=== PATIENT | male | born 1945 | race Caucasian/White ===

== ENCOUNTER 2020-05-24 10:48 | Emergency (ER) | payer MEDICARE ==
[2020-05-24] MEDS ORDERED: SODIUM CHLORIDE 0.9% 500 ML 500 ML IV ONE (11:11)
[2020-05-24] MEDS ORDERED: SODIUM CHLORIDE 0.9% 1,000 ML IV SCH (11:15)
[2020-05-24 11:25] VITALS: RESP 18; TEMP 100.2
[2020-05-24] MEDS ORDERED: ACETAMINOPHEN TAB 325 MG TAB PO STA (11:41)
[2020-05-24 12:12] LABS: Basophils # (A) 0.1 k/uL (0-0.2); Basophils % (A) 0 %; Eosinophils # (A) 0.1 k/uL (0-0.7); Eosinophils % (A) 1 %; HCT 38.1 % (39.0-53.0); HGB 13.1 gm/dL (13.0-17.5); Lymphocytes # (A) 0.7 k/uL (1.0-4.8); Lymphocytes % (A) 5 %; MCH 31.6 pg (25.0-35.0); MCHC 34.4 g/dL (31.0-37.0); MCV 91.6 fL (80.0-100.0); Mean Platelet Volume 8.3; Monocytes # (A) 0.4 k/uL (0-1.0); Monocytes % (A) 3 %; Neutrophils # (A) 11.8 k/uL (1.3-7.7); Neutrophils % (A) 90 %; Platelet Count 219 k/uL (150-450); RBC 4.16 m/uL (4.30-5.90)
[2020-05-24 12:27] LABS: Albumin 4.1 g/dL (3.5-5.0); Calcium 9.4 mg/dL (8.4-10.2); Potassium 5.1 mmol/L (3.5-5.1); Total Bilirubin 0.5 mg/dL (0.2-1.3); Total Protein 6.5 g/dL (6.3-8.2)
[2020-05-24 12:36] LABS: Amorphous Sediment,Urine Rare /hpf; Appearance,Urine Cloudy (Clear); Bacteria,Urine Rare /hpf; Bilirubin,Urine Negative (Negative); Blood,Urine Large (Negative); Color,Urine Yellow; Glucose,Urine (UA) Negative (Negative); Ketones,Urine Negative (Negative); Leukocyte Esterase,Urine Negative (Negative); Mucus,Urine Rare /hpf; Nitrite,Urine Negative (Negative); Protein,Urine Trace (Negative); RBC,Urine >182 /hpf (0-5); Specific Gravity,Urine 1.016 (1.001-1.035); Squamous Epithelial Cell,Urine <1 /hpf (0-4); Urobilinogen,Urine <2.0 mg/dL (<2.0); WBC,Urine 2 /hpf (0-5)
--- NOTE | 2020-05-24 13:21 | ED ---
Abdominal Pain HPI - General Source: patient Mode of arrival: EMS Limitations: physical limitation <Adeline Aguilar - Last Filed: 05/24/20 14:17> <Ethan Fishman - Last Filed: 05/24/20 16:17> - General Chief Complaint: Abdominal Pain Stated Complaint: Abd Pain Time Seen by Provider: 05/24/20 10:59 - History of Present Illness Initial Comments: 74yo male presents today for chief complaint of unable to have bowel movement. She states she has not had a bowel movement since . He states that he has pain in his rectum at time. pt states he also has pain midline in the abdomen and cramping throughout the lower abdomen. pt denies known fevers. denies vomiting, nausea, upper abdominal pain, chest pain or dyspnea. patient denies cough or URI symptoms. pt denies additional complaints. remaining ROS (-)> (Adeline Aguilar) - Related Data Home Medications Medication Instructions Recorded Confirmed Darifenacin Hydrobromide 15 mg PO DAILY 05/24/20 05/24/20 [Darifenacin ER] INSULIN ASPART (NovoLOG) [NovoLOG 5 unit SQ AC-TID 05/24/20 05/24/20 (formulary)] Insulin Detemir [Levemir Flextouch] 30 units SQ DAILY 05/24/20 05/24/20 Insulin Detemir [Levemir Flextouch] 45 units SQ HS 05/24/20 05/24/20 Quinapril HCl [Accupril] 20 mg PO DAILY 05/24/20 05/24/20 Repaglinide [Prandin] 2 mg PO TID 05/24/20 05/24/20 Silodosin [Rapaflo] 8 mg PO DAILY 05/24/20 05/24/20 Simvastatin [Zocor] 20 mg PO HS 05/24/20 05/24/20 glipiZIDE [Glucotrol] 10 mg PO AC-BID 05/24/20 05/24/20 metFORMIN HCL 1,000 mg PO BID 05/24/20 05/24/20 Previous Rx's Medication Instructions Recorded Sulfamethox-Tmp 800-160Mg [Bactrim 1 each PO Q12HR #20 tab 05/24/20 DS 800-160 mg] Allergies Allergy/AdvReac Type Severity Reaction Status Date / Time Penicillins Allergy Swelling Verified 05/24/20 11:50 ciprofloxacin [From Cipro] AdvReac Vomiting Verified 05/24/20 11:50 Review of Systems ROS Other: All systems not noted in ROS Statement are negative. <Adeline Aguilar - Last Filed: 05/24/20 14:17> ROS Other: All systems not noted in ROS Statement are negative. <Ethan Fishman - Last Filed: 05/24/20 16:17> ROS Statement: Those systems with pertinent positive or pertinent negative responses have been documented in the HPI. Past Medical History Additional Past Medical History / Comment(s): pt refusing to answer questions History of Any Multi-Drug Resistant Organisms: None Reported Past Surgical History: Hernia Repair Past Psychological History: No Psychological Hx Reported Smoking Status: Never smoker Past Alcohol Use History: None Reported Past Drug Use History: None Reported <Adeline Aguilar - Last Filed: 05/24/20 14:17> General Exam Limitations: physical limitation <Adeline Aguilar - Last Filed: 05/24/20 14:17> - General Exam Comments Initial Comments: General: The patient is awake and alert, in no distress Eye: +3 mm pupils are equal, round and reactive to light, extra-ocular movements are intact. No nystagmus. There is normal conjunctiva bilaterally. No signs of icterus. Ears, nose, mouth and throat: There are moist mucous membranes and no oral lesions. Neck: The neck is supple, there is no tenderness or JVD. Cardiovascular: There is a regular rate and rhythm. No murmur, rub or gallop is appreciated. Respiratory: Lungs are clear to auscultation, respirations are non-labored, breath sounds are equal. No wheezes, stridor, rales, or rhonchi. Gastrointestinal: Soft, non-distended, superior bladder margin tenderness, lower diffuse abdominal tenderness, abdomen without masses or organomegaly noted. There is no rebound or guarding present. : There is at distal tip of finger length a hard ball--no blood. attempted to remove a mild amount within finger length. Musculoskeletal: Normal ROM, no tenderness. Strength 5/5. Sensation intact. Radial pulses equal bilaterally 2+. Neurological: A&O x 3. CN II-XII intact, There are no obvious motor or sensory deficits. Coordination appears grossly intact. Speech is normal. Skin: Skin is warm and dry and no rashes or lesions are noted. Psychiatric: Cooperative, appropriate mood & affect, normal judgment. (Adeline Aguilar) Course Vital Signs 05/24/20 05/24/20 11:16 14:02 Temperature 100.2 F H Pulse Rate 90 96 Respiratory 18 18 Rate Blood Pressure 133/67 139/65 O2 Sat by Pulse 95 96 Oximetry Medical Decision Making - Lab Data Result diagrams: 05/24/20 11:50 05/24/20 11:50 <Adeline Aguilar - Last Filed: 05/24/20 14:17> - Lab Data Result diagrams: 05/24/20 11:50 05/24/20 11:50 - Radiology Data Radiology results: report reviewed (Computed tomography scan shows large stool impaction. Hsieh catheter.), image reviewed (Chest x-ray shows no acute process) <Ethan Fishman - Last Filed: 05/24/20 16:17> - Medical Decision Making Mild leukocytosis. UA RBC. Pt was retaining urine with overflow incontience, 800cc on catheterization after attempted void. pt CT rectal impaction, attempted disimpaction. CXR (-). Covid (-). Pt enema ordered. signed patient out to Kimmy Fishman pending final disposition and enema completion/patient re-evaluation. (Adeline Aguilar) Patient reevaluated twice by myself, Dr. Fishman. Patient is symptom-free at this time and comfortable with discharge home. Case was earlier discussed with Dr. Culver who is also comfortable with discharge and will follow up with patient. He did recommend providing patient IV fluids and antibiotics for possible urinary tract infection. (Ethan Fishman) - Lab Data Lab Results 05/24/20 05/24/20 05/24/20 Range/Units 11:50 11:50 11:50 WBC 13.0 H (3.8-10.6) k/uL RBC 4.16 L (4.30-5.90) m/uL Hgb 13.1 (13.0-17.5) gm/dL Hct 38.1 L (39.0-53.0) % MCV 91.6 (80.0-100.0) fL MCH 31.6 (25.0-35.0) pg MCHC 34.4 (31.0-37.0) g/dL RDW 13.0 (11.5-15.5) % Plt Count 219 (150-450) k/uL MPV 8.3 Neutrophils % 90 % Lymphocytes % 5 % Monocytes % 3 % Eosinophils % 1 % Basophils % 0 % Neutrophils # 11.8 H (1.3-7.7) k/uL Lymphocytes # 0.7 L (1.0-4.8) k/uL Monocytes # 0.4 (0-1.0) k/uL Eosinophils # 0.1 (0-0.7) k/uL Basophils # 0.1 (0-0.2) k/uL Sodium 134 L (137-145) mmol/L Potassium 5.1 (3.5-5.1) mmol/L Chloride 102 (98-107) mmol/L Carbon Dioxide 21 L (22-30) mmol/L Anion Gap 11 mmol/L BUN 63 H (9-20) mg/dL Creatinine 1.24 (0.66-1.25) mg/dL Est GFR (CKD-EPI)AfAm 65 (>60 ml/min/1.73 sqM) Est GFR (CKD-EPI)NonAf 57 (>60 ml/min/1.73 sqM) Glucose 209 H (74-99) mg/dL Plasma Lactic Acid Isak (0.7-2.0) mmol/L Calcium 9.4 (8.4-10.2) mg/dL Total Bilirubin 0.5 (0.2-1.3) mg/dL AST 20 (17-59) U/L ALT 17 (4-49) U/L Alkaline Phosphatase 74 (38-126) U/L Total Protein 6.5 (6.3-8.2) g/dL Albumin 4.1 (3.5-5.0) g/dL Amylase 51 (30-110) U/L Lipase 42 (23-300) U/L Urine Color Yellow Urine Appearance Cloudy (Clear) Urine pH 5.0 (5.0-8.0) Ur Specific [place] 1.016 (1.001-1.035) Urine Protein Trace H (Negative) Urine Glucose (UA) Negative (Negative) Urine Ketones Negative (Negative) Urine Blood Large H (Negative) Urine Nitrite Negative (Negative) Urine Bilirubin Negative (Negative) Urine Urobilinogen <2.0 (<2.0) mg/dL Ur Leukocyte Esterase Negative (Negative) Urine RBC >182 H (0-5) /hpf Urine WBC 2 (0-5) /hpf Ur Squamous Epith Cells <1 (0-4) /hpf Amorphous Sediment Rare H (None) /hpf Urine Bacteria Rare H (None) /hpf Urine Mucus Rare H (None) /hpf Coronavirus (PCR) (Not Detectd) 05/24/20 05/24/20 Range/Units 11:50 11:50 WBC (3.8-10.6) k/uL RBC (4.30-5.90) m/uL Hgb (13.0-17.5) gm/dL Hct (39.0-53.0) % MCV (80.0-100.0) fL MCH (25.0-35.0) pg MCHC (31.0-37.0) g/dL RDW (11.5-15.5) % Plt Count (150-450) k/uL MPV Neutrophils % % Lymphocytes % % Monocytes % % Eosinophils % % Basophils % % Neutrophils # (1.3-7.7) k/uL Lymphocytes # (1.0-4.8) k/uL Monocytes # (0-1.0) k/uL Eosinophils # (0-0.7) k/uL Basophils # (0-0.2) k/uL Sodium (137-145) mmol/L Potassium (3.5-5.1) mmol/L Chloride (98-107) mmol/L Carbon Dioxide (22-30) mmol/L Anion Gap mmol/L BUN (9-20) mg/dL Creatinine (0.66-1.25) mg/dL Est GFR (CKD-EPI)AfAm (>60 ml/min/1.73 sqM) Est GFR (CKD-EPI)NonAf (>60 ml/min/1.73 sqM) Glucose (74-99) mg/dL Plasma Lactic Acid Isak 1.6 (0.7-2.0) mmol/L Calcium (8.4-10.2) mg/dL Total Bilirubin (0.2-1.3) mg/dL AST (17-59) U/L ALT (4-49) U/L Alkaline Phosphatase (38-126) U/L Total Protein (6.3-8.2) g/dL Albumin (3.5-5.0) g/dL Amylase (30-110) U/L Lipase (23-300) U/L Urine Color Urine Appearance (Clear) Urine pH (5.0-8.0) Ur Specific [place] (1.001-1.035) Urine Protein (Negative) Urine Glucose (UA) (Negative) Urine Ketones (Negative) Urine Blood (Negative) Urine Nitrite (Negative) Urine Bilirubin (Negative) Urine Urobilinogen (<2.0) mg/dL Ur Leukocyte Esterase (Negative) Urine RBC (0-5) /hpf Urine WBC (0-5) /hpf Ur Squamous Epith Cells (0-4) /hpf Amorphous Sediment (None) /hpf Urine Bacteria (None) /hpf Urine Mucus (None) /hpf Coronavirus (PCR) Not Detected (Not Detectd) Disposition <Adeline Aguilar - Last Filed: 05/24/20 14:17> Is patient prescribed a controlled substance at d/c from ED?: No Time of Disposition: 16:15 <Ethan Fishman - Last Filed: 05/24/20 16:17> Clinical Impression: Urinary retention, Dehydration, Constipation Disposition: HOME SELF-CARE Condition: Stable Instructions (If sedation given, give patient instructions): Constipation (ED), High Fiber Diet (ED), Urinary Retention in Men (ED) Additional Instructions: Please do follow-up with your primary care physician in the next couple of days for recheck. You will need repeat blood work done. Have primary care physician review urine culture results. You may also need to see urology, number provided. Please discuss this with Dr. Culver. Antibiotic prescription has been sent to your pharmacy. Prescriptions: Sulfamethox-Tmp 800-160Mg [Bactrim DS 800-160 mg] 1 each PO Q12HR #20 tab Referrals: dE Culver MD [Primary Care Provider] - 1-2 days Farzad Lambert MD [STAFF PHYSICIAN] - 1-2 days
--- NOTE | 2020-05-24 13:42 | XR ---
EXAMINATION TYPE: XR chest 2V DATE OF EXAM: 05/24/2020 COMPARISON: NONE HISTORY: Fever and pain. TECHNIQUE: Frontal and lateral views of the chest are obtained. FINDINGS: There is no focal air space opacity, pleural effusion, or pneumothorax seen. The cardiac silhouette size is within normal limits. The osseous structures are intact. IMPRESSION: No acute cardiopulmonary process.
--- NOTE | 2020-05-24 14:01 | CT ---
EXAMINATION TYPE: CT abdomen pelvis w con DATE OF EXAM: 05/24/2020 COMPARISON: NONE HISTORY: 74-year-old male left lower quadrant abdominal pain, suspected diverticulitis. TECHNIQUE: Contiguous axial scanning of the abdomen and pelvis following administration of 80 ml Isov ue 300 IV contrast. Delayed images through the kidneys and coronal/sagittal reconstructions performe d. CT DLP: 2013.1 mGycm Automated exposure control for dose reduction was used. FINDINGS: Heart normal size without pericardial effusion. Linear atelectasis in the lower lungs without pleural effusion. Slight asymmetric elevation right hemidiaphragm. Liver enlarged at 21.6 cm. No focal lesion seen. Portal venous system is patent. No biliary ductal di latation. Gallbladder, adrenal glands, left kidney, spleen, and pancreas show no gross abnormal mobility. There is a 1.3 cm and 3 mm calcification within the right kidney with mild hydronephrosis. No dilated small bowel, free fluid, or free air. No mesenteric or retroperitoneal lymphadenopathy. M ild to moderate atherosclerotic calcifications infrarenal abdominal aorta. The cecum is high riding. There is moderate scattered stool. Redundant sigmoid colon. Solid stool imp acted within the rectum distending up to 7.8 cm wide. No surrounding inflammation. Bladder is collapsed but with mild wall thickening and some mild surrounding fat stranding. A Vasquez c atheter is in place. Approximately 4 bladder calculi are present in carotid along with the Vasquez ball oon. The calculi range in size from 6 mm up to 1.9 cm. Patulous left inguinal canal. Prostate gland measures 4.7 cm wide. No abnormal fluid collection in the pelvis or pelvic lymphadenop athy. Bones: AC degenerative change left hip with superior joint subluxation secondary to the bony remodeli ng. Mild degenerative change right hip. Right L5 hemisacralization. Dextro convex curvature of the jud mbar spine. Moderate degenerative disc disease L1-L3 levels. Hypertrophic facet arthropathy especiall y towards the right in the lower lumbar spine. Reticulations and soft tissue thickening within the subcutaneous adipose of the anterior midabdomen c ould reflect subcutaneous injections. IMPRESSION: 1. SOLID STOOL IMPACTED IN THE RECTUM DISTENDING IT UP TO 7.8 CM WIDE. CORRELATE FOR FECAL IMPACTION. 2. VASQUEZ CATHETER IN PLACE. THE BLADDER IS COLLAPSED AND SHOWS SOME WALL THICKENING WITH MILD FAT STR ANDING. CORRELATE TO EXCLUDE CYSTITIS. 3. APPROXIMATELY 4 BLADDER CALCULI RANGING IN SIZE FROM 6 MM UP TO 1.9 CM. 4. RIGHT-SIDED NEPHROLITHIASIS MEASURING UP TO 1.3 CM WITH MILD HYDRONEPHROSIS. NO OBSTRUCTING URETER AL CALCULUS IS SEEN. WITH THE BLADDER COLLAPSED, ONE OF THE BLADDER CALCULI MAY BE PRESSING AGAINST T HE URETERAL ORIFICE. 5. NO SPECIFIC FINDINGS OF ACUTE DIVERTICULITIS. 6. END-STAGE LEFT HIP OA WITH BONY REMODELING AND SUPERIOR JOINT SUBLUXATION.
[2020-05-24 17:19] VITALS: BP 142/70; PULSE 90
== END 2020-05-24 18:26 | disposition home or self-care (01) ==
LOC: EC 10:48
DX: K59.00 Constipation, unspecified (principal); E86.0 Dehydration; R33.9 Retention of urine, unspecified; Z20.828 Contact with and (suspected) exposure to other viral communicable diseases; Z88.0 Allergy status to penicillin; Z88.1 Allergy status to other antibiotic agents; D72.829 Elevated white blood cell count, unspecified
CPT/HCPCS: 36415; 80053; 82150; 83605; 83690; 85025; 81001; 87086; 87635; 71046; 74177; 99285; 96360; 96361 ×5; Q9967

== ENCOUNTER 2020-05-27 12:06 | Emergency (ER) | payer MEDICARE ==
[2020-05-27] MEDS ORDERED: LIDOCAINE URO-JET JELLY 2% 5 ML KIT URETHRAL ONE (12:23)
--- NOTE | 2020-05-27 12:36 | ED ---
Male Urogenital HPI - General Chief complaint: Urogenital Stated complaint: Trouble Urination Time Seen by Provider: 05/27/20 12:18 Source: patient, RN notes reviewed Mode of arrival: ambulatory Limitations: no limitations - History of Present Illness Initial comments: 74-year-old male presents emergency Department chief complaint urinary retention. Patient was seen here a few days ago for similar complaints. They thought was related to constipation but states he still having trouble going. Patient called his urologist recommended to go back in for a catheter and follow-up on Sunday. Patient has no other complaints no fevers or chills no abdominal pain - Related Data Home Medications Medication Instructions Recorded Confirmed Darifenacin Hydrobromide 15 mg PO DAILY 05/24/20 05/24/20 [Darifenacin ER] INSULIN ASPART (NovoLOG) [NovoLOG 5 unit SQ AC-TID 05/24/20 05/24/20 (formulary)] Insulin Detemir [Levemir Flextouch] 30 units SQ DAILY 05/24/20 05/24/20 Insulin Detemir [Levemir Flextouch] 45 units SQ HS 05/24/20 05/24/20 Quinapril HCl [Accupril] 20 mg PO DAILY 05/24/20 05/24/20 Repaglinide [Prandin] 2 mg PO TID 05/24/20 05/24/20 Silodosin [Rapaflo] 8 mg PO DAILY 05/24/20 05/24/20 Simvastatin [Zocor] 20 mg PO HS 05/24/20 05/24/20 glipiZIDE [Glucotrol] 10 mg PO AC-BID 05/24/20 05/24/20 metFORMIN HCL 1,000 mg PO BID 05/24/20 05/24/20 Previous Rx's Medication Instructions Recorded Sulfamethox-Tmp 800-160Mg [Bactrim 1 each PO Q12HR #20 tab 05/24/20 DS 800-160 mg] Sulfamethox-Tmp 800-160Mg [Bactrim 1 each PO Q12HR #20 tab 05/24/20 DS 800-160 mg] Allergies Allergy/AdvReac Type Severity Reaction Status Date / Time Penicillins Allergy Swelling Verified 05/27/20 12:16 ciprofloxacin [From Cipro] AdvReac Vomiting Verified 05/27/20 12:16 Review of Systems ROS Statement: Those systems with pertinent positive or pertinent negative responses have been documented in the HPI. ROS Other: All systems not noted in ROS Statement are negative. Past Medical History Past Medical History: Diabetes Mellitus, Hypertension, Prostate Disorder Additional Past Medical History / Comment(s): prostate issues History of Any Multi-Drug Resistant Organisms: None Reported Past Surgical History: Hernia Repair Past Psychological History: No Psychological Hx Reported Smoking Status: Never smoker Past Alcohol Use History: None Reported Past Drug Use History: None Reported General Exam Limitations: no limitations General appearance: alert, in no apparent distress Head exam: Present: atraumatic, normocephalic, normal inspection Respiratory exam: Present: normal lung sounds bilaterally. Absent: respiratory distress, wheezes, rales, rhonchi, stridor Cardiovascular Exam: Present: regular rate, normal rhythm, normal heart sounds. Absent: systolic murmur, diastolic murmur, rubs, gallop, clicks GI/Abdominal exam: Present: soft, normal bowel sounds. Absent: distended, tenderness, guarding, rebound, rigid Course Vital Signs 05/27/20 12:12 Temperature 98.9 F Pulse Rate 98 Respiratory 20 Rate Blood Pressure 153/63 O2 Sat by Pulse 97 Oximetry Medical Decision Making - Medical Decision Making Catheter is placed with no complications. Vitals reviewed unremarkable. Patient did have large amount of urine output. The catheter was left in place and follow-up on Sunday with his urologist Dr. Carson Disposition Clinical Impression: Urinary retention Disposition: HOME SELF-CARE Condition: Stable Instructions (If sedation given, give patient instructions): Urinary Retention in Men (ED) Additional Instructions: Please return to the Emergency Department if symptoms worsen or any other concerns. Is patient prescribed a controlled substance at d/c from ED?: No Referrals: Ed Culver MD [Primary Care Provider] - 1-2 days Griffin Carson MD [STAFF PHYSICIAN] - 1-2 days Time of Disposition: 12:35
[2020-05-27 12:47] VITALS: BP 153/63; PULSE 98; RESP 20; TEMP 98.9
== END 2020-05-27 12:50 | disposition home or self-care (01) ==
LOC: EC 12:06
DX: R33.9 Retention of urine, unspecified (principal); E11.9 Type 2 diabetes mellitus without complications; I10 Essential (primary) hypertension; Z79.4 Long term (current) use of insulin; Z79.899 Other long term (current) drug therapy; Z88.0 Allergy status to penicillin; Z88.1 Allergy status to other antibiotic agents
CPT/HCPCS: 51702; 99283

== ENCOUNTER 2020-06-16 08:38 | Day surgery (SDC) | payer MEDICARE ==
[2020-06-11 16:13] VITALS: BMI 32.8
--- NOTE | 2020-06-15 19:30 | P.GSHP ---
History of Present Illness H&P Date: 06/15/20 74 yo male with urine retention and multiple bladder stones He comes for cystolithotripsy to see if it will liberate him of his urine retention The risks complications and alternatives have been discussed - Constitutional Constitutional: Denies chills, Denies fever - EENT Eyes: denies blurred vision, denies pain Ears, nose, mouth and throat: Denies headache, Denies sore throat - Cardiovascular Cardiovascular: Denies chest pain, Denies shortness of breath - Respiratory Respiratory: Denies cough, Denies 7 - Gastrointestinal Gastrointestinal: Denies abdominal pain, Denies diarrhea, Denies nausea, Denies vomiting - Genitourinary (Female) Genitourinary: Denies dysuria, Denies hematuria - Genitourinary (Male) Genitourinary: Denies dysuria, Denies hematuria - Musculoskeletal Musculoskeletal: Denies myalgias - Integumentary Integumentary: Denies pruritus, Denies rash - Neurological Neurological: Denies numbness, Denies weakness - Psychiatric Psychiatric: Denies anxiety, Denies depression - Endocrine Endocrine: Denies fatigue, Denies weight change Past Medical History Past Medical History: Diabetes Mellitus, Hypertension, Prostate Disorder Additional Past Medical History / Comment(s): BPH, PSORIASIS, BACK , HIP & KNEE PAIN- USES CANE AND WALKER, HX OF EXPOSURE AND TX FOR TB (1968), [facility] SURGERY CHILD- LEFT LEG IS SHORTER, IS SMALLER IN DIAMETER AND HAS LIMITED ROM. , STATES LEFT HIP "NON-EXISTENT"., BLADDER STONES. History of Any Multi-Drug Resistant Organisms: None Reported Past Surgical History: Hernia Repair Additional Past Surgical History / Comment(s): MUSCLES IN LEGS LENGTHENED AT 3 AND 10 YEARS OLD, Past Anesthesia/Blood Transfusion Reactions: No Reported Reaction Past Psychological History: No Psychological Hx Reported Smoking Status: Former smoker Past Alcohol Use History: None Reported Additional Past Alcohol Use History / Comment(s): QUIT SMOKING IN THE , STARTED TEENAGER, SMOKED CIGARETTES AND PIPE. Past Drug Use History: None Reported - Past Family History Mother Family Medical History: No Reported History Medications and Allergies Home Medications Medication Instructions Recorded Confirmed Type Darifenacin Hydrobromide 15 mg PO DAILY 05/24/20 06/11/20 History [Darifenacin ER] INSULIN ASPART (NovoLOG) [NovoLOG 5 unit SQ AC-TID PRN 05/24/20 06/11/20 History (formulary)] Insulin Detemir [Levemir Flextouch] 30 units SQ DAILY 05/24/20 06/11/20 History Insulin Detemir [Levemir Flextouch] 40 units SQ HS 05/24/20 06/11/20 History Quinapril HCl [Accupril] 20 mg PO DAILY 05/24/20 06/11/20 History Repaglinide [Prandin] 2 mg PO TID 05/24/20 06/11/20 History Silodosin [Rapaflo] 8 mg PO DAILY 05/24/20 06/11/20 History Simvastatin [Zocor] 20 mg PO HS 05/24/20 06/11/20 History glipiZIDE [Glucotrol] 10 mg PO AC-BID 05/24/20 06/11/20 History metFORMIN HCL 1,000 mg PO BID 05/24/20 06/11/20 History Allergies Allergy/AdvReac Type Severity Reaction Status Date / Time Penicillins Allergy Swelling Verified 06/11/20 15:30 ciprofloxacin [From Cipro] AdvReac Vomiting Verified 06/11/20 15:30 Surgical - Exam - General well developed, well nourished, no distress - Eyes PERRL - ENT no hearing loss - Neck no masses, trachea midline - Respiratory normal expansion, normal respiratory effort - Cardiovascular Rhythm: regular - Abdomen Abdomen: soft, non tender - Genitourinary indwelling catheter. normal penis with no external lesions, testicles present - Neurologic normal sensation - Psychiatric oriented to time, oriented to person, oriented to place, speech is normal, memory intact Assessment and Plan Assessment: Impression: Urine retention, bladder stones, bphj Plan: Cystolithotripsy[large]
[~2020-06-16 08:38] MED LIST: CLINDAMYCIN 900 MG in DEXTROSE 5% IN WATER 50 ML IVPB PRN; DEXAMETHASONE SOD PHOSPHATE 4 MG/ML 1 ML VIAL IV ONE; GENTAMICIN 130 MG in SODIUM CHLORIDE 0.9% 100 ML IVPB PRN; LACTATED RINGERS 1,000 ML IV SCH; LIDOCAINE 1% (10MG/ML) FOR IV START INTRADERMA PRN; ONDANSETRON 4 MG/2 ML VIAL IVP ONE; Pre Op ABX Message 1 EACH MISC MISCELLANE ONE
[2020-06-16 09:42] LABS: Glucose,Whole Blood 104 mg/dL (75-99)
[2020-06-16] MEDS ORDERED: MIDAZOLAM 2 MG/2 ML VIAL ONE (09:53)
[2020-06-16] MEDS ORDERED: LIDOCAINE 1% INJ 10MG/ML (20 ML MDV) ONE (09:53)
[2020-06-16] MEDS ORDERED: PROPOFOL 10 MG/ML 20 ML VIAL IV ONE (09:53)
[2020-06-16] MEDS ORDERED: fentaNYL (PF) 50 MCG/ML 2 ML AMP ONE (09:53)
[2020-06-16] MEDS ORDERED: PHENYLEPHRINE 10 MG/ML VIAL ONE (09:53)
[2020-06-16] MEDS ORDERED: LACTATED RINGERS 1,000 ML IV ONE (10:56)
--- NOTE | 2020-06-16 11:35 | P.OP ---
Date of Procedure: 06/16/20 Preoperative Diagnosis: Bladder calculi, large Postoperative Diagnosis: Same Procedure(s) Performed: Cystoscopy with cystolithotripsy ( large) Anesthesia: DAVIDA Surgeon: Griffin Carson Estimated Blood Loss (ml): 10 Pathology: other (stone) Condition: stable Disposition: PACU Indications for Procedure: The patient is 74. He is in urine retention. He was found to have bladder stones, large greater than 2.5 cm. He comes for cystoscopy lithotripsy Description of Procedure: The patient is brought to the operating suite. Given a general anesthesia. He's placed lithotomy position with care to his extremities. He is prepped and draped sterilely. A 17-Urdu sheath and Foroblique lenses introduced in urethra. There is marked lateral lobe obstruction with a small intravesical middle lobe. There is a Large 3 cm stone and then 3 other smaller stones. With 1000 laser probe and 50 W of energy the stones are broken into tiny pieces and eventually flushed out of the bladder with the Ellik evacuator. I then reinspected the bladder and there are no remaining stones. I removed the cystoscope and passed an 18-Urdu coud-tip catheter 5 mL balloon into the bladder with clear urine return. It irrigate freely. The patient's awake and returned recovery room good condition. HE tolerated the procedure well be discharged home upon recovery. Blood loss is minimal
[2020-06-16] MEDS ORDERED: HYDROmorphone 1 MG/ML 1 ML SYRINGE IVP ONE ×2 (11:45→11:58)
[2020-06-16 11:49] VITALS: TEMP 97
[2020-06-16] MEDS: fentaNYL (PF) 50 MCG/ML 2 ML AMP IVP ONE ×2 (12:10→12:25)
[2020-06-16 12:57] LABS: Glucose,Whole Blood 120 mg/dL (75-99)
[2020-06-16 13:39] VITALS: RESP 18
[2020-06-16 14:24] VITALS: BP 149/64; PULSE 88
== END 2020-06-16 14:48 | disposition home or self-care (01) ==
LOC: OR 08:38
PROVIDERS: ATTEND Urology
DX: N21.0 Calculus in bladder (principal); N40.1 Benign prostatic hyperplasia with lower urinary tract symptoms; R33.8 Other retention of urine; E11.9 Type 2 diabetes mellitus without complications; I10 Essential (primary) hypertension; L40.9 Psoriasis, unspecified; M21.70 Unequal limb length (acquired), unspecified site; E78.5 Hyperlipidemia, unspecified; Z88.0 Allergy status to penicillin; Z88.1 Allergy status to other antibiotic agents; Z86.11 Personal history of tuberculosis; Z98.890 Other specified postprocedural states; Z87.442 Personal history of urinary calculi; Z87.891 Personal history of nicotine dependence; Z79.899 Other long term (current) drug therapy; Z79.4 Long term (current) use of insulin
CPT/HCPCS: 82365; 52318; J2250; J1100; J2370; J2405; J2001; J3010; J1580; J1170; J2704

== ENCOUNTER 2020-06-21 19:56 | Emergency (ER) | payer MEDICARE ==
[2020-06-21 20:12] VITALS: BP 118/62; PULSE 72; RESP 20; TEMP 98.5
[2020-06-21] MEDS ORDERED: LIDOCAINE URO-JET JELLY 2% 5 ML KIT URETHRAL ONE (20:25)
--- NOTE | 2020-06-21 21:09 | ED ---
General Adult HPI - General Chief complaint: Urogenital Stated complaint: Trouble urinating Time Seen by Provider: 06/21/20 20:16 Source: patient Mode of arrival: wheelchair Limitations: no limitations - History of Present Illness Initial comments: 74-year-old male with a past medical history of bladder stones, prostate disorder presents to the emergency room for inability to urinate. Patient reports he had surgery a week and a half ago for kidney stones through his urethra He states that he had his Hsieh catheter removed today. He has been unable to urinate since this morning. He was told by urology that if he cannot urinate come back to the emergency room. Patient has no other complaints at this time including shortness of breath, chest pain, abdominal pain, nausea or vomiting, headache, or visual changes. - Related Data Home Medications Medication Instructions Recorded Confirmed Darifenacin Hydrobromide 15 mg PO DAILY 05/24/20 06/11/20 [Darifenacin ER] INSULIN ASPART (NovoLOG) [NovoLOG 5 unit SQ AC-TID PRN 05/24/20 06/11/20 (formulary)] Insulin Detemir [Levemir Flextouch] 30 units SQ DAILY 05/24/20 06/11/20 Insulin Detemir [Levemir Flextouch] 40 units SQ HS 05/24/20 06/11/20 Quinapril HCl [Accupril] 20 mg PO DAILY 05/24/20 06/11/20 Repaglinide [Prandin] 2 mg PO TID 05/24/20 06/11/20 Silodosin [Rapaflo] 8 mg PO DAILY 05/24/20 06/11/20 Simvastatin [Zocor] 20 mg PO HS 05/24/20 06/11/20 glipiZIDE [Glucotrol] 10 mg PO AC-BID 05/24/20 06/11/20 metFORMIN HCL 1,000 mg PO BID 05/24/20 06/11/20 Allergies Allergy/AdvReac Type Severity Reaction Status Date / Time Penicillins Allergy Swelling Verified 06/21/20 20:12 ciprofloxacin [From Cipro] AdvReac Vomiting Verified 06/21/20 20:12 Review of Systems ROS Statement: Those systems with pertinent positive or pertinent negative responses have been documented in the HPI. ROS Other: All systems not noted in ROS Statement are negative. Past Medical History Past Medical History: Prostate Disorder Additional Past Medical History / Comment(s): left hip and leg chronic pain, arthritis. History of Any Multi-Drug Resistant Organisms: None Reported Past Surgical History: Hernia Repair Additional Past Surgical History / Comment(s): bladder stones. Past Psychological History: No Psychological Hx Reported Smoking Status: Never smoker Past Alcohol Use History: None Reported Past Drug Use History: None Reported General Exam Limitations: no limitations General appearance: alert Head exam: Present: atraumatic, normal inspection Eye exam: Present: normal appearance, PERRL, EOMI. Absent: scleral icterus ENT exam: Present: normal exam, mucous membranes moist Neck exam: Present: normal inspection, full ROM. Absent: tenderness Respiratory exam: Present: normal lung sounds bilaterally. Absent: respiratory distress, wheezes Cardiovascular Exam: Present: regular rate, normal rhythm, normal heart sounds GI/Abdominal exam: Present: soft, normal bowel sounds. Absent: distended, tenderness Neurological exam: Present: alert Course Vital Signs 06/21/20 20:08 Temperature 98.5 F Pulse Rate 72 Respiratory 20 Rate Blood Pressure 118/62 O2 Sat by Pulse 99 Oximetry Medical Decision Making - Medical Decision Making Patient had cystoscopy lithotripsy performed 06/16/2020 due to bladder stones by Dr. Traore. Patient had his indwelling Hsieh catheter removed today. He was unable to urinate throughout the day and then presented to the emergency room. Nursing staff was able to replace his catheter. He will follow up with urology. He will return for any worsening symptoms Disposition Clinical Impression: Urinary retention Disposition: HOME SELF-CARE Condition: Good Instructions (If sedation given, give patient instructions): Urinary Retention in Men (ED) Additional Instructions: Please follow-up with urology by calling her office tomorrow to tell them you had to have a new catheter put in. Return to the emergency room for any worsening symptoms. Is patient prescribed a controlled substance at d/c from ED?: No Referrals: Ed Culver MD [Primary Care Provider] - 1-2 days Griffin Carson MD [STAFF PHYSICIAN] - 1-2 days Time of Disposition: 21:17
== END 2020-06-21 21:28 | disposition home or self-care (01) ==
LOC: EC 19:56
DX: R33.9 Retention of urine, unspecified (principal); Z79.4 Long term (current) use of insulin; Z79.899 Other long term (current) drug therapy; Z88.0 Allergy status to penicillin; Z88.1 Allergy status to other antibiotic agents
CPT/HCPCS: 51702; 99283

== ENCOUNTER 2020-07-09 21:40 | Observation (INO) | payer MEDICARE ==
[2020-07-09] MEDS ORDERED: ACETAMINOPHEN TAB 325 MG TAB PO STA (21:51)
[2020-07-09] MEDS ORDERED: SODIUM CHLORIDE 0.9% 1,000 ML IV ONE ×2 (21:53→23:14)
--- NOTE | 2020-07-09 21:53 | ED ---
Recheck HPI - General Chief Complaint: Recheck/Abnormal Lab/Rx Stated Complaint: Urogential Time Seen by Provider: 07/09/20 21:46 Source: patient, EMS Mode of arrival: EMS Limitations: no limitations - History of Present Illness Initial Comments: 74-year-old male presenting for chief complaint of possibly clogged Hsieh catheter. Patient states he has an enlarged prostate and has had chronic Hsieh catheters on and off secondary to retention. Patient states he does not like using his large bag and simply uses his leg bag all the time. Patient states that he noticed it was not draining for the past 8 hours was concerned is blocked and does present to the ER he denies known fevers chills generalized. Patient denies any chest pain shortness of breath cough congestion dysuria urgency frequency diarrhea rashes or additional complaints. upon arrival there is obvious thick chunks in the leg catheter bag. - Related Data Home Medications Medication Instructions Recorded Confirmed Darifenacin Hydrobromide 15 mg PO DAILY 05/24/20 07/09/20 [Darifenacin ER] INSULIN ASPART (NovoLOG) [NovoLOG 5 unit SQ AC-TID PRN 05/24/20 07/09/20 (formulary)] Insulin Detemir [Levemir Flextouch] 30 units SQ DAILY 05/24/20 07/09/20 Insulin Detemir [Levemir Flextouch] 40 units SQ HS 05/24/20 07/09/20 Quinapril HCl [Accupril] 20 mg PO DAILY 05/24/20 07/09/20 Repaglinide [Prandin] 2 mg PO TID 05/24/20 07/09/20 Simvastatin [Zocor] 20 mg PO HS 05/24/20 07/09/20 glipiZIDE [Glucotrol] 10 mg PO AC-BID 05/24/20 07/09/20 metFORMIN HCL 1,000 mg PO BID 05/24/20 07/09/20 Acetaminophen Tab [Tylenol] 500 mg PO ONCE PRN 07/09/20 07/09/20 Previous Rx's Medication Instructions Recorded Cephalexin [Keflex] 500 mg PO Q6HR 10 Days #40 cap 07/09/20 Allergies Allergy/AdvReac Type Severity Reaction Status Date / Time Penicillins Allergy Swelling Verified 07/09/20 23:43 ciprofloxacin [From Cipro] AdvReac Vomiting Verified 07/09/20 23:43 Review of Systems ROS Statement: Those systems with pertinent positive or pertinent negative responses have been documented in the HPI. ROS Other: All systems not noted in ROS Statement are negative. Past Medical History Past Medical History: Prostate Disorder Additional Past Medical History / Comment(s): left hip and leg chronic pain, arthritis. History of Any Multi-Drug Resistant Organisms: None Reported Past Surgical History: Hernia Repair Additional Past Surgical History / Comment(s): bladder stones. Past Psychological History: No Psychological Hx Reported Smoking Status: Never smoker Past Alcohol Use History: None Reported Past Drug Use History: None Reported General Exam - General Exam Comments Initial Comments: General: The patient is awake and alert, in no distress Eye: +3 mm pupils are equal, round and reactive to light, extra-ocular movements are intact. No nystagmus. There is normal conjunctiva bilaterally. No signs of icterus. Ears, nose, mouth and throat: There are moist mucous membranes and no oral lesions. Neck: The neck is supple, there is no tenderness or JVD. Cardiovascular: There is a regular rate and rhythm. No murmur, rub or gallop is appreciated. Respiratory: Lungs are clear to auscultation, respirations are non-labored, breath sounds are equal. No wheezes, stridor, rales, or rhonchi. Gastrointestinal: Soft, non-distended, non-tender abdomen without masses or organomegaly noted. There is no rebound or guarding present. Musculoskeletal: Normal ROM, no tenderness. Strength 5/5. Sensation intact. Radial pulses equal bilaterally 2+. Neurological: A&O x 3. CN II-XII intact grossly, There are no obvious motor or sensory deficits. Coordination appears grossly intact. Speech is normal. Skin: Skin is warm and dry and no rashes. On buttock there is areas of excoriation, area of drainage. Psychiatric: Cooperative, appropriate mood & affect, normal judgment. Limitations: no limitations Course Vital Signs 07/09/20 07/10/20 21:41 00:14 Temperature 100.7 F H 97.2 F L Pulse Rate 103 H 84 Respiratory 16 18 Rate Blood Pressure 162/74 112/81 O2 Sat by Pulse 95 97 Oximetry Medical Decision Making - Medical Decision Making febrile 74-year-old male presenting for possible clogged Hsieh. Patient does not use his Hsieh catheter as instructed he simply uses his leg bag all the time which is not allow proper drainage. Patient has signs of infection on urinalysis as well as thick white chunks noted in the urine itself. Patient has leukocytosis lactic acidosis. Heart rate remains at 2 9800 at this point we will initiate patient on broad-spectrum antibiotics hydrated patient obtain blood cultures which are pending, and repeat lactic acid. Patient also mentio hossein his buttock was painful and a wound was noted. patient will be admitted for further monitoring/iv abx. patient agreeable to admission as is attending Dr. Lyn - Lab Data Result diagrams: 07/09/20 22:35 07/09/20 22:35 Lab Results 07/09/20 07/09/20 07/09/20 Range/Units 21:52 22:35 22:35 WBC 12.4 H (3.8-10.6) k/uL RBC 4.24 L (4.30-5.90) m/uL Hgb 13.0 (13.0-17.5) gm/dL Hct 39.4 (39.0-53.0) % MCV 92.8 (80.0-100.0) fL MCH 30.7 (25.0-35.0) pg MCHC 33.0 (31.0-37.0) g/dL RDW 12.8 (11.5-15.5) % Plt Count 277 (150-450) k/uL MPV 8.4 Neutrophils % 88 % Lymphocytes % 7 % Monocytes % 3 % Eosinophils % 1 % Basophils % 0 % Neutrophils # 10.9 H (1.3-7.7) k/uL Lymphocytes # 0.8 L (1.0-4.8) k/uL Monocytes # 0.4 (0-1.0) k/uL Eosinophils # 0.2 (0-0.7) k/uL Basophils # 0.1 (0-0.2) k/uL Sodium (137-145) mmol/L Potassium (3.5-5.1) mmol/L Chloride (98-107) mmol/L Carbon Dioxide (22-30) mmol/L Anion Gap mmol/L BUN (9-20) mg/dL Creatinine (0.66-1.25) mg/dL Est GFR (CKD-EPI)AfAm (>60 ml/min/1.73 sqM) Est GFR (CKD-EPI)NonAf (>60 ml/min/1.73 sqM) Glucose (74-99) mg/dL Lactic Ac Sepsis Rflx Plasma Lactic Acid Isak 2.5 H* (0.7-2.0) mmol/L Calcium (8.4-10.2) mg/dL Total Bilirubin (0.2-1.3) mg/dL AST (17-59) U/L ALT (4-49) U/L Alkaline Phosphatase (38-126) U/L Total Protein (6.3-8.2) g/dL Albumin (3.5-5.0) g/dL Urine Color Yellow Urine Appearance Cloudy (Clear) Urine pH 7.0 (5.0-8.0) Ur Specific [place] 1.018 (1.001-1.035) Urine Protein 1+ H (Negative) Urine Glucose (UA) 3+ H (Negative) Urine Ketones Negative (Negative) Urine Blood Moderate H (Negative) Urine Nitrite Positive (Negative) Urine Bilirubin Negative (Negative) Urine Urobilinogen <2.0 (<2.0) mg/dL Ur Leukocyte Esterase Large H (Negative) Urine RBC >182 H (0-5) /hpf Urine WBC >182 H (0-5) /hpf Urine WBC Clumps Many H (None) /hpf Ur Squamous Epith Cells <1 (0-4) /hpf Urine Bacteria Few H (None) /hpf Coronavirus (PCR) (Not Detectd) 07/09/20 07/09/20 07/10/20 Range/Units 22:35 22:55 00:26 WBC (3.8-10.6) k/uL RBC (4.30-5.90) m/uL Hgb (13.0-17.5) gm/dL Hct (39.0-53.0) % MCV (80.0-100.0) fL MCH (25.0-35.0) pg MCHC (31.0-37.0) g/dL RDW (11.5-15.5) % Plt Count (150-450) k/uL MPV Neutrophils % % Lymphocytes % % Monocytes % % Eosinophils % % Basophils % % Neutrophils # (1.3-7.7) k/uL Lymphocytes # (1.0-4.8) k/uL Monocytes # (0-1.0) k/uL Eosinophils # (0-0.7) k/uL Basophils # (0-0.2) k/uL Sodium 135 L (137-145) mmol/L Potassium 5.4 H (3.5-5.1) mmol/L Chloride 104 (98-107) mmol/L Carbon Dioxide 20 L (22-30) mmol/L Anion Gap 11 mmol/L BUN 51 H (9-20) mg/dL Creatinine 1.15 (0.66-1.25) mg/dL Est GFR (CKD-EPI)AfAm 72 (>60 ml/min/1.73 sqM) Est GFR (CKD-EPI)NonAf 62 (>60 ml/min/1.73 sqM) Glucose 301 H (74-99) mg/dL Lactic Ac Sepsis Rflx Y Plasma Lactic Acid Isak (0.7-2.0) mmol/L Calcium 9.1 (8.4-10.2) mg/dL Total Bilirubin 0.3 (0.2-1.3) mg/dL AST 18 (17-59) U/L ALT 14 (4-49) U/L Alkaline Phosphatase 82 (38-126) U/L Total Protein 6.2 L (6.3-8.2) g/dL Albumin 3.7 (3.5-5.0) g/dL Urine Color Urine Appearance (Clear) Urine pH (5.0-8.0) Ur Specific [place] (1.001-1.035) Urine Protein (Negative) Urine Glucose (UA) (Negative) Urine Ketones (Negative) Urine Blood (Negative) Urine Nitrite (Negative) Urine Bilirubin (Negative) Urine Urobilinogen (<2.0) mg/dL Ur Leukocyte Esterase (Negative) Urine RBC (0-5) /hpf Urine WBC (0-5) /hpf Urine WBC Clumps (None) /hpf Ur Squamous Epith Cells (0-4) /hpf Urine Bacteria (None) /hpf Coronavirus (PCR) Not Detected (Not Detectd) Disposition Clinical Impression: UTI (urinary tract infection), Fever, Lactic acidosis, Bed sore on buttock Disposition: ADMITTED IP TO THIS HOSP Condition: Stable Is patient prescribed a controlled substance at d/c from ED?: No Time of Disposition: 23:16 Decision to Admit Reason: Admit from EC Decision Date: 07/10/20 Decision Time: 00:22
[2020-07-09 22:30] LABS: Basophils # (A) 0.1 k/uL (0-0.2); Basophils % (A) 0 %; Eosinophils # (A) 0.2 k/uL (0-0.7); Eosinophils % (A) 1 %; HCT 39.4 % (39.0-53.0); Lymphocytes # (A) 0.8 k/uL (1.0-4.8); Lymphocytes % (A) 7 %; MCH 30.7 pg (25.0-35.0); MCV 92.8 fL (80.0-100.0); Mean Platelet Volume 8.4; Monocytes # (A) 0.4 k/uL (0-1.0); Monocytes % (A) 3 %; Neutrophils # (A) 10.9 k/uL (1.3-7.7); Neutrophils % (A) 88 %; Platelet Count 277 k/uL (150-450); RBC 4.24 m/uL (4.30-5.90); RDW 12.8 % (11.5-15.5); WBC 12.4 k/uL (3.8-10.6)
[2020-07-09 22:41] LABS: Albumin 3.7 g/dL (3.5-5.0); Calcium 9.1 mg/dL (8.4-10.2); Potassium 5.4 mmol/L (3.5-5.1); Total Bilirubin 0.3 mg/dL (0.2-1.3); Total Protein 6.2 g/dL (6.3-8.2)
[2020-07-09 22:52] LABS: Appearance,Urine Cloudy (Clear); Bacteria,Urine Few /hpf; Bilirubin,Urine Negative (Negative); Blood,Urine Moderate (Negative); Color,Urine Yellow; Glucose,Urine (UA) 3+ (Negative); Ketones,Urine Negative (Negative); Leukocyte Esterase,Urine Large (Negative); Nitrite,Urine Positive (Negative); Protein,Urine 1+ (Negative); RBC,Urine >182 /hpf (0-5); Specific Gravity,Urine 1.018 (1.001-1.035); Squamous Epithelial Cell,Urine <1 /hpf (0-4); Urobilinogen,Urine <2.0 mg/dL (<2.0); WBC,Urine >182 /hpf (0-5)
[2020-07-09] MEDS: SODIUM CHLORIDE 0.9% 1,000 ML IV SCH (23:04)
[2020-07-09] MEDS ORDERED: cefTRIAXone IN SWFI 1,000 MG/10 ML SYRINGE IVP STA (23:51)
[2020-07-09] MEDS ORDERED: CEPHALEXIN 500MG STARTER PACK 4 CAP BTL PO STA (23:58)
[2020-07-10] MEDS ORDERED: NALOXONE 0.4 MG/ML 1 ML VIAL IV PRN (00:29)
[2020-07-10] MEDS ORDERED: ACETAMINOPHEN TAB 325 MG TAB PO PRN (01:10)
[2020-07-10 07:09] LABS: Glucose,Whole Blood 133 mg/dL (75-99)
[2020-07-10] MEDS: INSULIN ASPART (NovoLOG) 100 UNIT/ML VIAL SQ SCH ×4 (08:32→20:47)
[2020-07-10] MEDS ORDERED: ACETAMINOPHEN TAB 500 MG TAB PO PRN (10:24)
[2020-07-10 12:00] VITALS: BMI 49.1
[2020-07-10 12:01] LABS: Glucose,Whole Blood 336 mg/dL (75-99)
[2020-07-10] MEDS: TROSPIUM CHLORIDE 20 MG TABLET PO SCH ×2 (12:13→20:49)
[2020-07-10] MEDS: lisinopriL 20 MG TAB PO SCH (12:13)
[2020-07-10] MEDS: LEVOFLOXACIN 500MG-D5W PMX 500 MG in DEXTROSE/WATER 1 100ML.BAG IVPB SCH (16:46)
[2020-07-10 16:49] LABS: Glucose,Whole Blood 149 mg/dL (75-99)
[2020-07-10] MEDS: glipiZIDE 10 MG TAB PO SCH (16:50)
[2020-07-10] MEDS: metFORMIN 500 MG TAB PO SCH (16:50)
[2020-07-10] MEDS: SODIUM CHLORIDE 0.9% 1,000 ML IV SCH (17:00)
--- NOTE | 2020-07-10 17:23 | P.HPIM ---
History of Present Illness H&P Date: 07/10/20 Chief Complaint: Malfunctioning Hsieh catheter abdominal pain and lower 74 show pleasant, patient of Dr. Phipps and Dr. Carson. He has underlying history off BPH, kidney stones, diabetes mellitus type 2, hyperlipidemia, admitted to the emergency room secondary to malfunctioning of the Hsieh catheter. Apparently patient was diagnosed to have a urinary tract infection, and an obstructive urinary stone, for which Dr. Carson performed on June 17, stone removal, right sided hydronephrosis. On , patient required a Hsieh catheter, as the patient has difficulty in voiding. He is scheduled to have prostate surgery on July 28 2020, till then, patient's required to carry this Hsieh catheter. Patient has noticeable decreased output, from the Hsieh catheter, and increasing abdominal pain with abdominal distention, lower despite admission. He normally carries a leg bag, for which he drains usefully every 4- 8 hours, patient denies any hematuria, no flank pain. He has chills, no fever. He was noted to have fever in the emergency room, Emergency room, patient was febrile, urinalysis shows pyuria, and microscopic hematuria, patient was started on IV antibiotics with pancultures, Hsieh catheter was replaced in the emergency room. He has leukocytosis of 12.4, with neutrophilia, creatinine of 1.15, sodium 131, potassium 3.4, lactic acid is elevated,] covid test is negative Review of Systems Constitutional: Reports as per HPI, Reports chills, Denies anorexia, Denies chronic headaches, Denies chronic pain, Denies daytime sleepiness, Denies fatigue, Denies fever, Denies lethargy, Denies malaise, Denies night sweats, D enies poor appetite, Denies sweats, Denies weakness, Denies weight gain, Denies weight loss Ears, nose, mouth and throat: Reports as per HPI, Denies ant. neck pain, Denies bleeding gums, Denies dental pain, Denies dysphagia, Denies epistaxis, Denies headache, Denies hoarseness, Denies mouth pain, Denies nasal congestion, Denies nasal discharge, Denies neck fullness/pressure, Denies neck lump, Denies nose pain, Denies odynophagia, Denies post-nasal drip, Denies sinus pain, Denies sinus pressure, Denies swelling in mouth, Denies swelling in throat, Denies sore throat, Denies vertigo, Denies voice changes Cardiovascular: Reports as per HPI, Denies chest pain, Denies claudication, Denies decreased exercise tolerance, Denies dyspnea on exertion, Denies edema, Denies high blood pressure, Denies irregular heart beat, Denies leg edema, Denies lightheadedness, Denies orthopnea, Denies palpitations, Denies paroxysmal nocturnal dyspnea, Denies phlebitis, Denies rapid heart beat, Denies shortness of breath, Denies syncope Respiratory: Reports as per HPI, Denies congestion, Denies cough, Denies cough with sputum, Denies dyspnea, Denies excessive sputum, Denies hemoptysis, Denies home oxygen, Denies pain, Denies pain on inspiration, Denies pleurisy, Denies respiratory infections, Denies sleep apnea, Denies snoring, Denies wheezing Gastrointestinal: Reports bloating Genitourinary: Reports as per HPI, Reports kidney stones, Reports urinary retention Musculoskeletal: Reports as per HPI, Denies arm numbness/tingling, Denies atrophy, Denies fractures, Denies frequent falls, Denies gait dysfunction, Denies hot joints, Denies leg numbness/tingling, Denies limitation of motion, Denies loss of height, Denies low back pain, Denies morning stiffness, Denies muscle cramps, Denies muscle weakness, Denies myalgias, Denies neck pain, Denies neck stiffness, Denies prior amputations, Denies redness of joints, Denies shooting arm pain, Denies shooting leg pain Integumentary: Reports as per HPI, Denies brittle nails, Denies change in hair/nails, Denies color changes, Denies darkening of skin, Denies depigmentation, Denies dryness, Denies foot/leg ulcers, Denies growths, Denies hirsutism, Denies lesions, Denies pruritus, Denies rash, Denies sores, Denies striae, Denies unusual bruising, Denies wounds Neurological: Reports as per HPI, Denies aphasia, Denies ataxia, Denies balance difficulties, Denies burning pain, Denies change in mentation, Denies change in smell/taste, Denies change in speech, Denies confusion, Denies convulsions, Denies gait dysfunction, Denies headaches, Denies hearing difficulties, Denies lack of coordination, Denies loss of vision, Denies memory loss, Denies migra gideon, Denies motor disturbance, Denies numbness, Denies paralysis, Denies paresthesias, Denies seizures, Denies sensory deficit, Denies spasticity, Denies syncope, Denies tic, Denies tingling, Denies tremors, Denies vertigo, Denies weakness, Denies visual changes Psychiatric: Reports as per HPI Endocrine: Reports as per HPI Hematologic/Lymphatic: Reports as per HPI Allergic/Immunologic: Reports as per HPI Past Medical History Past Medical History: Prostate Disorder Additional Past Medical History / Comment(s): left hip and leg chronic pain, arthritis. History of Any Multi-Drug Resistant Organisms: None Reported Past Surgical History: Hernia Repair Additional Past Surgical History / Comment(s): bladder stones. Past Psychological History: No Psychological Hx Reported Smoking Status: Never smoker Past Alcohol Use History: None Reported Past Drug Use History: None Reported Medications and Allergies Home Medications Medication Instructions Recorded Confirmed Type Darifenacin Hydrobromide 15 mg PO DAILY 05/24/20 07/09/20 History [Darifenacin ER] INSULIN ASPART (NovoLOG) [NovoLOG 5 unit SQ AC-TID PRN 05/24/20 07/09/20 History (formulary)] Insulin Detemir [Levemir Flextouch] 30 units SQ DAILY 05/24/20 07/09/20 History Insulin Detemir [Levemir Flextouch] 40 units SQ HS 05/24/20 07/09/20 History Quinapril HCl [Accupril] 20 mg PO DAILY 05/24/20 07/09/20 History Repaglinide [Prandin] 2 mg PO TID 05/24/20 07/09/20 History Simvastatin [Zocor] 20 mg PO HS 05/24/20 07/09/20 History glipiZIDE [Glucotrol] 10 mg PO AC-BID 05/24/20 07/09/20 History metFORMIN HCL 1,000 mg PO BID 05/24/20 07/09/20 History Acetaminophen Tab [Tylenol] 500 mg PO ONCE PRN 07/09/20 07/09/20 History Cephalexin [Keflex] 500 mg PO Q6HR 10 Days #40 cap 07/09/20 Rx Allergies Allergy/AdvReac Type Severity Reaction Status Date / Time Penicillins Allergy Swelling Verified 07/09/20 23:43 ciprofloxacin [From Cipro] AdvReac Vomiting Verified 07/09/20 23:43 Physical Exam Vitals: Vital Signs Temp Pulse Pulse Resp BP BP Pulse Ox 07/10/20 08:00 97.9 F 72 18 126/66 98 07/10/20 02:00 97.9 F 77 18 139/69 99 07/10/20 00:14 97.2 F L 84 18 112/81 97 07/09/20 21:41 100.7 F H 103 H 16 162/74 95 Intake and Output 07/09/20 07/10/20 07/10/20 22:59 06:59 14:59 Intake Total 540 Output Total 300 600 Balance -300 -60 Intake: Oral 540 Output: Urine 300 600 Other: Voiding Method Indwelling Catheter Weight 117.934 kg 117.934 kg 117.934 kg - Constitutional General appearance: cooperative, no acute distress - EENT Eyes: EOMI, PERRLA, photophobia, normal appearance ENT: NA/AT, normal oropharynx - Neck Neck: normal ROM - Respiratory Respiratory: bilateral: CTA, negative: diminished, dullness, rales - Cardiovascular Rhythm: regular Heart sounds: normal: S1, S2 Abnormal Heart Sounds: no systolic murmur, no diastolic murmur, no rub, no S3 Gallop, no S4 Gallop, no click, no other - Gastrointestinal General gastrointestinal: normal bowel sounds, soft - Integumentary Integumentary: decreased turgor, normal - Neurologic Neurologic: CNII-XII intact - Musculoskeletal Musculoskeletal: gait normal, strength equal bilaterally - Psychiatric Psychiatric: A&O x's 3, appropriate affect, intact judgment & insight Results CBC & Chem 7: 07/09/20 22:35 07/09/20 22:35 Labs: Abnormal Lab Results - Last 24 Hours (Table) 07/09/20 07/09/20 07/09/20 Range/Units 21:52 22:35 22:35 WBC 12.4 H (3.8-10.6) k/uL RBC 4.24 L (4.30-5.90) m/uL Neutrophils # 10.9 H (1.3-7.7) k/uL Lymphocytes # 0.8 L (1.0-4.8) k/uL Sodium (137-145) mmol/L Potassium (3.5-5.1) mmol/L Carbon Dioxide (22-30) mmol/L BUN (9-20) mg/dL Glucose (74-99) mg/dL POC Glucose (mg/dL) (75-99) mg/dL Plasma Lactic Acid Isak 2.5 H* (0.7-2.0) mmol/L Total Protein (6.3-8.2) g/dL Urine Protein 1+ H (Negative) Urine Glucose (UA) 3+ H (Negative) Urine Blood Moderate H (Negative) Ur Leukocyte Esterase Large H (Negative) Urine RBC >182 H (0-5) /hpf Urine WBC >182 H (0-5) /hpf Urine WBC Clumps Many H (None) /hpf Urine Bacteria Few H (None) /hpf 07/09/20 07/10/20 07/10/20 Range/Units 22:35 07:08 12:00 WBC (3.8-10.6) k/uL RBC (4.30-5.90) m/uL Neutrophils # (1.3-7.7) k/uL Lymphocytes # (1.0-4.8) k/uL Sodium 135 L (137-145) mmol/L Potassium 5.4 H (3.5-5.1) mmol/L Carbon Dioxide 20 L (22-30) mmol/L BUN 51 H (9-20) mg/dL Glucose 301 H (74-99) mg/dL POC Glucose (mg/dL) 133 H 336 H (75-99) mg/dL Plasma Lactic Acid Isak (0.7-2.0) mmol/L Total Protein 6.2 L (6.3-8.2) g/dL Urine Protein (Negative) Urine Glucose (UA) (Negative) Urine Blood (Negative) Ur Leukocyte Esterase (Negative) Urine RBC (0-5) /hpf Urine WBC (0-5) /hpf Urine WBC Clumps (None) /hpf Urine Bacteria (None) /hpf Microbiology - Last 24 Hours (Table) 07/09/20 22:35 Urine Culture - Preliminary Urine,Voided Laboratory Results WBC 12.4 k/uL (3.8-10.6) H 07/09/20 22:35 RBC 4.24 m/uL (4.30-5.90) L 07/09/20 22:35 Hgb 13.0 gm/dL (13.0-17.5) 07/09/20 22:35 Hct 39.4 % (39.0-53.0) 07/09/20 22:35 MCV 92.8 fL (80.0-100.0) 07/09/20 22:35 MCH 30.7 pg (25.0-35.0) 07/09/20 22:35 MCHC 33.0 g/dL (31.0-37.0) 07/09/20 22:35 RDW 12.8 % (11.5-15.5) 07/09/20:35 Plt Count 277 k/uL (150-450) 07/09/20 22:35 MPV 8.4 07/09/20 22:35 Neutrophils % 88 % 07/09/20 22:35 Lymphocytes % 7 % 07/09/20 22:35 Monocytes % 3 % 07/09/20 22:35 Eosinophils % 1 % 07/09/20 22:35 Basophils % 0 % 07/09/20 22:35 Neutrophils # 10.9 k/uL (1.3-7.7) H 07/09/20 22:35 Lymphocytes # 0.8 k/uL (1.0-4.8) L 07/09/20 22:35 Monocytes # 0.4 k/uL (0-1.0) 07/09/20 22:35 Eosinophils # 0.2 k/uL (0-0.7) 07/09/20 22:35 Basophils # 0.1 k/uL (0-0.2) 07/09/20 22:35 Sodium 135 mmol/L (137-145) L 07/09/20 22:35 Potassium 5.4 mmol/L (3.5-5.1) H 07/09/20 22:35 Chloride 104 mmol/L (98-107) 07/09/20 22:35 Carbon Dioxide 20 mmol/L (22-30) L 07/09/20:35 Anion Gap 11 mmol/L 07/09/20 22:35 BUN 51 mg/dL (9-20) H 07/09/20 22:35 Creatinine 1.15 mg/dL (0.66-1.25) 07/09/20 22:35 Est GFR (CKD-EPI)AfAm 72 (>60 ml/min/1.73 sqM) 07/09/20 22:35 Est GFR (CKD-EPI)NonAf 62 (>60 ml/min/1.73 sqM) 07/09/20 22:35 Glucose 301 mg/dL (74-99) H 07/09/20 22:35 POC Glucose (mg/dL) 149 mg/dL (75-99) H 07/10/20 16:48 POC Glu [employer] Litzy Wick 07/10/20 16:48 Lactic Ac Sepsis Rflx Y 07/09/20 22:55 Plasma Lactic Acid Isak 1.7 mmol/L (0.7-2.0) 07/10/20 01:49 Calcium 9.1 mg/dL (8.4-10.2) 07/09/20 22:35 Total Bilirubin 0.3 mg/dL (0.2-1.3) 07/09/20 22:35 AST 18 U/L (17-59) 07/09/20 22:35 ALT 14 U/L (4-49) 07/09/20 22:35 Alkaline Phosphatase 82 U/L (38-126) 07/09/20 22:35 Total Protein 6.2 g/dL (6.3-8.2) L 07/09/20 22:35 Albumin 3.7 g/dL (3.5-5.0) 07/09/20 22:35 Urine Color Yellow 07/09/20 22:35 Urine Appearance Cloudy (Clear) 07/09/20 22:35 Urine pH 7.0 (5.0-8.0) 07/09/20 22:35 Ur Specific [place] 1.018 (1.001-1.035) 07/09/20 22:35 Urine Protein 1+ (Negative) H 07/09/20 22:35 Urine Glucose (UA) 3+ (Negative) H 07/09/20 22:35 Urine Ketones Negative (Negative) 07/09/20 22:35 Urine Blood Moderate (Negative) H 07/09/20 22:35 Urine Nitrite Positive (Negative) 07/09/20 22:35 Urine Bilirubin Negative (Negative) 07/09/20 22:35 Urine Urobilinogen <2.0 mg/dL (<2.0) 07/09/20 22:35 Ur Leukocyte Esterase Large (Negative) H 07/09/20 22:35 Urine RBC >182 /hpf (0-5) H 07/09/20 22:35 Urine WBC >182 /hpf (0-5) H 07/09/20 22:35 Urine WBC Clumps Many /hpf (None) H 07/09/20 22:35 Ur Squamous Epith Cells <1 /hpf (0-4) 07/09/20 22:35 Urine Bacteria Few /hpf (None) H 07/09/20 22:35 Coronavirus (PCR) Not Detected (Not Detectd) 07/10/20 00:26 Thrombosis Risk Factor Assmnt - Choose All That Apply Other Risk Factors: No Other congenital or acquired thrombophilia - If yes, enter type in comment: No Assessment and Plan Plan: 1. Acute obstructive uropathy, secondary to BPH with L UTS, urinary retention. Patient's Hsieh catheter has been replaced emergency room secondary to malfunctioning Hsieh catheter was placed on 06/21/2020 by urology. Incidentally patient also has significant pyuria, IV antibiotics started for suspected urinary tract infection. 2. Acute urinary tract infection with CAUTI, indwelling Hsieh catheter was replaced on 07/17/2020, IV Levaquin, patient cannot tolerate ciprofloxacin only because of GI intolerances. Patient has shortness of breath with penicillin- type antibiotics. Discontinue darifenacin 3. History of kidney stone status post stone removal 06/17/2020 4. BPH with L UTS, scheduled for prostate surgery July 28 Dr. Carson 5. Indwelling Hsieh catheter, for which this would be kept on discharge, ur ology to remove it on the day of surgery July 28 6. Diabetes mellitus, on glipizide 10 mg twice a day, metformin 1000 mg twice a day, Levemir 40 units at bedtime, Levemir 30 units a.m., pre-meal 5 mg before meals 3 times a day when necessary Hypertension, on Accupril 20 mg daily 7. AK I, secondary to ATN, and postobstructive uropathy, dehydration, has hyperkalemia, IV for hydration, 8. CK D stage II GFR currently at 62 Ruled out covid GI prophylaxis and DVT prophylaxis
[2020-07-10] MEDS: REPAGLINIDE 1 MG TAB PO SCH ×2 (17:44→20:49)
[2020-07-10 20:09] LABS: Glucose,Whole Blood 168 mg/dL (75-99)
[2020-07-10] MEDS: FAMOTIDINE 20 MG TAB PO SCH (20:48)
[2020-07-10] MEDS: ENOXAPARIN 40 MG/0.4 ML SYRINGE SQ SCH (20:49)
[2020-07-10] MEDS: ATORVASTATIN 10 MG TAB PO SCH (20:49)
[2020-07-10] MEDS ORDERED: INSULIN DETEMIR (LEVEMIR) 100 UNIT/ML SYR SQ SCH (21:00)
[2020-07-10 23:54] LABS: Glucose,Whole Blood 110 mg/dL (75-99)
[2020-07-11] MEDS: SODIUM CHLORIDE 0.9% 1,000 ML IV SCH ×2 (06:57→14:18)
[2020-07-11] MEDS ORDERED: INSULIN DETEMIR (LEVEMIR) 100 UNIT/ML SYR SQ SCH ×2 (07:00→21:00)
[2020-07-11 07:29] LABS: Glucose,Whole Blood 114 mg/dL (75-99)
[2020-07-11] MEDS: INSULIN ASPART (NovoLOG) 100 UNIT/ML VIAL SQ SCH ×4 (07:34→20:48)
[2020-07-11] MEDS: lisinopriL 20 MG TAB PO SCH (07:46)
[2020-07-11] MEDS: glipiZIDE 10 MG TAB PO SCH (07:46)
[2020-07-11] MEDS: metFORMIN 500 MG TAB PO SCH ×2 (07:46→17:24)
[2020-07-11] MEDS: FAMOTIDINE 20 MG TAB PO SCH ×2 (07:46→20:56)
[2020-07-11] MEDS: TROSPIUM CHLORIDE 20 MG TABLET PO SCH ×2 (07:47→21:05)
[2020-07-11] MEDS: REPAGLINIDE 1 MG TAB PO SCH ×3 (07:47→20:57)
[2020-07-11] MEDS: ENOXAPARIN 40 MG/0.4 ML SYRINGE SQ SCH (07:47)
[2020-07-11 10:01] LABS: Basophils # (A) 0.04 X 10*3/uL (0.00-0.10); Basophils % (A) 0.4 %; Eosinophils # (A) 0.05 X 10*3/uL (0.04-0.35); Eosinophils % (A) 0.5 %; HCT 34.8 % (39.6-50.0); Lymphocytes # (A) 1.02 X 10*3/uL (0.90-5.00); Lymphocytes % (A) 11.1 %; MCH 30.1 pg (27.0-32.0); MCHC 31.6 g/dL (32.0-37.0); MCV 95.1 fL (80.0-97.0); Mean Platelet Volume 11.3 fL (9.5-12.2); Monocytes # (A) 0.47 X 10*3/uL (0.20-1.00); Monocytes % (A) 5.1 %; Neutrophils # (A) 7.59 X 10*3/uL (1.80-7.70); Neutrophils % (A) 82.7 %; Platelet Count 252 X 10*3/uL (140-440); RBC 3.66 X 10*6/uL (4.40-5.60); RDW 12.6 % (11.5-14.5); WBC 9.19 X 10*3/uL (4.50-10.00)
[2020-07-11 10:11] LABS: African American GFR (CKD) 75.2 (60.0-200.0); Albumin 3.6 g/dL (3.80-4.90); Albumin/Globulin Ratio 2.77 (1.60-3.17); BUN/Creat Ratio 26.36 Ratio (12.00-20.00); Calcium 8.3 mg/dL (8.7-10.3); Globulin 1.3 g/dL (1.6-3.3); Non-African American GFR(CKD) 64.9 (60.0-200.0); Potassium 4.3 mmol/L (3.5-5.5); Total Bilirubin 0.2 mg/dL (0.2-1.2); Total Protein 4.9 g/dL (6.2-8.2)
[2020-07-11 11:40] LABS: Glucose,Whole Blood 50 mg/dL (75-99)
[2020-07-11 11:58] LABS: Glucose,Whole Blood 47 mg/dL (75-99)
[2020-07-11 12:21] LABS: Glucose,Whole Blood 53 mg/dL (75-99)
[2020-07-11 14:45] LABS: Glucose,Whole Blood 99 mg/dL (75-99)
--- NOTE | 2020-07-11 14:57 | P.PN ---
Subjective Progress Note Date: 07/11/20 74 show pleasant, patient of Dr. Phipps and Dr. Carson. He has underlying history off BPH, kidney stones, diabetes mellitus type 2, hyperlipidemia, admitted to the emergency room secondary to malfunctioning of the Hsieh catheter. Apparently patient was diagnosed to have a urinary tract infection, and an obstructive urinary stone, for which Dr. Carson performed on June 17, stone removal, right sided hydronephrosis. On , patient required a Hsieh catheter, as the patient has difficulty in voiding. He is scheduled to have prostate surgery on July 28 2020, till then, patient's required to carry this Hsieh catheter. Patient has noticeable decreased output, from the Hsieh catheter, and increasing abdominal pain with abdominal distention, lower despite admission. He normally carries a leg bag, for which he drains usefully every 4- 8 hours, patient denies any hematuria, no flank pain. He has chills, no fever. He was noted to have fever in the emergency room, Emergency room, patient was febrile, urinalysis shows pyuria, and microscopic hematuria, patient was started on IV antibiotics with pancultures, Hsieh catheter was replaced in the emergency room. He has leukocytosis of 12.4, with neutrophilia, creatinine of 1.15, sodium 131, potassium 3.4, lactic acid is elevated,] covid test is negative 07/11, cultures are growing gram-negative bacilli, in the urine. Patient has improvement of urinary urgency, and bladder spasms, she still has a temperature today, no chills, no nausea no vomiting, no hematuria. Hsieh catheter is draining clear urine with some mucus in it, and is flowing freely. Blood sugars are in the 40s, his A1c was 6.1, we have decreased the glipizide to 7.5 mg twice a day from a 10 mg twice a day dose, decrease Levemir from 30 in the morning to 24, decrease Levemir from 40, in the evening to 30 units. Patient was kept on Prandin, creatinine today is 1.1, no diarrhea no chest pain, coronavirus test is negative Review of Systems Constitutional: Reports as per HPI, Reports chills, Denies anorexia, Denies chronic headaches, Denies chronic pain, Denies daytime sleepiness, Denies fatigue, Denies fever, Denies lethargy, Denies malaise, Denies night sweats, Denies poor appetite, Denies sweats, Denies weakness, Denies weight gain, Denies weight loss Ears, nose, mouth and throat: Reports as per HPI, Denies ant. neck pain, Denies bleeding gums, Denies dental pain, Denies dysphagia, Denies epistaxis, Denies headache, Denies hoarseness, Denies mouth pain, Denies nasal congestion, Denies nasal discharge, Denies neck fullness/pressure, Denies neck lump, Denies nose pain, Denies odynophagia, Denies post-nasal drip, Denies sinus pain, Denies sinus pressure, Denies swelling in mouth, Denies swelling in throat, Denies sore throat, Denies vertigo, Denies voice changes Cardiovascular: Reports as per HPI, Denies chest pain, Denies claudication, Denies decreased exercise tolerance, Denies dyspnea on exertion, Denies edema, Denies high blood pressure, Denies irregular heart beat, Denies leg edema, Denies lightheadedness, Denies orthopnea, Denies palpitations, Denies paroxysmal nocturnal dyspnea, Denies phlebitis, Denies rapid heart beat, Denies shortness of breath, Denies syncope Respiratory: Reports as per HPI, Denies congestion, Denies cough, Denies cough with sputum, Denies dyspnea, Denies excessive sputum, Denies hemoptysis, Denies home oxygen, Denies pain, Denies pain on inspiration, Denies pleurisy, Denies respiratory infections, Denies sleep apnea, Denies snoring, Denies wheezing Gastrointestinal: Reports bloating Genitourinary: Reports as per HPI, Reports kidney stones, Reports urinary retention Musculoskeletal: Reports as per HPI, Denies arm numbness/tingling, Denies atrophy, Denies fractures, Denies frequent falls, Denies gait dysfunction, Denies hot joints, Denies leg numbness/tingling, Denies limitation of motion, Denies loss of height, Denies low back pain, Denies morning stiffness, Denies muscle cramps, Denies muscle weakness, Denies myalgias, Denies neck pain, Denies neck stiffness, Denies prior amputations, Denies redness of joints, Denies shooting arm pain, Denies shooting leg pain Integumentary: Reports as per HPI, Denies brittle nails, Denies change in hair/nails, Denies color changes, Denies darkening of skin, Denies depigmentation, Denies dryness, Denies foot/leg ulcers, Denies growths, Denies hirsutism, Denies lesions, Denies pruritus, Denies rash, Denies sores, Denies striae, Denies unusual bruising, Denies wounds Neurological: Reports as per HPI, Denies aphasia, Denies ataxia, Denies balance difficulties, Denies burning pain, Denies change in mentation, Denies change in smell/taste, Denies change in speech, Denies confusion, Denies convulsions, Denies gait dysfunction, Denies headaches, Denies hearing difficulties, Denies lack of coordination, Denies loss of vision, Denies memory loss, Denies migraines, Denies motor disturbance, Denies numbness, Denies paralysis, Denies paresthesias, Denies seizures, Denies sensory deficit, Denies spasticity, Denies syncope, Denies tic, Denies tingling, Denies tremors, Denies vertigo, Denies weakness, Denies visual changes Psychiatric: Reports as per HPI Endocrine: Reports as per HPI Hematologic/Lymphatic: Reports as per HPI Allergic/Immunologic: Reports as per HPI Objective - Vital Signs Vital signs: Vital Signs Temp 97.9 F 07/11/20 08:00 Pulse 77 07/11/20 08:00 Resp 16 07/11/20 08:00 BP 133/62 07/11/20 08:00 Pulse Ox 95 07/11/20 08:00 Intake & Output 07/10/20 07/11/20 07/11/20 18:59 06:59 18:59 Intake Total 1080 Output Total 2100 1150 Balance -1020 -1150 Weight 117.934 kg Intake: Oral 1080 Output: Urine 2100 1150 Other: Voiding Method Indwelling Catheter Indwelling Catheter # Bowel Movements 0 # Emeses 1 - Constitutional General appearance: Present: cooperative, no acute distress - EENT Eyes: Present: EOMI, PERRLA, dentition normal ENT: Present: NA/AT, normal oropharynx - Neck Neck: Present: normal ROM - Respiratory Respiratory: bilateral: CTA, negative: diminished, dullness, rales - Cardiovascular Rhythm: regular Heart sounds: normal: S1, S2 Abnormal Heart Sounds: Absent: systolic murmur, diastolic murmur, rub, S3 Gallop, S4 Gallop, click, other - Gastrointestinal General gastrointestinal: Present: normal bowel sounds, soft - Labs CBC & Chem 7: 07/11/20 06:12 07/11/20 06:12 Labs: Abnormal Lab Results - Last 24 Hours (Table) 07/10/20 07/10/20 07/10/20 Range/Units 16:48 20:07 23:53 RBC (4.40-5.60) X 10*6/uL Hgb (13.0-17.0) g/dL Hct (39.6-50.0) % MCHC (32.0-37.0) g/dL Chloride (96-109) mmol/L BUN (9.0-27.0) mg/dL BUN/Creatinine Ratio (12.00-20.00) Ratio Glucose (70-110) mg/dL POC Glucose (mg/dL) 149 H 168 H 110 H (75-99) mg/dL Calcium (8.7-10.3) mg/dL AST (14-35) U/L Total Protein (6.2-8.2) g/dL Albumin (3.80-4.90) g/dL Globulin (1.6-3.3) g/dL 07/11/20 07/11/20 07/11/20 Range/Units 06:12 06:12 07:27 RBC 3.66 L (4.40-5.60) X 10*6/uL Hgb 11.0 L (13.0-17.0) g/dL Hct 34.8 L (39.6-50.0) % MCHC 31.6 L (32.0-37.0) g/dL Chloride 110 H (96-109) mmol/L BUN 29.0 H (9.0-27.0) mg/dL BUN/Creatinine Ratio 26.36 H (12.00-20.00) Ratio Glucose 125 H (70-110) mg/dL POC Glucose (mg/dL) 114 H (75-99) mg/dL Calcium 8.3 L (8.7-10.3) mg/dL AST 13 L (14-35) U/L Total Protein 4.9 L (6.2-8.2) g/dL Albumin 3.60 L (3.80-4.90) g/dL Globulin 1.3 L (1.6-3.3) g/dL 07/11/20 07/11/20 07/11/20 Range/Units 11:38 11:56 12:19 RBC (4.40-5.60) X 10*6/uL Hgb (13.0-17.0) g/dL Hct (39.6-50.0) % MCHC (32.0-37.0) g/dL Chloride (96-109) mmol/L BUN (9.0-27.0) mg/dL BUN/Creatinine Ratio (12.00-20.00) Ratio Glucose (70-110) mg/dL POC Glucose (mg/dL) 50 L 47 L 53 L (75-99) mg/dL Calcium (8.7-10.3) mg/dL AST (14-35) U/L Total Protein (6.2-8.2) g/dL Albumin (3.80-4.90) g/dL Globulin (1.6-3.3) g/dL Microbiology - Last 24 Hours (Table) 07/09/20 22:35 Urine Culture - Preliminary Urine,Voided Gram Neg Bacilli 07/09/20 21:52 Blood Culture - Preliminary Blood No Growth after 24 hours Assessment and Plan Plan: 1. Acute obstructive uropathy, secondary to BPH with L UTS, urinary retention. Patient's Hsieh catheter has been replaced emergency room secondary to mal functioning Hsieh catheter was placed on 06/21/2020 by urology. Incidentally patient also has significant pyuria, IV antibiotics started for suspected urinary tract infection. 2. Acute urinary tract infection with CAUTI, indwelling Hsieh catheter was replaced on 07/17/2020, IV Levaquin, patient cannot tolerate ciprofloxacin only because of GI intolerances. Patient has shortness of breath with penicillin- type antibiotics. Discontinue darifenacin for bladder spasms,/ overactive bladder, was tolerating IV Levaquin without any reaction. Await cultures 3. History of kidney stone status post stone removal 06/17/2020 4. BPH with L UTS, scheduled for prostate surgery July 28 Dr. Carson 5. Indwelling Hsieh catheter, for which this would be kept on discharge, urology to remove it on the day of surgery July 28 6. Diabetes mellitus, on glipizide 10 mg twice a day, metformin 1000 mg twice a day, Levemir 40 units at bedtime, Levemir 30 units a.m., pre-meal 5 mg before meals 3 times a day when necessary Hypertension, on Accupril 20 mg daily 7. AK I, secondary to ATN, and postobstructive uropathy, dehydration, has hyperkalemia, IV for hydration, 8. CK D stage II GFR currently at 62 Ruled out covid GI prophylaxis and DVT prophylaxis Discharge to home in the next 24-48 hrs. pending urine culture, Hsieh catheter would be kept on discharge
[2020-07-11] MEDS: LEVOFLOXACIN 500MG-D5W PMX 500 MG in DEXTROSE/WATER 1 100ML.BAG IVPB SCH (16:28)
[2020-07-11 16:50] LABS: Glucose,Whole Blood 90 mg/dL (75-99)
[2020-07-11] MEDS: glipiZIDE 5 MG TAB PO SCH (17:24)
[2020-07-11 20:40] LABS: Glucose,Whole Blood 143 mg/dL (75-99)
[2020-07-11] MEDS: ATORVASTATIN 10 MG TAB PO SCH (21:05)
[2020-07-12] MEDS: SODIUM CHLORIDE 0.9% 1,000 ML IV SCH (05:48)
[2020-07-12 06:59] LABS: Glucose,Whole Blood 63 mg/dL (75-99)
[2020-07-12] MEDS ORDERED: INSULIN DETEMIR (LEVEMIR) 100 UNIT/ML SYR SQ SCH ×2 (07:00→21:00)
[2020-07-12 07:23] LABS: Glucose,Whole Blood 77 mg/dL (75-99)
[2020-07-12] MEDS: metFORMIN 500 MG TAB PO SCH ×2 (09:06→17:38)
[2020-07-12] MEDS: FAMOTIDINE 20 MG TAB PO SCH (09:06)
[2020-07-12] MEDS: TROSPIUM CHLORIDE 20 MG TABLET PO SCH ×2 (09:07→20:30)
[2020-07-12] MEDS: INSULIN ASPART (NovoLOG) 100 UNIT/ML VIAL SQ SCH ×4 (09:07→20:31)
[2020-07-12] MEDS: ENOXAPARIN 40 MG/0.4 ML SYRINGE SQ SCH (09:07)
[2020-07-12] MEDS: lisinopriL 20 MG TAB PO SCH (09:07)
[2020-07-12 09:24] LABS: Glucose,Whole Blood 130 mg/dL (75-99)
[2020-07-12] MEDS: glipiZIDE 5 MG TAB PO SCH (10:22)
[2020-07-12] MEDS: REPAGLINIDE 1 MG TAB PO SCH (10:22)
[2020-07-12 11:12] LABS: Basophils # (A) 0.07 X 10*3/uL (0.00-0.10); Eosinophils # (A) 0.34 X 10*3/uL (0.04-0.35); Eosinophils % (A) 4.8 %; HCT 36.6 % (39.6-50.0); HGB 11.3 g/dL (13.0-17.0); Lymphocytes # (A) 1.16 X 10*3/uL (0.90-5.00); Lymphocytes % (A) 16.3 %; MCHC 30.9 g/dL (32.0-37.0); MCV 97.1 fL (80.0-97.0); Mean Platelet Volume 11.3 fL (9.5-12.2); Monocytes % (A) 5.6 %; Neutrophils # (A) 5.12 X 10*3/uL (1.80-7.70); Neutrophils % (A) 71.9 %; Platelet Count 227 X 10*3/uL (140-440); RBC 3.77 X 10*6/uL (4.40-5.60); RDW 12.9 % (11.5-14.5); WBC 7.12 X 10*3/uL (4.50-10.00)
[2020-07-12 11:26] LABS: African American GFR (CKD) 75.2 (60.0-200.0); Albumin 3.7 g/dL (3.80-4.90); Albumin/Globulin Ratio 2.31 (1.60-3.17); BUN/Creat Ratio 25.45 Ratio (12.00-20.00); Globulin 1.6 g/dL (1.6-3.3); Non-African American GFR(CKD) 64.9 (60.0-200.0); Potassium 4.5 mmol/L (3.5-5.5); Total Bilirubin 0.2 mg/dL (0.3-1.2); Total Protein 5.3 g/dL (6.2-8.2)
[2020-07-12 11:28] LABS: Glucose,Whole Blood 133 mg/dL (75-99)
[2020-07-12] MEDS: LEVOFLOXACIN 250 MG TAB PO SCH (15:33)
[2020-07-12 16:33] LABS: Glucose,Whole Blood 85 mg/dL (75-99)
[2020-07-12 20:18] LABS: Glucose,Whole Blood 75 mg/dL (75-99)
[2020-07-12] MEDS: ATORVASTATIN 10 MG TAB PO SCH (20:30)
[2020-07-12 20:42] VITALS: RESP 20
[2020-07-12 20:55] LABS: Glucose,Whole Blood 120 mg/dL (75-99)
[2020-07-13] MEDS ORDERED: INSULIN DETEMIR (LEVEMIR) 100 UNIT/ML SYR SQ SCH (07:00)
[2020-07-13 07:39] LABS: Glucose,Whole Blood 139 mg/dL (75-99)
[2020-07-13] MEDS: INSULIN ASPART (NovoLOG) 100 UNIT/ML VIAL SQ SCH ×2 (07:57→12:17)
[2020-07-13] MEDS: TROSPIUM CHLORIDE 20 MG TABLET PO SCH (08:02)
[2020-07-13] MEDS: lisinopriL 20 MG TAB PO SCH (08:03)
[2020-07-13] MEDS: ENOXAPARIN 40 MG/0.4 ML SYRINGE SQ SCH (08:03)
--- NOTE | 2020-07-13 08:11 | P.PN ---
Subjective Progress Note Date: 07/12/20 HISTORY OF PRESENT ILLNESS This is a 74-year-old male patient of Dr. Culver and Dr. Carson. He has underlying history off BPH, kidney stones, diabetes mellitus type 2, hyperlipidemia, admitted to the emergency room secondary to malfunctioning of the Hsieh catheter. Apparently patient was diagnosed to have a urinary tract infection, and an obstructive urinary stone, for which Dr. Carson performed on June 17, stone removal, right sided hydronephrosis. On , patient required a Hsieh catheter, as the patient has difficulty in voiding. He is scheduled to have prostate surgery on July 28 2020, till then, patient's required to carry this Hsieh catheter. Patient has noticeable decreased output, from the Hsieh catheter, and increasing abdominal pain with abdominal distention, lower despite admission. He normally carries a leg bag, for which he drains usefully every 4- 8 hours, patient denies any hematuria, no flank pain. He has chills, no fever. He was noted to have fever in the emergency room, Emergency room, patient was febrile, urinalysis shows pyuria, and microscopic hematuria, patient was started on IV antibiotics with pancultures, Hsieh catheter was replaced in the emergency room. He has leukocytosis of 12.4, with neutrophilia, creatinine of 1.15, sodium 131, potassium 3.4, lactic acid is elevated,] covid test is negative 07/11, cultures are growing gram-negative bacilli, in the urine. Patient has improvement of urinary urgency, and bladder spasms, she still has a temperature today, no chills, no nausea no vomiting, no hematuria. Hsieh catheter is draining clear urine with some mucus in it, and is flowing freely. Blood sugars are in the 40s, his A1c was 6.1, we have decreased the glipizide to 7.5 mg twice a day from a 10 mg twice a day dose, decrease Levemir from 30 in the morning to 24, decrease Levemir from 40, in the evening to 30 units. Patient was kept on Prandin, creatinine today is 1.1, no diarrhea no chest pain, coronavirus test is negative 07/12: Urine culture is positive for gram-negative bacilli. He has been afebrile, heart rate 77, blood pressure 146/56. Pulse ox 98% on room air. Blood sugar this morning was 63 with repeated 77. Yesterday blood sugars were low at lunchtime. Glipizide and Prandin discontinued. Lantus decreased to 20 units bid. Anticipate discharge home tomorrow. REVIEW OF SYSTEMS Constitutional: No fever, no chills, no night sweats. No weight change. No weakness, fatigue or lethargy. No daytime sleepiness. EENT: No headache. No blurred vision or double vision, no loss of vision. No loss of Hearing, no ringing in the ears, no dizziness. No nasal drainage or c ongestion. No epistaxis. No sore throat. Lungs: No shortness of breath, cough, no sputum production. No wheezing. Cardiovascular: No chest pain, no lower extremity edema. No palpitations. No paroxysmal nocturnal dyspnea. No orthopnea. No lightheadedness or dizziness. No syncopal episodes. Abdominal: No abdominal pain. No nausea, vomiting. No diarrhea. No constipation. No bloody or tarry stools.. No loss of appetite. Genitourinary: No dysuria, increased frequency, urgency. No urinary retention. Musculoskeletal: No myalgias. No muscle weakness, no gait dysfunction, no frequent falls. No back pain. No neck pain. Integumentary: No wounds, no lesions. No rash or pruritus. No unusual bruising. No change in hair or nails. Neurologic: No aphasia. No facial droop. No change in mentation. No head injury. No headache. No paralysis. No paresthesia. Psychiatric: No depression. No anxiety. Endocrine: Reports abnormal blood sugars. PHYSICAL EXAMINATION Gen: This is a 74-year-old male patient. He is resting bed and appears to be comfortable. HEENT: Head is atraumatic, normocephalic. Pupils equal, round. Sclerae is anicteric. NECK: Supple. No JVD. No lymphadenopathy. No thyromegaly. LUNGS: Clear to auscultation. No wheezes or rhonchi. No intercostal retractions. HEART: Regular rate and rhythm. No murmur. ABDOMEN: Soft. Bowel sounds are present. No masses. No tenderness. EXTREMITIES: No pedal edema. No calf tenderness. NEUROLOGICAL: Patient is awake, alert and oriented x3. Cranial nerves 2 through 12 are grossly intact. ASSESSMENT AND PLAN 1. Acute obstructive uropathy, secondary to BPH with LUTS, urinary retention. Patient's Hsieh catheter has been replaced emergency room secondary to malfunctioning Hsieh catheter was placed on 06/21/2020 by urology. Incidentally patient also has significant pyuria, IV antibiotics started for suspected urinary tract infection. 2. Acute catheter associated urinary tract infection, indwelling Hsieh catheter was replaced. Continue IV Levaquin, patient cannot tolerate ciprofloxacin only because of GI intolerances. Patient has shortness of breath with penicillin- type antibiotics. Discontinue darifenacin for bladder spasms,/ overactive bladder. Await cultures 3. History of kidney stone status post stone removal 06/17/2020 4. BPH with L UTS, scheduled for prostate surgery July 28 Dr. Carson 5. Indwelling Hsieh catheter, for which this would be kept on discharge, urology to remove it on the day of surgery July 28 6. Diabetes mellitus type 2, on glipizide 7.5 mg twice a day, metformin 1000 mg twice a day, Levemir increased to 30 units at bedtime, Levemir decreased to 24 units a.m., pre-meal 5 mg before meals discontinued. 7. Hypertension, on Accupril 20 mg daily 8. Chronic kidney disease stage II, patient is at baseline BUN and creatinine. GI prophylaxis and DVT prophylaxis DISCHARGE PLAN Home on Sunday. Impression and plan of care have been directed as dictated by the signing physician. Abbi Forrest nurse practitioner acting as scribe for signing physician. Objective - Vital Signs Vital signs: Vital Signs Temp 98.3 F 07/12/20 08:00 Pulse 77 07/12/20 08:00 Resp 19 07/12/20 08:00 BP 146/56 07/12/20 08:00 Pulse Ox 98 07/12/20 08:00 Intake & Output 07/11/20 07/12/20 07/12/20 18:59 06:59 18:59 Output Total 475 550 Balance -475 -550 Output: Urine 475 550 Other: Voiding Method Indwelling Catheter Indwelling Catheter Indwelling Catheter - Labs CBC & Chem 7: 07/12/20 07:17 07/12/20 07:17 Labs: Abnormal Lab Results - Last 24 Hours (Table) 07/11/20 07/11/20 07/11/20 Range/Units 06:12 06:12 11:38 RBC 3.66 L (4.40-5.60) X 10*6/uL Hgb 11.0 L (13.0-17.0) g/dL Hct 34.8 L (39.6-50.0) % MCHC 31.6 L (32.0-37.0) g/dL Chloride 110 H (96-109) mmol/L BUN 29.0 H (9.0-27.0) mg/dL BUN/Creatinine Ratio 26.36 H (12.00-20.00) Ratio Glucose 125 H (70-110) mg/dL POC Glucose (mg/dL) 50 L (75-99) mg/dL Calcium 8.3 L (8.7-10.3) mg/dL AST 13 L (14-35) U/L Total Protein 4.9 L (6.2-8.2) g/dL Albumin 3.60 L (3.80-4.90) g/dL Globulin 1.3 L (1.6-3.3) g/dL 07/11/20 07/11/20 07/11/20 Range/Units 11:56 12:19 20:38 RBC (4.40-5.60) X 10*6/uL Hgb (13.0-17.0) g/dL Hct (39.6-50.0) % MCHC (32.0-37.0) g/dL Chloride (96-109) mmol/L BUN (9.0-27.0) mg/dL BUN/Creatinine Ratio (12.00-20.00) Ratio Glucose (70-110) mg/dL POC Glucose (mg/dL) 47 L 53 L 143 H (75-99) mg/dL Calcium (8.7-10.3) mg/dL AST (14-35) U/L Total Protein (6.2-8.2) g/dL Albumin (3.80-4.90) g/dL Globulin (1.6-3.3) g/dL 07/12/20 Range/Units 06:58 RBC (4.40-5.60) X 10*6/uL Hgb (13.0-17.0) g/dL Hct (39.6-50.0) % MCHC (32.0-37.0) g/dL Chloride (96-109) mmol/L BUN (9.0-27.0) mg/dL BUN/Creatinine Ratio (12.00-20.00) Ratio Glucose (70-110) mg/dL POC Glucose (mg/dL) 63 L (75-99) mg/dL Calcium (8.7-10.3) mg/dL AST (14-35) U/L Total Protein (6.2-8.2) g/dL Albumin (3.80-4.90) g/dL Globulin (1.6-3.3) g/dL Microbiology - Last 24 Hours (Table) 07/09/20 21:52 Blood Culture - Preliminary Blood No Growth after 48 hours 07/09/20 22:35 Urine Culture - Preliminary Urine,Voided Gram Neg Bacilli
[2020-07-13] MEDS: metFORMIN 500 MG TAB PO SCH (08:49)
[2020-07-13] MEDS ORDERED: FAMOTIDINE 20 MG TAB PO SCH (09:00)
[2020-07-13 11:36] LABS: Glucose,Whole Blood 157 mg/dL (75-99)
[2020-07-13 11:57] LABS: Basophils # (A) 0.06 X 10*3/uL (0.00-0.10); Basophils % (A) 0.9 %; Eosinophils # (A) 0.42 X 10*3/uL (0.04-0.35); Eosinophils % (A) 6.1 %; HCT 34.5 % (39.6-50.0); HGB 10.8 g/dL (13.0-17.0); Lymphocytes # (A) 0.99 X 10*3/uL (0.90-5.00); Lymphocytes % (A) 14.5 %; MCH 30.2 pg (27.0-32.0); MCHC 31.3 g/dL (32.0-37.0); MCV 96.4 fL (80.0-97.0); Mean Platelet Volume 11.3 fL (9.5-12.2); Monocytes # (A) 0.41 X 10*3/uL (0.20-1.00); Neutrophils # (A) 4.94 X 10*3/uL (1.80-7.70); Neutrophils % (A) 72.2 %; Platelet Count 235 X 10*3/uL (140-440); RBC 3.58 X 10*6/uL (4.40-5.60); RDW 12.8 % (11.5-14.5); WBC 6.84 X 10*3/uL (4.50-10.00)
[2020-07-13 14:05] VITALS: BP 151/75; PULSE 95; TEMP 98.3
[2020-07-13] MEDS: LEVOFLOXACIN 250 MG TAB PO SCH (15:09)
--- NOTE | 2020-07-13 15:17 | P.DS ---
Providers Date of admission: 07/12/20 09:50 Attending physician: Ed Culver Primary care physician: [facility] Course: This is a 74-year-old male patient of Dr. Culver and Dr. Carson. He has underlying history off BPH, kidney stones, diabetes mellitus type 2, hyperlipidemia, admitted to the emergency room secondary to malfunctioning of the Hsieh catheter. Apparently patient was diagnosed to have a urinary tract infection, and an obstructive urinary stone, for which Dr. Carson performed on June 17, stone removal, right sided hydronephrosis. On , patient required a Hsieh catheter, as the patient has difficulty in voiding. He is scheduled to have prostate surgery on July 28 2020, till then, patient's required to carry this Hsieh catheter. Patient has noticeable decreased output, from the Hsieh catheter, and increasing abdominal pain with abdominal distention, lower despite admission. He normally carries a leg bag, for which he drains usefully every 4- 8 hours, patient denies any hematuria, no flank pain. He has chills, no fever. He was noted to have fever in the emergency room, Emergency room, patient was febrile, urinalysis shows pyuria, and microscopic hematuria, patient was started on IV antibiotics with pancultures, Hsieh c atheter was replaced in the emergency room. He has leukocytosis of 12.4, with neutrophilia, creatinine of 1.15, sodium 131, potassium 3.4, lactic acid is elevated,] covid test is negative 07/11, cultures are growing gram-negative bacilli, in the urine. Patient has improvement of urinary urgency, and bladder spasms, she still has a temperature today, no chills, no nausea no vomiting, no hematuria. Hsieh catheter is draining clear urine with some mucus in it, and is flowing freely. Blood sugars are in the 40s, his A1c was 6.1, we have decreased the glipizide to 7.5 mg twice a day from a 10 mg twice a day dose, decrease Levemir from 30 in the morning to 24, decrease Levemir from 40, in the evening to 30 units. Patient was kept on Prandin, creatinine today is 1.1, no diarrhea no chest pain, coronavirus test is negative 07/12: Urine culture is positive for gram-negative bacilli. He has been afebrile, heart rate 77, blood pressure 146/56. Pulse ox 98% on room air. Blood sugar this morning was 63 with repeated 77. Yesterday blood sugars were low at lunchtime. Glipizide and Prandin discontinued. Lantus decreased to 20 units bid. Anticipate discharge home tomorrow. 07/13 patient examined today denies any concerns for shortness of breath chest pain or breathing difficulty. No episodes of fever or chills overnight. Urine culture process positive for providentia susceptible to levofloxacin. to follow-up with Dr. Traore for Hsieh catheter. PHYSICAL EXAMINATION Gen: This is a 74-year-old male patient. He is resting bed and appears to be comfortable. HEENT: Head is atraumatic, normocephalic. Pupils equal, round. Sclerae is anicteric. NECK: Supple. No JVD. No lymphadenopathy. No thyromegaly. LUNGS: Clear to auscultation. No wheezes or rhonchi. No intercostal retractions. HEART: Regular rate and rhythm. No murmur. ABDOMEN: Soft. Bowel sounds are present. No masses. No tenderness. EXTREMITIES: No pedal edema. No calf tenderness. NEUROLOGICAL: Patient is awake, alert and oriented x3. Cranial nerves 2 through 12 are grossly intact. Discharge diagnosis 1. Acute obstructive uropathy, secondary to BPH with LUTS, urinary retention. 2. Acute catheter associated urinary tract infection, indwelling Hsieh catheter was replaced. 3. History of kidney stone status post stone removal 06/17/2020 4. BPH with L UTS, scheduled for prostate surgery July 28 Dr. Carson 5. Indwelling Hsieh catheter, urology to remove it on the day of surgery July 28 6. Diabetes mellitus type 2, 7. Hypertension 8. Chronic kidney disease stage II, Disposition home with self-care Patient Condition at Discharge: Stable Plan - Discharge Summary Discharge Rx Participant: Yes New Discharge Prescriptions: New Levofloxacin [Levaquin] 250 mg PO DAILY@1600 #7 tab Continue Simvastatin [Zocor] 20 mg PO HS Quinapril HCl [Accupril] 20 mg PO DAILY Darifenacin Hydrobromide [Darifenacin ER] 15 mg PO DAILY Insulin Detemir [Levemir Flextouch] 40 units SQ HS Insulin Detemir [Levemir Flextouch] 30 units SQ DAILY INSULIN ASPART (NovoLOG) [NovoLOG (formulary)] 5 unit SQ AC-TID PRN PRN Reason: cbg above 120 metFORMIN HCL 1,000 mg PO BID Repaglinide [Prandin] 2 mg PO TID Acetaminophen Tab [Tylenol] 500 mg PO ONCE PRN PRN Reason: Fever And/ Or Pain Discontinued glipiZIDE [Glucotrol] 10 mg PO AC-BID Discharge Medication List Darifenacin Hydrobromide [Darifenacin ER] 15 mg PO DAILY 05/24/20 [History] INSULIN ASPART (NovoLOG) [NovoLOG (formulary)] 5 unit SQ AC-TID PRN 05/24/20 [History] Insulin Detemir [Levemir Flextouch] 30 units SQ DAILY 05/24/20 [History] Insulin Detemir [Levemir Flextouch] 40 units SQ HS 05/24/20 [History] Quinapril HCl [Accupril] 20 mg PO DAILY 05/24/20 [History] Repaglinide [Prandin] 2 mg PO TID 05/24/20 [History] Simvastatin [Zocor] 20 mg PO HS 05/24/20 [History] metFORMIN HCL 1,000 mg PO BID 05/24/20 [History] Acetaminophen Tab [Tylenol] 500 mg PO ONCE PRN 07/09/20 [History] Levofloxacin [Levaquin] 250 mg PO DAILY@1600 #7 tab 07/13/20 [Rx] Follow up Appointment(s)/Referral(s): Ed Culver MD [Primary Care Provider] - 07/15/20 1:45 pm [facility], [NON-STAFF] - As Needed Griffin Carson MD [STAFF PHYSICIAN] - 07/20/20 10:00 am Patient Instructions/Handouts: Urinary Tract Infection in Men (DC), Catheter- associated Urinary Tract Infection (DC)
--- NOTE | 2020-07-13 16:57 | CDI ---
Documentation Clarification Form Date: 07/13/2020 04:37:51 PM From: Shawanda Cartwright RN, CCDS Phone: Admit Date: 07/12/2020 09:50:00 AM Patient Name: John Bland Visit Number: [id number] Discharge Date: 07/13/2020 04:14:00 PM ATTENTION: The Clinical Documentation Specialists (CDI) and [facility] Coding Staff appreciate your assistance in clarifying documentation. Please respond to the clarification below the line at the bottom and electronically sign. The CDI & [facility] Coding staff will review the response and follow-up if needed. Please note: Queries are made part of the Legal Health Record. If you have any questions, please contact the author of this message via ITS. Dr. Bailee Spears A pressure ulcer was documented in the ED assessment on 07/09 as bed sore on buttock. 07/12 nursing wound assessment has a documented coccyx pressure injury stage II. Please render your opinion on these findings and POA indicators. History/Risk Factors: BPH, Chronic Hsieh catheter Clinical Indicators: 74-year-old male present to ED on 07/09 as an observation with ED assessment of UTI, fever, bedsore. 07/12 Patient was change to INPT, urine culture positive for providencia rettgeri. 07/12 nursing wound assessment: coccyx pressure injury stage II. Bilateral buttock warm skin color: Erythema Location: Coccyx, and bilateral buttock Wound description: coccyx stage II, bilateral buttock warm erythema Treatment: Coccyx Dressing changed daily Monitor skin integrity per protocol Elements for accurate and compliant documentation of an ulcer: *The location/laterality of the ulcer *Etiology (decubitus/pressure, diabetic, PVD) *Stage I-IV, Unstageable, Suspected Deep Tissue Injury (To the deepest stage) *If the ulcer was present at admission (POA) or occurred after admission In your professional opinion, can you please clarify the diagnosis, location, laterality and whether present on admission (POA): Stage 1 Pressure/Decubitus Ulcer (intact skin, non-blanching redness of local area) Stage 2 Pressure/Decubitus Ulcer (Partial thickness, loss of dermis, pink wound bed) Stage 3 Pressure/Decubitus Ulcer (Full thickness tissue loss) Unstageable Other condition, please specify Unable to determine Please indicate etiology of pressure ulcer (if known). (Last Revision: February 2017) stage 2 pressure ulcer POA on bilateral buttock _and coccyx MTDD
== END 2020-07-13 16:14 | disposition home or self-care (01) ==
LOC: EC 21:40 → 4SSUR 07-10 00:30 → OBSVTOIN 07-12 09:50 → INTOOBSV 07-12 09:50 → UNDODISIN 07-13 16:14
PROVIDERS: ADMIT Internal Medicine Geriatric Medicine; ATTEND Internal Medicine Geriatric Medicine
DX: T83.091A Other mechanical complication of indwelling urethral catheter, initial encounter (principal); T83.518A Infection and inflammatory reaction due to other urinary catheter, initial encounter; N40.1 Benign prostatic hyperplasia with lower urinary tract symptoms; E78.5 Hyperlipidemia, unspecified; E11.22 Type 2 diabetes mellitus with diabetic chronic kidney disease; Z20.822 Contact with and (suspected) exposure to COVID-19; I12.9 Hypertensive chronic kidney disease with stage 1 through stage 4 chronic kidney disease, or unspecified chronic kidney disease; N18.2 Chronic kidney disease, stage 2 (mild); N39.0 Urinary tract infection, site not specified; E86.0 Dehydration; E87.5 Hyperkalemia; N17.0 Acute kidney failure with tubular necrosis; G89.29 Other chronic pain; M25.552 Pain in left hip; M79.605 Pain in left leg; M19.90 Unspecified osteoarthritis, unspecified site; L89.322 Pressure ulcer of left buttock, stage 2; L89.312 Pressure ulcer of right buttock, stage 2; L89.152 Pressure ulcer of sacral region, stage 2; Y84.6 Urinary catheterization as the cause of abnormal reaction of the patient, or of later complication, without mention of misadventure at the time of the procedure; R33.8 Other retention of urine; E87.2 Acidosis; Z87.442 Personal history of urinary calculi; Z79.899 Other long term (current) drug therapy; Z79.4 Long term (current) use of insulin; Z88.0 Allergy status to penicillin; Z88.1 Allergy status to other antibiotic agents
CPT/HCPCS: 96361 ×5; 96365; 96366; 96372 ×4; 96375; 99285; 51702; 36415; 97162; 97166; 80053 ×3; 83605 ×2; 85025 ×4; 81001; 87040; 87086; 87077; 87186; 87635; G0378 ×4; J1956 ×2; J1650 ×4; J0696; 96374

== ENCOUNTER → 2020-07-22 | Outpatient (CLI) | payer MEDICARE ==
[2020-07-22 15:07] LABS: Basophils % (A) 1 %; Eosinophils # (A) 0.2 k/uL (0-0.7); Eosinophils % (A) 4 %; HCT 34.8 % (39.0-53.0); HGB 11.5 gm/dL (13.0-17.5); Lymphocytes # (A) 0.5 k/uL (1.0-4.8); Lymphocytes % (A) 7 %; MCHC 33.1 g/dL (31.0-37.0); MCV 93.8 fL (80.0-100.0); Mean Platelet Volume 8.1; Monocytes # (A) 0.3 k/uL (0-1.0); Monocytes % (A) 4 %; Neutrophils # (A) 5.5 k/uL (1.3-7.7); Neutrophils % (A) 84 %; Platelet Count 222 k/uL (150-450); RBC 3.72 m/uL (4.30-5.90); RDW 12.9 % (11.5-15.5); WBC 6.5 k/uL (3.8-10.6)
[2020-07-22 15:09] LABS: Appearance,Urine Turbid (Clear); Bacteria,Urine Rare /hpf; Bilirubin,Urine Negative (Negative); Blood,Urine Small (Negative); Budding Yeast,Urine Occasional /hpf; Calcium Oxalate Crystals,Urine Moderate /hpf; Color,Urine Yellow; Glucose,Urine (UA) Trace (Negative); Ketones,Urine Negative (Negative); Leukocyte Esterase,Urine Moderate (Negative); Mucus,Urine Rare /hpf; Nitrite,Urine Negative (Negative); Protein,Urine 1+ (Negative); RBC,Urine 29 /hpf (0-5); Specific Gravity,Urine 1.021 (1.001-1.035); Squamous Epithelial Cell,Urine <1 /hpf (0-4); Urobilinogen,Urine <2.0 mg/dL (<2.0); WBC,Urine 29 /hpf (0-5)
[2020-07-22 15:14] LABS: Albumin 3.6 g/dL (3.5-5.0); Calcium 9.2 mg/dL (8.4-10.2); Potassium 5.1 mmol/L (3.5-5.1); Total Bilirubin 0.3 mg/dL (0.2-1.3); Total Protein 5.9 g/dL (6.3-8.2)
== END | disposition home or self-care (01) ==
LOC: LABPAT 14:30
PROVIDERS: ATTEND Urology
DX: Z01.818 Encounter for other preprocedural examination (principal); E11.9 Type 2 diabetes mellitus without complications; R33.9 Retention of urine, unspecified; N40.1 Benign prostatic hyperplasia with lower urinary tract symptoms; N13.8 Other obstructive and reflux uropathy; I10 Essential (primary) hypertension
CPT/HCPCS: 36415; 80053; 81001; 85025; 86850; 86900; 86901; 87086; 93005

== ENCOUNTER 2020-07-28 09:53 | Day surgery (SDC) | payer MEDICARE ==
[2020-07-21 13:52] VITALS: BMI 32.8
--- NOTE | 2020-07-26 20:02 | P.GSHP ---
History of Present Illness H&P Date: 07/26/20 74 yo male with a known large prostate and a history of bladder stones. He went into urine retention this winter He was found to have a large stone.. Cystolithotripsy didnt relieve him of his urine retention He chronically has been on rapaflo and finasteride. is prostate is visually obstructing He comes for a bipolar turp. The risks and complications including persistent urine retention have been explained understood and accepted - Genitourinary (Male) Genitourinary: Reports as per HPI - Musculoskeletal Musculoskeletal: Reports gait dysfunction, Reports limitation of motion, Reports muscle weakness Past Medical History Past Medical History: Diabetes Mellitus, Hypertension, Osteoarthritis (OA), Prostate Disorder Additional Past Medical History / Comment(s): BPH, PSORIASIS, BACK HIP & KNEE PAIN-USES WHEELCHAIR AND WALKER., HX OF EXPOSURE & TX FOR TB (1968), RICHARD LEG SURGERY CHILD-LEFT LEG SHORTER & IS SMALLER IN DIAMETER WITH LIMITED ROM. , BLADDER STONES., PT HAS INDWELLING URINARY CATHETER., STATES SORE ON HIS BOTTOM-MARIELLE VISITING NURSE TO FOLLOW UP. History of Any Multi-Drug Resistant Organisms: None Reported Past Surgical History: Hernia Repair Additional Past Surgical History / Comment(s): CYSTOSCOPY WITH CYSTOLITHOTRIPSY FOR BLADDER STONE (06/16/20),. MUSCLES IN LEGS LENTHENED AT 3 & 10 YEARS OLD. Past Anesthesia/Blood Transfusion Reactions: No Reported Reaction Past Psychological History: No Psychological Hx Reported Smoking Status: Former smoker Past Alcohol Use History: None Reported Additional Past Alcohol Use History / Comment(s): QUIT SMOKING IN THE . Past Drug Use History: None Reported - Past Family History Mother Family Medical History: No Reported History Medications and Allergies Home Medications Medication Instructions Recorded Confirmed Type Darifenacin Hydrobromide 15 mg PO DAILY 05/24/20 07/21/20 History [Darifenacin ER] Insulin Detemir [Levemir Flextouch] 30 units SQ DAILY 05/24/20 07/21/20 History Insulin Detemir [Levemir Flextouch] 40 units SQ HS 05/24/20 07/21/20 History Quinapril HCl [Accupril] 20 mg PO DAILY 05/24/20 07/21/20 History Repaglinide [Prandin] 2 mg PO TID 05/24/20 07/21/20 History Simvastatin [Zocor] 20 mg PO HS 05/24/20 07/21/20 History metFORMIN HCL 1,000 mg PO BID 05/24/20 07/21/20 History Acetaminophen Tab [Tylenol] 500 mg PO DIRECTED PRN 07/09/20 07/21/20 History Insulin Aspart [NovoLOG Flexpen] 2 units SQ DIRECTED PRN 07/21/20 07/21/20 History Allergies Allergy/AdvReac Type Severity Reaction Status Date / Time Penicillins Allergy Swelling Verified 07/21/20 13:10 levofloxacin AdvReac Severe Diarrhea Verified 07/21/20 13:34 ciprofloxacin [From Cipro] AdvReac Vomiting Verified 07/21/20 13:10 Surgical - Exam - General well developed, well nourished, no distress - Eyes PERRL - ENT no hearing loss - Neck trachea midline - Respiratory normal expansion, normal respiratory effort - Cardiovascular Rhythm: regular - Abdomen Abdomen: soft, non tender - Genitourinary indwelling catheter - Integumentary no rash, no growths - Neurologic normal sensation - Musculoskeletal severe difficulty with walking due to severe osteoarthritis - Psychiatric oriented to time, oriented to person, oriented to place, speech is normal, memory intact Assessment and Plan Assessment: Impression: Urine retention secondary to bph. DM, htn Plan: Bipolar turp
[~2020-07-28 09:53] MED LIST changes: -CLINDAMYCIN 900 MG in DEXTROSE 5% IN WATER 50 ML IVPB PRN; +HYDROmorphone 0.5 MG/0.5 ML SYRINGE IVP PRN; -Pre Op ABX Message 1 EACH MISC MISCELLANE ONE
[2020-07-28 10:45] LABS: Glucose,Whole Blood 147 mg/dL (75-99)
[2020-07-28] MEDS ORDERED: MIDAZOLAM 2 MG/2 ML VIAL ONE (11:35)
[2020-07-28] MEDS ORDERED: fentaNYL (PF) 50 MCG/ML 2 ML AMP ONE (11:35)
[2020-07-28] MEDS ORDERED: PROPOFOL 10 MG/ML 20 ML VIAL IV ONE (11:35)
[2020-07-28] MEDS ORDERED: SUCCINYLCHOLINE CHLORIDE 100 MG/5 ML SYR IV ONE (11:35)
[2020-07-28] MEDS ORDERED: LIDOCAINE 1% INJ 10MG/ML (20 ML MDV) ONE (11:35)
--- NOTE | 2020-07-28 12:47 | P.OP ---
Date of Procedure: 07/28/20 Preoperative Diagnosis: Urine retention Postoperative Diagnosis: Same Procedure(s) Performed: Bipolar TURP Anesthesia: DIAMOND Surgeon: Griffin Carson Estimated Blood Loss (ml): 50 Pathology: other (Prostate) Condition: stable Disposition: PACU Indications for Procedure: Ration is 74. He is in urine retention. Cystolithotripsy failed to relieve him of the urine retention. He has an obstructing prostate. He has severe osteoarthritis and is immobilized from this. He comes for a bipolar TURP Description of Procedure: Patient is brought to the operating suite. He is given a successful general endotracheal anesthesia. He's placed lithotomy position with sterile prep and drape. I'm very careful with positioning due to severe arthritis and contractures a. After the prep and drape introduced a 25-Macedonian sheath and direct vision obturator into the urethra is normal prostate shows lateral lobe obstruction with a small middle lobe. The bladder shows stony debris and heavy trabeculation. I Irrigate the bladder thoroughly. I then resect the middle lobe. I then moved to 12:00 and resect the left lateral lobe from 12:00 to 6:00 from bladder neck to verumontanum. Do the same on the right side. I then resect the redundant floor tissue. Bleeding is controlled electrocautery. I remove the prosthetic chips with the [employer] evacuator. I reinspected the bladder there is no active bleeding noted there remaining prostatic chips. I removed the cystoscope and introduce an 18-Macedonian coud-tip catheter in the bladder with clear urine return. The patient awake and returned recovery in good condition. We discharged home upon recovery. We'll make arrangements for follow-up postoperatively. Blood loss was about 50 mL
[2020-07-28 12:54] VITALS: RESP 18; TEMP 97.2
[2020-07-28] MEDS ORDERED: HYDROcodone/APAP 5-325MG 1 EACH TAB ONE (14:34)
[2020-07-28] MEDS ORDERED: HYDROcodone/APAP 5-325MG 1 EACH TAB PO ONE (14:35)
[2020-07-28 14:59] LABS: Glucose,Whole Blood 161 mg/dL (75-99)
[2020-07-28 15:00] VITALS: BP 133/70; PULSE 116
== END 2020-07-28 15:40 | disposition home or self-care (01) ==
LOC: OR 09:53
PROVIDERS: ATTEND Urology
DX: C61 Malignant neoplasm of prostate (principal); N40.1 Benign prostatic hyperplasia with lower urinary tract symptoms; Z87.442 Personal history of urinary calculi; R26.89 Other abnormalities of gait and mobility; E11.9 Type 2 diabetes mellitus without complications; I10 Essential (primary) hypertension; E78.5 Hyperlipidemia, unspecified; M19.90 Unspecified osteoarthritis, unspecified site; L40.9 Psoriasis, unspecified; M54.9 Dorsalgia, unspecified; M25.559 Pain in unspecified hip; M25.569 Pain in unspecified knee; Z96.0 Presence of urogenital implants; Z87.891 Personal history of nicotine dependence; Z98.890 Other specified postprocedural states; Z79.4 Long term (current) use of insulin; Z79.899 Other long term (current) drug therapy; Z88.1 Allergy status to other antibiotic agents; Z88.0 Allergy status to penicillin
CPT/HCPCS: 88344; 88305; 84132; 52601; J2250; J1100; J2405; J2001; J3010; J1580; J0330; J2704; J1170; 86850; 86900; 86901

== ENCOUNTER 2020-07-28 23:37 | Observation (INO) | payer MEDICARE ==
[2020-07-29] MEDS ORDERED: ACETAMINOPHEN TAB 325 MG TAB PO PRN (00:14)
[2020-07-29] MEDS ORDERED: NALOXONE 0.4 MG/ML 1 ML VIAL IV PRN (00:14)
[2020-07-29] MEDS ORDERED: ONDANSETRON 4 MG/2 ML VIAL IVP PRN (00:14)
[2020-07-29] MEDS ORDERED: SODIUM CHLORIDE 0.9% 1,000 ML IV SCH (00:15)
--- NOTE | 2020-07-29 00:27 | ED ---
General Adult HPI - General Chief complaint: Recheck/Abnormal Lab/Rx Stated complaint: post op issue Time Seen by Provider: 07/28/20 23:42 Source: EMS Mode of arrival: EMS Limitations: no limitations - History of Present Illness Initial comments: This patient is a 74-year-old man presenting with complaint of low abdominal pain and urinary retention. The patient had TURP performed earlier in the day by Dr. Carson, had gone home and then had noted that urine stopped flowing through the catheter and he was developing abdominal pain and urge to urinate. When the pain became intense, patient called EMS and was transported here. Patient denies other complaints. -: hour(s) Location: abdomen Quality: aching, constant Consistency: constant Improves with: none Worsens with: none Associated Symptoms: denies other symptoms Treatments Prior to Arrival: none - Related Data Home Medications Medication Instructions Recorded Confirmed Darifenacin Hydrobromide 15 mg PO DAILY 05/24/20 07/21/20 [Darifenacin ER] Insulin Detemir [Levemir Flextouch] 30 units SQ DAILY 05/24/20 07/21/20 Insulin Detemir [Levemir Flextouch] 40 units SQ HS 05/24/20 07/21/20 Quinapril HCl [Accupril] 20 mg PO DAILY 05/24/20 07/21/20 Repaglinide [Prandin] 2 mg PO TID 05/24/20 07/21/20 Simvastatin [Zocor] 20 mg PO HS 05/24/20 07/21/20 metFORMIN HCL 1,000 mg PO BID 05/24/20 07/21/20 Acetaminophen Tab [Tylenol] 500 mg PO DIRECTED PRN 07/09/20 07/21/20 Insulin Aspart [NovoLOG Flexpen] 2 units SQ DIRECTED PRN 07/21/20 07/21/20 Previous Rx's Medication Instructions Recorded Sulfamethox-Tmp 800-160Mg [Bactrim 1 tab PO Q12HR #20 tab 07/28/20 DS 800-160 mg] Allergies Allergy/AdvReac Type Severity Reaction Status Date / Time Penicillins Allergy Swelling Verified 07/21/20 13:10 levofloxacin AdvReac Severe Diarrhea Verified 07/21/20 13:34 ciprofloxacin [From Cipro] AdvReac Vomiting Verified 07/21/20 13:10 Review of Systems ROS Statement: Those systems with pertinent positive or pertinent negative responses have been documented in the HPI. ROS Other: All systems not noted in ROS Statement are negative. Constitutional: Denies: fever, chills Respiratory: Denies: cough, dyspnea Cardiovascular: Denies: chest pain, palpitations, syncope Gastrointestinal: Reports: as per HPI, abdominal pain. Denies: vomiting, diarrhea, constipation Genitourinary: Reports: as per HPI, other (Urinary retention). Denies: testicular pain, testicular mass Musculoskeletal: Denies: back pain Skin: Denies: rash Neurological: Denies: headache Hematological/Lymphatic: Denies: easy bleeding Past Medical History Past Medical History: Prostate Disorder Additional Past Medical History / Comment(s): left hip and leg chronic pain, arthritis. History of Any Multi-Drug Resistant Organisms: None Reported Past Surgical History: Hernia Repair Additional Past Surgical History / Comment(s): bladder stones. Past Psychological History: No Psychological Hx Reported Smoking Status: Never smoker General Exam Limitations: no limitations General appearance: alert, in no apparent distress Head exam: Present: atraumatic, normocephalic Eye exam: Present: normal appearance. Absent: scleral icterus, conjunctival injection Respiratory exam: Present: normal lung sounds bilaterally. Absent: respiratory distress, wheezes, rales, rhonchi, stridor Cardiovascular Exam: Present: regular rate, normal rhythm, normal heart sounds. Absent: systolic murmur, diastolic murmur, rubs, gallop GI/Abdominal exam: Present: soft, guarding. Absent: distended, tenderness, rebound, rigid, mass exam: Present: other (Indwelling Hsieh catheter) Extremities exam: Present: normal inspection Back exam: Present: normal inspection Neurological exam: Present: alert Skin exam: Present: warm, dry, intact, normal color. Absent: rash Course Vital Signs 07/28/20 23:45 Temperature 97.6 F Pulse Rate 86 Respiratory 18 Rate Blood Pressure 129/63 O2 Sat by Pulse 96 Oximetry Medical Decision Making - Medical Decision Making The patient's catheter is flushed by nursing staff and then did begin draining. Few clots were also obtained. Patient had phoned the carton making machinist and had been told come in and told that he would be admitted overnight should the problem recur. I discussed with Dr. Lambert who is on-call and requests patient placed in observation. Disposition Clinical Impression: Obstruction of Hsieh catheter Disposition: ADMITTED IP TO THIS HOSP Condition: Good Is patient prescribed a controlled substance at d/c from ED?: No Referrals: Ed Culver MD [Primary Care Provider] - 1-2 days
[2020-07-29 02:37] LABS: Glucose,Whole Blood 247 mg/dL (75-99)
[2020-07-29 07:44] LABS: Glucose,Whole Blood 138 mg/dL (75-99)
[2020-07-29 08:08] VITALS: BP 153/75; PULSE 74; RESP 18; TEMP 98.4
[2020-07-29] MEDS: INSULIN ASPART (NovoLOG) 100 UNIT/ML VIAL SQ SCH ×2 (08:40→12:02)
[2020-07-29] MEDS ORDERED: FAMOTIDINE 20 MG TAB PO SCH (09:00)
[2020-07-29] MEDS ORDERED: metFORMIN 500 MG TAB PO SCH (09:00)
[2020-07-29] MEDS ORDERED: SULFAMETHOX-TMP 800-160MG 1 EACH TAB PO SCH (09:00)
[2020-07-29] MEDS ORDERED: lisinopriL 20 MG TAB PO SCH (09:00)
[2020-07-29] MEDS ORDERED: REPAGLINIDE 1 MG TAB PO SCH (09:00)
[2020-07-29] MEDS ORDERED: DARIFENACIN HYDROBROMIDE 15 MG PO SCH (09:00)
[2020-07-29] MEDS ORDERED: INSULIN DETEMIR (LEVEMIR) 100 UNIT/ML SYR SQ SCH ×2 (09:00→21:00)
--- NOTE | 2020-07-29 11:30 | P.GSHP ---
History of Present Illness H&P Date: 07/29/20 Chief Complaint: Urinary retention 74 yo male with a known large prostate and a history of bladder stones. He went into urine retention this winter. He was found to have a large bladder calculus. He underwent cystolithotripsy, but the urinary retention persisted. He has taken Rapaflo and finasteride for years. His prostate is visually obstructed, and he underwent a bipolar TURP yesterday. Last night, the catheter became plugged and he presented to the emergency room. His catheter was irrigated, removing several clots, and the catheter is now draining clear yellow urine. - Constitutional Constitutional: Denies chills, Denies fever - Gastrointestinal Gastrointestinal: Denies nausea - Genitourinary (Male) Genitourinary: Reports as per HPI Past Medical History Past Medical History: Prostate Disorder Additional Past Medical History / Comment(s): left hip and leg chronic pain, ar thritis. History of Any Multi-Drug Resistant Organisms: None Reported Past Surgical History: Hernia Repair Additional Past Surgical History / Comment(s): bladder stones. Past Anesthesia/Blood Transfusion Reactions: No Reported Reaction Past Psychological History: No Psychological Hx Reported Smoking Status: Never smoker Past Alcohol Use History: None Reported Past Drug Use History: None Reported Medications and Allergies Home Medications Medication Instructions Recorded Confirmed Type Darifenacin Hydrobromide 15 mg PO DAILY 05/24/20 07/29/20 History [Darifenacin ER] Insulin Detemir [Levemir Flextouch] 30 units SQ DAILY 05/24/20 07/29/20 History Insulin Detemir [Levemir Flextouch] 40 units SQ HS 05/24/20 07/29/20 History Quinapril HCl [Accupril] 20 mg PO DAILY 05/24/20 07/29/20 History Repaglinide [Prandin] 2 mg PO TID 05/24/20 07/29/20 History Simvastatin [Zocor] 20 mg PO HS 05/24/20 07/29/20 History metFORMIN HCL 1,000 mg PO BID 05/24/20 07/29/20 History Acetaminophen Tab [Tylenol] 500 mg PO Q6H PRN 07/09/20 07/29/20 History Insulin Aspart [NovoLOG Flexpen] 2 units SQ AC-TID PRN 07/21/20 07/29/20 History Sulfamethox-Tmp 800-160Mg [Bactrim 1 tab PO Q12HR #20 tab 07/28/20 07/29/20 Rx DS 800-160 mg] Allergies Allergy/AdvReac Type Severity Reaction Status Date / Time Penicillins Allergy Swelling Verified 07/21/20 13:10 levofloxacin AdvReac Severe Diarrhea Verified 07/21/20 13:34 ciprofloxacin [From Cipro] AdvReac Vomiting Verified 07/21/20 13:10 Surgical - Exam Vital Signs Temp Pulse Resp BP Pulse Ox 97.6 F 86 18 129/63 96 07/28/20 23:45 07/28/20 23:45 07/28/20 23:45 07/28/20 23:45 07/28/20 23:45 - General well developed, well nourished, no distress - Respiratory normal respiratory effort - Abdomen Abdomen: soft, non tender, no guarding, no rigid, no rebound - Psychiatric oriented to time, oriented to person, oriented to place, speech is normal, memory intact Results - Labs Abnormal Lab Results - Last 24 Hours (Table) 07/29/20 07/29/20 Range/Units 02:35 07:43 POC Glucose (mg/dL) 247 H 138 H (75-99) mg/dL Assessment and Plan (1) Urinary retention Current Visit: Yes Status: Acute Code(s): R33.9 - RETENTION OF URINE, UNSPECIFIED SNOMED Code(s): 281115014 Plan: The patient will be discharged home with his Hsieh catheter. His visiting nurse will remove the catheter on 08/02/2020 and he will subsequently follow up with Dr. Carson. In the meantime, he has been advised to avoid straining and drink plenty of fluids.
[2020-07-29 11:40] LABS: Glucose,Whole Blood 139 mg/dL (75-99)
[2020-07-29] MEDS ORDERED: ATORVASTATIN 10 MG TAB PO SCH (21:00)
[2020-07-30] MEDS ORDERED: FAMOTIDINE 20 MG TAB PO SCH (09:00)
== END 2020-07-29 15:48 | disposition home or self-care (01) ==
LOC: EC 23:37 → 6NMEDSUR 07-29 00:16
PROVIDERS: ADMIT Urology; ATTEND Urology
DX: T83.091A Other mechanical complication of indwelling urethral catheter, initial encounter (principal); R33.9 Retention of urine, unspecified; Y73.8 Miscellaneous gastroenterology and urology devices associated with adverse incidents, not elsewhere classified; N42.9 Disorder of prostate, unspecified; N21.0 Calculus in bladder; Z79.4 Long term (current) use of insulin; Z87.442 Personal history of urinary calculi; Z20.822 Contact with and (suspected) exposure to COVID-19
CPT/HCPCS: 99285; 97162; 97530; 97166; 87635; G0378

== ENCOUNTER 2020-10-20 15:53 | Inpatient (IN) | payer MEDICARE ==
[2020-10-20 16:39] LABS: Basophils % (A) 0 %; Eosinophils # (A) 0.1 k/uL (0-0.7); Eosinophils % (A) 1 %; HCT 37.3 % (39.0-53.0); HGB 12.7 gm/dL (13.0-17.5); Lymphocytes # (A) 0.7 k/uL (1.0-4.8); Lymphocytes % (A) 6 %; MCH 30.1 pg (25.0-35.0); MCV 88.7 fL (80.0-100.0); Monocytes # (A) 0.5 k/uL (0-1.0); Monocytes % (A) 5 %; Neutrophils % (A) 86 %; Platelet Count 206 k/uL (150-450); RBC 4.21 m/uL (4.30-5.90); RDW 13.4 % (11.5-15.5); WBC 10.5 k/uL (3.8-10.6)
[2020-10-20 16:48] LABS: Albumin 3.8 g/dL (3.5-5.0); Magnesium 2.3 mg/dL (1.6-2.3); Potassium 4.7 mmol/L (3.5-5.1); Total Bilirubin 0.4 mg/dL (0.2-1.3); Total Protein 6.1 g/dL (6.3-8.2)
--- NOTE | 2020-10-20 16:49 | XR ---
EXAMINATION TYPE: XR chest 1V portable DATE OF EXAM: 10/20/2020 COMPARISON: 03/24/2020 HISTORY: Fever Heart and mediastinum are normal. Lungs are clear. Diaphragm is normal. Bony thorax is intact. Pulmo nary vascularity is normal. IMPRESSION: No cardiopulmonary disease. No change.
--- NOTE | 2020-10-20 16:51 | XR ---
EXAMINATION TYPE: XR knee complete bilateral DATE OF EXAM: 10/20/2020 COMPARISON: NONE HISTORY: Pain. Fall. TECHNIQUE: 3 views each knee FINDINGS: I see no fracture nor dislocation. Joint spaces are fairly normal. There are no erosions. T here is no evidence of joint effusion. There is mild bilateral spurring on the patella. There is vasc ular calcification. IMPRESSION: No acute abnormality of the knees. Mild spur formation. No fracture.
--- NOTE | 2020-10-20 16:53 | ED ---
General Adult HPI - General Chief complaint: Fall Stated complaint: Fall Time Seen by Provider: 10/20/20 16:15 Source: patient, EMS, RN notes reviewed, old records reviewed Mode of arrival: EMS Limitations: no limitations - History of Present Illness Initial comments: 74-year-old male with fall which occurred at approximately midnight. Patient was transported by EMS at approximately 3 PM. He had fallen at home and was unable to get up. He states he normally walks with a walker. He does have some baseline gait instability. He has a chronic deformity of the left hip with left leg shortening. He states this is been present all of his life. He did report some knee pain and left elbow pain after the fall. No head or neck trauma. No chest pain. He states he was face down on the carpet and was unable to get up. - Related Data Home Medications Medication Instructions Recorded Confirmed Darifenacin Hydrobromide 15 mg PO DAILY 05/24/20 07/29/20 [Darifenacin ER] Insulin Detemir [Levemir Flextouch] 30 units SQ DAILY 05/24/20 07/29/20 Insulin Detemir [Levemir Flextouch] 40 units SQ HS 05/24/20 07/29/20 Quinapril HCl [Accupril] 20 mg PO DAILY 05/24/20 07/29/20 Repaglinide [Prandin] 2 mg PO TID 05/24/20 07/29/20 Simvastatin [Zocor] 20 mg PO HS 05/24/20 07/29/20 metFORMIN HCL 1,000 mg PO BID 05/24/20 07/29/20 Acetaminophen Tab [Tylenol] 500 mg PO Q6H PRN 07/09/20 07/29/20 Insulin Aspart [NovoLOG Flexpen] 2 units SQ AC-TID PRN 07/21/20 07/29/20 Previous Rx's Medication Instructions Recorded Sulfamethox-Tmp 800-160Mg [Bactrim 1 tab PO Q12HR #20 tab 07/28/20 DS 800-160 mg] Allergies Allergy/AdvReac Type Severity Reaction Status Date / Time Penicillins Allergy Swelling Verified 10/20/20 16:13 levofloxacin AdvReac Severe Diarrhea Verified 10/20/20 16:13 ciprofloxacin [From Cipro] AdvReac Vomiting Verified 10/20/20 16:13 Review of Systems ROS Statement: Those systems with pertinent positive or pertinent negative responses have been documented in the HPI. ROS Other: All systems not noted in ROS Statement are negative. Past Medical History Past Medical History: Prostate Disorder Additional Past Medical History / Comment(s): left hip and leg chronic pain, arthritis. History of Any Multi-Drug Resistant Organisms: None Reported Past Surgical History: Hernia Repair, Prostate Surgery Additional Past Surgical History / Comment(s): bladder stones. Past Anesthesia/Blood Transfusion Reactions: No Reported Reaction Past Psychological History: No Psychological Hx Reported Smoking Status: Never smoker Past Alcohol Use History: None Reported Past Drug Use History: None Reported General Exam Limitations: no limitations General appearance: alert, in no apparent distress Head exam: Present: other (left Periorbital edema and soft tissue swelling.) Eye exam: Present: PERRL Neck exam: Present: normal inspection. Absent: tenderness, meningismus Respiratory exam: Present: normal lung sounds bilaterally. Absent: respiratory distress, wheezes Cardiovascular Exam: Present: regular rate, normal rhythm GI/Abdominal exam: Present: soft. Absent: distended, tenderness Extremities exam: Present: other (Left elbow: Pain with range of motion, ecchymosis, no significant effusion. Bilateral knees are erythematous with superficial abrasion. The left leg is shortened approximately 4 inches compared to the right.) Neurological exam: Present: alert, oriented X3, CN II-XII intact. Absent: motor sensory deficit Psychiatric exam: Present: normal affect, normal mood Skin exam: Present: warm Course Vital Signs 10/20/20 16:10 Temperature 98.1 F Pulse Rate 87 Respiratory 18 Rate Blood Pressure 144/66 O2 Sat by Pulse 97 Oximetry EKG Findings - EKG Comments: EKG Findings:: EKG: Normal sinus rhythm, rate of 74, IA interval 168, QRS duration 92, QTC 441, no ST segment elevation. Medical Decision Making - Medical Decision Making 74-year-old male status post fall with prolonged downtime. Patient has some ecchymosis and abrasion, he does have a shortening of his left leg which is chronic according to the patient. X-rays and CT is performed, no traumatic injury, x-rays of elbow, bilateral knees, chest and pelvis with no acute abnormality, CT negative for intracranial hemorrhage or mass effect. Patient has a mild anemia otherwise normal CBC. He has acute kidney injury, rhabdomyolysis with elevated CK at 7900. His troponin is elevated 0.19. This level will be trended. He has no active chest pain. I did discuss case with Dr. Culver who will admit. IV fluids have been initiated. Urinalysis and coronavirus test are pending. - Lab Data Result diagrams: 10/20/20 16:24 10/20/20 16:24 Lab Results 10/20/20 10/20/20 10/20/20 Range/Units 16:24 16:24 16:24 WBC 10.5 (3.8-10.6) k/uL RBC 4.21 L (4.30-5.90) m/uL Hgb 12.7 L (13.0-17.5) gm/dL Hct 37.3 L (39.0-53.0) % MCV 88.7 (80.0-100.0) fL MCH 30.1 (25.0-35.0) pg MCHC 34.0 (31.0-37.0) g/dL RDW 13.4 (11.5-15.5) % Plt Count 206 (150-450) k/uL MPV 8.0 Neutrophils % 86 % Lymphocytes % 6 % Monocytes % 5 % Eosinophils % 1 % Basophils % 0 % Neutrophils # 9.0 H (1.3-7.7) k/uL Lymphocytes # 0.7 L (1.0-4.8) k/uL Monocytes # 0.5 (0-1.0) k/uL Eosinophils # 0.1 (0-0.7) k/uL Basophils # 0.0 (0-0.2) k/uL PT 10.7 (9.0-12.0) sec INR 1.0 (<1.2) APTT 19.6 L (22.0-30.0) sec Sodium 137 (137-145) mmol/L Potassium 4.7 (3.5-5.1) mmol/L Chloride 102 (98-107) mmol/L Carbon Dioxide 24 (22-30) mmol/L Anion Gap 11 mmol/L BUN 56 H (9-20) mg/dL Creatinine 1.83 H (0.66-1.25) mg/dL Est GFR (CKD-EPI)AfAm 41 (>60 ml/min/1.73 sqM) Est GFR (CKD-EPI)NonAf 35 (>60 ml/min/1.73 sqM) Glucose 203 H (74-99) mg/dL Plasma Lactic Acid Isak (0.7-2.0) mmol/L Calcium 9.0 (8.4-10.2) mg/dL Magnesium 2.3 (1.6-2.3) mg/dL Total Bilirubin 0.4 (0.2-1.3) mg/dL AST 179 H (17-59) U/L ALT 47 (4-49) U/L Alkaline Phosphatase 72 (38-126) U/L Creatine Kinase 7978 H* (55-170) U/L Troponin I (0.000-0.034) ng/mL Total Protein 6.1 L (6.3-8.2) g/dL Albumin 3.8 (3.5-5.0) g/dL 10/20/20 10/20/20 Range/Units 16:24 16:24 WBC (3.8-10.6) k/uL RBC (4.30-5.90) m/uL Hgb (13.0-17.5) gm/dL Hct (39.0-53.0) % MCV (80.0-100.0) fL MCH (25.0-35.0) pg MCHC (31.0-37.0) g/dL RDW (11.5-15.5) % Plt Count (150-450) k/uL MPV Neutrophils % % Lymphocytes % % Monocytes % % Eosinophils % % Basophils % % Neutrophils # (1.3-7.7) k/uL Lymphocytes # (1.0-4.8) k/uL Monocytes # (0-1.0) k/uL Eosinophils # (0-0.7) k/uL Basophils # (0-0.2) k/uL PT (9.0-12.0) sec INR (<1.2) APTT (22.0-30.0) sec Sodium (137-145) mmol/L Potassium (3.5-5.1) mmol/L Chloride (98-107) mmol/L Carbon Dioxide (22-30) mmol/L Anion Gap mmol/L BUN (9-20) mg/dL Creatinine (0.66-1.25) mg/dL Est GFR (CKD-EPI)AfAm (>60 ml/min/1.73 sqM) Est GFR (CKD-EPI)NonAf (>60 ml/min/1.73 sqM) Glucose (74-99) mg/dL Plasma Lactic Acid Isak 1.5 (0.7-2.0) mmol/L Calcium (8.4-10.2) mg/dL Magnesium (1.6-2.3) mg/dL Total Bilirubin (0.2-1.3) mg/dL AST (17-59) U/L ALT (4-49) U/L Alkaline Phosphatase (38-126) U/L Creatine Kinase (55-170) U/L Troponin I 0.191 H* (0.000-0.034) ng/mL Total Protein (6.3-8.2) g/dL Albumin (3.5-5.0) g/dL Disposition Clinical Impression: Fall, Rhabdomyolysis, Acute kidney injury, Elevated troponin Disposition: ADMITTED IP TO THIS [facility] Condition: Stable Is patient prescribed a controlled substance at d/c from ED?: No Referrals: Ed Culver MD [Primary Care Provider] - 1-2 days Decision to Admit Reason: Admit from EC Decision Date: 10/20/20 Decision Time: 17:39
[2020-10-20 16:56] LABS: Prothrombin Time 10.7 sec (9.0-12.0)
--- NOTE | 2020-10-20 16:59 | XR ---
EXAMINATION TYPE: XR elbow complete LT DATE OF EXAM: 10/20/2020 COMPARISON: NONE HISTORY: Pain TECHNIQUE: 3 views FINDINGS: I see no fracture nor dislocation. Joint spaces are normal. There is no sign of elbow joint effusion. IMPRESSION: Negative left elbow exam.
[2020-10-20 17:07] LABS: Partial Thromboplastin Time 19.6 sec (22.0-30.0)
--- NOTE | 2020-10-20 17:12 | XR ---
EXAMINATION TYPE: XR pelvis AP view DATE OF EXAM: 10/20/2020 COMPARISON: NONE HISTORY: None TECHNIQUE: Single view FINDINGS: Pelvic ring is intact. There is deformity of the left hip with shallow acetabulum and super ior migration of the femoral head. There is femoral head deformity. 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 No acute fracture seen.
--- NOTE | 2020-10-20 17:25 | CT ---
EXAMINATION TYPE: CT brain richard moore con DATE OF EXAM: 10/20/2020 COMPARISON: None HISTORY: Fall with head injury. CT DLP: 1645.2 mGycm Automated exposure control for dose reduction was used. Images obtained of the brain and cervical spine without contrast. There is mild cerebral atrophy. There is no mass effect nor midline shift. There is no sign of intrac ranial hemorrhage. There is left temporal parietal scalp soft tissue swelling. There is no evidence o f skull fracture. Skull base is intact. There is normal aeration of the mastoid sinuses. The cervical vertebra have normal alignment. There is degenerative disc space narrowing from C3 to C7 with spurring of the endplates. There is multilevel mild hypertrophic facet arthropathy. There is no compression fracture. IMPRESSION: Multilevel cervical spondylotic changes. No fracture. Cerebral atrophy. No acute intracranial abnormality.
[2020-10-20] MEDS ORDERED: NALOXONE 0.4 MG/ML 1 ML VIAL IV PRN (17:39)
[2020-10-20] MEDS: ACETAMINOPHEN TAB 325 MG TAB PO PRN (18:23)
[2020-10-20 18:42] LABS: Appearance,Urine Cloudy (Clear); Bilirubin,Urine Negative (Negative); Blood,Urine Large (Negative); Budding Yeast,Urine Occasional /hpf; Color,Urine Yellow; Glucose,Urine (UA) Negative (Negative); Hyaline Casts,Urine 24 /lpf (0-2); Ketones,Urine 1+ (Negative); Leukocyte Esterase,Urine Large (Negative); Mucus,Urine Occasional /hpf; Nitrite,Urine Negative (Negative); PH, Urine 5.5 (5.0-8.0); Protein,Urine 1+ (Negative); RBC,Urine 157 /hpf (0-5); Specific Gravity,Urine 1.022 (1.001-1.035); Squamous Epithelial Cell,Urine 2 /hpf (0-4); Urobilinogen,Urine <2.0 mg/dL (<2.0); WBC,Urine 96 /hpf (0-5)
[2020-10-20] MEDS: SODIUM CHLORIDE 0.9% 1,000 ML IV SCH (21:54)
[2020-10-20 22:20] LABS: Glucose,Whole Blood 312 mg/dL (75-99)
[2020-10-20] MEDS: INSULIN ASPART (NovoLOG) 100 UNIT/ML VIAL SQ SCH (23:28)
[2020-10-21 02:05] LABS: Glucose,Whole Blood 215 mg/dL (75-99)
[2020-10-21] MEDS: ACETAMINOPHEN TAB 325 MG TAB PO PRN (03:13)
[2020-10-21] MEDS: SODIUM CHLORIDE 0.9% 1,000 ML IV SCH ×4 (03:15→09:45)
[2020-10-21 06:03] LABS: Glucose,Whole Blood 175 mg/dL (75-99)
[2020-10-21] MEDS: INSULIN ASPART (NovoLOG) 100 UNIT/ML VIAL SQ SCH ×4 (06:22→20:48)
[2020-10-21 07:50] LABS: Basophils % (A) 1 %; Eosinophils # (A) 0.5 k/uL (0-0.7); Eosinophils % (A) 6 %; HCT 34.4 % (39.0-53.0); HGB 11.7 gm/dL (13.0-17.5); Lymphocytes # (A) 0.9 k/uL (1.0-4.8); Lymphocytes % (A) 11 %; MCH 30.6 pg (25.0-35.0); MCV 89.9 fL (80.0-100.0); Monocytes # (A) 0.4 k/uL (0-1.0); Monocytes % (A) 5 %; Neutrophils # (A) 5.8 k/uL (1.3-7.7); Neutrophils % (A) 76 %; Platelet Count 183 k/uL (150-450); RBC 3.83 m/uL (4.30-5.90); RDW 13.5 % (11.5-15.5); WBC 7.7 k/uL (3.8-10.6)
[2020-10-21 08:10] LABS: Calcium 7.9 mg/dL (8.4-10.2); Potassium 4.3 mmol/L (3.5-5.1)
[2020-10-21] MEDS ORDERED: INSULIN ASPART (NovoLOG) 100 UNIT/ML VIAL SQ PRN (09:44)
--- NOTE | 2020-10-21 11:10 | P.CONS ---
History of Present Illness - Reason for Consult Consult date: 10/21/20 wound care - History of Present Illness This is a 74-year-old patient being seen on for nonhealing ulcerations to the coccyx. Patient states that the ulceration has been there for approximately 1 year. The and initial ulceration started out as a blister from scratching. The second ulceration origin is unknown. Patient has been having treatment with home care in the form of collagen. Patient states that he has seen some improvement due to the collagen. He was also recommended to get a Roho cushion however he has not received it yet. Patient has an ulceration to the right buttocks measuring approximately 0.5 x 3 x 0.3 cm with minimal granulation Slough throughout the wound bed and undermining noted from 9:00 to 3:00. The second ulceration is to the left buttocks measuring approximately 0.5 x 0.5 x 0.2 cm with granulation throughout the wound beds Slough noted. The periWound shows excoriation and maceration. Patient has medical history significant for diabetes mellitus, hyperlipidemia, hypertension, he is a former smoker. Review Of Systems: Constitutional: No fever, no chills, no night sweats. No weight change. No weakness, fatigue or lethargy. No daytime sleepiness. Integumentary:reports wounds, no lesions. No rash or pruritus. No unusual bruising. No change in hair or nails. Physical exam: General Appearance: Alert, cooperative, no distress, appears stated age. Skin: See HPI all other Skin color, texture, tugor normal, no rashes or lesions. Neurologic: Alert oriented x3 Assessment: 1. Pressure ulcer stage II left buttocks with fat layer exposure 2. Pressure ulcer stage II right buttocks with fat layer exposure 3. Diabetes with skin ulceration Plan: 1. Apply collagen, saline moistened gauze, dry gauze, sacrum border foam to the site. Change Sunday. Patient to continue with advanced wound care upon discharge. Turn patient every 2 hours. He utilizes a waffle cushion for sitting. Thank you for the consultation any questions please contact the wound care center DNP note has been reviewed and discussed with Dr. Lopez and the impression and plan of care has been directed as dictated. Past Medical History Past Medical History: Diabetes Mellitus, Hyperlipidemia, Hypertension, Osteoarthritis (OA), Prostate Disorder Additional Past Medical History / Comment(s): left hip and leg chronic pain, arthritis. History of Any Multi-Drug Resistant Organisms: None Reported Past Surgical History: Hernia Repair, Prostate Surgery Additional Past Surgical History / Comment(s): bladder stones. Past Anesthesia/Blood Transfusion Reactions: No Reported Reaction Past Psychological History: No Psychological Hx Reported Smoking Status: Former smoker Past Alcohol Use History: None Reported Past Drug Use History: None Reported - Past Family History Father Family Medical History: Cancer, Prostate Disorder Additional Family Medical History / Comment(s): Past away from prostate cancer Mother Family Medical History: Cancer Additional Family Medical History / Comment(s): Brain CA Medications and Allergies Home Medications Medication Instructions Recorded Confirmed Type Darifenacin Hydrobromide 15 mg PO DAILY 05/24/20 10/20/20 History [Darifenacin ER] Insulin Detemir [Levemir Flextouch] 30 units SQ DAILY 05/24/20 10/20/20 History Insulin Detemir [Levemir Flextouch] 40 units SQ HS 05/24/20 10/20/20 History Quinapril HCl [Accupril] 20 mg PO DAILY 05/24/20 10/20/20 History Repaglinide [Prandin] 2 mg PO TID 05/24/20 10/20/20 History Simvastatin [Zocor] 20 mg PO HS 05/24/20 10/20/20 History metFORMIN HCL 1,000 mg PO BID 05/24/20 10/20/20 History Acetaminophen Tab [Tylenol] 500 mg PO Q6H PRN 07/09/20 10/20/20 History Insulin Aspart [NovoLOG Flexpen] 2 units SQ AC-TID PRN 07/21/20 10/20/20 History Nitrofurantoin Monohyd/M-Cryst 100 mg PO Q12HR 10/20/20 10/20/20 History [Macrobid] Silodosin [Rapaflo] 8 mg PO DAILY 10/20/20 10/20/20 History Allergies Allergy/AdvReac Type Severity Reaction Status Date / Time Penicillins Allergy Swelling Verified 10/20/20 18:03 levofloxacin AdvReac Severe Diarrhea Verified 10/20/20 18:03 ciprofloxacin [From Cipro] AdvReac Vomiting Verified 10/20/20 18:03 Physical Exam Vitals: Vital Signs Temp Pulse Pulse Resp BP BP BP 10/21/20 04:00 98.5 F 73 17 126/60 10/21/20 01:55 80 17 10/21/20 00:00 98.8 F 80 17 149/61 10/20/20 21:13 98.7 F 77 18 137/78 10/20/20 18:06 98.8 F 80 17 149/61 10/20/20 16:10 98.1 F 87 18 144/66 Pulse Ox 10/21/20 04:00 96 10/21/20 01:55 10/21/20 00:00 98 10/20/20 21:13 97 10/20/20 18:06 98 10/20/20 16:10 97 Intake and Output 10/20/20 10/21/20 10/21/20 22:59 06:59 14:59 Intake Total 1150 195 Output Total 475 50 Balance 675 145 Intake: Intake, IV Titration 1000 75 Amount Sodium Chloride 0.9% 1, 1000 75 000 ml @ 200 mls/hr IV . Q5H [facility] Rx#:[id number] Oral 150 120 Output: Urine 475 50 Other: Voiding Method Urinal Diaper # Voids 1 Weight 106.594 kg 112.945 kg Results CBC & Chem 7: 10/21/20 07:36 10/21/20 07:36 Labs: Abnormal Lab Results - Last 24 Hours (Table) 10/20/20 10/20/20 10/20/20 Range/Units 16:24 16:24 16:24 RBC 4.21 L (4.30-5.90) m/uL Hgb 12.7 L (13.0-17.5) gm/dL Hct 37.3 L (39.0-53.0) % Neutrophils # 9.0 H (1.3-7.7) k/uL Lymphocytes # 0.7 L (1.0-4.8) k/uL APTT 19.6 L (22.0-30.0) sec BUN (9-20) mg/dL Creatinine (0.66-1.25) mg/dL Glucose (74-99) mg/dL POC Glucose (mg/dL) (75-99) mg/dL Calcium (8.4-10.2) mg/dL AST (17-59) U/L Creatine Kinase (55-170) U/L Troponin I (0.000-0.034) ng/mL Total Protein (6.3-8.2) g/dL Urine Protein 1+ H (Negative) Urine Ketones 1+ H (Negative) Urine Blood Large H (Negative) Ur Leukocyte Esterase Large H (Negative) Urine RBC 157 H (0-5) /hpf Urine WBC 96 H (0-5) /hpf Hyaline Casts 24 H (0-2) /lpf Urine Mucus Occasional H (None) /hpf Urine Yeast (Budding) Occasional H (None) /hpf 10/20/20 10/20/20 10/20/20 Range/Units 16:24 16:24 19:39 RBC (4.30-5.90) m/uL Hgb (13.0-17.5) gm/dL Hct (39.0-53.0) % Neutrophils # (1.3-7.7) k/uL Lymphocytes # (1.0-4.8) k/uL APTT (22.0-30.0) sec BUN 56 H (9-20) mg/dL Creatinine 1.83 H (0.66-1.25) mg/dL Glucose 203 H (74-99) mg/dL POC Glucose (mg/dL) (75-99) mg/dL Calcium (8.4-10.2) mg/dL AST 179 H (17-59) U/L Creatine Kinase 7978 H* (55-170) U/L Troponin I 0.191 H* 0.148 H* (0.000-0.034) ng/mL Total Protein 6.1 L (6.3-8.2) g/dL Urine Protein (Negative) Urine Ketones (Negative) Urine Blood (Negative) Ur Leukocyte Esterase (Negative) Urine RBC (0-5) /hpf Urine WBC (0-5) /hpf Hyaline Casts (0-2) /lpf Urine Mucus (None) /hpf Urine Yeast (Budding) (None) /hpf 10/20/20 10/20/20 10/21/20 Range/Units 22:18 22:49 02:02 RBC (4.30-5.90) m/uL Hgb (13.0-17.5) gm/dL Hct (39.0-53.0) % Neutrophils # (1.3-7.7) k/uL Lymphocytes # (1.0-4.8) k/uL APTT (22.0-30.0) sec BUN (9-20) mg/dL Creatinine (0.66-1.25) mg/dL Glucose (74-99) mg/dL POC Glucose (mg/dL) 312 H 215 H (75-99) mg/dL Calcium (8.4-10.2) mg/dL AST (17-59) U/L Creatine Kinase (55-170) U/L Troponin I 0.117 H* (0.000-0.034) ng/mL Total Protein (6.3-8.2) g/dL Urine Protein (Negative) Urine Ketones (Negative) Urine Blood (Negative) Ur Leukocyte Esterase (Negative) Urine RBC (0-5) /hpf Urine WBC (0-5) /hpf Hyaline Casts (0-2) /lpf Urine Mucus (None) /hpf Urine Yeast (Budding) (None) /hpf 10/21/20 10/21/20 10/21/20 Range/Units 06:00 07:36 07:36 RBC 3.83 L (4.30-5.90) m/uL Hgb 11.7 L (13.0-17.5) gm/dL Hct 34.4 L (39.0-53.0) % Neutrophils # (1.3-7.7) k/uL Lymphocytes # 0.9 L (1.0-4.8) k/uL APTT (22.0-30.0) sec BUN 50 H (9-20) mg/dL Creatinine 1.34 H (0.66-1.25) mg/dL Glucose 179 H (74-99) mg/dL POC Glucose (mg/dL) 175 H (75-99) mg/dL Calcium 7.9 L (8.4-10.2) mg/dL AST (17-59) U/L Creatine Kinase (55-170) U/L Troponin I (0.000-0.034) ng/mL Total Protein (6.3-8.2) g/dL Urine Protein (Negative) Urine Ketones (Negative) Urine Blood (Negative) Ur Leukocyte Esterase (Negative) Urine RBC (0-5) /hpf Urine WBC (0-5) /hpf Hyaline Casts (0-2) /lpf Urine Mucus (None) /hpf Urine Yeast (Budding) (None) /hpf Microbiology - Last 24 Hours (Table) 10/20/20 16:24 Urine Culture - Preliminary Urine,Clean Catch Assessment and Plan (1) Pressure ulcer of right buttock, stage 2 Current Visit: Yes Status: Acute Code(s): L89.312 - PRESSURE ULCER OF RIGHT BUTTOCK, STAGE 2 SNOMED Code(s): 30902378726936205 (2) Pressure ulcer of left buttock, stage 2 Current Visit: Yes Status: Acute Code(s): L89.322 - PRESSURE ULCER OF LEFT BUTTOCK, STAGE 2 SNOMED Code(s): 22995617830009357 (3) Diabetes mellitus with skin ulcer Current Visit: Yes Status: Acute Code(s): E11.622 - TYPE 2 DIABETES MELLITUS WITH OTHER SKIN ULCER; L98.499 - NON-PRESSURE CHRONIC ULCER OF SKIN OF SITES W UNSP SEVERITY SNOMED Code(s): 70171061
[2020-10-21] MEDS: REPAGLINIDE 1 MG TAB PO SCH ×2 (12:04→17:22)
[2020-10-21 12:06] LABS: Glucose,Whole Blood 253 mg/dL (75-99)
--- NOTE | 2020-10-21 13:23 | P.HPIM ---
History of Present Illness H&P Date: 10/21/20 Chief Complaint: Weakness, fall HISTORY OF PRESENT ILLNESS This is a 74-year-old male patient of Dr. Culver and Dr. Carson with past medical history of benign prostatic hypertrophy, kidney stones, diabetes mellitus type 2, hyperlipidemia, chronic hip pain and generalized osteoarthritis, chronically shortened left leg, remote history of tobacco use. Patient states that he was walking with his walker to the kitchen and he turned, his legs gave out on him ended up falling to the floor and hitting the left side of his face. He states he was awake the whole time and did not lose consciousness. He states he was yelling the entire time and now has a hoarse voice. He was on the floor for about 14 hours until the home care nurse came and found him. Patient presents with multiple abrasions to extremities and bruising, stage II pressure ulcer to the bilateral buttocks. June 16, patient underwent cystoscopy and cystolithotripsy with Dr. Carson. Patient was subsequently seen in the emergency center due to urinary retention and Hsieh catheter was placed. He has subsequently underwent a bipolar TURP on July 28. Patient is no longer requir ing Hsieh catheter but states he does have difficulty voiding. He has been treated for recent urinary tract infections and urine culture from October 05 is enterococcus faecalis. Patient came into [facility] emergency center for evaluation and found to be firm brown, heart rate 87, blood pressure 144/66, pulse ox 97% on room air. EKG normal sinus rhythm with no acute ST changes at 74 bpm. WBC 10.5, hemoglobin 12.7, platelet count 206. Electrolytes were normal. BUN 56 and creatinine 1.83. Blood sugar 203. INR 1.9. AST 179 otherwise liver function tests were normal. CK 7978. Total protein 6.1 and albumin 3.8. Lactic acid 1.5. Troponin 0.191. Left elbow x-ray negative for fracture, dislocation, joint effusion. 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 No acute fracture seen. CAT scan of the brain and cervical spine revealed cerebral atrophy. No acute intracranial abnormality. Multilevel cervical spondylitic changes. No fracture. Patient admitted to the cardiac stepdown unit and consult in place with Wound Center regarding multiple wounds and pressure ulcers on the buttocks, infectious disease regarding recurrent chronic urinary tract infections, Dr. Carson regarding hematuria and UTI. REVIEW OF SYSTEMS Constitutional: No fever, no chills, no night sweats. No weight change. Reports weakness, Reports fatigue no lethargy. No daytime sleepiness. EENT: No headache. No blurred vision or double vision, no loss of vision. Reports chronic loss of Hearing. No nasal drainage or congestion. No epistaxis. Reports sore throat. Lungs: No shortness of breath, cough, no sputum production. No wheezing. Cardiovascular: No chest pain, no lower extremity edema. No palpitations. No paroxysmal nocturnal dyspnea. No orthopnea. No lightheadedness or dizziness. No syncopal episodes. Abdominal: No abdominal pain. No nausea, vomiting. No diarrhea. No constipation. No bloody or tarry stools. No loss of appetite. Genitourinary: No dysuria, increased frequency, urgency. No urinary retention. Musculoskeletal: No myalgias. No muscle weakness, no gait dysfunction, no frequent falls. No back pain. No neck pain. Integumentary: Multiple abrasions to bilateral upper and lower extremities and decubitus ulcers to the buttocks. No rash or pruritus. Significant bruising to extremities and face. Neurologic: No aphasia. No facial droop. No change in mentation. No head injury. No headache. No paralysis. No paresthesia. Psychiatric: No depression. No anxiety. No mood swings. Endocrine: No abnormal blood sugars. SOCIAL HISTORY Patient was a smoker of cigarettes or pipe tobacco smoke for 30+ years and quit in the . He denies any alcohol use, marijuana use or illicit drug use. 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 He has been since 1980. Patient currently lives at home alone and has home care in place. FAMILY HISTORY Father in his 70s from prostate cancer with metastatic disease. Mother in her 50s from malignant brain tumor. Patient does not have any sisters. Patient has one brother and he is living with no major medical problems. Patient has 2 children with no major medical problems. PHYSICAL EXAMINATION Gen: This is a 74-year-old male patient. He is resting in bed and appears to be comfortable and in no acute distress. HEENT: Head has significant ecchymosis to the left side of the face, normocep halic. Pupils equal, round. Sclerae is anicteric. NECK: Supple. No JVD. No lymphadenopathy. No thyromegaly. LUNGS: Clear to auscultation. No wheezes or rhonchi. No intercostal retractions. HEART: Regular rate and rhythm. No murmur. ABDOMEN: Soft. Bowel sounds are present. No masses. No tenderness. SKIN: EXTREMITIES: No pedal edema. No calf tenderness. Chronic shortening of the left leg. NEUROLOGICAL: Patient is awake, alert and oriented x3. Cranial nerves 2 through 12 are grossly intact. ASSESSMENT AND PLAN 1. Acute kidney injury. Continue IV fluids decreased to 75 mL per hour, avoid nephrotoxic agents, hypotension, repeat chemistries in the morning. 2. Acute rhabdomyolysis. Continue IV fluids, recheck CK in the morning. 3. Acute urinary tract infection. Consult placed with Dr. Schmidt. Repeat urine culture in process. 4. Hematuria with history of kidney stone, benign prostatic hypertrophy and frequent urinary tract infections, follows with Dr. Carson. Consult with urology. Continue Flomax 0.4 mg daily. 5. Lower extremity weakness. X-ray of the lumbar spine. 6. Diabetes mellitus type 2. Continue Levemir 30 units daily, 40 units at bedtime and insulin scale, Prandin 2 mg 3 times daily. 7. Hyperlipidemia. Continue Lipitor 10 mg at bedtime. 8. Generalized debility and weakness secondary to acute kidney injury and rhabdomyolysis along with shortened left leg causing ambulatory difficulties. Consult with PT and OT. 9. Stage II decubitus ulcer bilateral buttocks, POA. Consult with Wound Center appreciated. Local wound care with Carty, saline moistened gauze, dry gauze, sacrum foam dressing. Change Sunday. 10. Osteoarthritis left hip with concern for avascular necrosis. 11. GI prophylaxis. Protonix 40 mg oral daily. 12. DVT prophylaxis. Avoid heparin due to hematuria. SCDs and ELAINE hose. 13. COVID-19 testing negative. Patient has been hospitalized during a pandemic. Patient will be admitted to the hospital for a minimum of 2 night stay. DISCHARGE PLAN To be determined. PT and OT consults and social work consult. Impression and plan of care have been directed as dictated by the signing physician. Abbi Forrest nurse practitioner acting as scribe for signing physician. Past Medical History Past Medical History: Diabetes Mellitus, Hyperlipidemia, Hypertension, Osteoarthritis (OA), Prostate Disorder Additional Past Medical History / Comment(s): left hip and leg chronic pain, arthritis. History of Any Multi-Drug Resistant Organisms: None Reported Past Surgical History: Hernia Repair, Prostate Surgery Additional Past Surgical History / Comment(s): bladder stones. Past Anesthesia/Blood Transfusion Reactions: No Reported Reaction Past Psychological History: No Psychological Hx Reported Smoking Status: Former smoker Past Alcohol Use History: None Reported Past Drug Use History: None Reported - Past Family History Father Family Medical History: Cancer, Prostate Disorder Additional Family Medical History / Comment(s): Past away from prostate cancer Mother Family Medical History: Cancer Additional Family Medical History / Comment(s): Brain CA Medications and Allergies Home Medications Medication Instructions Recorded Confirmed Type Darifenacin Hydrobromide 15 mg PO DAILY 05/24/20 10/20/20 History [Darifenacin ER] Insulin Detemir [Levemir Flextouch] 30 units SQ DAILY 05/24/20 10/20/20 History Insulin Detemir [Levemir Flextouch] 40 units SQ HS 05/24/20 10/20/20 History Quinapril HCl [Accupril] 20 mg PO DAILY 05/24/20 10/20/20 History Repaglinide [Prandin] 2 mg PO TID 05/24/20 10/20/20 History Simvastatin [Zocor] 20 mg PO HS 05/24/20 10/20/20 History metFORMIN HCL 1,000 mg PO BID 05/24/20 10/20/20 History Acetaminophen Tab [Tylenol] 500 mg PO Q6H PRN 07/09/20 10/20/20 History Insulin Aspart [NovoLOG Flexpen] 2 units SQ AC-TID PRN 07/21/20 10/20/20 History Nitrofurantoin Monohyd/M-Cryst 100 mg PO Q12HR 10/20/20 10/20/20 History [Macrobid] Silodosin [Rapaflo] 8 mg PO DAILY 10/20/20 10/20/20 History Allergies Allergy/AdvReac Type Severity Reaction Status Date / Time Penicillins Allergy Swelling Verified 10/20/20 18:03 levofloxacin AdvReac Severe Diarrhea Verified 10/20/20 18:03 ciprofloxacin [From Cipro] AdvReac Vomiting Verified 10/20/20 18:03 Physical Exam Vitals: Vital Signs Temp Pulse Pulse Resp BP BP BP 10/21/20 04:00 98.5 F 73 17 126/60 10/21/20 01:55 80 17 10/21/20 00:00 98.8 F 80 17 149/61 10/20/20 21:13 98.7 F 77 18 137/78 10/20/20 18:06 98.8 F 80 17 149/61 10/20/20 16:10 98.1 F 87 18 144/66 Pulse Ox 10/21/20 04:00 96 10/21/20 01:55 10/21/20 00:00 98 10/20/20 21:13 97 10/20/20 18:06 98 10/20/20 16:10 97 Intake and Output 10/20/20 10/21/20 10/21/20 22:59 06:59 14:59 Intake Total 1150 195 Output Total 475 50 Balance 675 145 Intake: Intake, IV Titration 1000 75 Amount Sodium Chloride 0.9% 1, 1000 75 000 ml @ 200 mls/hr IV . Q5H [facility] Rx#:[id number] Oral 150 120 Output: Urine 475 50 Other: Voiding Method Urinal Diaper # Voids 1 Weight 106.594 kg 112.945 kg Results CBC & Chem 7: 10/21/20 07:36 10/21/20 07:36 Labs: Abnormal Lab Results - Last 24 Hours (Table) 10/20/20 10/20/20 10/20/20 Range/Units 16:24 16:24 16:24 RBC 4.21 L (4.30-5.90) m/uL Hgb 12.7 L (13.0-17.5) gm/dL Hct 37.3 L (39.0-53.0) % Neutrophils # 9.0 H (1.3-7.7) k/uL Lymphocytes # 0.7 L (1.0-4.8) k/uL APTT 19.6 L (22.0-30.0) sec BUN (9-20) mg/dL Creatinine (0.66-1.25) mg/dL Glucose (74-99) mg/dL POC Glucose (mg/dL) (75-99) mg/dL Calcium (8.4-10.2) mg/dL AST (17-59) U/L Creatine Kinase (55-170) U/L Troponin I (0.000-0.034) ng/mL Total Protein (6.3-8.2) g/dL Urine Protein 1+ H (Negative) Urine Ketones 1+ H (Negative) Urine Blood Large H (Negative) Ur Leukocyte Esterase Large H (Negative) Urine RBC 157 H (0-5) /hpf Urine WBC 96 H (0-5) /hpf Hyaline Casts 24 H (0-2) /lpf Urine Mucus Occasional H (None) /hpf Urine Yeast (Budding) Occasional H (None) /hpf 10/20/20 10/20/20 10/20/20 Range/Units 16:24 16:24 19:39 RBC (4.30-5.90) m/uL Hgb (13.0-17.5) gm/dL Hct (39.0-53.0) % Neutrophils # (1.3-7.7) k/uL Lymphocytes # (1.0-4.8) k/uL APTT (22.0-30.0) sec BUN 56 H (9-20) mg/dL Creatinine 1.83 H (0.66-1.25) mg/dL Glucose 203 H (74-99) mg/dL POC Glucose (mg/dL) (75-99) mg/dL Calcium (8.4-10.2) mg/dL AST 179 H (17-59) U/L Creatine Kinase 7978 H* (55-170) U/L Troponin I 0.191 H* 0.148 H* (0.000-0.034) ng/mL Total Protein 6.1 L (6.3-8.2) g/dL Urine Protein (Negative) Urine Ketones (Negative) Urine Blood (Negative) Ur Leukocyte Esterase (Negative) Urine RBC (0-5) /hpf Urine WBC (0-5) /hpf Hyaline Casts (0-2) /lpf Urine Mucus (None) /hpf Urine Yeast (Budding) (None) /hpf 10/20/20 10/20/20 10/21/20 Range/Units 22:18 22:49 02:02 RBC (4.30-5.90) m/uL Hgb (13.0-17.5) gm/dL Hct (39.0-53.0) % Neutrophils # (1.3-7.7) k/uL Lymphocytes # (1.0-4.8) k/uL APTT (22.0-30.0) sec BUN (9-20) mg/dL Creatinine (0.66-1.25) mg/dL Glucose (74-99) mg/dL POC Glucose (mg/dL) 312 H 215 H (75-99) mg/dL Calcium (8.4-10.2) mg/dL AST (17-59) U/L Creatine Kinase (55-170) U/L Troponin I 0.117 H* (0.000-0.034) ng/mL Total Protein (6.3-8.2) g/dL Urine Protein (Negative) Urine Ketones (Negative) Urine Blood (Negative) Ur Leukocyte Esterase (Negative) Urine RBC (0-5) /hpf Urine WBC (0-5) /hpf Hyaline Casts (0-2) /lpf Urine Mucus (None) /hpf Urine Yeast (Budding) (None) /hpf 10/21/20 10/21/20 10/21/20 Range/Units 06:00 07:36 07:36 RBC 3.83 L (4.30-5.90) m/uL Hgb 11.7 L (13.0-17.5) gm/dL Hct 34.4 L (39.0-53.0) % Neutrophils # (1.3-7.7) k/uL Lymphocytes # 0.9 L (1.0-4.8) k/uL APTT (22.0-30.0) sec BUN 50 H (9-20) mg/dL Creatinine 1.34 H (0.66-1.25) mg/dL Glucose 179 H (74-99) mg/dL POC Glucose (mg/dL) 175 H (75-99) mg/dL Calcium 7.9 L (8.4-10.2) mg/dL AST (17-59) U/L Creatine Kinase (55-170) U/L Troponin I (0.000-0.034) ng/mL Total Protein (6.3-8.2) g/dL Urine Protein (Negative) Urine Ketones (Negative) Urine Blood (Negative) Ur Leukocyte Esterase (Negative) Urine RBC (0-5) /hpf Urine WBC (0-5) /hpf Hyaline Casts (0-2) /lpf Urine Mucus (None) /hpf Urine Yeast (Budding) (None) /hpf Microbiology - Last 24 Hours (Table) 10/20/20 16:24 Urine Culture - Preliminary Urine,Clean Catch Thrombosis Risk Factor Assmnt - Choose All That Apply Any of the Below Risk Factors Present?: Yes Each Factor Represents 1 point: Obesity (BMI >25), Swollen legs (current) Other Risk Factors: Yes Each Risk Factor Represents 3 Points: Age 75 years or older Thrombosis Risk Factor Assessment Total Risk Factor Score: 5 Thrombosis Risk Factor Assessment Level: High Risk
[2020-10-21 15:05] VITALS: BMI 34.7
--- NOTE | 2020-10-21 17:05 | XR ---
PROCEDURE: XR lumbar spine - 3V DATE AND TIME: 10/21/2020 4:56 PM CLINICAL INDICATION: PHH; pain after fall TECHNIQUE: Coned AP and two coned crosstable lateral views COMPARISON: None FINDINGS: SKELETAL STRUCTURES: There is no fracture or malalignment. The vertebral segments morphology is maint ained. Dextrocurvature is noted. Multilevel degenerative facet and disc changes are noted. SOFT TISSUES: There is gaseous distention of several bowel loops, more so than seen yesterday, a nons pecific pattern which can be followed clinically. IMPRESSION: Negative for fracture or malalignment.
[2020-10-21 17:12] LABS: Glucose,Whole Blood 187 mg/dL (75-99)
[2020-10-21 19:47] LABS: Glucose,Whole Blood 223 mg/dL (75-99)
[2020-10-21] MEDS: INSULIN DETEMIR (LEVEMIR) 100 UNIT/ML SYR SQ SCH (20:48)
[2020-10-21] MEDS: ATORVASTATIN 10 MG TAB PO SCH (20:48)
[2020-10-21] MEDS: ACETAMINOPHEN TAB 500 MG TAB PO PRN (20:48)
[2020-10-21] MEDS ORDERED: VANCOMYCIN IV PER PHARMACY 1 EACH MISC MISCELLANE PRN (23:51)
[2020-10-22] MEDS ORDERED: VANCOMYCIN 1,750 MG in SODIUM CHLORIDE 0.9% 500 ML 500 ML IVPB SCH ×2 (01:00→18:00)
[2020-10-22 06:11] LABS: Glucose,Whole Blood 114 mg/dL (75-99)
[2020-10-22] MEDS: PANTOPRAZOLE 40 MG TABLET PO SCH (06:42)
[2020-10-22] MEDS: REPAGLINIDE 1 MG TAB PO SCH ×3 (06:42→17:27)
[2020-10-22] MEDS: ACETAMINOPHEN TAB 500 MG TAB PO PRN (06:48)
[2020-10-22] MEDS: INSULIN ASPART (NovoLOG) 100 UNIT/ML VIAL SQ SCH ×4 (06:51→21:00)
[2020-10-22] MEDS: INSULIN DETEMIR (LEVEMIR) 100 UNIT/ML SYR SQ SCH ×2 (06:51→20:58)
[2020-10-22] MEDS: SODIUM CHLORIDE 0.9% 1,000 ML IV SCH ×2 (06:51→08:02)
--- NOTE | 2020-10-22 07:19 | CONS ---
CONSULTATION DATE OF SERVICE: 10/21/2020 REASON FOR CONSULTATION: Urinary tract infection. HISTORY OF PRESENT ILLNESS: The patient is a 74-year-old male brought into the ER yesterday afternoon after apparently the patient did have a fall that happened around midnight. The patient mentioned he was on the floor for almost 14+ hours, as he was not able to get up and get some help. The patient was found and EMS was called and the patient was brought into the ER. The patient was complaining of pain to the left knee and to the elbow area. No history of any loss of consciousness or any head trauma. The patient did not have any fever on presentation to the hospital and did have a normal white count. The patient did have a positive UA with large leukocyte esterase and 96 WBC. The patient did have a history of recurrent UTIs. Did have urinary outflow obstruction. Last urine culture obtained has been on 10/05/2020, which grew enterococcus faecalis. It is not clear which antibiotic the patient has received. The patient has been complaining of some difficulty in urination but no suprapubic or flank pain. Some nausea but no vomiting. No chest pain, shortness of breath or cough. REVIEW OF SYSTEMS: Positive points have been mentioned in HPI. Rest of the systems are negative. PAST MEDICAL HISTORY: Prostate disorder, osteoarthritis. PAST SURGICAL HISTORY: Hernia repair and prostate surgery. SOCIAL HISTORY: Denies smoking, drinking or drug use. FAMILY HISTORY: No pertinent findings noticed. ALLERGIES: PENICILLIN AND QUINOLONES. MEDICATIONS: The patient is currently on Tylenol, Lipitor, NovoLog, Levemir, Narcan, Protonix, Prandin, Flomax and Ensure. PHYSICAL EXAMINATION: VITAL SIGNS: Blood pressure is 140/79, pulse of 96, temperature 98.1, he is 97% on room air. GENERAL DESCRIPTION: Patient is an elderly male lying in bed in no distress. No tachypnea or accessory muscles of respiration use. HEENT: Examination shows slight pallor, no scleral icterus. Oral mucous membrane is dry. NECK: Trachea central, no thyromegaly. LUNGS: Unlabored breathing, clear to auscultation anteriorly. No wheeze or crackle. HEART: S1-S2, regular rate and rhythm. ABDOMEN: Soft, no tenderness. No guarding or rigidity. EXTREMITIES: No edema of the feet. SKIN: Examination did show multiple bruises. NEUROLOGICAL: Patient is awake, alert, oriented times three. Mood and affect normal. LABS: Hemoglobin is 11.7, white count 7.7, BUN of 15, creatinine 1.04. Electrolytes have been normal. Troponins are elevated. DIAGNOSTIC IMPRESSION: 1. Patient admitted to the hospital. The patient did have a fell in this patient who does have a history of urinary outflow obstruction with a history of prostate disorder, history of recurrent UTI with the last urine culture done in the outpatient setting positive for Enterococcus faecalis. 2. Patient who does have a PENICILLIN AND LEVAQUIN/CIPRO allergy that will limit the number of antibiotics safe to use. PLAN: 1. Vancomycin, Pharmacy to dose target of 15 while watching for urine culture to finalize. 2. Gentle IV fluid. 3. We will follow on his clinical condition and further adjust medication if needed. Thank you for this consultation. Will follow this patient along with you. HAVEN / ANAN: [id number] /
[2020-10-22 07:31] LABS: Albumin 3.2 g/dL (3.5-5.0); Calcium 7.9 mg/dL (8.4-10.2); HGB 11.2 gm/dL (13.0-17.5); MCH 29.2 pg (25.0-35.0); MCHC 31.9 g/dL (31.0-37.0); MCV 91.7 fL (80.0-100.0); Platelet Count 212 k/uL (150-450); Potassium 4.1 mmol/L (3.5-5.1); RBC 3.82 m/uL (4.30-5.90); RDW 13.8 % (11.5-15.5); Total Bilirubin 0.2 mg/dL (0.2-1.3); Total Protein 5.5 g/dL (6.3-8.2); WBC 7.2 k/uL (3.8-10.6)
[2020-10-22] MEDS ORDERED: HYDROmorphone 0.5 MG/0.5 ML SYRINGE IVP STA (07:50)
[2020-10-22] MEDS: TAMSULOSIN 0.4 MG CAP.ER.24H PO SCH (08:01)
--- NOTE | 2020-10-22 08:35 | P.GSCN ---
History of Present Illness Consult date: 10/21/20 History of present illness: Patient is 75. He is known to me for bladder stone and urine retention. He had a cystolithotripsy in may 2020 and a turp 07/2020 for persistent urine retention The path identified a very small amount of ca prostate. The patient due tohis immobility has not done a fu visit in the office post turp. The patient fell and is admitted for that. His urine is inflammed and I am asked to see the patient.The patient is voiding. Review of Systems All systems: negative - Constitutional Denies fever, Denies weight loss - EENT Eyes: denies blurred vision Ears, nose, mouth and throat: Denies dysphagia - Cardiovascular Denies chest pain, Denies shortness of breath - Respiratory Denies cough, Denies 7 - Gastrointestinal Reports as per HPI - Genitourinary Denies dysuria, Denies hematuria - Integumentary Denies rash, Denies unusual bruising - Neurological Denies headaches, Denies syncope - Hematologic/Lymphatic Denies easy bleeding, Denies easy bruising Past Medical History Past Medical History: Diabetes Mellitus, Hyperlipidemia, Hypertension, Osteoarthritis (OA), Prostate Disorder Additional Past Medical History / Comment(s): left hip and leg chronic pain, arthritis. History of Any Multi-Drug Resistant Organisms: None Reported Past Surgical History: Hernia Repair, Prostate Surgery Additional Past Surgical History / Comment(s): bladder stones. Past Anesthesia/Blood Transfusion Reactions: No Reported Reaction Past Psychological History: No Psychological Hx Reported Smoking Status: Former smoker Past Alcohol Use History: None Reported Past Drug Use History: None Reported - Past Family History Father Family Medical History: Cancer, Prostate Disorder Additional Family Medical History / Comment(s): Past away from prostate cancer Mother Family Medical History: Cancer Additional Family Medical History / Comment(s): Brain CA Medications and Allergies Home Medications Medication Instructions Recorded Confirmed Type Darifenacin Hydrobromide 15 mg PO DAILY 05/24/20 10/20/20 History [Darifenacin ER] Insulin Detemir [Levemir Flextouch] 30 units SQ DAILY 05/24/20 10/20/20 History Insulin Detemir [Levemir Flextouch] 40 units SQ HS 05/24/20 10/20/20 History Quinapril HCl [Accupril] 20 mg PO DAILY 05/24/20 10/20/20 History Repaglinide [Prandin] 2 mg PO TID 05/24/20 10/20/20 History Simvastatin [Zocor] 20 mg PO HS 05/24/20 10/20/20 History metFORMIN HCL 1,000 mg PO BID 05/24/20 10/20/20 History Acetaminophen Tab [Tylenol] 500 mg PO Q6H PRN 07/09/20 10/20/20 History Insulin Aspart [NovoLOG Flexpen] 2 units SQ AC-TID PRN 07/21/20 10/20/20 History Nitrofurantoin Monohyd/M-Cryst 100 mg PO Q12HR 10/20/20 10/20/20 History [Macrobid] Silodosin [Rapaflo] 8 mg PO DAILY 10/20/20 10/20/20 History Allergies Allergy/AdvReac Type Severity Reaction Status Date / Time Penicillins Allergy Swelling Verified 10/20/20 18:03 levofloxacin AdvReac Severe Diarrhea Verified 10/20/20 18:03 ciprofloxacin [From Cipro] AdvReac Vomiting Verified 10/20/20 18:03 Surgical - Exam Vital Signs Temp Pulse Resp BP Pulse Ox 98.1 F 87 18 144/66 97 10/20/20 16:10 10/20/20 16:10 10/20/20 16:10 10/20/20 16:10 10/20/20 16:10 - General well developed, well nourished, no distress - Eyes PERRL - ENT no hearing loss - Neck trachea midline - Respiratory normal expansion, normal respiratory effort - Cardiovascular Rhythm: regular - Abdomen Abdomen: soft, non tender - Neurologic the patient has gait problems due to polio - Psychiatric oriented to time, oriented to person, oriented to place, speech is normal, memory intact Results - Labs 10/21/20 07:36 10/21/20 07:36 Abnormal Lab Results - Last 24 Hours (Table) 10/20/20 10/20/20 10/20/20 Range/Units 16:24 16:24 16:24 RBC 4.21 L (4.30-5.90) m/uL Hgb 12.7 L (13.0-17.5) gm/dL Hct 37.3 L (39.0-53.0) % Neutrophils # 9.0 H (1.3-7.7) k/uL Lymphocytes # 0.7 L (1.0-4.8) k/uL APTT 19.6 L (22.0-30.0) sec BUN (9-20) mg/dL Creatinine (0.66-1.25) mg/dL Glucose (74-99) mg/dL POC Glucose (mg/dL) (75-99) mg/dL Calcium (8.4-10.2) mg/dL AST (17-59) U/L Creatine Kinase (55-170) U/L Troponin I (0.000-0.034) ng/mL Total Protein (6.3-8.2) g/dL Urine Protein 1+ H (Negative) Urine Ketones 1+ H (Negative) Urine Blood Large H (Negative) Ur Leukocyte Esterase Large H (Negative) Urine RBC 157 H (0-5) /hpf Urine WBC 96 H (0-5) /hpf Hyaline Casts 24 H (0-2) /lpf Urine Mucus Occasional H (None) /hpf Urine Yeast (Budding) Occasional H (None) /hpf 10/20/20 10/20/20 10/20/20 Range/Units 16:24 16:24 19:39 RBC (4.30-5.90) m/uL Hgb (13.0-17.5) gm/dL Hct (39.0-53.0) % Neutrophils # (1.3-7.7) k/uL Lymphocytes # (1.0-4.8) k/uL APTT (22.0-30.0) sec BUN 56 H (9-20) mg/dL Creatinine 1.83 H (0.66-1.25) mg/dL Glucose 203 H (74-99) mg/dL POC Glucose (mg/dL) (75-99) mg/dL Calcium (8.4-10.2) mg/dL AST 179 H (17-59) U/L Creatine Kinase 7978 H* (55-170) U/L Troponin I 0.191 H* 0.148 H* (0.000-0.034) ng/mL Total Protein 6.1 L (6.3-8.2) g/dL Urine Protein (Negative) Urine Ketones (Negative) Urine Blood (Negative) Ur Leukocyte Esterase (Negative) Urine RBC (0-5) /hpf Urine WBC (0-5) /hpf Hyaline Casts (0-2) /lpf Urine Mucus (None) /hpf Urine Yeast (Budding) (None) /hpf 10/20/20 10/20/20 10/21/20 Range/Units 22:18 22:49 02:02 RBC (4.30-5.90) m/uL Hgb (13.0-17.5) gm/dL Hct (39.0-53.0) % Neutrophils # (1.3-7.7) k/uL Lymphocytes # (1.0-4.8) k/uL APTT (22.0-30.0) sec BUN (9-20) mg/dL Creatinine (0.66-1.25) mg/dL Glucose (74-99) mg/dL POC Glucose (mg/dL) 312 H 215 H (75-99) mg/dL Calcium (8.4-10.2) mg/dL AST (17-59) U/L Creatine Kinase (55-170) U/L Troponin I 0.117 H* (0.000-0.034) ng/mL Total Protein (6.3-8.2) g/dL Urine Protein (Negative) Urine Ketones (Negative) Urine Blood (Negative) Ur Leukocyte Esterase (Negative) Urine RBC (0-5) /hpf Urine WBC (0-5) /hpf Hyaline Casts (0-2) /lpf Urine Mucus (None) /hpf Urine Yeast (Budding) (None) /hpf 10/21/20 10/21/20 10/21/20 Range/Units 06:00 07:36 07:36 RBC 3.83 L (4.30-5.90) m/uL Hgb 11.7 L (13.0-17.5) gm/dL Hct 34.4 L (39.0-53.0) % Neutrophils # (1.3-7.7) k/uL Lymphocytes # 0.9 L (1.0-4.8) k/uL APTT (22.0-30.0) sec BUN 50 H (9-20) mg/dL Creatinine 1.34 H (0.66-1.25) mg/dL Glucose 179 H (74-99) mg/dL POC Glucose (mg/dL) 175 H (75-99) mg/dL Calcium 7.9 L (8.4-10.2) mg/dL AST (17-59) U/L Creatine Kinase (55-170) U/L Troponin I (0.000-0.034) ng/mL Total Protein (6.3-8.2) g/dL Urine Protein (Negative) Urine Ketones (Negative) Urine Blood (Negative) Ur Leukocyte Esterase (Negative) Urine RBC (0-5) /hpf Urine WBC (0-5) /hpf Hyaline Casts (0-2) /lpf Urine Mucus (None) /hpf Urine Yeast (Budding) (None) /hpf Microbiology - Last 24 Hours (Table) 10/20/20 16:24 Urine Culture - Preliminary Urine,Clean Catch Diabetes panel 10/20/20 10/21/20 Range/Units 16:24 07:36 Sodium 137 139 (137-145) mmol/L Potassium 4.7 4.3 (3.5-5.1) mmol/L Chloride 102 106 (98-107) mmol/L Carbon Dioxide 24 26 (22-30) mmol/L BUN 56 H 50 H (9-20) mg/dL Creatinine 1.83 H 1.34 H (0.66-1.25) mg/dL Glucose 203 H 179 H (74-99) mg/dL Calcium 9.0 7.9 L (8.4-10.2) mg/dL AST 179 H (17-59) U/L ALT 47 (4-49) U/L Alkaline Phosphatase 72 (38-126) U/L Total Protein 6.1 L (6.3-8.2) g/dL Albumin 3.8 (3.5-5.0) g/dL Calcium panel 10/20/20 10/21/20 Range/Units 16:24 07:36 Calcium 9.0 7.9 L (8.4-10.2) mg/dL Albumin 3.8 (3.5-5.0) g/dL Pituitary panel 10/20/20 10/21/20 Range/Units 16:24 07:36 Sodium 137 139 (137-145) mmol/L Potassium 4.7 4.3 (3.5-5.1) mmol/L Chloride 102 106 (98-107) mmol/L Carbon Dioxide 24 26 (22-30) mmol/L BUN 56 H 50 H (9-20) mg/dL Creatinine 1.83 H 1.34 H (0.66-1.25) mg/dL Glucose 203 H 179 H (74-99) mg/dL Calcium 9.0 7.9 L (8.4-10.2) mg/dL Adrenal panel 10/20/20 10/21/20 Range/Units 16:24 07:36 Sodium 137 139 (137-145) mmol/L Potassium 4.7 4.3 (3.5-5.1) mmol/L Chloride 102 106 (98-107) mmol/L Carbon Dioxide 24 26 (22-30) mmol/L BUN 56 H 50 H (9-20) mg/dL Creatinine 1.83 H 1.34 H (0.66-1.25) mg/dL Glucose 203 H 179 H (74-99) mg/dL Calcium 9.0 7.9 L (8.4-10.2) mg/dL Total Bilirubin 0.4 (0.2-1.3) mg/dL AST 179 H (17-59) U/L ALT 47 (4-49) U/L Alkaline Phosphatase 72 (38-126) U/L Total Protein 6.1 L (6.3-8.2) g/dL Albumin 3.8 (3.5-5.0) g/dL Assessment and Plan Assessment: Impression. Sp turp for urine retention. Possible uti versus post operative inflammation. T1a prostate cancer that will be managed by surveillance due to age and health Rec ua, c&s, pvr
[2020-10-22] MEDS: TROSPIUM CHLORIDE 20 MG TABLET PO SCH ×2 (08:37→20:58)
[2020-10-22] MEDS ORDERED: HYDROmorphone 0.5 MG/0.5 ML SYRINGE IVP PRN (11:40)
[2020-10-22 11:58] LABS: Glucose,Whole Blood 140 mg/dL (75-99)
[2020-10-22] MEDS: HYDROcodone/APAP 5-325MG 1 EACH TAB PO PRN ×2 (12:04→17:32)
[2020-10-22 17:18] LABS: Glucose,Whole Blood 131 mg/dL (75-99)
--- NOTE | 2020-10-22 18:48 | PN ---
PROGRESS NOTE DATE OF SERVICE: 10/22/2020 REASON FOR FOLLOWUP: Recurrent urinary tract infection. INTERVAL HISTORY: The patient is currently afebrile. The patient is breathing comfortably. The patient denies having any chest pain or shortness of breath or cough. No abdominal pain or diarrhea. PHYSICAL EXAMINATION: Blood pressure is 149/69, pulse of 88, temperature 97.8. She is 96% on room air. General description is an elderly male lying in bed in no distress. RESPIRATORY SYSTEM: Unlabored breathing. Clear to auscultation anteriorly. HEART: S1, S2. Regular rate and rhythm. ABDOMEN: Soft. No tenderness. LABS: Hemoglobin is 11.2, white count 7.2, BUN of 42, creatinine 1.07. Urine came back negative. DIAGNOSTIC IMPRESSION AND PLAN: Patient admitted to hospital with a fall in this patient with a positive UA and concern for UTI. The patient's last urine cultures were positive for Enterococcus faecalis in this patient with a PENICILLIN ALLERGY. He has been treated with vancomycin; however, with the culture negative we will go ahead and discontinue vancomycin and monitor the patient closely off antibiotic therapy. Continue with supportive care. MMODL / IJN: [id number] /
[2020-10-22 20:44] LABS: Glucose,Whole Blood 232 mg/dL (75-99)
[2020-10-22] MEDS: ATORVASTATIN 10 MG TAB PO SCH (20:58)
--- NOTE | 2020-10-22 21:19 | P.PN ---
Subjective Progress Note Date: 10/22/20 HISTORY OF PRESENT ILLNESS This is a 74-year-old male patient of Dr. Culver and Dr. Carson with past medical history of benign prostatic hypertrophy, kidney stones, diabetes mellitus type 2, hyperlipidemia, chronic hip pain and generalized osteoarthritis, chronically shortened left leg, remote history of tobacco use. Patient states that he was walking with his walker to the kitchen and he turned, his legs gave out on him ended up falling to the floor and hitting the left side of his face. He states he was awake the whole time and did not lose consciousness. He states he was yelling the entire time and now has a hoarse voice. He was on the floor for about 14 hours until the home care nurse came and found him. Patient presents with multiple abrasions to extremities and bruising, stage II pressure ulcer to the bilateral buttocks. June 16, patient underwent cystoscopy and cystolithotripsy with Dr. Carson. Patient was subsequently seen in the emergency center due to urinary retention and Hsieh catheter was placed. He has subsequently underwent a bipolar TURP on July 28. Patient is no longer requiring Hsieh catheter but states he does have difficulty voiding. He has been treated for recent urinary tract infections and urine culture from October 05 is enterococcus faecalis. Patient came into [facility] emergency center for evaluation and found to be firm brown, heart rate 87, blood pressure 144/66, pulse ox 97% on room air. EKG normal sinus rhythm with no acute ST changes at 74 bpm. WBC 10.5, hemoglobin 12.7, platelet count 206. Electrolytes were normal. BUN 56 and creatinine 1.83. Blood sugar 203. INR 1.9. AST 179 otherwise liver function tests were normal. CK 7978. Total protein 6.1 and albumin 3.8. Lactic acid 1.5. Troponin 0.191. Left elbow x-ray negative for fracture, dislocation, joint effusion. 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 No acute fracture seen. CAT scan of the brain and cervical spine revealed cerebral atrophy. No acute intracranial abnormality. Multilevel cervical spondylitic changes. No fracture. Patient admitted to the cardiac stepdown unit and consult in place with [facility] regarding multiple wounds and pressure ulcers on the buttocks, infectious disease regarding recurrent chronic urinary tract infections, Dr. Carson regarding hematuria and UTI. 10/22: He is doing much better today is sitting up in the chair still having significant pain and discomfort in the right and left hip area he did limited physical therapy, kidney function slightly but better today and CK is down. Patient been evaluated to go to [facility] he is not ready at this point still been treated aggressively for urinary tract infection seen urology also seen nephrology. Had mildly elevated troponin with no sign of acute coronary syndrome or injury. REVIEW OF SYSTEMS Constitutional: No fever, no chills, no night sweats. No weight change. Reports weakness, Reports fatigue no lethargy. No daytime sleepiness. EENT: No headache. No blurred vision or double vision, no loss of vision. Reports chronic loss of Hearing. No nasal drainage or congestion. No epistaxis. Reports sore throat. Lungs: No shortness of breath, cough, no sputum production. No wheezing. Cardiovascular: No chest pain, no lower extremity edema. No palpitations. No paroxysmal nocturnal dyspnea. No orthopnea. No lightheadedness or dizziness. No syncopal episodes. Abdominal: No abdominal pain. No nausea, vomiting. No diarrhea. No constipation. No bloody or tarry stools. No loss of appetite. Genitourinary: No dysuria, increased frequency, urgency. No urinary retention. Musculoskeletal: No myalgias. No muscle weakness, no gait dysfunction, no frequent falls. No back pain. No neck pain. Integumentary: Multiple abrasions to bilateral upper and lower extremities and decubitus ulcers to the buttocks. No rash or pruritus. Significant bruising to extremities and face. Neurologic: No aphasia. No facial droop. No change in mentation. No head injury. No headache. No paralysis. No paresthesia. Psychiatric: No depression. No anxiety. No mood swings. Endocrine: No abnormal blood sugars. PHYSICAL EXAMINATION Gen: This is a 74-year-old male patient. He is resting in bed and appears to be comfortable and in no acute distress. HEENT: Head has significant ecchymosis to the left side of the face, normocephalic. Pupils equal, round. Sclerae is anicteric. NECK: Supple. No JVD. No lymphadenopathy. No thyromegaly. LUNGS: Clear to auscultation. No wheezes or rhonchi. No intercostal retractions. HEART: Regular rate and rhythm. No murmur. ABDOMEN: Soft. Bowel sounds are present. No masses. No tenderness. SKIN: EXTREMITIES: No pedal edema. No calf tenderness. Chronic shortening of the left leg. NEUROLOGICAL: Patient is awake, alert and oriented x3. Cranial nerves 2 through 12 are grossly intact. ASSESSMENT AND PLAN 1. Acute kidney injury. Continue IV fluids decreased to 75 mL per hour, avoid nephrotoxic agents, hypotension, repeat chemistries in the morning.patient does not need any dialysis in kidney function is much better so far. 2. Acute rhabdomyolysis. Continue IV fluids, recheck CK in the morning.CK is down in the 6000. 3. Acute urinary tract infection. Consult placed with Dr. Schmidt. Repeat urine culture in process. first one from 526 came back negative patient has been off antibiotics. 4. Hematuria with history of kidney stone, benign prostatic hypertrophy and frequent urinary tract infections, follows with Dr. Carson. Consult with urology. Continue Flomax 0.4 mg daily. 5. Lower extremity weakness. X-ray of the lumbar spine. 6. Diabetes mellitus type 2. Continue Levemir 30 units daily, 40 units at bed time and insulin scale, Prandin 2 mg 3 times daily. 7. Hyperlipidemia. Continue Lipitor 10 mg at bedtime. 8. Generalized debility and weakness secondary to acute kidney injury and rhabdomyolysis along with shortened left leg causing ambulatory difficulties. Consult with PT and OT. 9. Stage II decubitus ulcer bilateral buttocks, POA. Consult with [facility] appreciated. Local wound care with Carty, saline moistened gauze, dry gauze, sacrum foam dressing. Change Sunday. 10. Osteoarthritis left hip with concern for avascular necrosis. 11. GI prophylaxis. Protonix 40 mg oral daily. 12. DVT prophylaxis. Avoid heparin due to hematuria. SCDs and ELAINE hose. 13. COVID-19 testing negative. Patient has been hospitalized during a pandemic. Patient will be admitted to the hospital for a minimum of 2 night stay. Objective - Vital Signs Vital signs: Vital Signs Temp 97.2 F L 10/22/20 07:57 Pulse 71 10/22/20 07:57 Resp 18 10/22/20 08:02 BP 135/63 10/22/20 07:57 Pulse Ox 97 10/22/20 07:57 Intake & Output 10/21/20 10/22/20 10/22/20 18:59 06:59 18:59 Intake Total 733 720 Output Total 300 450 Balance 433 -450 720 Weight 112.945 kg 111.8 kg Intake: Intake, IV Titration 75 Amount Sodium Chloride 0.9% 1, 75 000 ml @ 200 mls/hr IV . [facility] Rx#:[id number] Oral 658 720 Output: Urine 300 450 Other: Voiding Method Urinal Urinal Urinal Diaper Diaper Diaper # Voids 2 - Labs CBC & Chem 7: 10/22/20 06:55 10/22/20 06:55 Labs: Abnormal Lab Results - Last 24 Hours (Table) 10/21/20 10/21/20 10/21/20 Range/Units 11:55 17:06 19:46 RBC (4.30-5.90) m/uL Hgb (13.0-17.5) gm/dL Hct (39.0-53.0) % Chloride (98-107) mmol/L BUN (9-20) mg/dL Glucose (74-99) mg/dL POC Glucose (mg/dL) 253 H 187 H 223 H (75-99) mg/dL Calcium (8.4-10.2) mg/dL AST (17-59) U/L ALT (4-49) U/L Creatine Kinase (55-170) U/L Total Protein (6.3-8.2) g/dL Albumin (3.5-5.0) g/dL 10/22/20 10/22/20 10/22/20 Range/Units 06:08 06:55 06:55 RBC 3.82 L (4.30-5.90) m/uL Hgb 11.2 L (13.0-17.5) gm/dL Hct 35.0 L (39.0-53.0) % Chloride 110 H (98-107) mmol/L BUN 42 H (9-20) mg/dL Glucose 120 H (74-99) mg/dL POC Glucose (mg/dL) 114 H (75-99) mg/dL Calcium 7.9 L (8.4-10.2) mg/dL AST 195 H (17-59) U/L ALT 72 H (4-49) U/L Creatine Kinase 6976 H* (55-170) U/L Total Protein 5.5 L (6.3-8.2) g/dL Albumin 3.2 L (3.5-5.0) g/dL Microbiology - Last 24 Hours (Table) 10/20/20 16:24 Urine Culture - Final Urine,Clean Catch
[2020-10-23] MEDS: SODIUM CHLORIDE 0.9% 1,000 ML IV SCH ×2 (04:17→08:39)
[2020-10-23] MEDS: INSULIN DETEMIR (LEVEMIR) 100 UNIT/ML SYR SQ SCH ×2 (06:16→20:26)
[2020-10-23] MEDS: INSULIN ASPART (NovoLOG) 100 UNIT/ML VIAL SQ SCH ×4 (06:16→20:27)
[2020-10-23] MEDS: REPAGLINIDE 1 MG TAB PO SCH ×3 (06:16→16:34)
[2020-10-23 06:17] LABS: Glucose,Whole Blood 54 mg/dL (75-99)
[2020-10-23] MEDS: PANTOPRAZOLE 40 MG TABLET PO SCH (06:17)
[2020-10-23 06:36] LABS: Glucose,Whole Blood 174 mg/dL (75-99)
[2020-10-23 08:19] LABS: Calcium 7.8 mg/dL (8.4-10.2); Potassium 4.3 mmol/L (3.5-5.1); Total Bilirubin 0.2 mg/dL (0.2-1.3); Total Protein 5.2 g/dL (6.3-8.2)
[2020-10-23 08:28] LABS: HCT 33.9 % (39.0-53.0); HGB 10.9 gm/dL (13.0-17.5); MCH 29.1 pg (25.0-35.0); MCHC 32.2 g/dL (31.0-37.0); MCV 90.4 fL (80.0-100.0); Platelet Count 217 k/uL (150-450); RBC 3.75 m/uL (4.30-5.90); RDW 14.1 % (11.5-15.5); WBC 6.5 k/uL (3.8-10.6)
[2020-10-23] MEDS: HYDROcodone/APAP 5-325MG 1 EACH TAB PO PRN ×2 (08:38→20:27)
[2020-10-23] MEDS: TAMSULOSIN 0.4 MG CAP.ER.24H PO SCH (08:38)
[2020-10-23] MEDS: TROSPIUM CHLORIDE 20 MG TABLET PO SCH ×2 (09:06→20:27)
[2020-10-23 12:02] LABS: Glucose,Whole Blood 241 mg/dL (75-99)
--- NOTE | 2020-10-23 14:42 | P.PN ---
Subjective Progress Note Date: 10/23/20 This is a 74-year-old male patient of Dr. Culver and Dr. Carson with past medical history of benign prostatic hypertrophy, kidney stones, diabetes mellitus type 2, hyperlipidemia, chronic hip pain and generalized osteoarthritis, chronically shortened left leg, remote history of tobacco use. Patient states that he was walking with his walker to the kitchen and he turned, his legs gave out on him ended up falling to the floor and hitting the left side of his face. He states he was awake the whole time and did not lose consciousness. He states he was yelling the entire time and now has a hoarse voice. He was on the floor for about 14 hours until the home care nurse came and found him. Patient presents with multiple abrasions to extremities and bruising, stage II pressure ulcer to the bilateral buttocks. June 16, patient underwent cystoscopy and cystolithotripsy with Dr. Carson. Patient was subsequently seen in the emergency center due to urinary retention and Hsieh catheter was placed. He has subsequently underwent a bipolar TURP on July 28. Patient is no longer requiring Hsieh catheter but states he does have difficulty voiding. He has been treated for recent urinary tract infections and urine culture from October 05 is enterococcus faecalis. Patient came into [facility] emergency center for evaluation and found to be firm brown, heart rate 87, blood pressure 144/66, pulse ox 97% on room air. EKG normal sinus rhythm with no acute ST changes at 74 bpm. WBC 10.5, hemoglobin 12.7, platelet count 206. Electrolytes were normal. BUN 56 and creatinine 1.83. Blood sugar 203. INR 1.9. AST 179 otherwise liver function tests were normal. CK 7978. Total protein 6.1 and albumin 3.8. Lactic acid 1.5. Troponin 0.191. Left elbow x-ray negative for fracture, dislocation, joint effusion. 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 No acute fracture seen. CAT scan of the brain and cervical spine revealed cerebral atrophy. No acute intracranial abnormality. Multilevel cervical spondylitic changes. No fracture. Patient admitted to the cardiac stepdown unit and consult in place with [facility] regarding multiple wounds and pressure ulcers on the buttocks, infectious disease regarding recurrent chronic urinary tract infections, Dr. Carson regarding hematuria and UTI. 10/22: He is doing much better today is sitting up in the chair still having significant pain and discomfort in the right and left hip area he did limited physical therapy, kidney function slightly but better today and CK is down. Patient been evaluated to go to [facility] he is not ready at this point still been treated aggressively for urinary tract infection seen urology also seen nephrology. Had mildly elevated troponin with no sign of acute coronary syndrome or injury. 10/23 patient examined bedside. Appears to be weak but denies any shortness of breath or chest pain. Temp is 97.8 pulse 81 respiratory rate 18 blood pressure 152/63 oxygen saturation 98% on room air. Labs reviewed patient is a WBC of 6.5 hemoglobin 10.9 platelet 7 sodium 141 potassium 4.3 chloride 112 BUN 33 creatinine 0.97 with AST of 148 ALT 70 repeat labs for Tomorrow. Continue IV Fluids at 75 ML Per Hour Patient Is a Possible Discharge to Subacute Rehab on Sunday REVIEW OF SYSTEMS Constitutional: No fever, no chills, no night sweats. No weight change. Reports weakness, Reports fatigue no lethargy. No daytime sleepiness. EENT: No headache. No blurred vision or double vision, no loss of vision. Reports chronic loss of Hearing. No nasal drainage or congestion. No epistaxis. Reports sore throat. Lungs: No shortness of breath, cough, no sputum production. No wheezing. Cardiovascular: No chest pain, no lower extremity edema. No palpitations. No paroxysmal nocturnal dyspnea. No orthopnea. No lightheadedness or dizziness. No syncopal episodes. Abdominal: No abdominal pain. No nausea, vomiting. No diarrhea. No constipation. No bloody or tarry stools. No loss of appetite. Genitourinary: No dysuria, increased frequency, urgency. No urinary retention. Musculoskeletal: No myalgias. No muscle weakness, no gait dysfunction, no frequent falls. No back pain. No neck pain. Integumentary: Multiple abrasions to bilateral upper and lower extremities and decubitus ulcers to the buttocks. No rash or pruritus. Significant bruising to extremities and face. Neurologic: No aphasia. No facial droop. No change in mentation. No head injury. No headache. No paralysis. No paresthesia. Psychiatric: No depression. No anxiety. No mood swings. Endocrine: No abnormal blood sugars. Objective - Vital Signs Vital signs: Vital Signs Temp 98.3 F 10/23/20 12:00 Pulse 87 10/23/20 12:00 Resp 18 10/23/20 13:39 BP 153/67 10/23/20 12:00 Pulse Ox 97 10/23/20 12:00 Intake & Output 10/22/20 10/23/20 10/23/20 18:59 06:59 18:59 Intake Total 1200 540 740 Output Total 100 800 250 Balance 1100 -260 490 Weight 109 kg Intake: Oral 1200 540 740 Output: Urine 100 800 250 Other: Voiding Method Urinal Urinal Urinal Diaper Diaper Diaper - Exam PHYSICAL EXAMINATION Gen: This is a 74-year-old male patient. He is resting in bed and appears to be comfortable and in no acute distress. HEENT: Head has significant ecchymosis to the left side of the face covered with gauze , normocephalic. Pupils equal, round. Sclerae is anicteric. NECK: Supple. No JVD. No lymphadenopathy. No thyromegaly. LUNGS: Clear to auscultation. No wheezes or rhonchi. No intercostal retractions. HEART: Regular rate and rhythm. No murmur. ABDOMEN: Soft. Bowel sounds are present. No masses. No tenderness. SKIN: EXTREMITIES: No pedal edema. No calf tenderness. Chronic shortening of the left leg. NEUROLOGICAL: Patient is awake, alert and oriented x3. Cranial nerves 2 through 12 are grossly intact. - Labs CBC & Chem 7: 10/23/20 07:37 10/23/20 07:37 Labs: Abnormal Lab Results - Last 24 Hours (Table) 10/22/20 10/22/20 10/23/20 Range/Units 17:16 20:23 06:10 RBC (4.30-5.90) m/uL Hgb (13.0-17.5) gm/dL Hct (39.0-53.0) % Chloride (98-107) mmol/L BUN (9-20) mg/dL Glucose (74-99) mg/dL POC Glucose (mg/dL) 131 H 232 H 54 L (75-99) mg/dL Calcium (8.4-10.2) mg/dL AST (17-59) U/L ALT (4-49) U/L CK-MB (CK-2) (0.0-2.4) ng/mL Total Protein (6.3-8.2) g/dL Albumin (3.5-5.0) g/dL 10/23/20 10/23/20 10/23/20 Range/Units 06:32 07:37 07:37 RBC 3.75 L (4.30-5.90) m/uL Hgb 10.9 L (13.0-17.5) gm/dL Hct 33.9 L (39.0-53.0) % Chloride 112 H (98-107) mmol/L BUN 33 H (9-20) mg/dL Glucose 119 H (74-99) mg/dL POC Glucose (mg/dL) 174 H (75-99) mg/dL Calcium 7.8 L (8.4-10.2) mg/dL AST 148 H (17-59) U/L ALT 71 H (4-49) U/L CK-MB (CK-2) (0.0-2.4) ng/mL Total Protein 5.2 L (6.3-8.2) g/dL Albumin 3.0 L (3.5-5.0) g/dL 10/23/20 10/23/20 Range/Units 07:37 11:54 RBC (4.30-5.90) m/uL Hgb (13.0-17.5) gm/dL Hct (39.0-53.0) % Chloride (98-107) mmol/L BUN (9-20) mg/dL Glucose (74-99) mg/dL POC Glucose (mg/dL) 241 H (75-99) mg/dL Calcium (8.4-10.2) mg/dL AST (17-59) U/L ALT (4-49) U/L CK-MB (CK-2) 9.4 H (0.0-2.4) ng/mL Total Protein (6.3-8.2) g/dL Albumin (3.5-5.0) g/dL Assessment and Plan Plan: 1. Acute kidney injury. Continue IV fluids decreased to 75 mL per hour, avoid nephrotoxic agents, hypotension, repeat chemistries in the morning.patient does not need any dialysis in kidney function is much better so far. 2. Acute rhabdomyolysis. Continue IV fluids, recheck CK in the morning.CK is down in the 6000. Repeat labs ordered 3. Acute urinary tract infection. Outpatient urine culture positive for Enterococcus faecalis since cultures is negative for any bacteria will discontinue vancomycin and monitor patient with supportive care recommendation appreciated with Dr. Schmidt. Repeat urine culture negative. 4. Hematuria with history of kidney stone, benign prostatic hypertrophy status post TURP in July 2020 and frequent urinary tract infections, recommendation appreciated Dr. Carson. Presentation could be secondary to post inflammation from TURP. Consult with urology. Continue Flomax 0.4 mg daily. 5. Lower extremity weakness. X-ray of the lumbar spine. 6. Diabetes mellitus type 2. Continue Levemir 30 units daily, 40 units at bedtime and insulin scale, Prandin 2 mg 3 times daily. 7. Hyperlipidemia. Continue Lipitor 10 mg at bedtime. 8. Generalized debility and weakness secondary to acute kidney injury and rhabdomyolysis along with shortened left leg causing ambulatory difficulties. Consult with PT and OT. 9. Stage II decubitus ulcer bilateral buttocks, POA. Consult with [facility]ound [facility] appreciated. Local wound care with Carty, saline moistened gauze, dry gauze, sacrum foam dressing. Change Sunday. 10. Osteoarthritis left hip with concern for avascular necrosis. 11. GI prophylaxis. Protonix 40 mg oral daily. 12. DVT prophylaxis. Avoid heparin due to hematuria. SCDs and ELAINE hinojosa. 13. COVID-19 testing negative. Patient has been hospitalized during a pandemic. 14. T1a prostate cancer to be managed with observation 15 disposition likely discharge on Sunday since patient is getting discharged to subacute rehab
[2020-10-23 16:32] LABS: Glucose,Whole Blood 105 mg/dL (75-99)
--- NOTE | 2020-10-23 18:03 | PN ---
PROGRESS NOTE DATE OF SERVICE: 10/23/2020 REASON FOR FOLLOWUP: Urinary tract infection. INTERVAL HISTORY: The patient is currently afebrile. The patient is breathing comfortably on room air. The patient denies having any chest pain or shortness of breath or cough. No nausea, vomiting, abdominal pain or diarrhea. PHYSICAL EXAMINATION: Blood pressure 146/67, pulse of 83, temperature 98.4. He is 99% on room air. General description is an elderly male lying in in no distress. Respiratory system: Unlabored breathing, clear to auscultation anteriorly. Heart S1, S2. Regular rate and rhythm. Abdomen soft, no tenderness. LABS: Hemoglobin 7.1, white count 6.5, BUN of 30, creatinine 0.97. Urine culture negative. IMPRESSION/PLAN: History of recurrent urinary tract infection. Did have positive UA with concern for UTI. The patient treated with vancomycin, however, cultures came back negative. He is currently being monitored closely off antibiotic therapy. Continue supportive care. MMODL / IJN: [id number] /
[2020-10-23 20:25] LABS: Glucose,Whole Blood 226 mg/dL (75-99)
[2020-10-23] MEDS: ATORVASTATIN 10 MG TAB PO SCH (20:27)
[2020-10-24 02:09] LABS: Glucose,Whole Blood 112 mg/dL (75-99)
[2020-10-24 06:19] LABS: Glucose,Whole Blood 126 mg/dL (75-99)
[2020-10-24] MEDS: INSULIN ASPART (NovoLOG) 100 UNIT/ML VIAL SQ SCH ×4 (06:28→20:02)
[2020-10-24] MEDS: REPAGLINIDE 1 MG TAB PO SCH ×3 (06:29→17:42)
[2020-10-24] MEDS: INSULIN DETEMIR (LEVEMIR) 100 UNIT/ML SYR SQ SCH ×2 (06:29→20:33)
[2020-10-24] MEDS: SODIUM CHLORIDE 0.9% 1,000 ML IV SCH (06:40)
[2020-10-24] MEDS: PANTOPRAZOLE 40 MG TABLET PO SCH (06:40)
[2020-10-24 08:11] LABS: Basophils % (A) 1 %; Eosinophils # (A) 0.5 k/uL (0-0.7); Eosinophils % (A) 9 %; HCT 31.5 % (39.0-53.0); Lymphocytes # (A) 0.9 k/uL (1.0-4.8); Lymphocytes % (A) 16 %; MCH 28.5 pg (25.0-35.0); MCHC 31.6 g/dL (31.0-37.0); MCV 90.2 fL (80.0-100.0); Mean Platelet Volume 8.2; Monocytes # (A) 0.3 k/uL (0-1.0); Monocytes % (A) 6 %; Neutrophils # (A) 3.6 k/uL (1.3-7.7); Neutrophils % (A) 67 %; Platelet Count 223 k/uL (150-450); RBC 3.49 m/uL (4.30-5.90); RDW 13.8 % (11.5-15.5); WBC 5.4 k/uL (3.8-10.6)
[2020-10-24 08:23] LABS: Albumin 2.7 g/dL (3.5-5.0); Calcium 8.2 mg/dL (8.4-10.2); Total Bilirubin 0.1 mg/dL (0.2-1.3); Total Protein 4.8 g/dL (6.3-8.2)
[2020-10-24 08:24] LABS: Potassium 4.8 mmol/L (3.5-5.1)
[2020-10-24] MEDS: TROSPIUM CHLORIDE 20 MG TABLET PO SCH ×2 (09:06→20:02)
[2020-10-24] MEDS: HYDROcodone/APAP 5-325MG 1 EACH TAB PO PRN ×3 (09:06→23:06)
[2020-10-24] MEDS: TAMSULOSIN 0.4 MG CAP.ER.24H PO SCH (09:07)
--- NOTE | 2020-10-24 11:41 | P.PN ---
Subjective Progress Note Date: 10/24/20 This is a 74-year-old male patient of Dr. Culver and Dr. Carson with past medical history of benign prostatic hypertrophy, kidney stones, diabetes mellitus type 2, hyperlipidemia, chronic hip pain and generalized osteoarthritis, chronically shortened left leg, remote history of tobacco use. Patient states that he was walking with his walker to the kitchen and he turned, his legs gave out on him ended up falling to the floor and hitting the left side of his face. He states he was awake the whole time and did not lose consciousness. He states he was yelling the entire time and now has a hoarse voice. He was on the floor for about 14 hours until the home care nurse came and found him. Patient presents with multiple abrasions to extremities and bruising, stage II pressure ulcer to the bilateral buttocks. June 16, patient underwent cystoscopy and cystolithotripsy with Dr. Carson. Patient was subsequently seen in the emergency center due to urinary retention and Hsieh catheter was placed. He has subsequently underwent a bipolar TURP on July 28. Patient is no longer requiring Hsieh catheter but states he does have difficulty voiding. He has been treated for recent urinary tract infections and urine culture from October 05 is enterococcus faecalis. Patient came into [facility] emergency center for evaluation and found to be firm brown, heart rate 87, blood pressure 144/66, pulse ox 97% on room air. EKG normal sinus rhythm with no acute ST changes at 74 bpm. WBC 10.5, hemoglobin 12.7, platelet count 206. Electrolytes were normal. BUN 56 and creatinine 1.83. Blood sugar 203. INR 1.9. AST 179 otherwise liver function tests were normal. CK 7978. Total protein 6.1 and albumin 3.8. Lactic acid 1.5. Troponin 0.191. Left elbow x-ray negative for fracture, dislocation, joint effusion. 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 No acute fracture seen. CAT scan of the brain and cervical spine revealed cerebral atrophy. No acute intracranial abnormality. Multilevel cervical spondylitic changes. No fracture. Patient admitted to the cardiac stepdown unit and consult in place with [facility] regarding multiple wounds and pressure ulcers on the buttocks, infectious disease regarding recurrent chronic urinary tract infections, Dr. Carson regarding hematuria and UTI. 10/22: He is doing much better today is sitting up in the chair still having significant pain and discomfort in the right and left hip area he did limited physical therapy, kidney function slightly but better today and CK is down. Patient been evaluated to go to [facility] he is not ready at this point still been treated aggressively for urinary tract infection seen urology also seen nephrology. Had mildly elevated troponin with no sign of acute coronary syndrome or injury. 10/23 patient examined bedside. Appears to be weak but denies any shortness of breath or chest pain. Temp is 97.8 pulse 81 respiratory rate 18 blood pressure 152/63 oxygen saturation 98% on room air. Labs reviewed patient is a WBC of 6.5 hemoglobin 10.9 platelet 7 sodium 141 potassium 4.3 chloride 112 BUN 33 creatinine 0.97 with AST of 148 ALT 70 repeat labs for Tomorrow. Continue IV Fluids at 75 ML Per Hour Patient Is a Possible Discharge to Subacute Rehab on Sunday Patient evaluated bedside. He is doing well denies any chest pain or breathing difficulty. His left upper extremity is swollen and patient is able to move his extremity better than admission. Patient stated he was not able to lift his arm off the bed on admission but is currently able to do so. He also complains of on and off dizziness when he moves his head [id number] in the back. He denies any vision change or palpitations or chest pain. Vitals are stable. Temp is 97.2 pulse 76 respiratory rate 16 blood pressure 161/98 oxygen saturation 96% on room air. Hemoglobin 10 WBC 5.4 kidney functions are stable with creatinine of 1.1 BUN 33. Liver enzymes are improving AST 93 ALT 17 alkaline phosphatase of 47. In IV fluids at 75 mL per hour. Telemetry discontinuing today. Patient nurse updated on the swelling in the left arm and would prefer IV line switch to the other arm.. REVIEW OF SYSTEMS Constitutional: No fever, no chills, no night sweats. No weight change. Reports weakness, Reports fatigue no lethargy. No daytime sleepiness. EENT: No headache. No blurred vision or double vision, no loss of vision. Reports chronic loss of Hearing. No nasal drainage or congestion. No epistaxis. Reports sore throat. Lungs: No shortness of breath, cough, no sputum production. No wheezing. Cardiovascular: No chest pain, no lower extremity edema. No palpitations. No paroxysmal nocturnal dyspnea. No orthopnea. No lightheadedness or dizziness. No syncopal episodes. Abdominal: No abdominal pain. No nausea, vomiting. No diarrhea. No constipation. No bloody or tarry stools. No loss of appetite. Genitourinary: No dysuria, increased frequency, urgency. No urinary retention. Musculoskeletal: No myalgias. No muscle weakness, no gait dysfunction, no frequent falls. No back pain. No neck pain. Integumentary: Multiple abrasions to bilateral upper and lower extremities and decubitus ulcers to the buttocks. No rash or pruritus. Significant bruising to extremities and face. Neurologic: No aphasia. No facial droop. No change in mentation. No head injury. No headache. No paralysis. No paresthesia. Psychiatric: No depression. No anxiety. No mood swings. Endocrine: No abnormal blood sugars. Objective - Vital Signs Vital signs: Vital Signs Temp 97.2 F L 10/24/20 07:47 Pulse 76 10/24/20 07:47 Resp 16 10/24/20 07:50 BP 161/98 10/24/20 07:47 Pulse Ox 96 10/24/20 07:47 Intake & Output 10/23/20 10/24/20 10/24/20 18:59 06:59 18:59 Intake Total 1160 540 Output Total 775 400 675 Balance 385 -400 -135 Weight 116.3 kg Intake: Oral 1160 540 Output: Urine 775 400 675 Other: Voiding Method Urinal Urinal Urinal Diaper Diaper Diaper - Exam PHYSICAL EXAMINATION Gen: This is a 74-year-old male patient. He is resting in bed and appears to be comfortable and in no acute distress. HEENT: Head has significant ecchymosis to the left side of the face covered with gauze , normocephalic. Pupils equal, round. Sclerae is anicteric. NECK: Supple. No JVD. No lymphadenopathy. No thyromegaly. LUNGS: Clear to auscultation. No wheezes or rhonchi. No intercostal retractions. HEART: Regular rate and rhythm. No murmur. ABDOMEN: Soft. Bowel sounds are present. No masses. No tenderness. SKIN: Left upper arm swelling involving the elbow warm to touch. Multiple bruises involving bilateral lower extremity in the face. EXTREMITIES: No pedal edema. No calf tenderness. Chronic shortening of the left leg. NEUROLOGICAL: Patient is awake, alert and oriented x3. Cranial nerves 2 through 12 are grossly intact. - Labs CBC & Chem 7: 10/24/20 06:40 10/24/20 06:40 Labs: Abnormal Lab Results - Last 24 Hours (Table) 10/23/20 10/23/20 10/23/20 Range/Units 11:54 16:30 20:20 RBC (4.30-5.90) m/uL Hgb (13.0-17.5) gm/dL Hct (39.0-53.0) % Lymphocytes # (1.0-4.8) k/uL Chloride (98-107) mmol/L BUN (9-20) mg/dL Glucose (74-99) mg/dL POC Glucose (mg/dL) 241 H 105 H 226 H (75-99) mg/dL Calcium (8.4-10.2) mg/dL Total Bilirubin (0.2-1.3) mg/dL AST (17-59) U/L ALT (4-49) U/L Total Protein (6.3-8.2) g/dL Albumin (3.5-5.0) g/dL 10/24/20 10/24/20 10/24/20 Range/Units 02:08 06:08 06:40 RBC 3.49 L (4.30-5.90) m/uL Hgb 10.0 L (13.0-17.5) gm/dL Hct 31.5 L (39.0-53.0) % Lymphocytes # 0.9 L (1.0-4.8) k/uL Chloride (98-107) mmol/L BUN (9-20) mg/dL Glucose (74-99) mg/dL POC Glucose (mg/dL) 112 H 126 H (75-99) mg/dL Calcium (8.4-10.2) mg/dL Total Bilirubin (0.2-1.3) mg/dL AST (17-59) U/L ALT (4-49) U/L Total Protein (6.3-8.2) g/dL Albumin (3.5-5.0) g/dL 10/24/20 Range/Units 06:40 RBC (4.30-5.90) m/uL Hgb (13.0-17.5) gm/dL Hct (39.0-53.0) % Lymphocytes # (1.0-4.8) k/uL Chloride 111 H (98-107) mmol/L BUN 39 H (9-20) mg/dL Glucose 111 H (74-99) mg/dL POC Glucose (mg/dL) (75-99) mg/dL Calcium 8.2 L (8.4-10.2) mg/dL Total Bilirubin 0.1 L (0.2-1.3) mg/dL AST 93 H (17-59) U/L ALT 60 H (4-49) U/L Total Protein 4.8 L (6.3-8.2) g/dL Albumin 2.7 L (3.5-5.0) g/dL Assessment and Plan Plan: 1. Acute kidney injury secondary to rhabdomyolysis. Continue IV fluids decreased to 75 mL per hour, avoid nephrotoxic agents, hypotension, repeat chemistries in the morning.patient does not need any dialysis in kidney function is much better so far. 2. Acute rhabdomyolysis. Continue IV fluids, recheck CK in the morning.CK is down in the 6000. Repeat labs ordered. Continue IV fluids at 75 mL per hour for another 24 hours. 3. Acute urinary tract infection. Outpatient urine culture positive for Entero coccus faecalis since cultures is negative for any bacteria will discontinue vancomycin and monitor patient with supportive care recommendation appreciated with Dr. Schmidt. Repeat urine culture negative. 4. Hematuria with history of kidney stone, benign prostatic hypertrophy status post TURP in July 2020 and frequent urinary tract infections, recommendation appreciated Dr. Carson. Presentation could be secondary to post inflammation from TURP. Consult with urology. Continue Flomax 0.4 mg daily. 5. Lower extremity weakness. X-ray of the lumbar spine negative for fracture or. 6. Diabetes mellitus type 2. Continue Levemir 30 units daily, 40 units at bedtime and insulin scale, Prandin 2 mg 3 times daily. 7. Hyperlipidemia. Continue Lipitor 10 mg at bedtime. 8. Generalized debility and weakness secondary to acute kidney injury and rhabdomyolysis along with shortened left leg causing ambulatory difficulties. Consult with PT and OT. 9. Stage II decubitus ulcer bilateral buttocks, POA. Consult with Wound Center appreciated. Local wound care with Carty, saline moistened gauze, dry gauze, sacrum foam dressing. Change Sunday. 10. Osteoarthritis left hip with concern for avascular necrosis. 11. GI prophylaxis. Protonix 40 mg oral daily. 12. DVT prophylaxis. Avoid heparin due to hematuria. SCDs and ELAINE hinojosa. 13. COVID-19 testing negative. Patient has been hospitalized during a pandemic. 14. T1a prostate cancer to be managed with observation 15 disposition likely discharge on Sunday since patient is getting discharged to subacute rehab
[2020-10-24 11:46] LABS: Glucose,Whole Blood 147 mg/dL (75-99)
[2020-10-24] MEDS: amLODIPine 5 MG TAB PO SCH (13:12)
[2020-10-24 17:14] LABS: Glucose,Whole Blood 205 mg/dL (75-99)
[2020-10-24 19:39] LABS: Glucose,Whole Blood 152 mg/dL (75-99)
[2020-10-24] MEDS: ATORVASTATIN 10 MG TAB PO SCH (20:02)
[2020-10-25 01:50] LABS: Glucose,Whole Blood 151 mg/dL (75-99)
[2020-10-25 05:48] LABS: Glucose,Whole Blood 125 mg/dL (75-99)
[2020-10-25] MEDS: INSULIN ASPART (NovoLOG) 100 UNIT/ML VIAL SQ SCH ×4 (06:04→21:19)
[2020-10-25] MEDS: INSULIN DETEMIR (LEVEMIR) 100 UNIT/ML SYR SQ SCH ×2 (06:17→21:19)
[2020-10-25] MEDS: PANTOPRAZOLE 40 MG TABLET PO SCH (06:18)
[2020-10-25] MEDS: REPAGLINIDE 1 MG TAB PO SCH ×3 (06:18→18:30)
[2020-10-25] MEDS: HYDROcodone/APAP 5-325MG 1 EACH TAB PO PRN (06:22)
[2020-10-25] MEDS: amLODIPine 5 MG TAB PO SCH (08:30)
[2020-10-25] MEDS: TAMSULOSIN 0.4 MG CAP.ER.24H PO SCH (08:30)
[2020-10-25] MEDS: TROSPIUM CHLORIDE 20 MG TABLET PO SCH ×2 (08:30→22:44)
[2020-10-25 11:27] LABS: Glucose,Whole Blood 150 mg/dL (75-99)
[2020-10-25] MEDS ORDERED: amLODIPine 5 MG TAB PO STA (12:13)
--- NOTE | 2020-10-25 14:18 | P.PN ---
Subjective Progress Note Date: 10/25/20 This is a 74-year-old male patient of Dr. Culver and Dr. Carson with past medical history of benign prostatic hypertrophy, kidney stones, diabetes mellitus type 2, hyperlipidemia, chronic hip pain and generalized osteoarthritis, chronically shortened left leg, remote history of tobacco use. Patient states that he was walking with his walker to the kitchen and he turned, his legs gave out on him ended up falling to the floor and hitting the left side of his face. He states he was awake the whole time and did not lose consciousness. He states he was yelling the entire time and now has a hoarse voice. He was on the floor for about 14 hours until the home care nurse came and found him. Patient presents with multiple abrasions to extremities and bruising, stage II pressure ulcer to the bilateral buttocks. June 16, patient underwent cystoscopy and cystolithotripsy with Dr. Carson. Patient was subsequently seen in the emergency center due to urinary retention and Hsieh catheter was placed. He has subsequently underwent a bipolar TURP on July 28. Patient is no longer requiring Hsieh catheter but states he does have difficulty voiding. He has been treated for recent urinary tract infections and urine culture from October 05 is enterococcus faecalis. Patient came into [facility] emergency center for evaluation and found to be firm brown, heart rate 87, blood pressure 144/66, pulse ox 97% on room air. EKG normal sinus rhythm with no acute ST changes at 74 bpm. WBC 10.5, hemoglobin 12.7, platelet count 206. Electrolytes were normal. BUN 56 and creatinine 1.83. Blood sugar 203. INR 1.9. AST 179 otherwise liver function tests were normal. CK 7978. Total protein 6.1 and albumin 3.8. Lactic acid 1.5. Troponin 0.191. Left elbow x-ray negative for fracture, dislocation, joint effusion. 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 No acute fracture seen. CAT scan of the brain and cervical spine revealed cerebral atrophy. No acute intracranial abnormality. Multilevel cervical spondylitic changes. No fracture. Patient admitted to the cardiac stepdown unit and consult in place with [facility] regarding multiple wounds and pressure ulcers on the buttocks, infectious disease regarding recurrent chronic urinary tract infections, Dr. Carson regarding hematuria and UTI. 10/22: He is doing much better today is sitting up in the chair still having significant pain and discomfort in the right and left hip area he did limited physical therapy, kidney function slightly but better today and CK is down. Patient been evaluated to go to [facility] he is not ready at this point still been treated aggressively for urinary tract infection seen urology also seen nephrology. Had mildly elevated troponin with no sign of acute coronary syndrome or injury. 10/23 patient examined bedside. Appears to be weak but denies any shortness of breath or chest pain. Temp is 97.8 pulse 81 respiratory rate 18 blood pressure 152/63 oxygen saturation 98% on room air. Labs reviewed patient is a WBC of 6.5 hemoglobin 10.9 platelet 7 sodium 141 potassium 4.3 chloride 112 BUN 33 creatinine 0.97 with AST of 148 ALT 70 repeat labs for Tomorrow. Continue IV Fluids at 75 ML Per Hour Patient Is a Possible Discharge to Subacute Rehab on Sunday Patient evaluated bedside. He is doing well denies any chest pain or breathing difficulty. His left upper extremity is swollen and patient is able to move his extremity better than admission. Patient stated he was not able to lift his arm off the bed on admission but is currently able to do so. He also complains of on and off dizziness when he moves his head [id number] in the back. He denies any vision change or palpitations or chest pain. Vitals are stable. Temp is 97.2 pulse 76 respiratory rate 16 blood pressure 161/98 oxygen saturation 96% on room air. Hemoglobin 10 WBC 5.4 kidney functions are stable with creatinine of 1.1 BUN 33. Liver enzymes are improving AST 93 ALT 17 alkaline phosphatase of 47. In IV fluids at 75 mL per hour. Telemetry discontinuing today. Patient nurse updated on the swelling in the left arm and would prefer IV line switch to the other arm.. 10/25 patient evaluated bedside. He is doing well denies any shortness of breath or chest pain. His moving his extremities well as compared to yesterday vitals are stable afebrile temp of 97.7 pulse 87 respiratory rate 18 blood pressure 168/72 oxygen saturation 95% on room air admission consist of thousand 375. Sodium is 140 chloride 111 BUN 39 creatinine 1.17 will start patient on IV fluids at 75 mL over per since the creatinine is increasing. Patient encouraged to drink plenty of fluids. Norvasc increased to 10 mg with additional dose of 5 mg daily. . REVIEW OF SYSTEMS Constitutional: No fever, no chills, no night sweats. No weight change. Reports weakness, Reports fatigue no lethargy. No daytime sleepiness. EENT: No headache. No blurred vision or double vision, no loss of vision. Reports chronic loss of Hearing. No nasal drainage or congestion. No epistaxis. Reports sore throat. Lungs: No shortness of breath, cough, no sputum production. No wheezing. Cardiovascular: No chest pain, no lower extremity edema. No palpitations. No paroxysmal nocturnal dyspnea. No orthopnea. No lightheadedness or dizziness. No syncopal episodes. Abdominal: No abdominal pain. No nausea, vomiting. No diarrhea. No constipation. No bloody or tarry stools. No loss of appetite. Genitourinary: No dysuria, increased frequency, urgency. No urinary retention. Musculoskeletal: No myalgias. No muscle weakness, no gait dysfunction, no frequent falls. No back pain. No neck pain. Integumentary: Multiple abrasions to bilateral upper and lower extremities and decubitus ulcers to the buttocks. No rash or pruritus. Significant bruising to extremities and face. Neurologic: No aphasia. No facial droop. No change in mentation. No head injury. No headache. No paralysis. No paresthesia. Psychiatric: No depression. No anxiety. No mood swings. Endocrine: No abnormal blood sugars. Objective - Vital Signs Vital signs: Vital Signs Temp 97.7 F 10/25/20 12:38 Pulse 87 10/25/20 12:38 Resp 18 10/25/20 12:38 BP 168/72 10/25/20 12:38 Pulse Ox 95 10/25/20 12:38 Intake & Output 10/24/20 10/25/20 10/25/20 18:59 06:59 18:59 Intake Total 1220 240 240 Output Total 1525 1100 Balance -305 -860 240 Intake: Oral 1220 240 240 Output: Urine 1525 1100 Other: Voiding Method Urinal Urinal Urinal Diaper Diaper # Voids 1 - Exam PHYSICAL EXAMINATION Gen: This is a 74-year-old male patient. He is resting in bed and appears to be comfortable and in no acute distress. HEENT: Head has significant ecchymosis to the left side of the face covered with gauze , normocephalic. Pupils equal, round. Sclerae is anicteric. NECK: Supple. No JVD. No lymphadenopathy. No thyromegaly. LUNGS: Clear to auscultation. No wheezes or rhonchi. No intercostal retractions. HEART: Regular rate and rhythm. No murmur. ABDOMEN: Soft. Bowel sounds are present. No masses. No tenderness. SKIN: Left upper arm swelling involving the elbow warm to touch. Multiple bruises involving bilateral lower extremity in the face. EXTREMITIES: No pedal edema. No calf tenderness. Chronic shortening of the left leg. NEUROLOGICAL: Patient is awake, alert and oriented x3. Cranial nerves 2 through 12 are grossly intact. - Labs CBC & Chem 7: 10/24/20 06:40 10/24/20 06:40 Labs: Abnormal Lab Results - Last 24 Hours (Table) 10/24/20 10/24/20 10/25/20 Range/Units 17:11 19:38 01:48 POC Glucose (mg/dL) 205 H 152 H 151 H (75-99) mg/dL 10/25/20 10/25/20 Range/Units 05:45 11:14 POC Glucose (mg/dL) 125 H 150 H (75-99) mg/dL Assessment and Plan Plan: 1. Acute kidney injury secondary to rhabdomyolysis. Continue IV fluids decreased to 75 mL per hour, avoid nephrotoxic agents, hypotension, repeat chemistries in the morning.patient does not need any dialysis in kidney function is much better so far. 2. Acute rhabdomyolysis. Continue IV fluids, recheck CK in the morning.CK is down in the 1999. Repeat labs ordered. Continue IV fluids at 75 mL per hour for another 24 hours. 3. Acute urinary tract infection. Outpatient urine culture positive for Enterococcus faecalis since cultures is negative for any bacteria will discontinue vancomycin and monitor patient with supportive care recommendation appreciated with Dr. Schmidt. Repeat urine culture negative. 4. Hematuria with history of kidney stone, benign prostatic hypertrophy status post TURP in July 2020 and frequent urinary tract infections, recommendation appreciated Dr. Carson. Presentation could be secondary to post inflammation f rom TURP. Consult with urology. Continue Flomax 0.4 mg daily. 5. Lower extremity weakness. X-ray of the lumbar spine negative for fracture or. 6. Diabetes mellitus type 2. Continue Levemir 30 units daily, 40 units at bedtime and insulin scale, Prandin 2 mg 3 times daily. 7. Hyperlipidemia. Continue Lipitor 10 mg at bedtime. 8. Generalized debility and weakness secondary to acute kidney injury and rhabdomyolysis along with shortened left leg causing ambulatory difficulties. Consult with PT and OT. 9. Stage II decubitus ulcer bilateral buttocks, POA. Consult with [facility]ound Center appreciated. Local wound care with Carty, saline moistened gauze, dry gauze, sacrum foam dressing. Change Sunday. 10. Osteoarthritis left hip with concern for avascular necrosis. 11. GI prophylaxis. Protonix 40 mg oral daily. 12. DVT prophylaxis. Avoid heparin due to hematuria. SCDs and ELAINE hinojosa. 13. COVID-19 testing negative. Patient has been hospitalized during a pandemic. 14. T1a prostate cancer to be managed with observation 15 disposition likely discharge on Sunday since patient is getting discharged to subacute rehab
[2020-10-25 17:40] LABS: Glucose,Whole Blood 141 mg/dL (75-99)
[2020-10-25] MEDS: SODIUM CHLORIDE 0.9% 1,000 ML IV SCH (18:29)
[2020-10-25 20:54] LABS: Glucose,Whole Blood 220 mg/dL (75-99)
[2020-10-25] MEDS: ATORVASTATIN 10 MG TAB PO SCH (21:19)
[2020-10-26 05:35] VITALS: BP 166/77; PULSE 82; RESP 18; TEMP 97.5
[2020-10-26] MEDS: SODIUM CHLORIDE 0.9% 1,000 ML IV SCH (06:17)
[2020-10-26 07:31] LABS: Glucose,Whole Blood 100 mg/dL (75-99)
[2020-10-26] MEDS: INSULIN ASPART (NovoLOG) 100 UNIT/ML VIAL SQ SCH ×2 (07:38→12:20)
[2020-10-26 07:56] LABS: Basophils # (A) 0.1 k/uL (0-0.2); Basophils % (A) 1 %; Eosinophils # (A) 0.5 k/uL (0-0.7); Eosinophils % (A) 8 %; HCT 33.7 % (39.0-53.0); HGB 11.4 gm/dL (13.0-17.5); Lymphocytes # (A) 0.8 k/uL (1.0-4.8); Lymphocytes % (A) 12 %; MCHC 33.7 g/dL (31.0-37.0); Mean Platelet Volume 7.8; Monocytes # (A) 0.4 k/uL (0-1.0); Monocytes % (A) 5 %; Neutrophils # (A) 4.8 k/uL (1.3-7.7); Neutrophils % (A) 72 %; Platelet Count 273 k/uL (150-450); RBC 3.79 m/uL (4.30-5.90); RDW 13.4 % (11.5-15.5); WBC 6.6 k/uL (3.8-10.6)
[2020-10-26] MEDS: REPAGLINIDE 1 MG TAB PO SCH ×2 (08:32→12:23)
[2020-10-26] MEDS: TAMSULOSIN 0.4 MG CAP.ER.24H PO SCH (08:32)
[2020-10-26] MEDS: PANTOPRAZOLE 40 MG TABLET PO SCH (08:32)
[2020-10-26] MEDS: TROSPIUM CHLORIDE 20 MG TABLET PO SCH (08:33)
[2020-10-26] MEDS: INSULIN DETEMIR (LEVEMIR) 100 UNIT/ML SYR SQ SCH (08:33)
[2020-10-26] MEDS ORDERED: amLODIPine 10 MG TAB PO SCH (09:00)
--- NOTE | 2020-10-26 10:46 | P.DS ---
Providers Date of admission: 10/20/20 17:40 Expected date of discharge: 10/26/20 Attending physician: Ed Culver Consults: 10/21/20 09:43 Consult Physician Routine Consulting Provider: Griffin Carson Consult Reason/Comments: Hematuria and UTI Do you want consulting provider notified?: Yes 10/21/20 12:44 Consult Physician Routine Consulting Provider: Gerardo Schmidt Consult Reason/Comments: recurrent/chronic UTIs Do you want consulting provider notified?: Yes [facility] Course: This is a 74-year-old male patient of Dr. Culver and Dr. Carson with past medical history of benign prostatic hypertrophy, kidney stones, diabetes mellitus type 2, hyperlipidemia, chronic hip pain and generalized osteoarthritis, chronically shortened left leg, remote history of tobacco use. Patient states that he was walking with his walker to the kitchen and he turned, his legs gave out on him ended up falling to the floor and hitting the left side of his face. He states he was awake the whole time and did not lose consciousness. He states he was yelling the entire time and now has a hoarse voice. He was on the floor for about 14 hours until the home care nurse came and found him. Patient presents with multiple abrasions to extremities and bruising, stage II pressure ulcer to the bilateral buttocks. June 16, patient underwent cystoscopy and c ystolithotripsy with Dr. Carson. Patient was subsequently seen in the emergency center due to urinary retention and Hsieh catheter was placed. He has subsequently underwent a bipolar TURP on July 28. Patient is no longer requiring Hsieh catheter but states he does have difficulty voiding. He has been treated for recent urinary tract infections and urine culture from October 05 is enterococcus faecalis. Patient came into [facility] emergency center for evaluation and found to be firm brown, heart rate 87, blood pressure 144/66, pulse ox 97% on room air. EKG normal sinus rhythm with no acute ST changes at 74 bpm. WBC 10.5, hemoglobin 12.7, platelet count 206. Electrolytes were normal. BUN 56 and creatinine 1.83. Blood sugar 203. INR 1.9. AST 179 otherwise liver functi on tests were normal. CK 7978. Total protein 6.1 and albumin 3.8. Lactic acid 1.5. Troponin 0.191. Left elbow x-ray negative for fracture, dislocation, joint effusion. 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 No acute fracture seen. CAT scan of the brain and cervical spine revealed cerebral atrophy. No acute intracranial abnormality. Multilevel cervical spondylitic changes. No fracture. Patient admitted to the cardiac stepdown unit and consult in place with [facility] regarding multiple wounds and pressure ulcers on the buttocks, infectious disease regarding recurrent chronic urinary tract infections, Dr. Carson regarding hematuria and UTI. 10/22: He is doing much better today is sitting up in the chair still having significant pain and discomfort in the right and left hip area he did limited physical therapy, kidney function slightly but better today and CK is down. Patient been evaluated to go to [facility] he is not ready at this point still been treated aggressively for urinary tract infection seen urology also seen nephrology. Had mildly elevated troponin with no sign of acute coronary syndrome or injury. 10/23 patient examined bedside. Appears to be weak but denies any shortness of breath or chest pain. Temp is 97.8 pulse 81 respiratory rate 18 blood pressure 152/63 oxygen saturation 98% on room air. Labs reviewed patient is a WBC of 6.5 hemoglobin 10.9 platelet 7 sodium 141 potassium 4.3 chloride 112 BUN 33 creatinine 0.97 with AST of 148 ALT 70 repeat labs for Tomorrow. Continue IV Fluids at 75 ML Per Hour Patient Is a Possible Discharge to Subacute Rehab on Sunday Patient evaluated bedside. He is doing well denies any chest pain or breathing difficulty. His left upper extremity is swollen and patient is able to move his extremity better than admission. Patient stated he was not able to lift his arm off the bed on admission but is currently able to do so. He also complains of on and off dizziness when he moves his head [id number] in the back. He denies any vision change or palpitations or chest pain. Vitals are stable. Temp is 97.2 pulse 76 respiratory rate 16 blood pressure 161/98 oxygen saturation 96% on room air. Hemoglobin 10 WBC 5.4 kidney functions are stable with creatinine of 1.1 BUN 33. Liver enzymes are improving AST 93 ALT 17 alkaline phosphatase of 47. In IV fluids at 75 mL per hour. Telemetry discontinuing today. Patient nurse updated on the swelling in the left arm and would prefer IV line switch to the other arm.. 10/25 patient evaluated bedside. He is doing well denies any shortness of breath or chest pain. His moving his extremities well as compared to yesterday vitals are stable afebrile temp of 97.7 pulse 87 respiratory rate 18 blood pressure 168/72 oxygen saturation 95% on room air admission consist of thousand 375. Sodium is 140 chloride 111 BUN 39 creatinine 1.17 will start patient on IV fluids at 75 mL over per since the creatinine is increasing. Patient encouraged to drink plenty of fluids. Norvasc increased to 10 mg with additional dose of 5 mg daily. 10/26: Patient is found sitting up in recliner with his legs elevated. He denies having any chest pain. He was started on IV fluids at 75 mL per hour yesterday. Repeat blood work reveals hemoglobin 11.4 otherwise CBC is unremarkable. BUN is 45 and creatinine 1.1. Blood sugars are running between 102 110. AST 36, ALT 52. Repeat coronavirus not detected. A shunt has been accepted at [facility] for subacute rehab and insurance authorization has been obtained. Patient will be discharged today in stable condition. DISCHARGE DIAGNOSES 1. Acute kidney injury secondary to rhabdomyolysis. 2. Acute rhabdomyolysis. 3. Acute urinary tract infection. 4. Hematuria with history of kidney stone, benign prostatic hypertrophy status post TURP in July 2020 and frequent urinary tract infections. 5. Lower extremity weakness. 6. Diabetes mellitus type 2. 7. Hyperlipidemia. 8. Generalized debility and weakness secondary to acute kidney injury and rhabdomyolysis along with shortened left leg causing ambulatory difficulties. 9. Stage II decubitus ulcer bilateral buttocks, POA. 10. Osteoarthritis left hip with concern for avascular necrosis. 11. T1a prostate cancer to be managed with observation DISCHARGE PLAN [facility] for subacute rehab under the care of Dr. Culver Impression and plan of care have been directed as dictated by the signing physician. Abbi Forrest nurse practitioner acting as scribe for signing physician. Patient Condition at Discharge: Good Plan - Discharge Summary Discharge Rx Participant: Yes New Discharge Prescriptions: New INSULIN ASPART (NovoLOG) [NovoLOG (formulary)] 0 unit SQ ACHS vial HYDROcodone/APAP 5-325MG [Liberty 5-325] 1 each PO Q4HR PRN #18 tab PRN Reason: Pain amLODIPine [Norvasc] 10 mg PO DAILY tab Continue Simvastatin [Zocor] 20 mg PO HS Insulin Detemir [Levemir Flextouch] 40 units SQ HS Insulin Detemir [Levemir Flextouch] 30 units SQ DAILY Repaglinide [Prandin] 2 mg PO TID Acetaminophen Tab [Tylenol] 500 mg PO Q6H PRN PRN Reason: Fever And/ Or Pain Silodosin [Rapaflo] 8 mg PO DAILY Discontinued Quinapril HCl [Accupril] 20 mg PO DAILY Darifenacin Hydrobromide [Darifenacin ER] 15 mg PO DAILY metFORMIN HCL 1,000 mg PO BID Insulin Aspart [NovoLOG Flexpen] 2 units SQ AC-TID PRN PRN Reason: CBG ABOVE 120 Nitrofurantoin Monohyd/M-Cryst [Macrobid] 100 mg PO Q12HR Discharge Medication List Insulin Detemir [Levemir Flextouch] 30 units SQ DAILY 05/24/20 [History] Insulin Detemir [Levemir Flextouch] 40 units SQ HS 05/24/20 [History] Repaglinide [Prandin] 2 mg PO TID 05/24/20 [History] Simvastatin [Zocor] 20 mg PO HS 05/24/20 [History] Acetaminophen Tab [Tylenol] 500 mg PO Q6H PRN 07/09/20 [History] Silodosin [Rapaflo] 8 mg PO DAILY 10/20/20 [History] HYDROcodone/APAP 5-325MG [Liberty 5-325] 1 each PO Q4HR PRN #18 tab 10/26/20 [Rx] INSULIN ASPART (NovoLOG) [NovoLOG (formulary)] 0 unit SQ ACHS vial 10/26/20 [Rx] amLODIPine [Norvasc] 10 mg PO DAILY tab 10/26/20 [Rx] Follow up Appointment(s)/Referral(s): Ed Culver MD [Primary Care Provider] - 1 Week (at [facility]) Discharge Disposition: TRANSFER TO SNF/ECF
[2020-10-26 11:38] LABS: African American GFR (CKD) 75.2 (60.0-200.0); Albumin 3.5 g/dL (3.80-4.90); Albumin/Globulin Ratio 2.19 (1.60-3.17); Anion Gap 6.9 mmol/L (4.00-12.00); BUN/Creat Ratio 40.91 Ratio (12.00-20.00); Calcium 9.5 mg/dL (8.7-10.3); Carbon Dioxide 27.1 mmol/L (21.6-31.8); Globulin 1.6 g/dL (1.6-3.3); Non-African American GFR(CKD) 64.9 (60.0-200.0); Potassium 4.6 mmol/L (3.5-5.5); Total Bilirubin 0.2 mg/dL (0.2-1.2); Total Protein 5.1 g/dL (6.2-8.2)
[2020-10-26 12:20] LABS: Glucose,Whole Blood 120 mg/dL (75-99)
== END 2020-10-26 13:30 | DRG 558 ==
LOC: EC 15:53 → 3SCARD 17:40 → 5NMEDONC 10-25 09:51
PROVIDERS: ADMIT Internal Medicine Geriatric Medicine; ATTEND Internal Medicine Geriatric Medicine
DX: M62.82 Rhabdomyolysis (principal); M87.9 Osteonecrosis, unspecified; N17.9 Acute kidney failure, unspecified; N39.0 Urinary tract infection, site not specified; M21.70 Unequal limb length (acquired), unspecified site; C61 Malignant neoplasm of prostate; D64.9 Anemia, unspecified; E11.622 Type 2 diabetes mellitus with other skin ulcer; E78.5 Hyperlipidemia, unspecified; I10 Essential (primary) hypertension; L89.312 Pressure ulcer of right buttock, stage 2; L89.322 Pressure ulcer of left buttock, stage 2; M16.12 Unilateral primary osteoarthritis, left hip; L98.499 Non-pressure chronic ulcer of skin of other sites with unspecified severity; M21.952 Unspecified acquired deformity of left thigh; M47.812 Spondylosis without myelopathy or radiculopathy, cervical region; N13.9 Obstructive and reflux uropathy, unspecified; Z88.1 Allergy status to other antibiotic agents; Z88.0 Allergy status to penicillin; Z87.442 Personal history of urinary calculi; N40.0 Benign prostatic hyperplasia without lower urinary tract symptoms; W18.30XA Fall on same level, unspecified, initial encounter; Y92.009 Unspecified place in unspecified non-institutional (private) residence as the place of occurrence of the external cause; Z20.822 Contact with and (suspected) exposure to COVID-19; Z79.4 Long term (current) use of insulin; Z79.899 Other long term (current) drug therapy; Z80.42 Family history of malignant neoplasm of prostate; Z87.440 Personal history of urinary (tract) infections; Z87.891 Personal history of nicotine dependence; M25.562 Pain in left knee; M25.522 Pain in left elbow
CPT/HCPCS: 36415; 70450; 71045; 72100; 72125; 72170; 80048; 80053; 81001; 82550; 82553; 83605; 83735; 83880; 84484; 85025; 85027; 85610; 85730; 87086; 87635; 93005; 99285

== ENCOUNTER 2020-12-11 13:50 | Inpatient (IN) | payer MEDICARE ==
[2020-12-11 14:27] LABS: Basophils # (A) 0.1 k/uL (0-0.2); Basophils % (A) 1 %; Eosinophils # (A) 0.1 k/uL (0-0.7); Eosinophils % (A) 1 %; HCT 33.4 % (39.0-53.0); HGB 11.1 gm/dL (13.0-17.5); Lymphocytes # (A) 0.5 k/uL (1.0-4.8); Lymphocytes % (A) 6 %; MCH 29.5 pg (25.0-35.0); MCHC 33.3 g/dL (31.0-37.0); MCV 88.4 fL (80.0-100.0); Mean Platelet Volume 8.6; Monocytes # (A) 0.5 k/uL (0-1.0); Monocytes % (A) 6 %; Neutrophils # (A) 6.9 k/uL (1.3-7.7); Neutrophils % (A) 85 %; Platelet Count 198 k/uL (150-450); RBC 3.78 m/uL (4.30-5.90); WBC 8.1 k/uL (3.8-10.6)
[2020-12-11 14:35] LABS: Albumin 3.3 g/dL (3.5-5.0); Calcium 9.3 mg/dL (8.4-10.2); Potassium 4.2 mmol/L (3.5-5.1); Total Bilirubin 0.3 mg/dL (0.2-1.3); Total Protein 5.6 g/dL (6.3-8.2)
[2020-12-11] MEDS ORDERED: ACETAMINOPHEN TAB 500 MG TAB PO STA (15:49)
[2020-12-11] MEDS ORDERED: NALOXONE 0.4 MG/ML 1 ML VIAL IV PRN (17:31)
--- NOTE | 2020-12-11 17:31 | ED ---
Nausea/Vomiting/Diarrhea HPI - General Chief complaint: Nausea/Vomiting/Diarrhea Stated complaint: diarrhea Time Seen by Provider: 12/11/20 13:50 Source: patient, EMS Mode of arrival: EMS Limitations: no limitations - History of Present Illness Initial comments: Patient is a 74-year-old male with past medical history of diabetes, hypertension who presents to the emergency department with reported diarrhea. Patient states that he started having diarrhea at home around 5 PM. He has had several episodes of incontinence. He was treated for C. diff at [facility] and finished treatment on the . He was discharged home from their facility on that day. He has not taken any antibiotics since. He denies any abdominal pain. No reported fevers at home. Denies any nausea or vomiting. The patient did not take anything for his diarrhea. Admits to some bleeding from his bottom where he has bedsores. No other alleviating, precipitating or modifying factors - Related Data Home Medications Medication Instructions Recorded Confirmed Insulin Detemir [Levemir Flextouch] 30 units SQ BID 05/24/20 12/11/20 Repaglinide [Prandin] 2 mg PO AC-TID 05/24/20 12/11/20 Simvastatin [Zocor] 20 mg PO HS 05/24/20 12/11/20 Silodosin [Rapaflo] 8 mg PO DAILY 10/20/20 12/11/20 Darifenacin Hydrobromide [Enablex] 15 mg PO DAILY 12/11/20 12/11/20 INSULIN ASPART (NovoLOG) [NovoLOG See Protocol SQ ACHS 12/11/20 12/11/20 (formulary)] Quinapril HCl [Accupril] 20 mg PO DAILY 12/11/20 12/11/20 Triamcinolone 0.5% Cream [Kenalog 1 applic TOPICAL BID 12/11/20 12/11/20 0.5% Cream] glipiZIDE [Glucotrol] 10 mg PO AC-BID 12/11/20 12/11/20 Allergies Allergy/AdvReac Type Severity Reaction Status Date / Time Penicillins Allergy Swelling Verified 12/11/20 17:22 levofloxacin AdvReac Severe Diarrhea Verified 12/11/20 17:22 ciprofloxacin [From Cipro] AdvReac Vomiting Verified 12/11/20 17:22 Review of Systems ROS Statement: Those systems with pertinent positive or pertinent negative responses have been documented in the HPI. ROS Other: All systems not noted in ROS Statement are negative. Past Medical History Past Medical History: Diabetes Mellitus, Hyperlipidemia, Hypertension, Osteoarthritis (OA), Prostate Disorder Additional Past Medical History / Comment(s): left hip and leg chronic pain, arthritis. History of Any Multi-Drug Resistant Organisms: None Reported Past Surgical History: Hernia Repair, Prostate Surgery Additional Past Surgical History / Comment(s): bladder stones. Past Anesthesia/Blood Transfusion Reactions: No Reported Reaction Past Psychological History: No Psychological Hx Reported Smoking Status: Former smoker Past Alcohol Use History: None Reported Past Drug Use History: None Reported - Past Family History Father Family Medical History: Cancer, Prostate Disorder Additional Family Medical History / Comment(s): Past away from prostate cancer Mother Family Medical History: Cancer Additional Family Medical History / Comment(s): Brain CA General Exam Limitations: no limitations General appearance: alert, in no apparent distress Head exam: Present: atraumatic, normocephalic, normal inspection Eye exam: Present: normal appearance, PERRL, EOMI. Absent: scleral icterus, conjunctival injection, periorbital swelling ENT exam: Present: normal exam, mucous membranes moist Neck exam: Present: normal inspection. Absent: tenderness, meningismus, lymphadenopathy Respiratory exam: Present: normal lung sounds bilaterally. Absent: respiratory distress, wheezes, rales, rhonchi, stridor Cardiovascular Exam: Present: regular rate, normal rhythm, normal heart sounds. Absent: systolic murmur, diastolic murmur, rubs, gallop, clicks GI/Abdominal exam: Present: soft, normal bowel sounds. Absent: distended, tenderness, guarding, rebound, rigid Rectal exam: Present: other (sacral wound) Extremities exam: Present: normal inspection, full ROM, normal capillary refill. Absent: tenderness, pedal edema, joint swelling, calf tenderness Back exam: Present: normal inspection Neurological exam: Present: alert, oriented X3, CN II-XII intact Psychiatric exam: Present: normal affect, normal mood Skin exam: Present: warm, dry, intact, normal color. Absent: rash Course Vital Signs 12/11/20 12/11/20 12/11/20 13:51 14:30 16:09 Temperature 100.0 F H 100.6 F H 100.6 F H Pulse Rate 60 87 88 Respiratory 18 18 18 Rate Blood Pressure 131/64 143/56 133/56 O2 Sat by Pulse 96 96 93 L Oximetry 12/11/20 18:09 Temperature 98.8 F Pulse Rate 89 Respiratory 18 Rate Blood Pressure 128/54 O2 Sat by Pulse 99 Oximetry Medical Decision Making - Medical Decision Making Upon arrival patient is placed into room 21. Thorough history and physical exam was performed. Patient does have a fever. He is given Tylenol. Laboratory studies are conducted. A stool sample is obtained which is positive for C. diff. It is also positive for occult blood however the patient's bedsore is actively bleeding into the sample. The patient is started on Vanco. He does required 2 person lift assist. Patient is not capable going home today to take care of himself. I did recommend hospital admission because of this safety. Patient agreed to this. Spoke with Dr. Spears who agreed to admit the patient. Pain medications ordered as well as dressings for his sacral wound. Patient transferred to the floor in stable condition - Lab Data Result diagrams: 12/12/20 18:03 12/12/20 07:39 Lab Results 12/11/20 12/11/20 12/11/20 Range/Units 14:10 14:10 14:10 WBC 8.1 (3.8-10.6) k/uL RBC 3.78 L (4.30-5.90) m/uL Hgb 11.1 L (13.0-17.5) gm/dL Hct 33.4 L (39.0-53.0) % MCV 88.4 (80.0-100.0) fL MCH 29.5 (25.0-35.0) pg MCHC 33.3 (31.0-37.0) g/dL RDW 14.0 (11.5-15.5) % Plt Count 198 (150-450) k/uL MPV 8.6 Neutrophils % 85 % Lymphocytes % 6 % Monocytes % 6 % Eosinophils % 1 % Basophils % 1 % Neutrophils # 6.9 (1.3-7.7) k/uL Lymphocytes # 0.5 L (1.0-4.8) k/uL Monocytes # 0.5 (0-1.0) k/uL Eosinophils # 0.1 (0-0.7) k/uL Basophils # 0.1 (0-0.2) k/uL Sodium 134 L (137-145) mmol/L Potassium 4.2 (3.5-5.1) mmol/L Chloride 103 (98-107) mmol/L Carbon Dioxide 23 (22-30) mmol/L Anion Gap 8 mmol/L BUN 34 H (9-20) mg/dL Creatinine 0.99 (0.66-1.25) mg/dL Est GFR (CKD-EPI)AfAm 85 (>60 ml/min/1.73 sqM) Est GFR (CKD-EPI)NonAf 74 (>60 ml/min/1.73 sqM) Glucose 220 H (74-99) mg/dL Plasma Lactic Acid Isak 1.6 (0.7-2.0) mmol/L Calcium 9.3 (8.4-10.2) mg/dL Total Bilirubin 0.3 (0.2-1.3) mg/dL AST 16 L (17-59) U/L ALT 13 (4-49) U/L Alkaline Phosphatase 57 (38-126) U/L Total Protein 5.6 L (6.3-8.2) g/dL Albumin 3.3 L (3.5-5.0) g/dL Lipase 19 L (23-300) U/L Stool Occult Blood (Negative) C. difficile (EIA) Intrp (Negative) 12/11/20 12/11/20 Range/Units 14:10 15:50 WBC (3.8-10.6) k/uL RBC (4.30-5.90) m/uL Hgb (13.0-17.5) gm/dL Hct (39.0-53.0) % MCV (80.0-100.0) fL MCH (25.0-35.0) pg MCHC (31.0-37.0) g/dL RDW (11.5-15.5) % Plt Count (150-450) k/uL MPV Neutrophils % % Lymphocytes % % Monocytes % % Eosinophils % % Basophils % % Neutrophils # (1.3-7.7) k/uL Lymphocytes # (1.0-4.8) k/uL Monocytes # (0-1.0) k/uL Eosinophils # (0-0.7) k/uL Basophils # (0-0.2) k/uL Sodium (137-145) mmol/L Potassium (3.5-5.1) mmol/L Chloride (98-107) mmol/L Carbon Dioxide (22-30) mmol/L Anion Gap mmol/L BUN (9-20) mg/dL Creatinine (0.66-1.25) mg/dL Est GFR (CKD-EPI)AfAm (>60 ml/min/1.73 sqM) Est GFR (CKD-EPI)NonAf (>60 ml/min/1.73 sqM) Glucose (74-99) mg/dL Plasma Lactic Acid Isak (0.7-2.0) mmol/L Calcium (8.4-10.2) mg/dL Total Bilirubin (0.2-1.3) mg/dL AST (17-59) U/L ALT (4-49) U/L Alkaline Phosphatase (38-126) U/L Total Protein (6.3-8.2) g/dL Albumin (3.5-5.0) g/dL Lipase (23-300) U/L Stool Occult Blood Positive (Negative) C. difficile (EIA) Intrp Positive A (Negative) Disposition Clinical Impression: C. difficile colitis, Weakness Disposition: ADMITTED IP TO THIS [facility] Condition: Stable Is patient prescribed a controlled substance at d/c from ED?: No Decision to Admit Reason: Admit from EC Decision Date: 12/11/20 Decision Time: 17:31
[2020-12-11] MEDS ORDERED: MORPHINE SULFATE 4 MG/ML SYRINGE IVP STA (17:34)
[2020-12-11] MEDS: SODIUM CHLORIDE 0.9% 1,000 ML IV SCH (17:48)
[2020-12-11] MEDS ORDERED: ACETAMINOPHEN TAB 325 MG TAB PO PRN (18:30)
[2020-12-11] MEDS ORDERED: MORPHINE SULFATE 4 MG/ML SYRINGE IVP PRN (18:30)
[2020-12-11] MEDS: VANCOMYCIN 125 MG CAPSULE PO SCH ×2 (19:38→22:23)
[2020-12-11 20:37] LABS: Glucose,Whole Blood 110 mg/dL (75-99)
[2020-12-11] MEDS: INSULIN ASPART (NovoLOG) 100 UNIT/ML VIAL SQ SCH (21:16)
[2020-12-11] MEDS: ATORVASTATIN 10 MG TAB PO SCH (21:19)
[2020-12-11] MEDS: INSULIN DETEMIR (LEVEMIR) 100 UNIT/ML SYR SQ SCH (21:19)
[2020-12-11] MEDS: TRIAMCINOLONE ACET 0.5% CREAM 15 GM TUBE TOPICAL SCH (21:21)
[2020-12-11] MEDS: metroNIDAZOLE-NS PMX 500 MG in SALINE 1 100ML.BAG IVPB SCH (23:49)
[2020-12-12 06:43] LABS: Glucose,Whole Blood 80 mg/dL (75-99)
[2020-12-12] MEDS: INSULIN ASPART (NovoLOG) 100 UNIT/ML VIAL SQ SCH ×4 (06:46→20:23)
[2020-12-12] MEDS ORDERED: glipiZIDE 10 MG TAB PO SCH (07:30)
[2020-12-12 08:14] LABS: Basophils % (A) 0 %; Eosinophils % (A) 1 %; HCT 29.6 % (39.0-53.0); Lymphocytes # (A) 0.7 k/uL (1.0-4.8); Lymphocytes % (A) 12 %; MCH 28.2 pg (25.0-35.0); MCHC 31.6 g/dL (31.0-37.0); MCV 89.3 fL (80.0-100.0); Mean Platelet Volume 8.7; Monocytes # (A) 0.3 k/uL (0-1.0); Monocytes % (A) 5 %; Neutrophils # (A) 4.3 k/uL (1.3-7.7); Neutrophils % (A) 79 %; Platelet Count 177 k/uL (150-450); RBC 3.32 m/uL (4.30-5.90); RDW 14.4 % (11.5-15.5); WBC 5.4 k/uL (3.8-10.6)
[2020-12-12 08:18] LABS: HGB 9.4 gm/dL (13.0-17.5)
[2020-12-12] MEDS: INSULIN DETEMIR (LEVEMIR) 100 UNIT/ML SYR SQ SCH (08:49)
[2020-12-12] MEDS: TAMSULOSIN 0.4 MG CAP.ER.24H PO SCH (08:52)
[2020-12-12] MEDS: lisinopriL 20 MG TAB PO SCH (08:52)
[2020-12-12] MEDS: VANCOMYCIN 125 MG CAPSULE PO SCH ×3 (08:52→22:12)
[2020-12-12] MEDS: REPAGLINIDE 1 MG TAB PO SCH ×2 (08:52→11:57)
[2020-12-12] MEDS: metroNIDAZOLE-NS PMX 500 MG in SALINE 1 100ML.BAG IVPB SCH (08:52)
[2020-12-12] MEDS: TRIAMCINOLONE ACET 0.5% CREAM 15 GM TUBE TOPICAL SCH ×2 (08:53→20:22)
[2020-12-12 11:34] LABS: Glucose,Whole Blood 55 mg/dL (75-99)
[2020-12-12 11:51] LABS: Glucose,Whole Blood 63 mg/dL (75-99)
[2020-12-12 11:59] LABS: African American GFR (CKD) 75.2 (60.0-200.0); Anion Gap 6.8 mmol/L (4.00-12.00); BUN/Creat Ratio 28.18 Ratio (12.00-20.00); Calcium 7.9 mg/dL (8.7-10.3); Carbon Dioxide 24.2 mmol/L (21.6-31.8); Non-African American GFR(CKD) 64.9 (60.0-200.0); Potassium 3.6 mmol/L (3.5-5.5)
[2020-12-12 12:08] LABS: Glucose,Whole Blood 86 mg/dL (75-99)
--- NOTE | 2020-12-12 12:13 | P.HPIM ---
History of Present Illness H&P Date: 12/12/20 HISTORY OF PRESENT ILLNESS This is a 74-year-old male patient of Dr. Culver and Dr. Carson with past medical history of diabetes mellitus type 2, hyperlipidemia, chronic hip pain and generalized osteoarthritis, benign prostatic hypertrophy status post TURP 08/15, frequent urinary tract infections, kidney stones, prostate cancer managed with observation, chronically shortened left leg, remote history of tobacco use. Patient had a recent hospitalization in September at which time he was treated after a fall with acute kidney injury secondary to rhabdomyolysis, acute urinary tract infection, C. difficile colitis. Patient was discharged to [facility] at that time and he states he has subsequent lead been discharged to home over week ago. Patient called the on-call pager yesterday because he was having diarrhea. He states he called someone to help him clean up and then he ended up calling EMS to bring him in the hospital. He states he had onset Sunday evening of diarrhea. He states he's had chills but no real fever. He's had no loss of consciousness. He states he has been eating very little and had diarrhea all day yesterday. He reported blood with his stool at home. He does complain of his legs and hips feeling sore. Patient came into [facility] emergency center for evaluation and found to have temperature 100.6, heart rate 87, blood pressure 143/56, pulse ox 96% on room air. WBC 8.1, hemoglobin 11.1, platelet count 198. Sodium 134, potassium 4.2, chloride 103, CO2 23, BUN 34 and creatinine 0.99. Blood sugar 220. Lactic acid 1.6. Lipase 19, liver function tests were normal. C. difficile toxin positive. Stool for occult blood positive. Repeat hemoglobin today is 9.4. Patient was started on oral vancomycin, IV Flagyl [facility], consult with infectious disease added. REVIEW OF SYSTEMS Constitutional: No fever, no chills, no night sweats. No weight change. Reports weakness, Reports fatigue no lethargy. No daytime sleepiness. EENT: No headache. No blurred vision or double vision, no loss of vision. Reports chronic loss of Hearing. No nasal drainage or congestion. No epistaxis. Reports sore throat. Lungs: No shortness of breath, cough, no sputum production. No wheezing. Cardiovascular: No chest pain, no lower extremity edema. No palpitations. No paroxysmal nocturnal dyspnea. No orthopnea. No lightheadedness or dizziness. No syncopal episodes. Abdominal: Reports abdominal pain. Reports nausea, no vomiting. Reports diarrhea. No constipation. Reports bloody or tarry stools. Reports loss of appetite. Genitourinary: No dysuria, increased frequency, urgency. No urinary retention. Musculoskeletal: Reports generalized myalgias. Reports muscle weakness, no gait dysfunction, no frequent falls. No back pain. No neck pain. Integumentary: Multiple abrasions to bilateral upper and lower extremities and decubitus ulcers to the buttocks. No rash or pruritus. Significant bruising to extremities and face. Neurologic: No aphasia. No facial droop. No change in mentation. No head injury. No headache. No paralysis. No paresthesia. Psychiatric: No depression. No anxiety. No mood swings. Endocrine: No abnormal blood sugars. SOCIAL HISTORY Patient was a smoker of cigarettes or pipe tobacco smoke for 30+ years and quit in the . He denies any alcohol use, marijuana use or illicit drug use. 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 He has been since 1980. Patient currently lives at home alone and has home care in place. Patient was recently admitted [facility] for subacute rehab. FAMILY HISTORY Father in his 70s from prostate cancer with metastatic disease. Mother in her 50s from malignant brain tumor. Patient does not have any sisters. Patient has one brother and he is living with no major medical problems. Patient has 2 children with no major medical problems. PHYSICAL EXAMINATION Gen: This is a 74-year-old male patient. He is resting in bed and appears to be weak. HEENT: Head has significant ecchymosis to the left side of the face, normocephalic. Pupils equal, round. Sclerae is anicteric. NECK: Supple. No JVD. No lymphadenopathy. No thyromegaly. LUNGS: Clear to auscultation. No wheezes or rhonchi. No intercostal retractions. HEART: Regular rate and rhythm. No murmur. ABDOMEN: Soft. Bowel sounds are present. No masses. No tenderness. Generalized EXTREMITIES: No pedal edema. No calf tenderness. Chronic shortening of the left leg. NEUROLOGICAL: Patient is awake, alert and oriented x3. Cranial nerves 2 through 12 are grossly intact. ASSESSMENT AND PLAN 1. Acute C. difficile colitis. Patient is been started on oral vancomycin, IV Flagyl, consult with Nighat Edmonds added, continue IV fluids 0.9 normal saline at 75 mL per hour. 2. Possible acute GI bleed. Stool for occult blood positive. Recheck hemoglobin. This may be related to hemorrhoids secondary to diarrhea. 3. Diabetes mellitus type 2. Levemir 30 units twice daily, Prandin 2 mg 3 times daily, glipizide 10 mg twice daily will all be placed on hold and patient will be on NovoLog scale only due to hypoglycemia. 4. Hyperlipidemia. Continue Lipitor 10 mg at bedtime. 5. Generalized osteoarthritis and shortened left leg. 6. Benign prostatic hypertrophy. Continue Flomax 0.4 mg daily. 7. Hypertension. Continue lisinopril 20 mg daily. 8. History of prostate cancer managed with observation. 9. GI prophylaxis. Protonix 40 mg oral daily. 10. DVT prophylaxis. SCDs and ELAINE hose. 11. Generalized debility. Consult PT and OT. Patient will be admitted to the hospital for a minimum of 2 night stay. DISCHARGE PLAN To be determined. PT and OT consults and social work consult. Was recently at [facility] for subacute rehab. Impression and plan of care have been directed as dictated by the signing physician. Abbi Forrest nurse practitioner acting as scribe for signing physician. Past Medical History Past Medical History: Diabetes Mellitus, Hyperlipidemia, Hypertension, Osteoarthritis (OA), Prostate Disorder Additional Past Medical History / Comment(s): left hip and leg chronic pain, arthritis. History of Any Multi-Drug Resistant Organisms: None Reported Past Surgical History: Hernia Repair, Prostate Surgery Additional Past Surgical History / Comment(s): bladder stones. Past Anesthesia/Blood Transfusion Reactions: No Reported Reaction Past Psychological History: No Psychological Hx Reported Smoking Status: Former smoker Past Alcohol Use History: None Reported Past Drug Use History: None Reported - Past Family History Father Family Medical History: Cancer, Prostate Disorder Additional Family Medical History / Comment(s): Past away from prostate cancer Mother Family Medical History: Cancer Additional Family Medical History / Comment(s): Brain CA Medications and Allergies Home Medications Medication Instructions Recorded Confirmed Type Insulin Detemir [Levemir Flextouch] 30 units SQ BID 05/24/20 12/11/20 History Repaglinide [Prandin] 2 mg PO AC-TID 05/24/20 12/11/20 History Simvastatin [Zocor] 20 mg PO HS 05/24/20 12/11/20 History Silodosin [Rapaflo] 8 mg PO DAILY 10/20/20 12/11/20 History Darifenacin Hydrobromide [Enablex] 15 mg PO DAILY 12/11/20 12/11/20 History INSULIN ASPART (NovoLOG) [NovoLOG See Protocol SQ ACHS 12/11/20 12/11/20 History (formulary)] Quinapril HCl [Accupril] 20 mg PO DAILY 12/11/20 12/11/20 History Triamcinolone 0.5% Cream [Kenalog 1 applic TOPICAL BID 12/11/20 12/11/20 History 0.5% Cream] glipiZIDE [Glucotrol] 10 mg PO AC-BID 12/11/20 12/11/20 History Allergies Allergy/AdvReac Type Severity Reaction Status Date / Time Penicillins Allergy Swelling Verified 12/11/20 17:22 levofloxacin AdvReac Severe Diarrhea Verified 12/11/20 17:22 ciprofloxacin [From Cipro] AdvReac Vomiting Verified 12/11/20 17:22 Physical Exam Vitals: Vital Signs Temp Pulse Pulse Resp BP BP Pulse Ox 12/12/20 07:13 98.6 F 79 17 134/53 96 12/12/20 02:20 98.6 F 76 17 129/60 97 12/11/20 20:00 97.9 F 78 16 114/46 97 12/11/20 18:30 98.8 F 89 18 128/54 99 12/11/20 18:09 98.8 F 89 18 128/54 99 12/11/20 16:09 100.6 F H 88 18 133/56 93 L 12/11/20 14:30 100.6 F H 87 18 143/56 96 12/11/20 13:51 100.0 F H 60 18 131/64 96 Intake and Output 12/11/20 12/12/20 12/12/20 22:59 06:59 14:59 Intake Total 1540 Output Total 150 Balance 1390 Intake: Intake, IV Titration 1000 Amount Sodium Chloride 0.9% 1, 900 000 ml @ 75 mls/hr IV . [id number] TAE Rx#:[id number]-NS PMX 500 100 mg In Saline 1 100ml.bag @ 100 mls/hr IVPB Q8HR TAE Rx#:[id number] Oral 540 Output: Urine 150 Other: # Bowel Movements 5 Weight 61.235 kg Results CBC & Chem 7: 12/12/20 07:40 12/11/20 14:10 Labs: Abnormal Lab Results - Last 24 Hours (Table) 12/11/20 12/11/20 12/11/20 Range/Units 14:10 14:10 14:10 RBC 3.78 L (4.30-5.90) m/uL Hgb 11.1 L (13.0-17.5) gm/dL Hct 33.4 L (39.0-53.0) % Lymphocytes # 0.5 L (1.0-4.8) k/uL Sodium 134 L (137-145) mmol/L BUN 34 H (9-20) mg/dL Glucose 220 H (74-99) mg/dL POC Glucose (mg/dL) (75-99) mg/dL AST 16 L (17-59) U/L Total Protein 5.6 L (6.3-8.2) g/dL Albumin 3.3 L (3.5-5.0) g/dL Lipase 19 L (23-300) U/L C. difficile (EIA) Intrp Positive A (Negative) 12/11/20 12/12/20 Range/Units 20:35 07:40 RBC 3.32 L (4.30-5.90) m/uL Hgb 9.4 L D (13.0-17.5) gm/dL Hct 29.6 L (39.0-53.0) % Lymphocytes # 0.7 L (1.0-4.8) k/uL Sodium (137-145) mmol/L BUN (9-20) mg/dL Glucose (74-99) mg/dL POC Glucose (mg/dL) 110 H (75-99) mg/dL AST (17-59) U/L Total Protein (6.3-8.2) g/dL Albumin (3.5-5.0) g/dL Lipase (23-300) U/L C. difficile (EIA) Intrp (Negative) Thrombosis Risk Factor Assmnt - Choose All That Apply Any of the Below Risk Factors Present?: No Other Risk Factors: No Other congenital or acquired thrombophilia - If yes, enter type in comment: No Thrombosis Risk Factor Assessment Level: Very Low Risk
[2020-12-12 16:45] LABS: Glucose,Whole Blood 92 mg/dL (75-99)
[2020-12-12 19:09] LABS: HCT 31.5 % (39.0-53.0); HGB 10.3 gm/dL (13.0-17.5); MCH 28.9 pg (25.0-35.0); MCHC 32.8 g/dL (31.0-37.0); Mean Platelet Volume 8.9; Platelet Count 168 k/uL (150-450); RBC 3.58 m/uL (4.30-5.90); RDW 14.1 % (11.5-15.5); WBC 6.5 k/uL (3.8-10.6)
[2020-12-12] MEDS: CHOLESTYRAMINE (WITH SUGAR) 4 GM PACKET PO SCH (19:55)
[2020-12-12 20:13] LABS: Glucose,Whole Blood 112 mg/dL (75-99)
[2020-12-12] MEDS: ATORVASTATIN 10 MG TAB PO SCH (20:22)
[2020-12-12] MEDS: SODIUM CHLORIDE 0.9% 1,000 ML IV SCH (20:58)
--- NOTE | 2020-12-12 23:38 | P.CONS ---
History of Present Illness - Reason for Consult Consult date: 12/12/20 C. diff colitis Requesting physician: Bailee Spears - Chief Complaint Diarrhea few days - History of Present Illness Patient is a 74-year male with a past medical history significant for BPH history of recurrent urinary tract infection kidney stone who was recently hospitalized in September for the patient was treated with UTI and C. difficile colitis patient was discharged to the home on Augmentin on a 2-week course of oral vancomycin patient did mention with the oral vancomycin patient diarrhea resolved and he was having soft bowel movement however over the last 1 week patient was having diarrhea that has progressively got worse with multiple loose stools denies any blood or mucus in the stool denies any abdominal pain some nausea but no vomiting with the symptom the patient was brought back to the ER on arrival to the ER patient did have a fever 100.6 F patient did have a normal white count the kidney function was normal stool for C. difficile came back positive patient was started on IV Flagyl and oral vancomycin infectious disease was consulted for further management of antibiotic therapy. Review of Systems Positive point has been mentioned in the HPI rest of the systems are negative Past Medical History Past Medical History: Diabetes Mellitus, Hyperlipidemia, Hypertension, Osteoarthritis (OA), Prostate Disorder Additional Past Medical History / Comment(s): left hip and leg chronic pain, arthritis. History of Any Multi-Drug Resistant Organisms: None Reported Past Surgical History: Hernia Repair, Prostate Surgery Additional Past Surgical History / Comment(s): bladder stones. Past Anesthesia/Blood Transfusion Reactions: No Reported Reaction Past Psychological History: No Psychological Hx Reported Smoking Status: Former smoker Past Alcohol Use History: None Reported Past Drug Use History: None Reported - Past Family History Father Family Medical History: Cancer, Prostate Disorder Additional Family Medical History / Comment(s): Past away from prostate cancer Mother Family Medical History: Cancer Additional Family Medical History / Comment(s): Brain CA Medications and Allergies Home Medications Medication Instructions Recorded Confirmed Type Insulin Detemir [Levemir Flextouch] 30 units SQ BID 05/24/20 12/11/20 History Repaglinide [Prandin] 2 mg PO AC-TID 05/24/20 12/11/20 History Simvastatin [Zocor] 20 mg PO HS 05/24/20 12/11/20 History Silodosin [Rapaflo] 8 mg PO DAILY 10/20/20 12/11/20 History Darifenacin Hydrobromide [Enablex] 15 mg PO DAILY 12/11/20 12/11/20 History INSULIN ASPART (NovoLOG) [NovoLOG See Protocol SQ ACHS 12/11/20 12/11/20 History (formulary)] Quinapril HCl [Accupril] 20 mg PO DAILY 12/11/20 12/11/20 History Triamcinolone 0.5% Cream [Kenalog 1 applic TOPICAL BID 12/11/20 12/11/20 History 0.5% Cream] glipiZIDE [Glucotrol] 10 mg PO AC-BID 12/11/20 12/11/20 History Allergies Allergy/AdvReac Type Severity Reaction Status Date / Time Penicillins Allergy Swelling Verified 12/11/20 17:22 levofloxacin AdvReac Severe Diarrhea Verified 12/11/20 17:22 ciprofloxacin [From Cipro] AdvReac Vomiting Verified 12/11/20 17:22 Physical Exam Vitals: Vital Signs Temp Pulse Pulse Resp BP BP Pulse Ox 12/12/20 08:30 79 17 12/12/20 07:13 98.6 F 79 17 134/53 96 12/12/20 02:20 98.6 F 76 17 129/60 97 12/11/20 20:00 97.9 F 78 16 114/46 97 12/11/20 18:30 98.8 F 89 18 128/54 99 12/11/20 18:09 98.8 F 89 18 128/54 99 12/11/20 16:09 100.6 F H 88 18 133/56 93 L 12/11/20 14:30 100.6 F H 87 18 143/56 96 12/11/20 13:51 100.0 F H 60 18 131/64 96 Intake and Output 12/11/20 12/12/20 12/12/20 22:59 06:59 14:59 Intake Total 1540 Output Total 150 Balance 1390 Intake: Intake, IV Titration 1000 Amount Sodium Chloride 0.9% 1, 900 000 ml @ 75 mls/hr IV . [id number] [facility] Rx#:[id number] metroNIDAZOLE-NS PMX 500 100 mg In Saline 1 100ml.bag @ 100 mls/hr IVPB Q8HR [facility] Rx#:[id number] Oral 540 Output: Urine 150 Other: # Bowel Movements 5 Weight 61.235 kg GENERAL DESCRIPTION: An elderly male lying in bed, no distress. No tachypnea or accessory muscle of respiration use. HEENT: Shows Pallor , no scleral icterus. Oral mucous membrane is dry. No pharyngeal erythema or thrush NECK: Trachea central, no thyromegaly. LUNGS: Unlabored breathing. Clear to auscultation anteriorly. 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 HEART: S1, S2, regular rate and rhythm. No loud murmur ABDOMEN: Soft, no tenderness , guarding or rigidity, no organomegaly EXTREMITIES: No edema of feet. SKIN: No rash, no masses palpable. NEUROLOGICAL: The patient is awake, alert, oriented x3, mood and affect normal. Results CBC & Chem 7: 12/12/20 18:03 12/12/20 07:39 Labs: Abnormal Lab Results - Last 24 Hours (Table) 12/11/20 12/11/20 12/11/20 Range/Units 14:10 14:10 14:10 RBC 3.78 L (4.30-5.90) m/uL Hgb 11.1 L (13.0-17.5) gm/dL Hct 33.4 L (39.0-53.0) % Lymphocytes # 0.5 L (1.0-4.8) k/uL Sodium 134 L (137-145) mmol/L Chloride (96-109) mmol/L BUN 34 H (9-20) mg/dL BUN/Creatinine Ratio (12.00-20.00) Ratio Glucose 220 H (74-99) mg/dL POC Glucose (mg/dL) (75-99) mg/dL Calcium (8.7-10.3) mg/dL AST 16 L (17-59) U/L Total Protein 5.6 L (6.3-8.2) g/dL Albumin 3.3 L (3.5-5.0) g/dL Lipase 19 L (23-300) U/L C. difficile (EIA) Intrp Positive A (Negative) 12/11/20 12/12/20 12/12/20 Range/Units 20:35 07:39 07:40 RBC 3.32 L (4.30-5.90) m/uL Hgb 9.4 L D (13.0-17.5) gm/dL Hct 29.6 L (39.0-53.0) % Lymphocytes # 0.7 L (1.0-4.8) k/uL Sodium (137-145) mmol/L Chloride 110 H (96-109) mmol/L BUN 31.0 H (9-20) mg/dL BUN/Creatinine Ratio 28.18 H (12.00-20.00) Ratio Glucose (74-99) mg/dL POC Glucose (mg/dL) 110 H (75-99) mg/dL Calcium 7.9 L (8.7-10.3) mg/dL AST (17-59) U/L Total Protein (6.3-8.2) g/dL Albumin (3.5-5.0) g/dL Lipase (23-300) U/L C. difficile (EIA) Intrp (Negative) 12/12/20 12/12/20 Range/Units 11:32 11:49 RBC (4.30-5.90) m/uL Hgb (13.0-17.5) gm/dL Hct (39.0-53.0) % Lymphocytes # (1.0-4.8) k/uL Sodium (137-145) mmol/L Chloride (96-109) mmol/L BUN (9-20) mg/dL BUN/Creatinine Ratio (12.00-20.00) Ratio Glucose (74-99) mg/dL POC Glucose (mg/dL) 55 L 63 L (75-99) mg/dL Calcium (8.7-10.3) mg/dL AST (17-59) U/L Total Protein (6.3-8.2) g/dL Albumin (3.5-5.0) g/dL Lipase (23-300) U/L C. difficile (EIA) Intrp (Negative) Assessment and Plan Assessment: patient presented to hospital with diarrhea 1 week duration and this patient recently admitted to hospital for UTI and C. difficile colitis with concern for recurrent C. difficile colitis however her mention no antibiotic exposure between these 2 episodes of C. difficile colitis (1) C. difficile colitis Current Visit: Yes Status: Acute Code(s): A04.72 - ENTEROCOLITIS D/T CLOSTRIDIUM DIFFICILE, NOT SPCF RECUR SNOMED Code(s): 328921086 Plan: 1-we will adjust the dose of vancomycin to 250 mg p.o. every 6 hours 2-discontinue Flagyl 3-Questran for symptomatic relief We will follow on clinical condition and cultures to further adjust medication if needed Thank you for this consultation we will follow the patient along with you Time with Patient: Greater than 30
[2020-12-13 07:01] LABS: Glucose,Whole Blood 215 mg/dL (75-99)
[2020-12-13] MEDS ORDERED: ONDANSETRON 4 MG/2 ML VIAL IVP PRN (07:20)
[2020-12-13] MEDS: INSULIN ASPART (NovoLOG) 100 UNIT/ML VIAL SQ SCH ×5 (08:00→22:21)
[2020-12-13] MEDS: lisinopriL 20 MG TAB PO SCH (08:00)
[2020-12-13] MEDS: VANCOMYCIN 125 MG CAPSULE PO SCH ×4 (08:00→22:21)
[2020-12-13] MEDS: TAMSULOSIN 0.4 MG CAP.ER.24H PO SCH (08:00)
[2020-12-13] MEDS: CHOLESTYRAMINE (WITH SUGAR) 4 GM PACKET PO SCH ×2 (08:00→18:02)
[2020-12-13] MEDS: PANTOPRAZOLE 40 MG TABLET PO SCH (08:00)
[2020-12-13] MEDS: TRIAMCINOLONE ACET 0.5% CREAM 15 GM TUBE TOPICAL SCH ×2 (08:01→22:24)
[2020-12-13] MEDS ORDERED: TROSPIUM CHLORIDE 20 MG TABLET PO SCH (10:30)
[2020-12-13 11:35] LABS: HCT 29.7 % (39.6-50.0); HGB 9.1 g/dL (13.0-17.0); MCH 27.9 pg (27.0-32.0); MCHC 30.6 g/dL (32.0-37.0); MCV 91.1 fL (80.0-97.0); Mean Platelet Volume 12.2 fL (9.5-12.2); Platelet Count 160 X 10*3/uL (140-440); RBC 3.26 X 10*6/uL (4.40-5.60); WBC 6.62 X 10*3/uL (4.50-10.00)
[2020-12-13 11:50] LABS: African American GFR (CKD) 84.4 (60.0-200.0); Anion Gap 9.2 mmol/L (4.00-12.00); Calcium 7.4 mg/dL (8.7-10.3); Carbon Dioxide 21.8 mmol/L (21.6-31.8); Non-African American GFR(CKD) 72.8 (60.0-200.0); Potassium 3.5 mmol/L (3.5-5.5)
[2020-12-13 11:52] LABS: Glucose,Whole Blood 223 mg/dL (75-99)
--- NOTE | 2020-12-13 13:06 | P.PN ---
Subjective Progress Note Date: 12/13/20 HISTORY OF PRESENT ILLNESS This is a 74-year-old male patient of Dr. Culver and Dr. Carson with past medical history of diabetes mellitus type 2, hyperlipidemia, chronic hip pain and generalized osteoarthritis, benign prostatic hypertrophy status post TURP 08/15, frequent urinary tract infections, kidney stones, prostate cancer managed with observation, chronically shortened left leg, remote history of tobacco use. Patient had a recent hospitalization in September at which time he was treated after a fall with acute kidney injury secondary to rhabdomyolysis, acute urinary tract infection, C. difficile colitis. Patient was discharged to [facility] at that time and he states he has subsequent lead been discharged to home over week ago. Patient called the on-call pager yesterday because he was having diarrhea. He states he called someone to help him clean up and then he ended up calling EMS to bring him in the hospital. He states he had onset Sunday evening of diarrhea. He states he's had chills but no real fever. He's had no loss of consciousness. He states he has been eating very little and had diarrhea all day yesterday. He reported blood with his stool at home. He does complain of his legs and hips feeling sore. Patient came into [facility] emergency center for evaluation and found to have temperature 100.6, heart rate 87, blood pressure 143/56, pulse ox 96% on room air. WBC 8.1, hemoglobin 11.1, platelet count 198. Sodium 134, potassium 4.2, chloride 103, CO2 23, BUN 34 and creatinine 0.99. Blood sugar 220. Lactic acid 1.6. Lipase 19, liver function tests were normal. C. difficile toxin positive. Stool for occult blood positive. Repeat hemoglobin today is 9.4. Patient was started on oral vancomycin, IV Flagyl and admitted to the MedSur floor, consult with infectious disease added. 12/13: The patient states he had dry heaves all night but improved this morning. He is still having some diarrhea. Condom catheter has been placed. He is upset that his Levemir was not ordered but this was held yesterday due to blood sugar of 55. We will resume at half his normal home dose so that would be 15 units twice daily. Discussed case with Dr. Schmidt and questioning whether Dificid would be an option for him. Insurance check found that this would be $1000 for the course. Flagyl IV has been discontinued by Dr. Schmidt. She has been afebrile, heart rate 56, blood pressure 140/61, pulse ox 94% on room air. Repeat blood work reveals WBC 6.6, hemoglobin 9.1, platelet count 160. Electrolytes and renal function normal. Blood sugars are running between 112 and 223. Patient has been evaluated by therapies with recommendations for subacute rehab. REVIEW OF SYSTEMS Constitutional: No fever, no chills, no night sweats. No weight change. Reports weakness, Reports fatigue no lethargy. No daytime sleepiness. EENT: No headache. No blurred vision or double vision, no loss of vision. Reports chronic loss of Hearing. No nasal drainage or congestion. No epistaxis. Reports sore throat. Lungs: No shortness of breath, cough, no sputum production. No wheezing. Cardiovascular: No chest pain, no lower extremity edema. No palpitations. No paroxysmal nocturnal dyspnea. No orthopnea. No lightheadedness or dizziness. No syncopal episodes. Abdominal: Reports abdominal pain. Reports nausea, no vomiting. Reports diarrhea. No constipation. Reports bloody or tarry stools. Reports loss of appetite. Genitourinary: No dysuria, increased frequency, urgency. No urinary retention. Musculoskeletal: Reports generalized myalgias. Reports muscle weakness, no gait dysfunction, no frequent falls. No back pain. No neck pain. Integumentary: Multiple abrasions to bilateral upper and lower extremities and decubitus ulcers to the buttocks. No rash or pruritus. Significant bruising to extremities and face. Neurologic: No aphasia. No facial droop. No change in mentation. No head injury. No headache. No paralysis. No paresthesia. Psychiatric: No depression. No anxiety. Endocrine: Reports abnormal blood sugars. PHYSICAL EXAMINATION Gen: This is a 74-year-old male patient. He is resting in bed and appears to be weak. HEENT: Head has significant ecchymosis to the left side of the face, normocephalic. Pupils equal, round. Sclerae is anicteric. NECK: Supple. No JVD. No lymphadenopathy. No thyromegaly. LUNGS: Clear to auscultation. No wheezes or rhonchi. No intercostal retractions. HEART: Regular rate and rhythm. No murmur. ABDOMEN: Soft. Bowel sounds are present. No masses. No tenderness. Generalized EXTREMITIES: No pedal edema. No calf tenderness. Chronic shortening of the left leg. NEUROLOGICAL: Patient is awake, alert and oriented x3. Cranial nerves 2 through 12 are grossly intact. ASSESSMENT AND PLAN 1. Acute C. difficile colitis. Patient is been started on oral vancomycin, consult with Dr. Brayan hernandez, continue Questran, continue IV fluids 0.9 normal saline decreased to 50 mL per hour. Lanolin for tapering dose of vancomycin at discharge. 2. Possible acute GI bleed. Stool for occult blood positive. Recheck hemoglobin. This may be related to hemorrhoids secondary to diarrhea. 3. Diabetes mellitus type 2. Levemir resumed at a decreased dose 50% of his baseline to 15 units twice daily. Hold Prandin 2 mg 3 times daily, glipizide 10 mg twice daily. Continue NovoLog scale only before meals and at bedtime. 4. Hyperlipidemia. Continue Lipitor 10 mg at bedtime. 5. Generalized osteoarthritis and shortened left leg. 6. Benign prostatic hypertrophy. Continue Flomax 0.4 mg daily. 7. Hypertension. Continue lisinopril 20 mg daily. 8. History of prostate cancer managed with observation. 9. GI prophylaxis. Protonix 40 mg oral daily. 10. DVT prophylaxis. SCDs and ELAINE hose. 11. Generalized debility. Consult PT and OT. DISCHARGE PLAN To be determined. PT and OT consults and social work consult. Was recently at [facility] for subacute rehab. Impression and plan of care have been directed as dictated by the signing physician. Abbi Forrest nurse practitioner acting as scribe for signing physician. Objective - Vital Signs Vital signs: Vital Signs Temp 98.5 F 12/13/20 08:00 Pulse 56 L 12/13/20 08:00 Resp 18 12/13/20 08:00 BP 140/61 12/13/20 08:00 Pulse Ox 94 L 12/13/20 08:00 Intake & Output 12/12/20 12/13/20 12/13/20 18:59 06:59 18:59 Intake Total 350 2100 Output Total 1300 Balance 350 800 Intake: Intake, IV Titration 100 900 Amount Sodium Chloride 0.9% 1, 900 000 ml @ 75 mls/hr IV . [id number] [facility] Rx#:[id number] metroNIDAZOLE-NS PMX 500 100 mg In Saline 1 100ml.bag @ 100 mls/hr IVPB Q8HR TAE Rx#:[id number] Oral 250 1200 Output: Urine 1300 Other: Voiding Method External Catheter # Voids 3 # Bowel Movements 3 1 - Labs CBC & Chem 7: 12/13/20 07:12 12/13/20 07:12 Labs: Abnormal Lab Results - Last 24 Hours (Table) 12/12/20 12/12/20 12/12/20 Range/Units 07:39 11:32 11:49 RBC (4.30-5.90) m/uL Hgb (13.0-17.5) gm/dL Hct (39.0-53.0) % Chloride 110 H (96-109) mmol/L BUN 31.0 H (9.0-27.0) mg/dL BUN/Creatinine Ratio 28.18 H (12.00-20.00) Ratio POC Glucose (mg/dL) 55 L 63 L (75-99) mg/dL Calcium 7.9 L (8.7-10.3) mg/dL 12/12/20 12/12/20 12/13/20 Range/Units 18:03 20:12 07:00 RBC 3.58 L (4.30-5.90) m/uL Hgb 10.3 L (13.0-17.5) gm/dL Hct 31.5 L (39.0-53.0) % Chloride (96-109) mmol/L BUN (9.0-27.0) mg/dL BUN/Creatinine Ratio (12.00-20.00) Ratio POC Glucose (mg/dL) 112 H 215 H (75-99) mg/dL Calcium (8.7-10.3) mg/dL
[2020-12-13] MEDS: INSULIN DETEMIR (LEVEMIR) 100 UNIT/ML SYR SQ SCH ×2 (13:21→22:22)
[2020-12-13 16:52] LABS: Glucose,Whole Blood 200 mg/dL (75-99)
[2020-12-13 20:24] LABS: Glucose,Whole Blood 251 mg/dL (75-99)
[2020-12-13] MEDS: ATORVASTATIN 10 MG TAB PO SCH (22:21)
[2020-12-13] MEDS: SODIUM CHLORIDE 0.9% 1,000 ML IV SCH (22:23)
--- NOTE | 2020-12-13 23:54 | PN ---
PROGRESS NOTE DATE OF SERVICE: 12/13/2020 REASON FOR FOLLOWUP: Recurrent C difficile colitis. INTERVAL HISTORY: Patient is afebrile. The patient is breathing comfortably. Denies any chest pain, shortness of breath or cough. Diarrhea has slightly slowed down. No vomiting or any worsening abdominal pain. PHYSICAL EXAMINATION: Blood pressure 137/58, pulse of 56 temperature 98.4. He is 93% on room air. GENERAL DESCRIPTION: Is an elderly male lying in bed in no distress. RESPIRATORY SYSTEM: Unlabored breathing, clear to auscultation anteriorly. HEART: S1, S2. Regular rate and rhythm. ABDOMEN: Soft, no tenderness. LABS: Hemoglobin is 9.1, white count 6.62, BUN of 19, ( ). DIAGNOSTIC IMPRESSION AND PLAN: Patient with recurrent C difficile colitis, clinically responding to oral vancomycin. Patient has been ( ). Plan is for a typical course of oral vancomycin. Advised to increase yogurt and probiotic intake and close outpatient followup. Plan was discussed with the admitting team. HAVEN / ANAN: [id number] /
[2020-12-14] MEDS: SODIUM CHLORIDE 0.9% 1,000 ML IV SCH ×2 (01:08→22:20)
[2020-12-14 07:12] LABS: Glucose,Whole Blood 126 mg/dL (75-99)
[2020-12-14] MEDS: INSULIN ASPART (NovoLOG) 100 UNIT/ML VIAL SQ SCH ×4 (07:14→20:43)
[2020-12-14] MEDS: INSULIN DETEMIR (LEVEMIR) 100 UNIT/ML SYR SQ SCH ×2 (09:19→20:44)
[2020-12-14] MEDS: CHOLESTYRAMINE (WITH SUGAR) 4 GM PACKET PO SCH ×2 (09:21→17:24)
[2020-12-14] MEDS: PANTOPRAZOLE 40 MG TABLET PO SCH (09:22)
[2020-12-14] MEDS: lisinopriL 20 MG TAB PO SCH (09:22)
[2020-12-14] MEDS: TRIAMCINOLONE ACET 0.5% CREAM 15 GM TUBE TOPICAL SCH ×2 (09:22→20:44)
[2020-12-14] MEDS: VANCOMYCIN 125 MG CAPSULE PO SCH ×4 (09:22→21:57)
[2020-12-14] MEDS: TAMSULOSIN 0.4 MG CAP.ER.24H PO SCH (09:22)
[2020-12-14 10:25] VITALS: BMI 19.3
[2020-12-14 11:44] LABS: Glucose,Whole Blood 175 mg/dL (75-99)
--- NOTE | 2020-12-14 14:37 | P.PN ---
Subjective Progress Note Date: 12/14/20 HISTORY OF PRESENT ILLNESS This is a 74-year-old male patient of Dr. Culver and Dr. Carson with past medical history of diabetes mellitus type 2, hyperlipidemia, chronic hip pain and generalized osteoarthritis, benign prostatic hypertrophy status post TURP 08/15, frequent urinary tract infections, kidney stones, prostate cancer managed with observation, chronically shortened left leg, remote history of tobacco use. Patient had a recent hospitalization in September at which time he was treated after a fall with acute kidney injury secondary to rhabdomyolysis, acute urinary tract infection, C. difficile colitis. Patient was discharged to [facility] at that time and he states he has subsequent lead been discharged to home over week ago. Patient called the on-call pager yesterday because he was having diarrhea. He states he called someone to help him clean up and then he ended up calling EMS to bring him in the hospital. He states he had onset Sunday evening of diarrhea. He states he's had chills but no real fever. He's had no loss of consciousness. He states he has been eating very little and had diarrhea all day yesterday. He reported blood with his stool at home. He does complain of his legs and hips feeling sore. Patient came into [facility] emergency center for evaluation and found to have temperature 100.6, heart rate 87, blood pressure 143/56, pulse ox 96% on room air. WBC 8.1, hemoglobin 11.1, platelet count 198. Sodium 134, potassium 4.2, chloride 103, CO2 23, BUN 34 and creatinine 0.99. Blood sugar 220. Lactic acid 1.6. Lipase 19, liver function tests were normal. C. difficile toxin positive. Stool for occult blood positive. Repeat hemoglobin today is 9.4. Patient was started on oral vancomycin, IV Flagyl and admitted to the MedSur floor, consult with infectious disease added. 12/13: The patient states he had dry heaves all night but improved this morning. He is still having some diarrhea. Condom catheter has been placed. He is upset that his Levemir was not ordered but this was held yesterday due to blood sugar of 55. We will resume at half his normal home dose so that would be 15 units twice daily. Discussed case with Dr. Schmidt and questioning whether Dificid would be an option for him. Insurance check found that this would be $1000 for the course. Flagyl IV has been discontinued by Dr. Schmidt. She has been afebrile, heart rate 56, blood pressure 140/61, pulse ox 94% on room air. Repeat blood work reveals WBC 6.6, hemoglobin 9.1, platelet count 160. Electrolytes and renal function normal. Blood sugars are running between 112 and 223. Patient has been evaluated by therapies with recommendations for subacute rehab. 12/14: Patient feels he is responding to the current Vancomycin PO with less frequent BMS and appetite is improving. He has been afebrile, HR 78, BP 134/60, PO 95% on room air. Blood sugars are running between 126 and 251. Levemir will be increased back to his home dose of 30 units twice daily. Discussed discharge planning with the patient and he would prefer to go home and we can continue oral Vanco. Repeat blood work ordered for tomorrow. IV fluids will be discontinued. Anticipate possible discharge home tomorrow. REVIEW OF SYSTEMS Constitutional: No fever, no chills, no night sweats. No weight change. Reports weakness, Reports fatigue no lethargy. No daytime sleepiness. EENT: No headache. No blurred vision or double vision, no loss of vision. Reports chronic loss of Hearing. No nasal drainage or congestion. No epistaxis. Reports sore throat. Lungs: No shortness of breath, cough, no sputum production. No wheezing. Cardiovascular: No chest pain, no lower extremity edema. No palpitations. No paroxysmal nocturnal dyspnea. No orthopnea. No lightheadedness or dizziness. No syncopal episodes. Abdominal: Reports abdominal pain. Reports nausea, no vomiting. Reports diarrhea. No constipation. Reports bloody or tarry stools. Reports loss of appetite. Genitourinary: No dysuria, increased frequency, urgency. No urinary retention. Musculoskeletal: Reports generalized myalgias. Reports muscle weakness, no gait dysfunction, no frequent falls. No back pain. No neck pain. Integumentary: Multiple abrasions to bilateral upper and lower extremities and decubitus ulcers to the buttocks. No rash or pruritus. Significant bruising to extremities and face. Neurologic: No aphasia. No facial droop. No change in mentation. No head injury. No headache. No paralysis. No paresthesia. Psychiatric: No depression. No anxiety. Endocrine: Reports abnormal blood sugars. PHYSICAL EXAMINATION Gen: This is a 74-year-old male patient. He is resting in bed and appears to be weak. HEENT: Head has significant ecchymosis to the left side of the face, normocephalic. Pupils equal, round. Sclerae is anicteric. NECK: Supple. No JVD. No lymphadenopathy. No thyromegaly. LUNGS: Clear to auscultation. No wheezes or rhonchi. No intercostal retractions. HEART: Regular rate and rhythm. No murmur. ABDOMEN: Soft. Bowel sounds are present. No masses. No tenderness. Generalized EXTREMITIES: No pedal edema. No calf tenderness. Chronic shortening of the left leg. NEUROLOGICAL: Patient is awake, alert and oriented x3. Cranial nerves 2 through 12 are grossly intact. ASSESSMENT AND PLAN 1. Acute C. difficile colitis. Continue oral vancomycin, consult with Dr. Brayan hernandez, continue Questran, continue IV fluids 0.9 normal saline decreased to 50 mL per hour. Lanolin for tapering dose of vancomycin at discharge. 2. Possible acute GI bleed. Stool for occult blood positive. Recheck hemoglobin. This may be related to hemorrhoids secondary to diarrhea. 3. Diabetes mellitus type 2. Levemir resumed at home dose of 30 units twice daily. Hold Prandin 2 mg 3 times daily, glipizide 10 mg twice daily. Continue NovoLog scale only before meals and at bedtime. 4. Hyperlipidemia. Continue Lipitor 10 mg at bedtime. 5. Generalized osteoarthritis and shortened left leg. 6. Benign prostatic hypertrophy. Continue Flomax 0.4 mg daily. 7. Hypertension. Continue lisinopril 20 mg daily. 8. History of prostate cancer managed with observation. 9. GI prophylaxis. Protonix 40 mg oral daily. 10. DVT prophylaxis. SCDs and ELAINE hose. 11. Generalized debility. Consult PT and OT. DISCHARGE PLAN Home versus [facility]. TBD Impression and plan of care have been directed as dictated by the signing physician. Abbi Forrest nurse practitioner acting as scribe for signing physician. Objective - Vital Signs Vital signs: Vital Signs Temp 99 F 12/14/20 08:24 Pulse 78 12/14/20 08:24 Resp 14 12/14/20 08:24 BP 134/60 12/14/20 08:24 Pulse Ox 95 12/14/20 08:24 Intake & Output 12/13/20 12/14/20 12/14/20 18:59 06:59 18:59 Intake Total 1080 Output Total 500 350 650 Balance 580 -350 -650 Weight 61.235 kg Intake: Oral 1080 Output: Urine 500 350 650 Uretheral (Hsieh) 650 Other: Voiding Method External Catheter # Bowel Movements 2 - Labs CBC & Chem 7: 12/13/20 07:12 12/13/20 07:12 Labs: Abnormal Lab Results - Last 24 Hours (Table) 12/13/20 12/13/20 12/13/20 Range/Units 07:12 07:12 11:51 RBC 3.26 L (4.40-5.60) X 10*6/uL Hgb 9.1 L (13.0-17.0) g/dL Hct 29.7 L (39.6-50.0) % MCHC 30.6 L (32.0-37.0) g/dL Glucose 203 H (70-110) mg/dL POC Glucose (mg/dL) 223 H (75-99) mg/dL Calcium 7.4 L (8.7-10.3) mg/dL 12/13/20 12/13/20 12/14/20 Range/Units 16:50 20:23 07:11 RBC (4.40-5.60) X 10*6/uL Hgb (13.0-17.0) g/dL Hct (39.6-50.0) % MCHC (32.0-37.0) g/dL Glucose (70-110) mg/dL POC Glucose (mg/dL) 200 H 251 H 126 H (75-99) mg/dL Calcium (8.7-10.3) mg/dL
[2020-12-14 16:32] LABS: Glucose,Whole Blood 219 mg/dL (75-99)
[2020-12-14 20:13] LABS: Glucose,Whole Blood 221 mg/dL (75-99)
[2020-12-14] MEDS: ATORVASTATIN 10 MG TAB PO SCH (20:43)
--- NOTE | 2020-12-14 23:26 | PN ---
PROGRESS NOTE DATE OF SERVICE: 12/14/2020 REASON FOR FOLLOWUP: C. difficile colitis. INTERVAL HISTORY: The patient is afebrile. The patient is breathing comfortably. The patient's diarrhea has decreased in frequency. No abdominal pain. No chest pain, shortness of breath or cough. PHYSICAL EXAMINATION: Blood pressure 138/64, pulse of 78, temperature is 98.8. He is 96% on room air. General description is an elderly male lying in no distress. Respiratory system: Unlabored breathing, clear to auscultation anteriorly. Heart S1, S2. Regular rate and rhythm. Abdomen is soft, no tenderness. LABS: No new labs have been obtained today. DIAGNOSTIC IMPRESSION AND PLAN: Patient with recurrent Clostridium difficile colitis. Seemed to have some clinical response to the oral vancomycin. Plan is for tapering course of oral vancomycin on discharge and then close outpatient followup. MMMATL / IJN: [id number] /
[2020-12-15 02:26] LABS: Glucose,Whole Blood 156 mg/dL (75-99)
[2020-12-15 06:49] LABS: Glucose,Whole Blood 90 mg/dL (75-99)
[2020-12-15] MEDS: INSULIN ASPART (NovoLOG) 100 UNIT/ML VIAL SQ SCH ×4 (07:01→21:17)
[2020-12-15] MEDS: INSULIN DETEMIR (LEVEMIR) 100 UNIT/ML SYR SQ SCH ×2 (07:52→21:13)
[2020-12-15] MEDS: PANTOPRAZOLE 40 MG TABLET PO SCH (07:53)
[2020-12-15] MEDS ORDERED: ZINC OXIDE 20% OINT 28.4 GM TUBE TOPICAL PRN (08:25)
[2020-12-15] MEDS: VANCOMYCIN 125 MG CAPSULE PO SCH ×4 (09:27→21:13)
[2020-12-15] MEDS: lisinopriL 20 MG TAB PO SCH (09:27)
[2020-12-15] MEDS: TAMSULOSIN 0.4 MG CAP.ER.24H PO SCH (09:28)
[2020-12-15] MEDS: CHOLESTYRAMINE (WITH SUGAR) 4 GM PACKET PO SCH ×2 (09:28→21:13)
[2020-12-15] MEDS: TRIAMCINOLONE ACET 0.5% CREAM 15 GM TUBE TOPICAL SCH ×2 (09:52→22:35)
[2020-12-15 09:55] LABS: HCT 27.3 % (39.6-50.0); HGB 8.5 g/dL (13.0-17.0); MCH 28.7 pg (27.0-32.0); MCHC 31.1 g/dL (32.0-37.0); MCV 92.2 fL (80.0-97.0); Mean Platelet Volume 12.5 fL (9.5-12.2); Platelet Count 169 X 10*3/uL (140-440); RBC 2.96 X 10*6/uL (4.40-5.60); RDW 14.1 % (11.5-14.5); WBC 5.86 X 10*3/uL (4.50-10.00)
--- NOTE | 2020-12-15 10:24 | P.CONS ---
History of Present Illness - Reason for Consult Consult date: 12/15/20 wound care - History of Present Illness This is a 74-year-old patient who was seen by the wound care center on [address] for nonhealing ulcerations to the right and left buttocks. Patient states that the ulcerations have been there for quite a few years. He is receiving care through home care and they've been applying collagen silver. Patient states that there has not been much movement to the wounds. The area does show excoriation. The right buttocks has ulceration that measures apparently 1 x 2.5 x 0.1 cm with granulation seen within the wound bed and minimal soft. The left buttocks has multiple clusters of ulcerations that are Limited to skin breakdown. Periwound shows excoriation and maceration. Patient's past medical history significant for diabetes mellitus, hyperlipidemia, hypertension, osteoporosis, BPH. Review Of Systems: Constitutional: No fever, no chills, no night sweats. No weight change. No weakness, fatigue or lethargy. No daytime sleepiness. Integumentary:reports wounds, no lesions. No rash or pruritus. No unusual bruising. No change in hair or nails. Physical exam: General Appearance: Alert, cooperative, no distress, appears stated age. Skin: See HPI all other Skin color, texture, tugor normal, no rashes or lesions. Neurologic: Alert oriented x3 assessment: 1. Pressure ulcer stage II of the sacral region 2. Diabetes a skin ulceration Plan: 1. Apply honey alginate, saline moistened gauze, DuoDERM. Change Sunday. May utilize zinc barrier cream to areas not covered by the DuoDERM. Mattress overlay. Thank you for the consultation any questions please contact the wound care center DNP note has been reviewed and discussed with Dr. Lopez and the impression and plan of care has been directed as dictated. Past Medical History Past Medical History: Diabetes Mellitus, Hyperlipidemia, Hypertension, Osteo arthritis (OA), Prostate Disorder Additional Past Medical History / Comment(s): left hip and leg chronic pain, arthritis. History of Any Multi-Drug Resistant Organisms: None Reported Past Surgical History: Hernia Repair, Prostate Surgery Additional Past Surgical History / Comment(s): bladder stones. Past Anesthesia/Blood Transfusion Reactions: No Reported Reaction Past Psychological History: No Psychological Hx Reported Smoking Status: Former smoker Past Alcohol Use History: None Reported Past Drug Use History: None Reported - Past Family History Father Family Medical History: Cancer, Prostate Disorder Additional Family Medical History / Comment(s): Past away from prostate cancer Mother Family Medical History: Cancer Additional Family Medical History / Comment(s): Brain CA Medications and Allergies Home Medications Medication Instructions Recorded Confirmed Type Insulin Detemir [Levemir Flextouch] 30 units SQ BID 05/24/20 12/11/20 History Repaglinide [Prandin] 2 mg PO AC-TID 05/24/20 12/11/20 History Simvastatin [Zocor] 20 mg PO HS 05/24/20 12/11/20 History Silodosin [Rapaflo] 8 mg PO DAILY 10/20/20 12/11/20 History Darifenacin Hydrobromide [Enablex] 15 mg PO DAILY 12/11/20 12/11/20 History INSULIN ASPART (NovoLOG) [NovoLOG See Protocol SQ ACHS 12/11/20 12/11/20 History (formulary)] Quinapril HCl [Accupril] 20 mg PO DAILY 12/11/20 12/11/20 History Triamcinolone 0.5% Cream [Kenalog 1 applic TOPICAL BID 12/11/20 12/11/20 History 0.5% Cream] glipiZIDE [Glucotrol] 10 mg PO AC-BID 12/11/20 12/11/20 History Fidaxomicin [Dificid] 200 mg PO BID #20 tablet 12/13/20 Rx Allergies Allergy/AdvReac Type Severity Reaction Status Date / Time Penicillins Allergy Swelling Verified 12/11/20 17:22 levofloxacin AdvReac Severe Diarrhea Verified 12/11/20 17:22 ciprofloxacin [From Cipro] AdvReac Vomiting Verified 12/11/20 17:22 Physical Exam Vitals: Vital Signs Temp Pulse Resp BP Pulse Ox 12/15/20 08:05 99.1 F 74 14 132/57 96 12/15/20 07:38 73 16 12/15/20 07:21 97.7 F 73 16 146/66 97 12/15/20 01:54 99.2 F 78 18 130/67 96 12/14/20 19:38 98.8 F 78 18 138/64 96 12/14/20 13:26 98.6 F 75 14 132/66 95 Intake and Output 12/14/20 12/15/20 12/15/20 22:59 06:59 14:59 Other: Voiding Method External Catheter External Catheter # Voids 2 # Bowel Movements 1 4 Results CBC & Chem 7: 12/15/20 04:35 12/13/20 07:12 Labs: Abnormal Lab Results - Last 24 Hours (Table) 12/14/20 12/14/20 12/14/20 Range/Units 11:42 16:30 20:12 RBC (4.40-5.60) X 10*6/uL Hgb (13.0-17.0) g/dL Hct (39.6-50.0) % MCHC (32.0-37.0) g/dL MPV (9.5-12.2) fL POC Glucose (mg/dL) 175 H 219 H 221 H (75-99) mg/dL 12/15/20 12/15/20 Range/Units 02:25 04:35 RBC 2.96 L (4.40-5.60) X 10*6/uL Hgb 8.5 L (13.0-17.0) g/dL Hct 27.3 L (39.6-50.0) % MCHC 31.1 L (32.0-37.0) g/dL MPV 12.5 H (9.5-12.2) fL POC Glucose (mg/dL) 156 H (75-99) mg/dL Assessment and Plan (1) Diabetes mellitus with skin ulcer Current Visit: No Status: Acute Code(s): E11.622 - TYPE 2 DIABETES MELLITUS WITH OTHER SKIN ULCER; L98.499 - NON-PRESSURE CHRONIC ULCER OF SKIN OF SITES W UNSP SEVERITY SNOMED Code(s): 71138259 (2) Pressure ulcer of left buttock, stage 2 Current Visit: No Status: Acute Code(s): L89.322 - PRESSURE ULCER OF LEFT BUTTOCK, STAGE 2 SNOMED Code(s): 13407424873846356 (3) Pressure ulcer of right buttock, stage 2 Current Visit: No Status: Acute Code(s): L89.312 - PRESSURE ULCER OF RIGHT BUTTOCK, STAGE 2 SNOMED Code(s): 85426268134199027
[2020-12-15 11:52] LABS: Glucose,Whole Blood 140 mg/dL (75-99)
[2020-12-15 13:09] LABS: African American GFR (CKD) 75.2 (60.0-200.0); Anion Gap 7.9 mmol/L (4.00-12.00); BUN/Creat Ratio 16.36 Ratio (12.00-20.00); Calcium 7.5 mg/dL (8.7-10.3); Carbon Dioxide 23.1 mmol/L (21.6-31.8); Non-African American GFR(CKD) 64.9 (60.0-200.0); Potassium 3.9 mmol/L (3.5-5.5)
[2020-12-15 16:58] LABS: Glucose,Whole Blood 141 mg/dL (75-99)
--- NOTE | 2020-12-15 17:05 | PN ---
PROGRESS NOTE DATE OF SERVICE: 12/15/2020. REASON FOR FOLLOWUP: Recurrent C difficile colitis. HISTORY: The patient is afebrile. The patient is breathing comfortably. The patient denies having any chest pain, shortness of breath or cough. No abdominal pain. The diarrhea has slightly decreased. PHYSICAL EXAMINATION: Blood pressure is 125/65, pulse of 65, temperature is 97.7, he is 96%. General description is an elderly male lying in bed in no distress. Respiratory system reveals unlabored breathing. Lungs clear to auscultation anteriorly. Heart S1, S2. Regular rate and rhythm. Abdomen is soft, no tenderness. Extremities with no edema of feet. LABS: Hemoglobin 8.5, white count 5.8, BUN of 18, creatinine 1.01. DIAGNOSTIC IMPRESSION AND PLAN: Patient with recurrent C difficile colitis slow clinical improvement. Timing of the antibiotic should be adjusted to make sure does not coincide with oral vancomycin. Lactinex will be added. He will need a course of oral vancomycin on discharge. Continue supportive care. MMODL / IJN: [id number] /
[2020-12-15] MEDS: LACTOBACILLUS ACIDOPH & BULGAR 1 EACH PACKET PO SCH ×2 (17:09→21:13)
[2020-12-15] MEDS: ATORVASTATIN 10 MG TAB PO SCH (21:13)
[2020-12-16 03:15] VITALS: PULSE 74
[2020-12-16 06:21] LABS: Glucose,Whole Blood 77 mg/dL (75-99)
[2020-12-16 06:55] LABS: Glucose,Whole Blood 127 mg/dL (75-99)
[2020-12-16 07:34] VITALS: BP 152/66; RESP 18; TEMP 97.8
[2020-12-16] MEDS: INSULIN ASPART (NovoLOG) 100 UNIT/ML VIAL SQ SCH ×2 (07:37→12:09)
[2020-12-16] MEDS: VANCOMYCIN 125 MG CAPSULE PO SCH ×2 (07:43→12:08)
[2020-12-16] MEDS: TAMSULOSIN 0.4 MG CAP.ER.24H PO SCH (07:43)
[2020-12-16] MEDS: lisinopriL 20 MG TAB PO SCH (07:43)
[2020-12-16] MEDS: PANTOPRAZOLE 40 MG TABLET PO SCH (07:43)
[2020-12-16] MEDS: LACTOBACILLUS ACIDOPH & BULGAR 1 EACH PACKET PO SCH (07:43)
[2020-12-16] MEDS: TRIAMCINOLONE ACET 0.5% CREAM 15 GM TUBE TOPICAL SCH (07:44)
[2020-12-16] MEDS: INSULIN DETEMIR (LEVEMIR) 100 UNIT/ML SYR SQ SCH (07:44)
--- NOTE | 2020-12-16 08:36 | P.DS ---
Providers Date of admission: 12/11/20 17:31 Expected date of discharge: 12/16/20 Attending physician: Bailee Spears MD Consults: 12/12/20 09:29 Consult Physician Routine Consulting Provider: Gerardo Schmidt Consult Reason/Comments: recurrent cdiff Do you want consulting provider notified?: Yes Primary care physician: [facility] Hospital Course: HISTORY OF PRESENT ILLNESS This is a 74-year-old male patient of Dr. Culver and Dr. Carsno with past medical history of diabetes mellitus type 2, hyperlipidemia, chronic hip pain and generalized osteoarthritis, benign prostatic hypertrophy status post TURP 08/15, frequent urinary tract infections, kidney stones, prostate cancer managed with observation, chronically shortened left leg, remote history of tobacco use. Patient had a recent hospitalization in September at which time he was treated after a fall with acute kidney injury secondary to rhabdomyolysis, acute urinary tract infection, C. difficile colitis. Patient was discharged to [facility] at that time and he states he has subsequent lead been discharged to home over week ago. Patient called the on-call pager yesterday because he was having diarrhea. He states he called someone to help him clean up and then he ended up calling EMS to bring him in the hospital. He states he had onset Sunday evening of diarrhea. He states he's had chills but no real fever. He's had no loss of consciousness. He states he has been eating very little and had diarrhea all day yesterday. He reported blood with his stool at home. He does complain of his legs and hips feeling sore. Patient came into [facility] emergency center for evaluation and found to have temperature 100.6, heart rate 87, blood pressure 143/56, pulse ox 96% on room air. WBC 8.1, hemoglobin 11.1, platelet count 198. Sodium 134, potassium 4.2, chloride 103, CO2 23, BUN 34 and creatinine 0.99. Blood sugar 220. Lactic acid 1.6. Lipase 19, liver function tests were normal. C. difficile toxin positive. Stool for occult blood positive. Repeat hemoglobin today is 9.4. Patient was started on oral vancomycin, IV Flagyl and admitted to the [facility] floor, consult with infectious disease added. 12/13: The patient states he had dry heaves all night but improved this morning. He is still having some diarrhea. Condom catheter has been placed. He is upset that his Levemir was not ordered but this was held yesterday due to blood sugar of 55. We will resume at half his normal home dose so that would be 15 units twice daily. Discussed case with Dr. Schmidt and questioning whether Dificid would be an option for him. Insurance check found that this would be $1000 for the course. Flagyl IV has been discontinued by Dr. Schmidt. She has been afebrile, heart rate 56, blood pressure 140/61, pulse ox 94% on room air. Repeat blood work reveals WBC 6.6, hemoglobin 9.1, platelet count 160. Electrolytes and renal function normal. Blood sugars are running between 112 and 223. Patient has been evaluated by therapies with recommendations for subacute rehab. 12/14: Patient feels he is responding to the current Vancomycin PO with less frequent BMS and appetite is improving. He has been afebrile, HR 78, BP 134/60, PO 95% on room air. Blood sugars are running between 126 and 251. Levemir will be increased back to his home dose of 30 units twice daily. Discussed discharge planning with the patient and he would prefer to go home and we can continue oral Vanco. Repeat blood work ordered for tomorrow. IV fluids will be discontinued. Anticipate possible discharge home tomorrow. 12/15: Patient states that he is still having diarrhea and he feels that it needs to be improved before he can go home. Discussed discharge planning with the patient and he would prefer to go home and we can continue oral Vanco. Repeat blood work ordered for tomorrow. IV fluids will be discontinued. Anticipate possible discharge to [facility] tomorrow. 12/16: Patient has been afebrile, heart rate 74, blood pressure 152/66, pulse ox 96% on room air. Blood sugars have been running between 77 and 141. The patient states he is still having diarrhea but it is improved since arrival. Plan is for vancomycin on a tapering course. Patient continues to be in agreement for subacute rehab at [facility]. Patient will be discharged today in stable condition. ASSESSMENT AND PLAN 1. Acute C. difficile colitis. 2. Possible acute GI bleed, most likely hemorrhoid related to diarrhea. 3. Diabetes mellitus type 2. 4. Hyperlipidemia. 5. Generalized osteoarthritis and shortened left leg. 6. Benign prostatic hypertrophy. 7. Hypertension. 8. History of prostate cancer managed with observation. 9. Generalized debility. Consult PT and OT. 10. Sacral pressure ulcer stage II, POA. DISCHARGE PLAN [place]. Impression and plan of care have been directed as dictated by the signing physician. Abbi Forrest nurse practitioner acting as scribe for signing physician. Patient Condition at Discharge: Stable Plan - Discharge Summary Discharge Rx Participant: No New Discharge Prescriptions: New Lactobacillus Acidoph & Bulgar [Lactinex] 1 each PO TID packet INSULIN ASPART (NovoLOG) [NovoLOG (formulary)] 0 unit SQ ACHS vial Vancomycin 250 mg PO QID #50 capsule Cholestyramine (with Sugar) [Questran Packet] 4 gm PO BID@1000,2100 packet Zinc Oxide 20% Oint 1 applic TOPICAL BID PRN applic PRN Reason: Bilat upper buttock Continue Simvastatin [Zocor] 20 mg PO HS Insulin Detemir [Levemir Flextouch] 30 units SQ BID Repaglinide [Prandin] 2 mg PO AC-TID Silodosin [Rapaflo] 8 mg PO DAILY glipiZIDE [Glucotrol] 10 mg PO AC-BID Quinapril HCl [Accupril] 20 mg PO DAILY INSULIN ASPART (NovoLOG) [NovoLOG (formulary)] See Protocol SQ ACHS Darifenacin Hydrobromide [Enablex] 15 mg PO DAILY Triamcinolone 0.5% Cream [Kenalog 0.5% Cream] 1 applic TOPICAL BID Discharge Medication List Insulin Detemir [Levemir Flextouch] 30 units SQ BID 05/24/20 [History] Repaglinide [Prandin] 2 mg PO AC-TID 05/24/20 [History] Simvastatin [Zocor] 20 mg PO HS 05/24/20 [History] Silodosin [Rapaflo] 8 mg PO DAILY 10/20/20 [History] Darifenacin Hydrobromide [Enablex] 15 mg PO DAILY 12/11/20 [History] INSULIN ASPART (NovoLOG) [NovoLOG (formulary)] See Protocol SQ ACHS 12/11/20 [History] Quinapril HCl [Accupril] 20 mg PO DAILY 12/11/20 [History] Triamcinolone 0.5% Cream [Kenalog 0.5% Cream] 1 applic TOPICAL BID 12/11/20 [History] glipiZIDE [Glucotrol] 10 mg PO AC-BID 12/11/20 [History] Cholestyramine (with Sugar) [Questran Packet] 4 gm PO BID@1000,2100 packet 12/16/20 [Rx] INSULIN ASPART (NovoLOG) [NovoLOG (formulary)] 0 unit SQ ACHS vial 12/16/20 [Rx] Lactobacillus Acidoph & Bulgar [Lactinex] 1 each PO TID packet 12/16/20 [Rx] Vancomycin 250 mg PO QID #50 capsule 12/16/20 [Rx] Zinc Oxide 20% Oint 1 applic TOPICAL BID PRN applic 12/16/20 [Rx] Follow up Appointment(s)/Referral(s): Ed Culver MD [Primary Care Provider] - 1 Week (at [facility]) Gerardo Schmidt MD [STAFF PHYSICIAN] - 1 Week Discharge Disposition: TRANSFER TO SNF/ECF
--- NOTE | 2020-12-16 09:47 | P.PN ---
Subjective Progress Note Date: 12/15/20 HISTORY OF PRESENT ILLNESS This is a 74-year-old male patient of Dr. Culver and Dr. Carson with past medical history of diabetes mellitus type 2, hyperlipidemia, chronic hip pain and generalized osteoarthritis, benign prostatic hypertrophy status post TURP 08/15, frequent urinary tract infections, kidney stones, prostate cancer managed with observation, chronically shortened left leg, remote history of tobacco use. Patient had a recent hospitalization in September at which time he was treated after a fall with acute kidney injury secondary to rhabdomyolysis, acute urinary tract infection, C. difficile colitis. Patient was discharged to [facility] at that time and he states he has subsequent lead been discharged to home over week ago. Patient called the on-call pager yesterday because he was having diarrhea. He states he called someone to help him clean up and then he ended up calling EMS to bring him in the hospital. He states he had onset Sunday evening of diarrhea. He states he's had chills but no real fever. He's had no loss of consciousness. He states he has been eating very little and had diarrhea all day yesterday. He reported blood with his stool at home. He does complain of his legs and hips feeling sore. Patient came into [facility] emergency center for evaluation and found to have temperature 100.6, heart rate 87, blood pressure 143/56, pulse ox 96% on room air. WBC 8.1, hemoglobin 11.1, platelet count 198. Sodium 134, potassium 4.2, chloride 103, CO2 23, BUN 34 and creatinine 0.99. Blood sugar 220. Lactic acid 1.6. Lipase 19, liver function tests were normal. C. difficile toxin positive. Stool for occult blood positive. Repeat hemoglobin today is 9.4. Patient was started on oral vancomycin, IV Flagyl and admitted to the [facility] floor, consult with infectious disease added. 12/13: The patient states he had dry heaves all night but improved this morning. He is still having some diarrhea. Condom catheter has been placed. He is upset that his Levemir was not ordered but this was held yesterday due to blood sugar of 55. We will resume at half his normal home dose so that would be 15 units twice daily. Discussed case with Dr. Schmidt and questioning whether Dificid would be an option for him. Insurance check found that this would be $1000 for the course. Flagyl IV has been discontinued by Dr. Schmidt. She has been afebrile, heart rate 56, blood pressure 140/61, pulse ox 94% on room air. Repeat blood work reveals WBC 6.6, hemoglobin 9.1, platelet count 160. Electrolytes and renal function normal. Blood sugars are running between 112 and 223. Patient has been evaluated by therapies with recommendations for subacute rehab. 12/14: Patient feels he is responding to the current Vancomycin PO with less frequent BMS and appetite is improving. He has been afebrile, HR 78, BP 134/60, PO 95% on room air. Blood sugars are running between 126 and 251. Levemir will be increased back to his home dose of 30 units twice daily. Discussed discharge planning with the patient and he would prefer to go home and we can continue oral Vanco. Repeat blood work ordered for tomorrow. IV fluids will be discontinued. Anticipate possible discharge home tomorrow. 12/15: Patient states that he is still having diarrhea and he feels that it needs to be improved before he can go home. Discussed discharge planning with the patient and he would prefer to go home and we can continue oral Vanco. Repeat blood work ordered for tomorrow. IV fluids will be discontinued. Anticipate possible discharge to [facility] tomorrow. REVIEW OF SYSTEMS Constitutional: No fever, no chills, no night sweats. No weight change. Reports weakness, Reports fatigue no lethargy. No daytime sleepiness. EENT: No headache. No blurred vision or double vision, no loss of vision. Reports chronic loss of Hearing. No nasal drainage or congestion. No epistaxis. Reports sore throat. Lungs: No shortness of breath, cough, no sputum production. No wheezing. Cardiovascular: No chest pain, no lower extremity edema. No palpitations. No paroxysmal nocturnal dyspnea. No orthopnea. No lightheadedness or dizziness. No syncopal episodes. Abdominal: Reports abdominal pain. Reports nausea, no vomiting. Reports diarrhea. No constipation. Reports bloody or tarry stools. Reports loss of appetite. Genitourinary: No dysuria, increased frequency, urgency. No urinary retention. Musculoskeletal: Reports generalized myalgias. Reports muscle weakness, no gait dysfunction, no frequent falls. No back pain. No neck pain. Integumentary: Multiple abrasions to bilateral upper and lower extremities and decubitus ulcers to the buttocks. No rash or pruritus. Significant bruising to extremities and face. Neurologic: No aphasia. No facial droop. No change in mentation. No head injury. No headache. No paralysis. No paresthesia. Psychiatric: No depression. No anxiety. Endocrine: Reports abnormal blood sugars. PHYSICAL EXAMINATION Gen: This is a 74-year-old male patient. He is resting in bed and appears to be weak. HEENT: Head has significant ecchymosis to the left side of the face, normocephalic. Pupils equal, round. Sclerae is anicteric. NECK: Supple. No JVD. No lymphadenopathy. No thyromegaly. LUNGS: Clear to auscultation. No wheezes or rhonchi. No intercostal retractions. HEART: Regular rate and rhythm. No murmur. ABDOMEN: Soft. Bowel sounds are present. No masses. No tenderness. Generalized EXTREMITIES: No pedal edema. No calf tenderness. Chronic shortening of the left leg. NEUROLOGICAL: Patient is awake, alert and oriented x3. Cranial nerves 2 through 12 are grossly intact. ASSESSMENT AND PLAN 1. Acute C. difficile colitis. Continue oral vancomycin, consult with Dr. Brayan hernandez, continue Questran, discontinue IV fluids. Plan for tapering dose of vancomycin at discharge. 2. Possible acute GI bleed. Stool for occult blood positive. Recheck hemoglobin. This may be related to hemorrhoids secondary to diarrhea. 3. Diabetes mellitus type 2. Levemir resumed at home dose of 30 units twice daily. Hold Prandin 2 mg 3 times daily, glipizide 10 mg twice daily. Continue NovoLog scale only before meals and at bedtime. 4. Hyperlipidemia. Continue Lipitor 10 mg at bedtime. 5. Generalized osteoarthritis and shortened left leg. 6. Benign prostatic hypertrophy. Continue Flomax 0.4 mg daily. 7. Hypertension. Continue lisinopril 20 mg daily. 8. History of prostate cancer managed with observation. 9. GI prophylaxis. Protonix 40 mg oral daily. 10. DVT prophylaxis. SCDs and ELAINE hose. 11. Generalized debility. Consult PT and OT. 12. Pressure ulcer sacrum, stage II, poa. Continue local wound care. DISCHARGE PLAN [facility] tomorrow Impression and plan of care have been directed as dictated by the signing physician. Abbi Forrest nurse practitioner acting as scribe for signing physician. Objective - Vital Signs Vital signs: Vital Signs Temp 99.1 F 12/15/20 08:05 Pulse 74 12/15/20 08:05 Resp 14 12/15/20 08:05 BP 132/57 12/15/20 08:05 Pulse Ox 96 12/15/20 08:05 Intake & Output 12/14/20 12/15/20 12/15/20 18:59 06:59 18:59 Output Total 650 Balance -650 Weight 61.235 kg Output: Urine 650 Uretheral (Hsieh) 650 Other: Voiding Method External Catheter External Catheter # Voids 2 # Bowel Movements 2 4 - Labs CBC & Chem 7: 12/15/20 04:35 12/15/20 04:35 Labs: Abnormal Lab Results - Last 24 Hours (Table) 12/14/20 12/14/20 12/14/20 Range/Units 11:42 16:30 20:12 RBC (4.40-5.60) X 10*6/uL Hgb (13.0-17.0) g/dL Hct (39.6-50.0) % MCHC (32.0-37.0) g/dL MPV (9.5-12.2) fL POC Glucose (mg/dL) 175 H 219 H 221 H (75-99) mg/dL 12/15/20 12/15/20 Range/Units 02:25 04:35 RBC 2.96 L (4.40-5.60) X 10*6/uL Hgb 8.5 L (13.0-17.0) g/dL Hct 27.3 L (39.6-50.0) % MCHC 31.1 L (32.0-37.0) g/dL MPV 12.5 H (9.5-12.2) fL POC Glucose (mg/dL) 156 H (75-99) mg/dL
[2020-12-16] MEDS: CHOLESTYRAMINE (WITH SUGAR) 4 GM PACKET PO SCH (10:50)
[2020-12-16 12:04] LABS: Glucose,Whole Blood 142 mg/dL (75-99)
--- NOTE | 2020-12-16 14:22 | P.PN ---
Progress Note - Text Progress Note Date: 12/16/20 REASON FOR FOLLOWUP: Recurrent C difficile colitis. HISTORY: The patient remains to be afebrile. The patient is breathing comfortably. The patient denies having any chest pain, shortness of breath or cough. No abdominal pain. The diarrhea has decreased in frequency and not watery PHYSICAL EXAMINATION: Blood pressure is 120/60, pulse of 60, temperature is 97.7, he is 96%. General description is an elderly male lying in bed in no distress. Respiratory system reveals unlabored breathing. Lungs clear to auscultation anteriorly. Heart S1, S2. Regular rate and rhythm. Abdomen is soft, no tenderness. Extremities with no edema of feet. LABS: reviewed DIAGNOSTIC IMPRESSION AND PLAN: Patient with recurrent C difficile colitis has shown clinical improvement. plan is for tapering/proloned course of oral vancomycin on discharge in view of recurrent disease. Continue supportive care.
== END 2020-12-16 13:11 | DRG 373 ==
LOC: EC 13:50 → 4SSUR 17:31
PROVIDERS: ADMIT Internal Medicine; ATTEND Internal Medicine
DX: A04.71 Enterocolitis due to Clostridium difficile, recurrent (principal); E11.622 Type 2 diabetes mellitus with other skin ulcer; E78.5 Hyperlipidemia, unspecified; I10 Essential (primary) hypertension; L89.152 Pressure ulcer of sacral region, stage 2; L89.312 Pressure ulcer of right buttock, stage 2; L89.322 Pressure ulcer of left buttock, stage 2; L98.499 Non-pressure chronic ulcer of skin of other sites with unspecified severity; M15.9 Polyosteoarthritis, unspecified; K64.8 Other hemorrhoids; M21.70 Unequal limb length (acquired), unspecified site; G89.29 Other chronic pain; M25.559 Pain in unspecified hip; M81.0 Age-related osteoporosis without current pathological fracture; R53.81 Other malaise; N40.0 Benign prostatic hyperplasia without lower urinary tract symptoms; Z79.4 Long term (current) use of insulin; Z20.822 Contact with and (suspected) exposure to COVID-19; Z79.899 Other long term (current) drug therapy; Z80.42 Family history of malignant neoplasm of prostate; Z80.8 Family history of malignant neoplasm of other organs or systems; Z85.46 Personal history of malignant neoplasm of prostate; Z87.440 Personal history of urinary (tract) infections; Z87.442 Personal history of urinary calculi; Z87.891 Personal history of nicotine dependence; Z91.81 History of falling
CPT/HCPCS: 36415; 80048; 80053; 82272; 83605; 83690; 85025; 85027; 87324; 87635; 96374; 99285

== ENCOUNTER → 2021-01-10 | Outpatient (CLI) | payer MEDICARE ==
[2021-01-10 19:15] LABS: Basophils # (A) 0.06 X 10*3/uL (0.00-0.10); Basophils % (A) 0.9 %; Eosinophils # (A) 0.63 X 10*3/uL (0.04-0.35); HCT 32.2 % (39.6-50.0); HGB 9.4 g/dL (13.0-17.0); Lymphocytes # (A) 1.31 X 10*3/uL (0.90-5.00); Lymphocytes % (A) 18.8 %; MCH 26.8 pg (27.0-32.0); MCHC 29.2 g/dL (32.0-37.0); MCV 91.7 fL (80.0-97.0); Mean Platelet Volume 11.9 fL (9.5-12.2); Monocytes # (A) 0.58 X 10*3/uL (0.20-1.00); Monocytes % (A) 8.3 %; Neutrophils # (A) 4.37 X 10*3/uL (1.80-7.70); Neutrophils % (A) 62.6 %; Platelet Count 243 X 10*3/uL (140-440); RBC 3.51 X 10*6/uL (4.40-5.60); RDW 15.3 % (11.5-14.5); WBC 6.98 X 10*3/uL (4.50-10.00)
[2021-01-10 21:24] LABS: African American GFR (CKD) 95.1 (60.0-200.0); C Reactive Protein <0.4 mg/dL (0.0-0.8); Calcium 8.6 mg/dL (8.7-10.3); Carbon Dioxide 24.8 mmol/L (21.6-31.8); Chloride 110 mmol/L (96-109); Glucose 100 mg/dL (70-110); Non-African American GFR(CKD) 82.1 (60.0-200.0); Potassium 4.5 mmol/L (3.5-5.5); Sodium 142 mmol/L (135-145)
[2021-01-10 23:19] LABS: Erythrocyte Sedimentation Rate 15 mm/Hr (0-20)
== END | disposition home or self-care (01) ==
LOC: LABMARSNF 10:03 → LABPRL 10:03 → EDSTATUS 10:07
PROVIDERS: ATTEND Internal Medicine Geriatric Medicine
DX: E78.5 Hyperlipidemia, unspecified (principal); I10 Essential (primary) hypertension; E11.9 Type 2 diabetes mellitus without complications
CPT/HCPCS: 80048; 85025; 85652; 86140

== ENCOUNTER 2021-01-24 11:15 | Inpatient (IN) | payer MEDICARE ==
[2021-01-24] MEDS ORDERED: MORPHINE SULFATE 2 MG/ML SYRINGE IV STA (11:39)
[2021-01-24] MEDS ORDERED: SODIUM CHLORIDE 0.9% 500 ML 500 ML IV STA (11:39)
--- NOTE | 2021-01-24 11:45 | ED ---
General Adult HPI - General Chief complaint: Nausea/Vomiting/Diarrhea Stated complaint: Diarrhea Time Seen by Provider: 01/24/21 11:29 Source: patient, EMS, RN notes reviewed, old records reviewed Mode of arrival: EMS - History of Present Illness Initial comments: 75-year-old white male, alert and oriented 4, presents to the emergency room with 5 days of diarrhea. Patient states that he is discharged from [facility] on Sunday evening he had a normal bowel movement at that time. He was at [facility] for C. diff but states his insurance ran out and they discharged him home. He states that on the diarrhea started again and it has been severe or he can't make it to the bathroom and he has been incontinent of stool. He also has sores on his buttocks that have not been getting better because of the diarrhea. He has severe osteoarthritis and has not been able to manage his pain. -: days(s) (5) Location: buttocks Severity scale (1-10): 3 Quality: constant Consistency: constant Worsens with: other (incontinence) Associated Symptoms: weakness, other (Incontinence) - Related Data Home Medications Medication Instructions Recorded Confirmed Insulin Detemir [Levemir Flextouch 30 units SQ BID 05/24/20 01/24/21 Pen] Repaglinide [Prandin] 2 mg PO AC-TID 05/24/20 01/24/21 Simvastatin [Zocor] 20 mg PO HS 05/24/20 01/24/21 Silodosin [Rapaflo] 8 mg PO DAILY 10/20/20 01/24/21 Darifenacin Hydrobromide [Enablex] 15 mg PO DAILY 12/11/20 01/24/21 INSULIN ASPART (NovoLOG) [NovoLOG See Protocol SQ ACHS 12/11/20 01/24/21 (formulary)] Quinapril HCl [Accupril] 20 mg PO DAILY 12/11/20 01/24/21 Acetaminophen Tab [Tylenol] 325 mg PO Q4H PRN 01/24/21 01/24/21 Cholestyramine (with Sugar) 4 gm PO BID 01/24/21 01/24/21 [Questran Packet] Lactobacillus Acidoph & Bulgar 1 pack PO TID 01/24/21 01/24/21 [Lactinex] glipiZIDE [Glucotrol] 10 mg PO AC-BID 01/24/21 01/24/21 Previous Rx's Medication Instructions Recorded Zinc Oxide 20% Oint 1 applic TOPICAL BID PRN applic 12/16/20 Allergies Allergy/AdvReac Type Severity Reaction Status Date / Time Penicillins Allergy Swelling Verified 01/24/21 13:22 levofloxacin AdvReac Severe Diarrhea Verified 01/24/21 13:22 ciprofloxacin [From Cipro] AdvReac Vomiting Verified 01/24/21 13:22 Review of Systems ROS Statement: Those systems with pertinent positive or pertinent negative responses have been documented in the HPI. ROS Other: All systems not noted in ROS Statement are negative. Past Medical History Past Medical History: Diabetes Mellitus, Hyperlipidemia, Hypertension, Osteoarthritis (OA), Prostate Disorder Additional Past Medical History / Comment(s): left hip and leg chronic pain, arthritis. History of Any Multi-Drug Resistant Organisms: C-DIFF Date of last positivie culture/infection: 12/09/2020 Past Surgical History: Hernia Repair, Prostate Surgery Additional Past Surgical History / Comment(s): bladder stones. Past Anesthesia/Blood Transfusion Reactions: No Reported Reaction Past Psychological History: No Psychological Hx Reported Smoking Status: Former smoker Past Alcohol Use History: None Reported Past Drug Use History: None Reported - Past Family History Father Family Medical History: Cancer, Prostate Disorder Additional Family Medical History / Comment(s): Past away from prostate cancer Mother Family Medical History: Cancer Additional Family Medical History / Comment(s): Brain CA General Exam General appearance: alert Head exam: Present: atraumatic, normocephalic, normal inspection Eye exam: Present: normal appearance, PERRL, EOMI. Absent: scleral icterus, conjunctival injection, periorbital swelling ENT exam: Present: normal exam, mucous membranes dry Neck exam: Present: normal inspection, full ROM. Absent: tenderness, meningismus, lymphadenopathy, thyromegaly Respiratory exam: Present: normal lung sounds bilaterally. Absent: respiratory distress, wheezes, rales, rhonchi, stridor, chest wall tenderness, accessory muscle use, decreased breath sounds Cardiovascular Exam: Present: regular rate, normal rhythm, normal heart sounds. Absent: systolic murmur, diastolic murmur, rubs, gallop, clicks GI/Abdominal exam: Present: soft, hyperactive bowel sounds. Absent: distended, tenderness, guarding, rebound, rigid Extremities exam: Present: tenderness, normal capillary refill, pedal edema, other (Limited range of motion due to osteoarthritis of bilateral hips). Absent: joint swelling, calf tenderness Right Lower Leg exam: Present: swelling. Absent: erythema, Homans' sign Ankle exam: Present: swelling. Absent: ecchymosis, erythema Neurovascular tendon exam: Present: no vascular compromise Left Lower Leg exam: Present: swelling. Absent: ecchymosis, erythema, Homans' sign Ankle exam: Present: swelling. Absent: tenderness, erythema Neurovascular tendon exam: Present: no vascular compromise Neurological exam: Present: alert, oriented X3, CN II-XII intact Psychiatric exam: Present: depressed Skin exam: Present: warm, dry, intact, normal color. Absent: rash, cyanosis, diaphoretic, petechiae, pallor Course Vital Signs 01/24/21 11:21 Temperature 97.6 F Pulse Rate 67 Respiratory 20 Rate Blood Pressure 150/64 O2 Sat by Pulse 96 Oximetry Medical Decision Making - Medical Decision Making Patient was just discharged on December 16 for c-dif and sent to [facility]. He states his insurance ran out and he is discharged from [facility] on Sunday. He states that he did have a normal bowel movement on Sunday however started with diarrhea again. He states that he is unable to care for himself however he was sent home on Sunday. He states he's had 5 days of diarrhea and he is unable to care for himself. He is incontinent of stool now. He states he lives alone at home. Patient will be admitted to the hospital for antibiotics. Case discussed with Dr. Iqbal - Lab Data Result diagrams: 01/24/21 12:29 01/24/21 12:29 Lab Results 01/24/21 01/24/21 01/24/21 Range/Units 12:10 12:29 12:29 WBC 6.7 (3.8-10.6) k/uL RBC 3.53 L (4.30-5.90) m/uL Hgb 10.3 L (13.0-17.5) gm/dL Hct 31.9 L (39.0-53.0) % MCV 90.2 (80.0-100.0) fL MCH 29.2 (25.0-35.0) pg MCHC 32.4 (31.0-37.0) g/dL RDW 15.1 (11.5-15.5) % Plt Count 236 (150-450) k/uL MPV 8.6 Neutrophils % 75 % Lymphocytes % 13 % Monocytes % 5 % Eosinophils % 5 % Basophils % 1 % Neutrophils # 5.0 (1.3-7.7) k/uL Lymphocytes # 0.9 L (1.0-4.8) k/uL Monocytes # 0.4 (0-1.0) k/uL Eosinophils # 0.3 (0-0.7) k/uL Basophils # 0.0 (0-0.2) k/uL Hypochromasia Slight Sodium 138 (137-145) mmol/L Potassium 4.0 (3.5-5.1) mmol/L Chloride 109 H (98-107) mmol/L Carbon Dioxide 19 L (22-30) mmol/L Anion Gap 10 mmol/L BUN 21 H (9-20) mg/dL Creatinine 0.98 (0.66-1.25) mg/dL Est GFR (CKD-EPI)AfAm 86 (>60 ml/min/1.73 sqM) Est GFR (CKD-EPI)NonAf 75 (>60 ml/min/1.73 sqM) Glucose 163 H (74-99) mg/dL Calcium 8.9 (8.4-10.2) mg/dL Total Bilirubin 0.2 (0.2-1.3) mg/dL AST 12 L (17-59) U/L ALT 8 (4-49) U/L Alkaline Phosphatase 64 (38-126) U/L Total Protein 5.6 L (6.3-8.2) g/dL Albumin 3.3 L (3.5-5.0) g/dL Amylase 38 (30-110) U/L Lipase 24 (23-300) U/L Urine Color Urine Appearance (Clear) Urine pH (5.0-8.0) Ur Specific [place] (1.001-1.035) Urine Protein (Negative) Urine Glucose (UA) (Negative) Urine Ketones (Negative) Urine Blood (Negative) Urine Nitrite (Negative) Urine Bilirubin (Negative) Urine Urobilinogen (<2.0) mg/dL Ur Leukocyte Esterase (Negative) Urine RBC (0-5) /hpf Urine WBC (0-5) /hpf Ur Squamous Epith Cells (0-4) /hpf Urine Mucus (None) /hpf C. difficile (EIA) Intrp Positive A (Negative) 01/24/21 Range/Units 13:56 WBC (3.8-10.6) k/uL RBC (4.30-5.90) m/uL Hgb (13.0-17.5) gm/dL Hct (39.0-53.0) % MCV (80.0-100.0) fL MCH (25.0-35.0) pg MCHC (31.0-37.0) g/dL RDW (11.5-15.5) % Plt Count (150-450) k/uL MPV Neutrophils % % Lymphocytes % % Monocytes % % Eosinophils % % Basophils % % Neutrophils # (1.3-7.7) k/uL Lymphocytes # (1.0-4.8) k/uL Monocytes # (0-1.0) k/uL Eosinophils # (0-0.7) k/uL Basophils # (0-0.2) k/uL Hypochromasia Sodium (137-145) mmol/L Potassium (3.5-5.1) mmol/L Chloride (98-107) mmol/L Carbon Dioxide (22-30) mmol/L Anion Gap mmol/L BUN (9-20) mg/dL Creatinine (0.66-1.25) mg/dL Est GFR (CKD-EPI)AfAm (>60 ml/min/1.73 sqM) Est GFR (CKD-EPI)NonAf (>60 ml/min/1.73 sqM) Glucose (74-99) mg/dL Calcium (8.4-10.2) mg/dL Total Bilirubin (0.2-1.3) mg/dL AST (17-59) U/L ALT (4-49) U/L Alkaline Phosphatase (38-126) U/L Total Protein (6.3-8.2) g/dL Albumin (3.5-5.0) g/dL Amylase (30-110) U/L Lipase (23-300) U/L Urine Color Yellow Urine Appearance Cloudy (Clear) Urine pH 5.5 (5.0-8.0) Ur Specific [place] 1.023 (1.001-1.035) Urine Protein 1+ H (Negative) Urine Glucose (UA) Negative (Negative) Urine Ketones Negative (Negative) Urine Blood Negative (Negative) Urine Nitrite Negative (Negative) Urine Bilirubin Negative (Negative) Urine Urobilinogen <2.0 (<2.0) mg/dL Ur Leukocyte Esterase Trace H (Negative) Urine RBC <1 (0-5) /hpf Urine WBC 5 (0-5) /hpf Ur Squamous Epith Cells 6 H (0-4) /hpf Urine Mucus Occasional H (None) /hpf C. difficile (EIA) Intrp (Negative) Disposition Clinical Impression: Clostridioides difficile infection Disposition: ADMITTED IP TO THIS HOSP Condition: Fair Decision Date: 01/24/21 Decision Time: 14:53
[2021-01-24 12:34] LABS: Basophils % (A) 1 %; Eosinophils # (A) 0.3 k/uL (0-0.7); Eosinophils % (A) 5 %; HCT 31.9 % (39.0-53.0); HGB 10.3 gm/dL (13.0-17.5); Hypochromasia Slight; Lymphocytes # (A) 0.9 k/uL (1.0-4.8); Lymphocytes % (A) 13 %; MCH 29.2 pg (25.0-35.0); MCHC 32.4 g/dL (31.0-37.0); MCV 90.2 fL (80.0-100.0); Mean Platelet Volume 8.6; Monocytes # (A) 0.4 k/uL (0-1.0); Monocytes % (A) 5 %; Neutrophils % (A) 75 %; Platelet Count 236 k/uL (150-450); RBC 3.53 m/uL (4.30-5.90); RDW 15.1 % (11.5-15.5); WBC 6.7 k/uL (3.8-10.6)
[2021-01-24 12:51] LABS: Albumin 3.3 g/dL (3.5-5.0); Calcium 8.9 mg/dL (8.4-10.2); Total Bilirubin 0.2 mg/dL (0.2-1.3); Total Protein 5.6 g/dL (6.3-8.2)
[2021-01-24 14:32] LABS: Appearance,Urine Cloudy (Clear); Bilirubin,Urine Negative (Negative); Blood,Urine Negative (Negative); Color,Urine Yellow; Glucose,Urine (UA) Negative (Negative); Ketones,Urine Negative (Negative); Leukocyte Esterase,Urine Trace (Negative); Mucus,Urine Occasional /hpf; Nitrite,Urine Negative (Negative); PH, Urine 5.5 (5.0-8.0); Protein,Urine 1+ (Negative); RBC,Urine <1 /hpf (0-5); Specific Gravity,Urine 1.023 (1.001-1.035); Squamous Epithelial Cell,Urine 6 /hpf (0-4); Urobilinogen,Urine <2.0 mg/dL (<2.0); WBC,Urine 5 /hpf (0-5)
[2021-01-24] MEDS ORDERED: NALOXONE 0.4 MG/ML 1 ML VIAL IV PRN (14:53)
[2021-01-24] MEDS ORDERED: VANCOMYCIN 125 MG CAPSULE PO SCH (15:00)
[2021-01-24] MEDS ORDERED: ACETAMINOPHEN TAB 325 MG TAB PO PRN (15:16)
[2021-01-24] MEDS ORDERED: ZINC OXIDE 20% OINT 28.4 GM TUBE TOPICAL PRN (15:16)
--- NOTE | 2021-01-24 15:31 | P.HPIM ---
History of Present Illness H&P Date: 01/24/21 HISTORY OF PRESENT ILLNESS This is a 75-year-old male patient of Dr. Culver and Dr. Carson with past medical history of diabetes mellitus type 2, hyperlipidemia, chronic hip pain and generalized osteoarthritis, benign prostatic hypertrophy status post TURP 08/15, frequent urinary tract infections, kidney stones, prostate cancer managed with observation, chronically shortened left leg, remote history of tobacco use. Patient had a recent hospitalization in September at which time he was treated after a fall with acute kidney injury secondary to rhabdomyolysis, acute urinary tract infection, C. difficile colitis. Patient was discharged to [facility] at that time and he states he has subsequent lead been discharged to home. He developed another episode of C. difficile colitis and was admitted to the hospital December 11 through December 16. He was discharged to [facility] and was on vancomycin oral. Patient has also utilized [employer] which she had to pay for out of pocket but unfortunately he is now in the emergency center complaining of diarrhea which she states is the worst in the last 3 days that he has ever had. He states he has been eating very little and had diarrhea all day yesterday. Patient came into [facility] emergency center for evaluation and found to be afebrile, heart rate 67, blood pressure 150/64, pulse ox 96% on room air. WBC 6.7, hemoglobin 10.3, platelet count 236. Sodium 138, potassium 4.0, chloride 109, CO2 19, BUN 21 creatinine 0.98, but sugar 163. C. difficile toxin positive. Urinalysis was cloudy, leukoesterase trace, squamous cell 6. Patient was started on oral vancomycin, and admitted to the [facility] floor, consult with infectious disease added. REVIEW OF SYSTEMS Constitutional: No fever, no chills, no night sweats. No weight change. Reports weakness, Reports fatigue no lethargy. No daytime sleepiness. EENT: No headache. No blurred vision or double vision, no loss of vision. Reports chronic loss of Hearing. No nasal drainage or congestion. No epistaxis. Reports sore throat. Lungs: No shortness of breath, cough, no sputum production. No wheezing. Cardiovascular: No chest pain, no lower extremity edema. No palpitations. No paroxysmal nocturnal dyspnea. No orthopnea. No lightheadedness or dizziness. No syncopal episodes. Abdominal: Reports abdominal pain. Reports nausea, no vomiting. Reports diarrhea. No constipation. Reports bloody or tarry stools. Reports loss of appetite. Genitourinary: No dysuria, increased frequency, urgency. No urinary retention. Musculoskeletal: Reports generalized myalgias. Reports muscle weakness, no gait dysfunction, no frequent falls. No back pain. No neck pain. Integumentary: Multiple abrasions to bilateral upper and lower extremities and decubitus ulcers to the buttocks. No rash or pruritus. Significant bruising to extremities and face. Neurologic: No aphasia. No facial droop. No change in mentation. No head injury. No headache. No paralysis. No paresthesia. Psychiatric: No depression. No anxiety. No mood swings. Endocrine: No abnormal blood sugars. SOCIAL HISTORY Patient was a smoker of cigarettes or pipe tobacco smoke for 30+ years and quit in the . He denies any alcohol use, marijuana use or illicit drug use. 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 He has been since 1980. Patient currently lives at home alone and has home care in place. Patient was recently admitted [facility] for subacute rehab. FAMILY HISTORY Father in his 70s from prostate cancer with metastatic disease. Mother in her 50s from malignant brain tumor. Patient does not have any sisters. Patient has one brother and he is living with no major medical problems. Patient has 2 children with no major medical problems. PHYSICAL EXAMINATION Gen: This is a 75-year-old male patient. He is seen in the ER and appears to be weak. HEENT: Head has significant ecchymosis to the left side of the face, normocephalic. Pupils equal, round. Sclerae is anicteric. NECK: Supple. No JVD. No lymphadenopathy. No thyromegaly. LUNGS: Clear to auscultation. No wheezes or rhonchi. No intercostal retrac tions. HEART: Regular rate and rhythm. No murmur. ABDOMEN: Soft. Bowel sounds are present. No masses. No tenderness. Generalized EXTREMITIES: No pedal edema. No calf tenderness. Chronic shortening of the left leg. NEUROLOGICAL: Patient is awake, alert and oriented x3. Cranial nerves 2 through 12 are grossly intact. ASSESSMENT AND PLAN 1. Acute C. difficile colitis. Patient is been started on oral vancomycin, consult with Dr. Schmidt, [place], Questran 4 g twice daily, lactobacillus 13 times daily. 2. Anemia, secondary to probable chronic blood loss from GI bleed. Recheck hemoglobin. This may be related to hemorrhoids secondary to diarrhea. 3. Diabetes mellitus type 2. Levemir 30 units twice daily, glipizide 10 mg twice daily and patient will be on NovoLog scale only due to hypoglycemia. 4. Hyperlipidemia. Continue Lipitor 10 mg at bedtime. 5. Generalized osteoarthritis and shortened left leg. 6. Benign prostatic hypertrophy. 7. Hypertension. Continue lisinopril 20 mg daily. 8. History of prostate cancer managed with observation. 9. GI prophylaxis. Protonix 40 mg oral daily. 10. DVT prophylaxis. SCDs and ELAINE hose. 11. Generalized debility. Consult PT and OT. Patient will be admitted to the hospital for a minimum of 2 night stay. DISCHARGE PLAN To be determined. PT and OT consults and social work consult. Was recently at [facility] for subacute rehab. Impression and plan of care have been directed as dictated by the signing physician. Abbi Forrest nurse practitioner acting as scribe for signing physician. Past Medical History Past Medical History: Diabetes Mellitus, Hyperlipidemia, Hypertension, Osteoarthritis (OA), Prostate Disorder Additional Past Medical History / Comment(s): left hip and leg chronic pain, arthritis. History of Any Multi-Drug Resistant Organisms: C-DIFF Date of last positivie culture/infection: 12/09/2020 Past Surgical History: Hernia Repair, Prostate Surgery Additional Past Surgical History / Comment(s): bladder stones. Past Anesthesia/Blood Transfusion Reactions: No Reported Reaction Past Psychological History: No Psychological Hx Reported Smoking Status: Former smoker Past Alcohol Use History: None Reported Past Drug Use History: None Reported - Past Family History Father Family Medical History: Cancer, Prostate Disorder Additional Family Medical History / Comment(s): Past away from prostate cancer Mother Family Medical History: Cancer Additional Family Medical History / Comment(s): Brain CA Medications and Allergies Home Medications Medication Instructions Recorded Confirmed Type Insulin Detemir [Levemir Flextouch 30 units SQ BID 05/24/20 01/24/21 History Pen] Repaglinide [Prandin] 2 mg PO AC-TID 05/24/20 01/24/21 History Simvastatin [Zocor] 20 mg PO HS 05/24/20 01/24/21 History Silodosin [Rapaflo] 8 mg PO DAILY 10/20/20 01/24/21 History Darifenacin Hydrobromide [Enablex] 15 mg PO DAILY 12/11/20 01/24/21 History INSULIN ASPART (NovoLOG) [NovoLOG See Protocol SQ ACHS 12/11/20 01/24/21 History (formulary)] Quinapril HCl [Accupril] 20 mg PO DAILY 12/11/20 01/24/21 History Zinc Oxide 20% Oint 1 applic TOPICAL BID PRN applic 12/16/20 01/24/21 Rx Acetaminophen Tab [Tylenol] 325 mg PO Q4H PRN 01/24/21 01/24/21 History Cholestyramine (with Sugar) 4 gm PO BID 01/24/21 01/24/21 History [Questran Packet] Lactobacillus Acidoph & Bulgar 1 pack PO TID 01/24/21 01/24/21 History [Lactinex] glipiZIDE [Glucotrol] 10 mg PO AC-BID 01/24/21 01/24/21 History Allergies Allergy/AdvReac Type Severity Reaction Status Date / Time Penicillins Allergy Swelling Verified 01/24/21 13:22 levofloxacin AdvReac Severe Diarrhea Verified 01/24/21 13:22 ciprofloxacin [From Cipro] AdvReac Vomiting Verified 01/24/21 13:22 Physical Exam Vitals: Vital Signs Temp Pulse Resp BP Pulse Ox 01/24/21 11:21 97.6 F 67 20 150/64 96 Intake and Output 01/23/21 01/24/21 01/24/21 22:59 06:59 14:59 Other: Weight 99.337 kg Results CBC & Chem 7: 01/24/21 12:29 01/24/21 12:29
[2021-01-24 17:32] LABS: Glucose,Whole Blood 138 mg/dL (75-99)
[2021-01-24] MEDS: LACTOBACILLUS ACIDOPH & BULGAR 1 EACH PACKET PO SCH (17:50)
[2021-01-24] MEDS: glipiZIDE 10 MG TAB PO SCH (17:50)
[2021-01-24] MEDS: INSULIN ASPART (NovoLOG) 100 UNIT/ML VIAL SQ SCH ×2 (17:51→23:20)
[2021-01-24] MEDS: REPAGLINIDE 1 MG TAB PO SCH (17:52)
[2021-01-24] MEDS: VANCOMYCIN 125 MG CAPSULE PO SCH ×2 (17:53→23:10)
--- NOTE | 2021-01-24 23:04 | P.CONS ---
History of Present Illness - Reason for Consult Consult date: 01/24/21 c diff colitis Requesting physician: Ed Culver - Chief Complaint diarrhea x 5 days - History of Present Illness History of present illness : Patient is 75-year-old male with a past medical history significant for recurrent C. difficile colitis in this patient has been treated with the vancomycin and recently completed a course of oral Dificid patient subsequently did have improvement however the patient now presenting to [facility] ER with a 5-day history of diarrhea in this patient who did have multiple loose stools per day over the last few days every hour on the hour denies any blood or mucus in the stool has been complaining of some crampy abdominal pain intensity almost 7-7 out of 10 had no relation the patient has been nauseated but no vomiting with the symptom the patient has been evaluated by the ER physician on arrival to the ER the patient was afebrile patient did have a normal white count kidney function was normal urine was nega tive stool for significantly positive the patient was started on vancomycin 125 mg p.o. every 6 hours admitted to the hospital infectious disease was consulted for further management of antibiotic therapy Review of system: CONSTITUTIONAL: Positive for weakness however denies fever. EYES: No complaint. ENT: No complaint. RESPIRATORY: No complaint. CARDIOVASCULAR: No complaint. GENITOURINARY: No complaint. GASTROINTESTINAL: As per history of present illness. MUSCULOSKELETAL: No complaint. INTEGUMENTARY: No complaint. PSYCHOLOGIC: No complaint. ENDOCRINE: No complaint. NEUROLOGIC: No complaint. Past medical history : Reviewed, documented below Past surgical history : Reviewed, documented below Social history: Reviewed, documented below Medications: Reviewed, as documented below GENERAL DESCRIPTION: Elderly male lying in bed, no distress. No tachypnea or accessory muscle of respiration use. HEENT: Shows Pallor , no scleral icterus. Oral mucous membrane is dry. NECK: Trachea central, no thyromegaly. LUNGS: Unlabored breathing. Clear to auscultation anteriorly. No wheeze or crackle. HEART: S1, S2, regular rate and rhythm. ABDOMEN: Soft, no tenderness , guarding or rigidity EXTREMITIES: No edema of feet. SKIN: No rash, no masses palpable. NEUROLOGICAL: The patient is awake, alert, oriented x3, mood and affect normal. LABS AND RADIOLOGY: Reviewed results see below Assessment : Patient presented to hospital with intractable diarrhea that has been going on for the last 5 days and this patient did have a history of recurrent C. difficile colitis and has been treated with both vancomycin and Dificid last treatment was with the Dificid failing treatment patient is a c andidate for stool transplant to prevent recurrent episode Plan: 1-increase the dose of vancomycin to 250 mg p.o. every 6 hours 2-Questran for symptomatic relief 3-we will try to arrange for the stool transplant Has per Discussion with the Admitting Physician We will follow on clinical condition and cultures to further adjust medication if needed Thank you for this consultation we will follow the patient along with you Past Medical History Past Medical History: Diabetes Mellitus, Hyperlipidemia, Hypertension, Osteoarthritis (OA), Prostate Disorder Additional Past Medical History / Comment(s): left hip and leg chronic pain, arthritis. History of Any Multi-Drug Resistant Organisms: C-DIFF Year Discovered:: 12/09/2020 Past Surgical History: Hernia Repair, Prostate Surgery Additional Past Surgical History / Comment(s): bladder stones. Past Anesthesia/Blood Transfusion Reactions: No Reported Reaction Past Psychological History: No Psychological Hx Reported Smoking Status: Former smoker Past Alcohol Use History: None Reported Past Drug Use History: None Reported - Past Family History Father Family Medical History: Cancer, Prostate Disorder Additional Family Medical History / Comment(s): Past away from prostate cancer Mother Family Medical History: Cancer Additional Family Medical History / Comment(s): Brain CA Medications and Allergies Home Medications Medication Instructions Recorded Confirmed Type Insulin Detemir [Levemir Flextouch 30 units SQ BID 05/24/20 01/24/21 History Pen] Repaglinide [Prandin] 2 mg PO AC-TID 05/24/20 01/24/21 History Simvastatin [Zocor] 20 mg PO HS 05/24/20 01/24/21 History Silodosin [Rapaflo] 8 mg PO DAILY 10/20/20 01/24/21 History Darifenacin Hydrobromide [Enablex] 15 mg PO DAILY 12/11/20 01/24/21 History INSULIN ASPART (NovoLOG) [NovoLOG See Protocol SQ ACHS 12/11/20 01/24/21 History (formulary)] Quinapril HCl [Accupril] 20 mg PO DAILY 12/11/20 01/24/21 History Zinc Oxide 20% Oint 1 applic TOPICAL BID PRN applic 12/16/20 01/24/21 Rx Acetaminophen Tab [Tylenol] 325 mg PO Q4H PRN 01/24/21 01/24/21 History Cholestyramine (with Sugar) 4 gm PO BID 01/24/21 01/24/21 History [Questran Packet] Lactobacillus Acidoph & Bulgar 1 pack PO TID 01/24/21 01/24/21 History [Lactinex] glipiZIDE [Glucotrol] 10 mg PO AC-BID 01/24/21 01/24/21 History Allergies Allergy/AdvReac Type Severity Reaction Status Date / Time Penicillins Allergy Swelling Verified 01/24/21 13:22 levofloxacin AdvReac Severe Diarrhea Verified 01/24/21 13:22 ciprofloxacin [From Cipro] AdvReac Vomiting Verified 01/24/21 13:22 Physical Exam Vitals: Vital Signs Temp Pulse Resp BP Pulse Ox 01/24/21 11:21 97.6 F 67 20 150/64 96 Intake and Output 01/24/21 01/24/21 01/24/21 06:59 14:59 22:59 Other: Weight 99.337 kg Results CBC & Chem 7: 01/24/21 12:29 01/24/21 12:29 Labs: Abnormal Lab Results - Last 24 Hours (Table) 01/24/21 01/24/21 01/24/21 Range/Units 12:10 12:29 12:29 RBC 3.53 L (4.30-5.90) m/uL Hgb 10.3 L (13.0-17.5) gm/dL Hct 31.9 L (39.0-53.0) % Lymphocytes # 0.9 L (1.0-4.8) k/uL Chloride 109 H (98-107) mmol/L Carbon Dioxide 19 L (22-30) mmol/L BUN 21 H (9-20) mg/dL Glucose 163 H (74-99) mg/dL POC Glucose (mg/dL) (75-99) mg/dL AST 12 L (17-59) U/L Total Protein 5.6 L (6.3-8.2) g/dL Albumin 3.3 L (3.5-5.0) g/dL Urine Protein (Negative) Ur Leukocyte Esterase (Negative) Ur Squamous Epith Cells (0-4) /hpf Urine Mucus (None) /hpf C. difficile (EIA) Intrp Positive A (Negative) 01/24/21 01/24/21 Range/Units 13:56 17:30 RBC (4.30-5.90) m/uL Hgb (13.0-17.5) gm/dL Hct (39.0-53.0) % Lymphocytes # (1.0-4.8) k/uL Chloride (98-107) mmol/L Carbon Dioxide (22-30) mmol/L BUN (9-20) mg/dL Glucose (74-99) mg/dL POC Glucose (mg/dL) 138 H (75-99) mg/dL AST (17-59) U/L Total Protein (6.3-8.2) g/dL Albumin (3.5-5.0) g/dL Urine Protein 1+ H (Negative) Ur Leukocyte Esterase Trace H (Negative) Ur Squamous Epith Cells 6 H (0-4) /hpf Urine Mucus Occasional H (None) /hpf C. difficile (EIA) Intrp (Negative)
[2021-01-24] MEDS: CHOLESTYRAMINE (WITH SUGAR) 4 GM PACKET PO SCH (23:10)
[2021-01-24 23:17] LABS: Glucose,Whole Blood 132 mg/dL (75-99)
[2021-01-24] MEDS: ATORVASTATIN 10 MG TAB PO SCH (23:20)
[2021-01-24] MEDS: INSULIN DETEMIR (LEVEMIR) 100 UNIT/ML SYR SQ SCH (23:20)
[2021-01-25] MEDS: LACTOBACILLUS ACIDOPH & BULGAR 1 EACH PACKET PO SCH ×4 (02:20→23:01)
[2021-01-25 06:57] LABS: Glucose,Whole Blood 107 mg/dL (75-99)
[2021-01-25] MEDS: INSULIN ASPART (NovoLOG) 100 UNIT/ML VIAL SQ SCH ×4 (07:06→22:59)
[2021-01-25] MEDS: INSULIN DETEMIR (LEVEMIR) 100 UNIT/ML SYR SQ SCH ×3 (07:07→23:02)
[2021-01-25] MEDS: lisinopriL 20 MG TAB PO SCH (07:20)
[2021-01-25] MEDS: glipiZIDE 10 MG TAB PO SCH ×2 (07:20→17:03)
[2021-01-25] MEDS: REPAGLINIDE 1 MG TAB PO SCH ×3 (07:20→17:03)
[2021-01-25] MEDS: TAMSULOSIN 0.4 MG CAP.ER.24H PO SCH (07:20)
[2021-01-25] MEDS: CHOLESTYRAMINE (WITH SUGAR) 4 GM PACKET PO SCH ×2 (07:21→22:58)
[2021-01-25] MEDS: TROSPIUM CHLORIDE 20 MG TABLET PO SCH ×2 (07:21→23:02)
[2021-01-25] MEDS: VANCOMYCIN 125 MG CAPSULE PO SCH ×4 (07:22→22:59)
[2021-01-25 11:32] LABS: Glucose,Whole Blood 111 mg/dL (75-99)
--- NOTE | 2021-01-25 13:51 | P.PN ---
Subjective Progress Note Date: 01/25/21 HISTORY OF PRESENT ILLNESS This is a 75-year-old male patient of Dr. Culver and Dr. Carson with past medical history of diabetes mellitus type 2, hyperlipidemia, chronic hip pain and generalized osteoarthritis, benign prostatic hypertrophy status post TURP 08/15, frequent urinary tract infections, kidney stones, prostate cancer managed with observation, chronically shortened left leg, remote history of tobacco use. Patient had a recent hospitalization in September at which time he was treated after a fall with acute kidney injury secondary to rhabdomyolysis, acute urinary tract infection, C. difficile colitis. Patient was discharged to [facility] at that time and he states he has subsequent lead been discharged to home. He developed another episode of C. difficile colitis and was admitted to the hospital December 11 through December 16. He was discharged to [facility] and was on vancomycin oral. Patient has also utilized Dificid which he had to pay for out of pocket but unfortunately he is now in the emergency center complaining of diarrhea which she states is the worst in the last 3 days that he has ever had. He states he has been eating very little and had diarrhea all day yesterday. Patient came into [facility] emergency center for evaluation and found to be afebrile, heart rate 67, blood pressure 150/64, pulse ox 96% on room air. WBC 6.7, hemoglobin 10.3, platelet count 236. Sodium 138, potassium 4.0, chloride 109, CO2 19, BUN 21 creatinine 0.98, but sugar 163. C. difficile toxin positive. Urinalysis was cloudy, leukoesterase trace, squamous cell 6. Patient was started on oral vancomycin, and admitted to the MedSur floor, consult with infectious disease added. 01/25: Patient has been afebrile, heart rate 83, blood pressure 144/57, pulse ox 97% on room air. Patient has been seen by Dr. Schmidt with recommendations for vancomycin oral 250 mg every 6 hours, Nighat. He will make arrangements for stool transplant as per discussion previously. Capillary blood glucose running between 107 138. REVIEW OF SYSTEMS Constitutional: No fever, no chills, no night sweats. No weight change. Reports weakness, Reports fatigue no lethargy. No daytime sleepiness. EENT: No headache. No blurred vision or double vision, no loss of vision. Reports chronic loss of Hearing. No nasal drainage or congestion. No epistaxis . Reports sore throat. Lungs: No shortness of breath, cough, no sputum production. No wheezing. Cardiovascular: No chest pain, no lower extremity edema. No palpitations. No paroxysmal nocturnal dyspnea. No orthopnea. No lightheadedness or dizziness. No syncopal episodes. Abdominal: Reports abdominal pain. Reports nausea, no vomiting. Reports diarrhea. No constipation. Denies bloody or tarry stools. Reports loss of appetite. Genitourinary: No dysuria, increased frequency, urgency. No urinary retention. Musculoskeletal: Reports generalized myalgias. Reports muscle weakness, no gait dysfunction, no frequent falls. No back pain. No neck pain. Integumentary: Multiple abrasions to bilateral upper and lower extremities and decubitus ulcers to the buttocks. No rash or pruritus. Significant bruising to extremities and face. Neurologic: No aphasia. No facial droop. No change in mentation. No head injury. No headache. No paralysis. No paresthesia. Psychiatric: No depression. No anxiety. No mood swings. Endocrine: No abnormal blood sugars. PHYSICAL EXAMINATION Gen: This is a 75-year-old male patient. He is seen sitting in his chair and appears to be weak. HEENT: Head has significant ecchymosis to the left side of the face, normocephalic. Pupils equal, round. Sclerae is anicteric. NECK: Supple. No JVD. No lymphadenopathy. No thyromegaly. LUNGS: Clear to auscultation. No wheezes or rhonchi. No intercostal retractions. HEART: Regular rate and rhythm. No murmur. ABDOMEN: Soft. Bowel sounds are present. No masses. No tenderness. Generalized EXTREMITIES: No pedal edema. No calf tenderness. Chronic shortening of the left leg. NEUROLOGICAL: Patient is awake, alert and oriented x3. Cranial nerves 2 through 12 are grossly intact. ASSESSMENT AND PLAN 1. Acute C. difficile colitis. Patient is been started on oral vancomycin, consult with Dr. Schmidt, Nighat, Questran 4 g twice daily, lactobacillus 3 times daily. 2. Anemia, secondary to probable chronic blood loss from GI bleed. Recheck hemoglobin. This may be related to hemorrhoids secondary to diarrhea. 3. Diabetes mellitus type 2. Levemir 30 units twice daily, glipizide 10 mg twice daily and patient will be on NovoLog scale only due to hypoglycemia. 4. Hyperlipidemia. Continue Lipitor 10 mg at bedtime. 5. Generalized osteoarthritis and shortened left leg. 6. Benign prostatic hypertrophy. 7. Hypertension. Continue lisinopril 20 mg daily. 8. History of prostate cancer managed with observation. 9. GI prophylaxis. Protonix 40 mg oral daily. 10. DVT prophylaxis. SCDs and ELAINE hose. 11. Generalized debility. Consult PT and OT. DISCHARGE PLAN To be determined. PT and OT consults and social work consult. Was recently at [facility] for subacute rehab. Impression and plan of care have been directed as dictated by the signing physician. Abbi Forrest nurse practitioner acting as scribe for signing physician. Objective - Vital Signs Vital signs: Vital Signs Temp 97.7 F 01/25/21 07:16 Pulse 83 01/25/21 07:16 Resp 18 01/25/21 07:16 BP 144/57 01/25/21 07:16 Pulse Ox 97 01/25/21 07:16 Intake & Output 01/24/21 01/25/21 01/25/21 18:59 06:59 18:59 Weight 99.337 kg 99.337 kg Other: # Bowel Movements 1 - Labs CBC & Chem 7: 01/24/21 12:29 01/24/21 12:29 Labs: Abnormal Lab Results - Last 24 Hours (Table) 01/24/21 01/24/21 01/24/21 Range/Units 12:10 12:29 12:29 RBC 3.53 L (4.30-5.90) m/uL Hgb 10.3 L (13.0-17.5) gm/dL Hct 31.9 L (39.0-53.0) % Lymphocytes # 0.9 L (1.0-4.8) k/uL Chloride 109 H (98-107) mmol/L Carbon Dioxide 19 L (22-30) mmol/L BUN 21 H (9-20) mg/dL Glucose 163 H (74-99) mg/dL POC Glucose (mg/dL) (75-99) mg/dL AST 12 L (17-59) U/L Total Protein 5.6 L (6.3-8.2) g/dL Albumin 3.3 L (3.5-5.0) g/dL Urine Protein (Negative) Ur Leukocyte Esterase (Negative) Ur Squamous Epith Cells (0-4) /hpf Urine Mucus (None) /hpf C. difficile (EIA) Intrp Positive A (Negative) 01/24/21 01/24/21 01/24/21 Range/Units 13:56 17:30 23:14 RBC (4.30-5.90) m/uL Hgb (13.0-17.5) gm/dL Hct (39.0-53.0) % Lymphocytes # (1.0-4.8) k/uL Chloride (98-107) mmol/L Carbon Dioxide (22-30) mmol/L BUN (9-20) mg/dL Glucose (74-99) mg/dL POC Glucose (mg/dL) 138 H 132 H (75-99) mg/dL AST (17-59) U/L Total Protein (6.3-8.2) g/dL Albumin (3.5-5.0) g/dL Urine Protein 1+ H (Negative) Ur Leukocyte Esterase Trace H (Negative) Ur Squamous Epith Cells 6 H (0-4) /hpf Urine Mucus Occasional H (None) /hpf C. difficile (EIA) Intrp (Negative) 01/25/21 Range/Units 06:55 RBC (4.30-5.90) m/uL Hgb (13.0-17.5) gm/dL Hct (39.0-53.0) % Lymphocytes # (1.0-4.8) k/uL Chloride (98-107) mmol/L Carbon Dioxide (22-30) mmol/L BUN (9-20) mg/dL Glucose (74-99) mg/dL POC Glucose (mg/dL) 107 H (75-99) mg/dL AST (17-59) U/L Total Protein (6.3-8.2) g/dL Albumin (3.5-5.0) g/dL Urine Protein (Negative) Ur Leukocyte Esterase (Negative) Ur Squamous Epith Cells (0-4) /hpf Urine Mucus (None) /hpf C. difficile (EIA) Intrp (Negative)
--- NOTE | 2021-01-25 14:15 | PN ---
PROGRESS NOTE DATE OF SERVICE: 01/25/2021 REASON FOR FOLLOWUP: Recurrent C difficile colitis. INTERVAL HISTORY: The patient is afebrile. The patient is currently breathing comfortably. The patient mentioned the diarrhea has decreased in frequency, however, still has significant ( ) and cannot make it to the bedside commode. The patient denies having any chest pain, shortness of breath or cough. No nausea, no vomiting or worsening abdominal pain. PHYSICAL EXAMINATION: Blood pressure 144/57 with a pulse of 83, temperature 97.7. He is 97% on room air. General description is an elderly male lying in bed in no distress. Respiratory system: Unlabored breathing, is clear to auscultation anteriorly. Heart S1, S2. Regular rate and rhythm. Abdomen soft, no tenderness. LABS: No new labs have been obtained today. DIAGNOSTIC IMPRESSION AND PLAN: Patient with recurrent C difficile colitis ( ) responding to oral vancomycin, to continue. The patient seemed very agreeable to the oral stool capsules for the stool transplant. Will try to arrange that for him on discharge and continue supportive care. MMODL / IJN: [id number] /
[2021-01-25 15:22] VITALS: BMI 31.4
[2021-01-25 16:53] LABS: Glucose,Whole Blood 181 mg/dL (75-99)
[2021-01-25 20:59] LABS: Glucose,Whole Blood 164 mg/dL (75-99)
[2021-01-25] MEDS: ATORVASTATIN 10 MG TAB PO SCH (23:01)
[2021-01-26 07:24] LABS: Glucose,Whole Blood 64 mg/dL (75-99)
[2021-01-26] MEDS: INSULIN ASPART (NovoLOG) 100 UNIT/ML VIAL SQ SCH ×4 (07:52→22:33)
[2021-01-26] MEDS: REPAGLINIDE 1 MG TAB PO SCH ×3 (07:55→17:11)
[2021-01-26] MEDS: TAMSULOSIN 0.4 MG CAP.ER.24H PO SCH (07:55)
[2021-01-26] MEDS: glipiZIDE 10 MG TAB PO SCH ×2 (07:55→17:11)
[2021-01-26] MEDS: lisinopriL 20 MG TAB PO SCH (07:55)
[2021-01-26] MEDS: LACTOBACILLUS ACIDOPH & BULGAR 1 EACH PACKET PO SCH ×3 (07:55→22:31)
[2021-01-26] MEDS: VANCOMYCIN 125 MG CAPSULE PO SCH ×4 (07:56→22:32)
[2021-01-26] MEDS: TROSPIUM CHLORIDE 20 MG TABLET PO SCH ×2 (07:56→22:32)
[2021-01-26] MEDS: CHOLESTYRAMINE (WITH SUGAR) 4 GM PACKET PO SCH ×2 (07:56→22:31)
[2021-01-26] MEDS: INSULIN DETEMIR (LEVEMIR) 100 UNIT/ML SYR SQ SCH ×2 (07:57→22:32)
[2021-01-26 08:01] LABS: Glucose,Whole Blood 84 mg/dL (75-99)
[2021-01-26 11:37] LABS: Glucose,Whole Blood 158 mg/dL (75-99)
--- NOTE | 2021-01-26 12:30 | P.PN ---
Subjective Progress Note Date: 01/26/21 HISTORY OF PRESENT ILLNESS This is a 75-year-old male patient of Dr. Culver and Dr. Carson with past medical history of diabetes mellitus type 2, hyperlipidemia, chronic hip pain and generalized osteoarthritis, benign prostatic hypertrophy status post TURP 08/15, frequent urinary tract infections, kidney stones, prostate cancer managed with observation, chronically shortened left leg, remote history of tobacco use. Patient had a recent hospitalization in September at which time he was treated after a fall with acute kidney injury secondary to rhabdomyolysis, acute urinary tract infection, C. difficile colitis. Patient was discharged to [facility] at that time and he states he has subsequent lead been discharged to home. He developed another episode of C. difficile colitis and was admitted to the hospital December 11 through December 16. He was discharged to [facility] and was on vancomycin oral. Patient has also utilized Dificid which he had to pay for out of pocket but unfortunately he is now in the emergency center complaining of diarrhea which she states is the worst in the last 3 days that he has ever had. He states he has been eating very little and had diarrhea all day yesterday. Patient came into [facility] emergency center for evaluation and found to be afebrile, heart rate 67, blood pressure 150/64, pulse ox 96% on room air. WBC 6.7, hemoglobin 10.3, platelet count 236. Sodium 138, potassium 4.0, chloride 109, CO2 19, BUN 21 creatinine 0.98, but sugar 163. C. difficile toxin positive. Urinalysis was cloudy, leukoesterase trace, squamous cell 6. Patient was started on oral vancomycin, and admitted to the Med[facility] floor, consult with infectious disease added. 01/25: Patient has been afebrile, heart rate 83, blood pressure 144/57, pulse ox 97% on room air. Patient has been seen by Dr. Schmidt with recommendations for vancomycin oral 250 mg every 6 hours, Nighat. He will make arrangements for stool transplant as per discussion previously. Capillary blood glucose running between 107 138. 01/26: Patient states that the diarrhea is improved. He does state when he stands up he is incontinent of stool. Dr. Schmidt is working with rehabilitation caseworker and MID see regarding capsule stool transplant. Patient has worked with physical therapy and occupational therapy and recommendations are for subacute rehab. Patient will consider going to [facility] for rehab. Patient has been afebrile, heart rate 72, blood pressure 125/55, pulse ox 96% on room air. Blood sugars are running 64-158. REVIEW OF SYSTEMS Constitutional: No fever, no chills, no night sweats. No weight change. Reports weakness, Reports fatigue no lethargy. No daytime sleepiness. EENT: No headache. No blurred vision or double vision, no loss of vision. Reports chronic loss of Hearing. No nasal drainage or congestion. No epistaxis. Reports sore throat. Lungs: No shortness of breath, cough, no sputum production. No wheezing. Cardiovascular: No chest pain, no lower extremity edema. No palpitations. No paroxysmal nocturnal dyspnea. No orthopnea. No lightheadedness or dizziness. No syncopal episodes. Abdominal: Reports abdominal pain. Reports nausea, no vomiting. Reports diarrhea. No constipation. Denies bloody or tarry stools. Reports loss of appetite. Genitourinary: No dysuria, increased frequency, urgency. No urinary retention. Musculoskeletal: Reports generalized myalgias. Reports muscle weakness, no gait dysfunction, no frequent falls. No back pain. No neck pain. Integumentary: Multiple abrasions to bilateral upper and lower extremities and decubitus ulcers to the buttocks. No rash or pruritus. Significant bruising to extremities and face. Neurologic: No aphasia. No facial droop. No change in mentation. No head injury. No headache. No paralysis. No paresthesia. Psychiatric: No depression. No anxiety. No mood swings. Endocrine: No abnormal blood sugars. PHYSICAL EXAMINATION Gen: This is a 75-year-old male patient. He is seen sitting in his chair and appears to be weak. HEENT: Head has significant ecchymosis to the left side of the face, normocephalic. Pupils equal, round. Sclerae is anicteric. NECK: Supple. No JVD. No lymphadenopathy. No thyromegaly. LUNGS: Clear to auscultation. No wheezes or rhonchi. No intercostal retractions. HEART: Regular rate and rhythm. No murmur. ABDOMEN: Soft. Bowel sounds are present. No masses. No tenderness. Generalized EXTREMITIES: No pedal edema. No calf tenderness. Chronic shortening of the left leg. NEUROLOGICAL: Patient is awake, alert and oriented x3. Cranial nerves 2 through 12 are grossly intact. ASSESSMENT AND PLAN 1. Acute C. difficile colitis. Patient is been started on oral vancomycin, consult with Dr. Schmidt, Nighat, Questran 4 g twice daily, lactobacillus 3 times daily. 2. Anemia, secondary to probable chronic blood loss from GI bleed. Recheck hemoglobin. This may be related to hemorrhoids secondary to diarrhea. 3. Acute kidney injury, chronic kidney disease stage IIIB. Continue to monitor closely, avoid nephrotoxic agents. Okay to continue lisinopril. 4. Diabetes mellitus type 2. Levemir 30 units twice daily, glipizide 10 mg twice daily and patient will be on NovoLog scale only due to hypoglycemia. 4. Hyperlipidemia. Continue Lipitor 10 mg at bedtime. 5. Generalized osteoarthritis and shortened left leg. 6. Benign prostatic hypertrophy. 7. Hypertension. Continue lisinopril 20 mg daily. 8. History of prostate cancer managed with observation. 9. GI prophylaxis. Protonix 40 mg oral daily. 10. DVT prophylaxis. SCDs and ELAINE hose. 11. Generalized debility. Consult PT and OT. DISCHARGE PLAN To be determined. PT and OT consults and social work consult. Possible discharge to [facility] for subacute rehab on or Sunday. Impression and plan of care have been directed as dictated by the signing physician. Abbi Forrest nurse practitioner acting as scribe for signing physician. Objective - Vital Signs Vital signs: Vital Signs Temp 98.4 F 01/26/21 08:00 Pulse 72 01/26/21 08:00 Resp 16 01/26/21 08:00 BP 125/55 01/26/21 08:00 Pulse Ox 96 01/26/21 08:00 Intake & Output 01/25/21 01/26/21 01/26/21 18:59 06:59 18:59 Weight 99.337 kg Other: Voiding Method Bedside Commode Diaper # Voids 2 4 # Bowel Movements 1 2 - Labs CBC & Chem 7: 01/24/21 12:29 01/24/21 12:29 Labs: Abnormal Lab Results - Last 24 Hours (Table) 01/25/21 01/25/21 01/25/21 Range/Units 11:26 16:52 20:58 POC Glucose (mg/dL) 111 H 181 H 164 H (75-99) mg/dL 01/26/21 Range/Units 07:23 POC Glucose (mg/dL) 64 L (75-99) mg/dL
--- NOTE | 2021-01-26 13:41 | PN ---
PROGRESS NOTE DATE OF SERVICE: 01/26/2021 REASON FOR FOLLOWUP: Recurrent C difficile colitis. INTERVAL HISTORY: The patient is afebrile. He mentioned feeling slightly better. Still having diarrhea, a lot last evening, not too much last night. No abdominal pain. No chest pain, shortness of breath or cough. PHYSICAL EXAMINATION: Blood pressure 125/55 with a pulse of 72, temperature 98.4. He is 95% on room air. GENERAL DESCRIPTION: General description is an elderly male lying in bed in no distress. RESPIRATORY SYSTEM: Unlabored breathing. Clear to auscultation anteriorly. HEART: S1, S2. Regular rate and rhythm. ABDOMEN: Soft. No tenderness. LABS: No new labs have been obtained today. DIAGNOSTIC IMPRESSION AND PLAN: Patient with recurrent Clostridium difficile colitis, slow clinical improvement. Current treatment with vancomycin and Questran. Will try to arrange for the stool transplant for this patient on discharge. Questions and concerns were answered. MMODL / IJN: [id number] /
[2021-01-26 16:53] LABS: Glucose,Whole Blood 151 mg/dL (75-99)
[2021-01-26 20:57] LABS: Glucose,Whole Blood 152 mg/dL (75-99)
[2021-01-26] MEDS: ATORVASTATIN 10 MG TAB PO SCH (22:32)
[2021-01-27 05:01] VITALS: RESP 17
[2021-01-27 06:58] LABS: Glucose,Whole Blood 74 mg/dL (75-99)
[2021-01-27] MEDS: INSULIN ASPART (NovoLOG) 100 UNIT/ML VIAL SQ SCH ×2 (07:17→12:08)
[2021-01-27 07:29] VITALS: BP 107/56; PULSE 77; TEMP 98.4
[2021-01-27] MEDS: TROSPIUM CHLORIDE 20 MG TABLET PO SCH (07:38)
[2021-01-27] MEDS: CHOLESTYRAMINE (WITH SUGAR) 4 GM PACKET PO SCH (07:38)
[2021-01-27] MEDS: TAMSULOSIN 0.4 MG CAP.ER.24H PO SCH (07:38)
[2021-01-27] MEDS: glipiZIDE 10 MG TAB PO SCH (07:38)
[2021-01-27] MEDS: REPAGLINIDE 1 MG TAB PO SCH ×2 (07:38→12:07)
[2021-01-27] MEDS: LACTOBACILLUS ACIDOPH & BULGAR 1 EACH PACKET PO SCH (07:38)
[2021-01-27] MEDS: lisinopriL 20 MG TAB PO SCH (07:38)
[2021-01-27] MEDS: VANCOMYCIN 125 MG CAPSULE PO SCH ×2 (07:38→12:07)
[2021-01-27] MEDS: INSULIN DETEMIR (LEVEMIR) 100 UNIT/ML SYR SQ SCH (07:38)
--- NOTE | 2021-01-27 11:07 | P.DS ---
Providers Date of admission: 01/24/21 14:55 Expected date of discharge: 01/27/21 Attending physician: Ed Culver Consults: 01/24/21 14:56 Consult Physician Urgent Consulting Provider: Gerardo Schmidt Consult Reason/Comments: cdif Do you want consulting provider notified?: Yes, Notify in am Primary care physician: Ed Culver [facility] Course: HISTORY OF PRESENT ILLNESS This is a 75-year-old male patient of Dr. Culver and Dr. Carson with past medical history of diabetes mellitus type 2, hyperlipidemia, chronic hip pain and generalized osteoarthritis, benign prostatic hypertrophy status post TURP 08/15, frequent urinary tract infections, kidney stones, prostate cancer managed with observation, chronically shortened left leg, remote history of tobacco use. Patient had a recent hospitalization in September at which time he was treated after a fall with acute kidney injury secondary to rhabdomyolysis, acute urinary tract infection, C. difficile colitis. Patient was discharged to [facility] at that time and he states he has subsequent lead been discharged to home. He developed another episode of C. difficile colitis and was admitted to the hospital December 11 through December 16. He was discharged to [facility] and was on vancomycin oral. Patient has also utilized [employer] which he had to pay for out of pocket but unfortunately he is now in the emergency center complaining of diarrhea which she states is the worst in the last 3 days that he has ever had. He states he has been eating very little and had diarrhea all day yesterday. Patient came into [facility] emergency center for evaluation and found to be afebrile, heart rate 67, blood pressure 150/64, pulse ox 96% on room air. WBC 6.7, hemoglobin 10.3, platelet count 236. Sodium 138, potassium 4.0, chloride 109, CO2 19, BUN 21 creatinine 0.98, but sugar 163. C. difficile toxin positive. Urinalysis was cloudy, leukoesterase trace, squamous cell 6. Patient was started on oral vancomycin, and admitted to the MedSurg floor, consult with infectious disease added. 01/25: Patient has been afebrile, heart rate 83, blood pressure 144/57, pulse ox 97% on room air. Patient has been seen by Dr. Schmidt with recommendations for vancomycin oral 250 mg every 6 hours, [place]. He will make arrangements for stool transplant as per discussion previously. Capillary blood glucose running between 107 138. 9: Patient states that the diarrhea is improved. He does state when he stands up he is incontinent of stool. Dr. Schmidt is working with case manager specialist and MID see regarding capsule stool transplant. Patient has worked with physical therapy and occupational therapy and recommendations are for subacute rehab. Patient will consider going to [facility] for rehab. Patient has been afebrile, heart rate 72, blood pressure 125/55, pulse ox 96% on room air. Blood sugars are running 64-158. 9: Patient has been afebrile, heart rate 77, blood pressure 107/56, pulse ox 95% on room air. Capillary blood glucose running between [address] Schmidt is making arrangements for capsule stool transplant in his office in 2 weeks. Patient is agreeable to this plan. Patient states he has not had a bowel movement today. He has been seen by PT and OT with recommendations for subacute rehab. Insurance authorization has been obtained and patient will be discharged today in stable condition. ASSESSMENT AND PLAN 1. Acute C. difficile colitis. 2. Anemia, secondary to probable chronic blood loss from GI bleed. 3. Acute kidney injury, chronic kidney disease stage IIIB. 4. Diabetes mellitus type 2. 5. Hyperlipidemia. 6. Generalized osteoarthritis and shortened left leg. 7. Benign prostatic hypertrophy. 8. Hypertension. 9. History of prostate cancer managed with observation. 10. Generalized debility. DISCHARGE PLAN [facility] for subacute rehab patient states he has not had a bowel movement today.. Impression and plan of care have been directed as dictated by the signing physician. Abbi Forrest nurse practitioner acting as scribe for signing physician. Patient Condition at Discharge: Good Plan - Discharge Summary Discharge Rx Participant: No New Discharge Prescriptions: New Vancomycin 250 mg PO QID 14 Days Continue Simvastatin [Zocor] 20 mg PO HS Insulin Detemir [Levemir Flextouch Pen] 30 units SQ BID Repaglinide [Prandin] 2 mg PO AC-TID Silodosin [Rapaflo] 8 mg PO DAILY Quinapril HCl [Accupril] 20 mg PO DAILY INSULIN ASPART (NovoLOG) [NovoLOG (formulary)] See Protocol SQ ACHS glipiZIDE [Glucotrol] 10 mg PO AC-BID Acetaminophen Tab [Tylenol] 325 mg PO Q4H PRN PRN Reason: Pain Darifenacin Hydrobromide [Enablex] 15 mg PO DAILY Zinc Oxide 20% Oint 1 applic TOPICAL BID PRN applic PRN Reason: Bilat upper buttock Lactobacillus Acidoph & Bulgar [Lactinex] 1 pack PO TID Cholestyramine (with Sugar) [Questran Packet] 4 gm PO BID Discharge Medication List Insulin Detemir [Levemir Flextouch Pen] 30 units SQ BID 05/24/20 [History] Repaglinide [Prandin] 2 mg PO AC-TID 05/24/20 [History] Simvastatin [Zocor] 20 mg PO HS 05/24/20 [History] Silodosin [Rapaflo] 8 mg PO DAILY 10/20/20 [History] Darifenacin Hydrobromide [Enablex] 15 mg PO DAILY 12/11/20 [History] INSULIN ASPART (NovoLOG) [NovoLOG (formulary)] See Protocol SQ ACHS 12/11/20 [History] Quinapril HCl [Accupril] 20 mg PO DAILY 12/11/20 [History] Zinc Oxide 20% Oint 1 applic TOPICAL BID PRN applic 12/16/20 [Rx] Acetaminophen Tab [Tylenol] 325 mg PO Q4H PRN 01/24/21 [History] Cholestyramine (with Sugar) [Questran Packet] 4 gm PO BID 01/24/21 [History] Lactobacillus Acidoph & Bulgar [Lactinex] 1 pack PO TID 01/24/21 [History] glipiZIDE [Glucotrol] 10 mg PO AC-BID 01/24/21 [History] Vancomycin 250 mg PO QID 14 Days 01/27/21 [Rx] Follow up Appointment(s)/Referral(s): Papo Herrera, [NON-STAFF] - As Needed [facility], [NON-STAFF] - As Needed Gerardo Schmidt MD [STAFF PHYSICIAN] - As Needed Ed Culver MD [Primary Care Provider] - 1 Week (at [facility]) Discharge Disposition: TRANSFER TO SNF/ECF
[2021-01-27 11:19] LABS: ALT 7 U/L (4-49); AST 13 U/L (17-59); African American GFR (CKD) 85 (>60 ml/min/1.73 sqM); Albumin 3.1 g/dL (3.5-5.0); Albumin/Globulin Ratio 1.3; Alkaline Phosphatase 54 U/L (38-126); Anion Gap 8 mmol/L; Blood Urea Nitrogen 23 mg/dL (9-20); Calcium 9.1 mg/dL (8.4-10.2); Carbon Dioxide 24 mmol/L (22-30); Chloride 106 mmol/L (98-107); Globulin 2.3 g/dL; Glucose 115 mg/dL (74-99); Non-African American GFR(CKD) 73 (>60 ml/min/1.73 sqM); Potassium 4.5 mmol/L (3.5-5.1); Sodium 138 mmol/L (137-145); Total Bilirubin <0.1 mg/dL (0.2-1.3); Total Protein 5.4 g/dL (6.3-8.2)
[2021-01-27 11:27] LABS: Glucose,Whole Blood 146 mg/dL (75-99)
[2021-01-27 13:11] LABS: HCT 31.4 % (39.0-53.0); HGB 10.2 gm/dL (13.0-17.5); Hypochromasia Slight; MCH 28.6 pg (25.0-35.0); MCHC 32.5 g/dL (31.0-37.0); Mean Platelet Volume 8.8; Platelet Count 305 k/uL (150-450); RBC 3.57 m/uL (4.30-5.90); RDW 15.2 % (11.5-15.5); WBC 7.2 k/uL (3.8-10.6)
--- NOTE | 2021-01-27 14:18 | PN ---
PROGRESS NOTE DATE OF SERVICE: 01/27/2021 REASON FOR FOLLOWUP: Recurrent C difficile colitis. INTERVAL HISTORY: Patient is afebrile. The patient is currently breathing comfortably. Denies having any chest pain, shortness of breath or cough. No abdominal pain. Diarrhea has decreased. PHYSICAL EXAMINATION: Blood pressure 107/56, pulse temperature 98.4. He is 95% on room air. General description is an elderly male lying in bed in no distress. Respiratory system: Unlabored breathing, clear to auscultation anteriorly. Heart S1, S2. Regular rate and rhythm. Abdomen soft, no tenderness. LABS: Hemoglobin is 10.1, white count 7.2, BUN of 23, creatinine 0.99. DIAGNOSTIC IMPRESSION AND PLAN: Patient with recurrent C difficile colitis. This patient has clinically responded to oral vancomycin to continue for at least 2 weeks while we will try to arrange for the outpatient transplant. Continue supportive care. MMANTONIETTA / ANAN: [id number] /
== END 2021-01-27 14:05 | DRG 372 ==
LOC: EC 11:15 → 4SSUR 14:55
PROVIDERS: ADMIT Internal Medicine Geriatric Medicine; ATTEND Internal Medicine Geriatric Medicine
DX: A04.71 Enterocolitis due to Clostridium difficile, recurrent (principal); N17.9 Acute kidney failure, unspecified; E78.5 Hyperlipidemia, unspecified; M15.9 Polyosteoarthritis, unspecified; D50.0 Iron deficiency anemia secondary to blood loss (chronic); K64.9 Unspecified hemorrhoids; N40.0 Benign prostatic hyperplasia without lower urinary tract symptoms; R15.9 Full incontinence of feces; N18.32 Chronic kidney disease, stage 3b; I12.9 Hypertensive chronic kidney disease with stage 1 through stage 4 chronic kidney disease, or unspecified chronic kidney disease; E11.22 Type 2 diabetes mellitus with diabetic chronic kidney disease; Z79.4 Long term (current) use of insulin; Z88.0 Allergy status to penicillin; Z88.1 Allergy status to other antibiotic agents; Z87.891 Personal history of nicotine dependence; Z85.46 Personal history of malignant neoplasm of prostate; Z20.822 Contact with and (suspected) exposure to COVID-19; Z80.42 Family history of malignant neoplasm of prostate; Z80.8 Family history of malignant neoplasm of other organs or systems; Z87.440 Personal history of urinary (tract) infections; Z87.442 Personal history of urinary calculi; Z79.899 Other long term (current) drug therapy; R32 Unspecified urinary incontinence; R53.81 Other malaise
CPT/HCPCS: 36415; 80053; 81001; 82150; 83690; 85025; 85027; 87324; 87635; 96374; 99285

== ENCOUNTER 2021-05-16 12:23 | Emergency (ER) | payer MEDICARE ==
[2021-05-16 12:32] VITALS: TEMP 98.5
--- NOTE | 2021-05-16 12:43 | ED ---
General Adult HPI - General Chief complaint: Nausea/Vomiting/Diarrhea Stated complaint: C diff Time Seen by Provider: 05/16/21 12:25 Source: patient, EMS, RN notes reviewed, old records reviewed Mode of arrival: EMS - History of Present Illness Initial comments: 75-year-old male patient, alert and oriented, presents to the emergency room stating that he is positive for C. diff and was sent to the emergency room for fecal transplant. Patient states he developed diarrhea and stool was sent in last Sunday came back positive. He's been on vancomycin for 2 days orally and states it has slowed down. Patient states he has had multiple bouts of C. diff. He states he finished a 30 pill treatment for fecal transplant in January. He is currently complaining of left hip pain that is chronic. Denies any nausea, vomiting or fevers. No abdominal pain at this time. -: days(s) (8) Location: left, lower extremity (hip) Severity scale (1-10): 5 Consistency: constant Improves with: none Worsens with: movement Treatments Prior to Arrival: none - Related Data Home Medications Medication Instructions Recorded Confirmed Insulin Detemir [Levemir Flextouch 30 units SQ BID 05/24/20 05/16/21 Pen] Repaglinide [Prandin] 2 mg PO AC-TID 05/24/20 05/16/21 Simvastatin [Zocor] 20 mg PO HS 05/24/20 05/16/21 Silodosin [Rapaflo] 8 mg PO DAILY 10/20/20 05/16/21 Darifenacin Hydrobromide [Enablex] 15 mg PO DAILY 12/11/20 05/16/21 INSULIN ASPART (NovoLOG) [NovoLOG See Protocol SQ ACHS 12/11/20 05/16/21 (formulary)] Quinapril HCl [Accupril] 20 mg PO DAILY 12/11/20 05/16/21 Acetaminophen Tab [Tylenol] 325 mg PO Q4H PRN 01/24/21 05/16/21 Cholestyramine (with Sugar) 4 gm PO BID 01/24/21 05/16/21 [Questran Packet] Lactobacillus Acidoph & Bulgar 1 pack PO TID 01/24/21 05/16/21 [Lactinex] glipiZIDE [Glucotrol] 10 mg PO AC-BID 01/24/21 05/16/21 Ofloxacin 0.3% Ophth Soln [Ocuflox 2 drops RIGHT EYE TID 05/16/21 05/16/21 Ophth Soln] Vancomycin 125 mg PO QID 05/16/21 05/16/21 Allergies Allergy/AdvReac Type Severity Reaction Status Date / Time Penicillins Allergy Swelling Verified 05/16/21 12:34 levofloxacin AdvReac Severe Diarrhea Verified 05/16/21 12:34 ciprofloxacin [From Cipro] AdvReac Vomiting Verified 05/16/21 12:34 Review of Systems ROS Statement: Those systems with pertinent positive or pertinent negative responses have been documented in the HPI. ROS Other: All systems not noted in ROS Statement are negative. Past Medical History Past Medical History: Diabetes Mellitus, Hyperlipidemia, Hypertension, Osteoarthritis (OA), Prostate Disorder Additional Past Medical History / Comment(s): left hip and leg chronic pain, arthritis. Chronic C-Diff History of Any Multi-Drug Resistant Organisms: C-DIFF Date of last positivie culture/infection: 12/09/2020 MDRO Source:: stool Past Surgical History: Hernia Repair, Prostate Surgery Additional Past Surgical History / Comment(s): bladder stones. Past Anesthesia/Blood Transfusion Reactions: No Reported Reaction Past Psychological History: No Psychological Hx Reported Smoking Status: Former smoker Past Alcohol Use History: None Reported Past Drug Use History: None Reported - Past Family History Father Family Medical History: Cancer, Prostate Disorder Additional Family Medical History / Comment(s): Past away from prostate cancer Mother Family Medical History: Cancer Additional Family Medical History / Comment(s): Brain CA General Exam General appearance: alert, in no apparent distress Head exam: Present: atraumatic, normocephalic, normal inspection Eye exam: Present: normal appearance, EOMI ENT exam: Present: normal exam, normal oropharynx, mucous membranes dry Neck exam: Present: normal inspection, full ROM. Absent: tenderness, meningismus, lymphadenopathy, thyromegaly Respiratory exam: Present: rales (Bilateral bases). Absent: respiratory distress, stridor, chest wall tenderness, accessory muscle use Cardiovascular Exam: Present: tachycardia. Absent: JVD GI/Abdominal exam: Present: soft, normal bowel sounds. Absent: tenderness, guarding, rebound, rigid Extremities exam: Present: normal capillary refill, pedal edema (Bilateral lower extremities). Absent: tenderness, joint swelling, calf tenderness Left Hip exam: Present: tenderness, shortening Lower Leg exam: Present: swelling. Absent: tenderness Ankle exam: Present: swelling. Absent: tenderness Foot/Toe exam: Present: swelling. Absent: tenderness Neurovascular tendon exam: Present: no vascular compromise. Absent: abnormal cap refill, extremity cold to touch Right Lower Leg exam: Present: swelling. Absent: tenderness Ankle exam: Present: swelling. Absent: tenderness Foot/Toe exam: Present: swelling. Absent: tenderness Neurovascular tendon exam: Present: no vascular compromise. Absent: abnormal cap refill, extremity cold to touch Neurological exam: Present: alert, oriented X3 Psychiatric exam: Present: normal affect, normal mood Skin exam: Present: warm, dry, intact, normal color. Absent: rash, cyanosis, diaphoretic, petechiae, pallor Course Vital Signs 05/16/21 05/16/21 05/16/21 12:26 15:52 17:41 Temperature 98.5 F Pulse Rate 103 H 79 69 Respiratory 18 18 18 Rate Blood Pressure 150/75 128/62 142/62 O2 Sat by Pulse 99 99 99 Oximetry 05/16/21 19:32 Temperature Pulse Rate 74 Respiratory 16 Rate Blood Pressure 133/73 O2 Sat by Pulse Oximetry Medical Decision Making - Medical Decision Making 75-year-old male patient, alert and oriented, presents to the emergency room stating that he is positive for C. diff and was sent to the emergency room for fecal transplant. Patient states his stool was sent in last Sunday and came back positive. He's been on vancomycin for 2 days orally and states diarrhea has improved. Patient has had multiple bouts of C. diff this year. Denies any nausea, vomiting or fevers. No abdominal pain at this time. Electrolytes are unremarkable. Anion gap of 9, glucose of 141, BUN of 32 and a sodium of 140, potassium is 4.6. Vital signs are stable. Patient is well- appearing, no evidence of dehydration. Multiple attempts were made to admit patient with GI coverage and was denied at the [facility], [facility], [facility], [facility], [place] and [facility]. I did discuss the case with Dr. Olsen. She agrees that patient can be discharged home to pr ntinue the vancomycin and follow-up with Dr. Schmidt in the office tomorrow. Case also discussed with my attending Dr. Fishman. Per ER nurse patient has not had any diarrhea while in the emergency room for past 6 hours. Patient admits that the diarrhea has slowed started since taking the vancomycin. I did explain to patient that he can follow up with his primary care doctor tomorrow. Patient is concerned for worsening diarrhea. I did have the family caseworker come and speak with the patient as well regarding follow-up and home care nurse that come to the home this week. Case was also discussed with Dr. Fishman and Dr. Olsen who were agreeable to this plan of care. - Lab Data Result diagrams: 05/16/21 13:12 05/16/21 13:12 Lab Results 05/16/21 05/16/21 05/16/21 Range/Units 13:12 13:12 13:12 WBC 10.1 (3.8-10.6) k/uL RBC 3.58 L (4.30-5.90) m/uL Hgb 8.1 L (13.0-17.5) gm/dL Hct 27.5 L (39.0-53.0) % MCV 76.8 L (80.0-100.0) fL MCH 22.7 L (25.0-35.0) pg MCHC 29.5 L (31.0-37.0) g/dL RDW 14.9 (11.5-15.5) % Plt Count 361 (150-450) k/uL MPV 7.4 Neutrophils % 77 % Lymphocytes % 15 % Monocytes % 4 % Eosinophils % 3 % Basophils % 0 % Neutrophils # 7.8 H (1.3-7.7) k/uL Lymphocytes # 1.5 (1.0-4.8) k/uL Monocytes # 0.4 (0-1.0) k/uL Eosinophils # 0.3 (0-0.7) k/uL Basophils # 0.0 (0-0.2) k/uL Hypochromasia Marked Microcytosis Slight Sodium 140 (137-145) mmol/L Potassium 4.6 (3.5-5.1) mmol/L Chloride 106 (98-107) mmol/L Carbon Dioxide 25 (22-30) mmol/L Anion Gap 9 mmol/L BUN 32 H (9-20) mg/dL Creatinine 0.94 (0.66-1.25) mg/dL Est GFR (CKD-EPI)AfAm >90 (>60 ml/min/1.73 sqM) Est GFR (CKD-EPI)NonAf 78 (>60 ml/min/1.73 sqM) Glucose 141 H (74-99) mg/dL Calcium 9.1 (8.4-10.2) mg/dL Total Bilirubin 0.1 L (0.2-1.3) mg/dL AST 13 L (17-59) U/L ALT 11 (4-49) U/L Alkaline Phosphatase 69 (38-126) U/L NT-Pro-B Natriuret Pep 86 pg/mL Total Protein 6.1 L (6.3-8.2) g/dL Albumin 3.5 (3.5-5.0) g/dL Disposition Clinical Impression: Diarrhea Disposition: HOME SELF-CARE Condition: Good Instructions (If sedation given, give patient instructions): Acute Diarrhea (ED) Additional Instructions: Continue taking the vancomycin as prescribed. Increase your fluid intake. Follow-up with Dr. Schmidt tomorrow in the office. Return with any new or worsening symptoms. Is patient prescribed a controlled substance at d/c from ED?: No Referrals: Ed Culver MD [Primary Care Provider] - 1-2 days Gerardo Schmidt MD [STAFF PHYSICIAN] - 1-2 days Time of Disposition: 18:29
[2021-05-16] MEDS ORDERED: MORPHINE SULFATE 2 MG/ML SYRINGE IVP ONE (12:47)
--- NOTE | 2021-05-16 13:54 | XR ---
EXAMINATION TYPE: XR chest 2V DATE OF EXAM: 05/16/2021 COMPARISON: Chest x-ray October 20, 2020. HISTORY: Cough. TECHNIQUE: Frontal and lateral views of the chest are obtained. FINDINGS: Somewhat low lung volumes. There is no new suspicious focal air space opacity, pleural eff usion, or pneumothorax seen. The cardiac silhouette size is stable and within normal limits. The o sseous structures are intact. IMPRESSION: No acute pulmonary process.
[2021-05-16 14:33] LABS: Basophils % (A) 0 %; Eosinophils # (A) 0.3 k/uL (0-0.7); Eosinophils % (A) 3 %; HCT 27.5 % (39.0-53.0); HGB 8.1 gm/dL (13.0-17.5); Hypochromasia Marked; Lymphocytes # (A) 1.5 k/uL (1.0-4.8); Lymphocytes % (A) 15 %; MCH 22.7 pg (25.0-35.0); MCHC 29.5 g/dL (31.0-37.0); MCV 76.8 fL (80.0-100.0); Mean Platelet Volume 7.4; Microcytosis Slight; Monocytes # (A) 0.4 k/uL (0-1.0); Monocytes % (A) 4 %; Neutrophils # (A) 7.8 k/uL (1.3-7.7); Neutrophils % (A) 77 %; Platelet Count 361 k/uL (150-450); RBC 3.58 m/uL (4.30-5.90); RDW 14.9 % (11.5-15.5); WBC 10.1 k/uL (3.8-10.6)
[2021-05-16 14:44] LABS: ALT 11 U/L (4-49); AST 13 U/L (17-59); African American GFR (CKD) >90 (>60 ml/min/1.73 sqM); Albumin 3.5 g/dL (3.5-5.0); Alkaline Phosphatase 69 U/L (38-126); Anion Gap 9 mmol/L; Blood Urea Nitrogen 32 mg/dL (9-20); Calcium 9.1 mg/dL (8.4-10.2); Carbon Dioxide 25 mmol/L (22-30); Chloride 106 mmol/L (98-107); Glucose 141 mg/dL (74-99); Non-African American GFR(CKD) 78 (>60 ml/min/1.73 sqM); Potassium 4.6 mmol/L (3.5-5.1); Sodium 140 mmol/L (137-145); Total Bilirubin 0.1 mg/dL (0.2-1.3); Total Protein 6.1 g/dL (6.3-8.2)
[2021-05-16 19:35] VITALS: BP 133/73; PULSE 74; RESP 16
== END 2021-05-16 21:02 | disposition home or self-care (01) ==
LOC: EC 12:23
DX: R19.7 Diarrhea, unspecified (principal); E11.9 Type 2 diabetes mellitus without complications; E78.5 Hyperlipidemia, unspecified; I10 Essential (primary) hypertension; M19.90 Unspecified osteoarthritis, unspecified site; Z79.4 Long term (current) use of insulin; Z88.0 Allergy status to penicillin; Z88.1 Allergy status to other antibiotic agents; Z87.891 Personal history of nicotine dependence
CPT/HCPCS: 99284; 96374; 36415; 83880; 80053; 85025; 71046; J2270

== ENCOUNTER 2021-07-05 09:02 | Inpatient (IN) | payer MEDICARE ==
[2021-07-05] MEDS ORDERED: SODIUM CHLORIDE 0.9% 1,000 ML IV STA ×3 (09:17→12:30)
--- NOTE | 2021-07-05 09:22 | ED ---
General Adult HPI - General Stated complaint: Weakness Time Seen by Provider: 07/05/21 09:02 Source: patient, EMS, RN notes reviewed Mode of arrival: EMS - History of Present Illness Initial comments: 75-year-old male history of multiple medical problems including she was ulcers a recent GI bleed also history of C. diff for which she's been treated since November of this past year who presents by EMS from care home initial complaints of altered mental status and hypotension. He was reported have a blood pressure 80/40 per EMS they got 88/60 and later 100/60 en route. Upon arrival patient was noted be awake and alert oriented 3. He does complain of pain who is back - Related Data Home Medications Medication Instructions Recorded Confirmed Repaglinide [Prandin] 2 mg PO TID@0800,1200,1700 05/24/20 07/05/21 Simvastatin [Zocor] 20 mg PO HS@2100 05/24/20 07/05/21 Silodosin [Rapaflo] 8 mg PO DAILY@0800 10/20/20 07/05/21 Darifenacin Hydrobromide [Enablex] 15 mg PO DAILY@0800 12/11/20 07/05/21 INSULIN ASPART (NovoLOG) [NovoLOG See Protocol SQ ACHS 12/11/20 07/05/21 (formulary)] Quinapril HCl [Accupril] 20 mg PO HS@2100 12/11/20 07/05/21 Cholestyramine (with Sugar) 4 gm PO BID@0800,1700 01/24/21 07/05/21 [Questran Packet] glipiZIDE [Glucotrol] 10 mg PO BID@0800,1700 01/24/21 07/05/21 Vancomycin 125 mg PO QID 05/16/21 07/05/21 Acetaminophen [Tylenol 8 Hour] 650 mg PO Q4H PRN 07/05/21 07/05/21 Ciprofloxacin Ophth Soln [Cipro 2 drops RIGHT EYE 07/05/21 07/05/21 0.3% Ophth Soln] TID@0600,1400,2100 Cyclobenzaprine [Flexeril] 5 mg PO TID PRN 07/05/21 07/05/21 Cyclobenzaprine [Flexeril] 10 mg PO TID PRN 07/05/21 07/05/21 Cyclobenzaprine [Flexeril] 10 mg PO TID@0600,1400,2100 07/05/21 07/05/21 Famotidine [Pepcid] 20 mg PO DAILY@0800 07/05/21 07/05/21 Ferrous Sulfate [Feosol] 325 mg PO DAILY@1700 07/05/21 07/05/21 Insulin Detemir (Levemir) [Levemir] 30 unit SQ BID@0700,1630 07/05/21 07/05/21 Lactobacillus Cap 1 cap PO TID@0800,1200,1700 07/05/21 07/05/21 Lidocaine 5% Cream 1 applic TOPICAL DIRECTED PRN 07/05/21 07/05/21 Liquacel 30 ml PO BID@0800,1700 07/05/21 07/05/21 Mag Hydrox/Al Hydrox/Simeth 15 ml PO QID PRN 07/05/21 07/05/21 [Maalox] Magnesium Hydroxide [Milk of 2,400 mg PO DAILY PRN 07/05/21 07/05/21 Magnesia] Na Phos,M-B/Na Phos,Di-Ba [Fleet 133 ml RECTAL DAILY PRN 07/05/21 07/05/21 Adult] Ondansetron [Zofran] 4 mg PO Q6H PRN 07/05/21 07/05/21 Tylenol Unknown Dose Supp 1 supp RECTAL Q4H PRN 07/05/21 07/05/21 bisacodyL [Dulcolax] 10 mg RECTAL DAILY PRN 07/05/21 07/05/21 Allergies Allergy/AdvReac Type Severity Reaction Status Date / Time Penicillins Allergy Swelling Verified 07/05/21 10:35 levofloxacin AdvReac Severe Diarrhea Verified 07/05/21 10:35 ciprofloxacin [From Cipro] AdvReac Vomiting Verified 07/05/21 10:35 Review of Systems ROS Statement: Those systems with pertinent positive or pertinent negative responses have been documented in the HPI. ROS Other: All systems not noted in ROS Statement are negative. Past Medical History Past Medical History: Diabetes Mellitus, Hyperlipidemia, Hypertension, Osteoarthritis (OA), Prostate Disorder Additional Past Medical History / Comment(s): left hip and leg chronic pain, arthritis. Chronic C-Diff History of Any Multi-Drug Resistant Organisms: C-DIFF Date of last positivie culture/infection: 12/09/2020 MDRO Source:: stool Past Surgical History: Hernia Repair, Prostate Surgery Additional Past Surgical History / Comment(s): bladder stones. Past Anesthesia/Blood Transfusion Reactions: No Reported Reaction Past Psychological History: No Psychological Hx Reported Smoking Status: Former smoker Past Alcohol Use History: None Reported Past Drug Use History: None Reported - Past Family History Father Family Medical History: Cancer, Prostate Disorder Additional Family Medical History / Comment(s): Past away from prostate cancer Mother Family Medical History: Cancer Additional Family Medical History / Comment(s): Brain CA General Exam - General Exam Comments Initial Comments: This is a well-developed well-nourished awake alert oriented times 3 male General appearance: alert, in no apparent distress Head exam: Present: atraumatic, normocephalic, normal inspection Eye exam: Present: normal appearance, PERRL, EOMI. Absent: scleral icterus, conjunctival injection, periorbital swelling ENT exam: Present: mucous membranes dry Neck exam: Present: normal inspection. Absent: tenderness, meningismus, lymphadenopathy Respiratory exam: Present: normal lung sounds bilaterally. Absent: respiratory distress, wheezes, rales, rhonchi, stridor Cardiovascular Exam: Present: regular rate, normal rhythm, normal heart sounds. Absent: systolic murmur, diastolic murmur, rubs, gallop, clicks GI/Abdominal exam: Present: soft, normal bowel sounds. Absent: distended, tenderness, guarding, rebound, rigid Rectal exam: Present: other (Dark-colored stool. Patient also has what appears be a stage III decubitus ulcer) exam: Present: normal inspection Extremities exam: Present: normal inspection, full ROM, normal capillary refill. Absent: tenderness, pedal edema, joint swelling, calf tenderness Back exam: Present: normal inspection Neurological exam: Present: alert, oriented X3, CN II-XII intact Psychiatric exam: Present: normal affect, normal mood Skin exam: Present: warm, dry, intact, normal color. Absent: rash Course Vital Signs 07/05/21 07/05/21 07/05/21 09:05 10:20 11:00 Temperature 97 F L Pulse Rate 107 H 105 H 104 H Respiratory 18 18 18 Rate Blood Pressure 95/49 80/43 101/51 O2 Sat by Pulse 97 93 L Oximetry 07/05/21 07/05/21 11:27 15:10 Temperature Pulse Rate 102 H 98 Respiratory 18 18 Rate Blood Pressure 106/49 93/42 O2 Sat by Pulse 93 L 95 Oximetry - Reevaluation(s) Reevaluation #1: 07/05/21 15:08 I did reevaluate patient on multiple occasions his blood pressure did eventually come up after multiple liters of fluid. Repeat lactic acid and pro-calcitonin are pending at this time Reevaluation #2: 07/05/21 15:13 [id number] evaluation reveals that the patient is awake alert responding to IV fluids with improved blood pressure. Patient does have C. difficile as well as the coccyx decubitus ulcer. Reevaluation #3: 07/05/21 16:03 I did discuss the case with Dr. Leonardo. At this time IV fluids will be continued as well as ultrasound of the ureter collecting system Reevaluation #4: 07/05/21 16:03 After to be initial success after IV fluid boluses patient still had pressures going down into the 80s systolic at the bases axis was indicated as well as IV Levophed Reevaluation #5: 07/05/21 16:17 Post-line x-ray reveals good position of the tip of the triple-lumen catheter no evidence of pneumothorax at this time - Consultations Consultation #1: Dr. Schmidt is consult for evaluation and antibiotic selection EKG Findings - EKG Results: EKG: interpreted by ERMD, sinus rhythm (Sinus tachycardia rate 102 MA interval 128 QRS duration 105 QT since QTC 390/[address] configuration) Procedures - Central Line Placement Right SC Consent Obtained: verbal consent, emergent situation Patient Placed on Monitor/Pulse Ox: Yes Prep: mask, gown, gloves Central Line Prep: Chlorhexidine scrub Local Anesthesia Used: Lidocaine 1% Amount of Anesthesia Used (mls): 5 Ultrasound Used for Placement: No Central Line Lumen Inserted: triple Bloods Obtained for Lab: No Central Line Position: good blood return, all ports aspirated, flushed, capped, sutured in place with 3-0 nylon Dressing Applied: Tegaderm Patient Tolerated Procedure: well Complications: none - Stool Hemoccult Hemoccult result: positive Medical Decision Making - Medical Decision Making Patient did respond to IV fluids for blood pressure. He does have evidence of acute kidney injury with elevated creatinine. I did discuss the case with Dr. Culver patient will be admitted to ICU with consultation by Dr. Morales and Dr. Leonardo. Repeat evaluation shows patient to be less responsive blood pressure did seem to respond more fluids and vasopressors. Right subclavian appears be functional with no evidence of pneumothorax. Patient is to receive an NG tube decompress the stomach. Also Hsieh catheter which she had previously refused will not be placed. - Lab Data Result diagrams: 07/05/21 09:29 07/05/21 09:29 Lab Results 07/05/21 07/05/21 07/05/21 Range/Units 09:29 09:29 09:29 WBC 22.9 H (3.8-10.6) k/uL RBC 4.74 (4.30-5.90) m/uL Hgb 11.2 L D (13.0-17.5) gm/dL Hct 37.9 L (39.0-53.0) % MCV 80.0 (80.0-100.0) fL MCH 23.6 L (25.0-35.0) pg MCHC 29.5 L (31.0-37.0) g/dL RDW 19.5 H (11.5-15.5) % Plt Count 472 H (150-450) k/uL MPV 8.0 Neutrophils % (Manual) 71 % Band Neuts % (Manual) 5 % Lymphocytes % (Manual) 9 % Monocytes % (Manual) 14 % Metamyelocytes % 1 % Neutrophils # (Manual) 17.40 H (1.3-7.7) k/uL Lymphocytes # (Manual) 2.06 (1.0-4.8) k/uL Monocytes # (Manual) 3.21 H (0-1.0) k/uL Metamyelocytes # (Man) 0.23 H (0) k/uL Nucleated RBCs 0 (0-0) /100 WBC Manual Slide Review Performed Hypochromasia Marked Poikilocytosis (manual Present Anisocytosis Slight Microcytosis Slight Sodium 128 L (137-145) mmol/L Potassium 4.6 (3.5-5.1) mmol/L Chloride 100 (98-107) mmol/L Carbon Dioxide 17 L (22-30) mmol/L Anion Gap 11 mmol/L BUN 98 H (9-20) mg/dL Creatinine 4.26 H (0.66-1.25) mg/dL Est GFR (CKD-EPI)AfAm 15 (>60 ml/min/1.73 sqM) Est GFR (CKD-EPI)NonAf 13 (>60 ml/min/1.73 sqM) Glucose 125 H (74-99) mg/dL Lactic Ac Sepsis Rflx Plasma Lactic Acid Isak 2.3 H* (0.7-2.0) mmol/L Calcium 7.5 L (8.4-10.2) mg/dL Magnesium 2.3 (1.6-2.3) mg/dL Total Bilirubin 0.5 (0.2-1.3) mg/dL AST 21 (17-59) U/L ALT 10 (4-49) U/L Alkaline Phosphatase 66 (38-126) U/L Creatine Kinase 112 (55-170) U/L Troponin I (0.000-0.034) ng/mL Total Protein 4.9 L (6.3-8.2) g/dL Albumin 2.4 L (3.5-5.0) g/dL Lipase 32 (23-300) U/L Stool Occult Blood (Negative) Coronavirus (PCR) (Not Detectd) Blood Type Blood Type Recheck Bld Type Recheck Status Antibody Screen Spec Expiration Date 07/05/21 07/05/21 07/05/21 Range/Units 09:29 09:29 09:30 WBC (3.8-10.6) k/uL RBC (4.30-5.90) m/uL Hgb (13.0-17.5) gm/dL Hct (39.0-53.0) % MCV (80.0-100.0) fL MCH (25.0-35.0) pg MCHC (31.0-37.0) g/dL RDW (11.5-15.5) % Plt Count (150-450) k/uL MPV Neutrophils % (Manual) % Band Neuts % (Manual) % Lymphocytes % (Manual) % Monocytes % (Manual) % Metamyelocytes % % Neutrophils # (Manual) (1.3-7.7) k/uL Lymphocytes # (Manual) (1.0-4.8) k/uL Monocytes # (Manual) (0-1.0) k/uL Metamyelocytes # (Man) (0) k/uL Nucleated RBCs (0-0) /100 WBC Manual Slide Review Hypochromasia Poikilocytosis (manual Anisocytosis Microcytosis Sodium (137-145) mmol/L Potassium (3.5-5.1) mmol/L Chloride (98-107) mmol/L Carbon Dioxide (22-30) mmol/L Anion Gap mmol/L BUN (9-20) mg/dL Creatinine (0.66-1.25) mg/dL Est GFR (CKD-EPI)AfAm (>60 ml/min/1.73 sqM) Est GFR (CKD-EPI)NonAf (>60 ml/min/1.73 sqM) Glucose (74-99) mg/dL Lactic Ac Sepsis Rflx Plasma Lactic Acid Isak (0.7-2.0) mmol/L Calcium (8.4-10.2) mg/dL Magnesium (1.6-2.3) mg/dL Total Bilirubin (0.2-1.3) mg/dL AST (17-59) U/L ALT (4-49) U/L Alkaline Phosphatase (38-126) U/L Creatine Kinase (55-170) U/L Troponin I 0.021 (0.000-0.034) ng/mL Total Protein (6.3-8.2) g/dL Albumin (3.5-5.0) g/dL Lipase (23-300) U/L Stool Occult Blood Positive (Negative) Coronavirus (PCR) (Not Detectd) Blood Type A Positive Blood Type Recheck A Pos Bld Type Recheck Status No Antibody Screen NEGATIVE Spec Expiration Date 07/08/2021232907/05/21 07/05/21 07/05/21 Range/Units 10:17 11:38 14:37 WBC (3.8-10.6) k/uL RBC (4.30-5.90) m/uL Hgb (13.0-17.5) gm/dL Hct (39.0-53.0) % MCV (80.0-100.0) fL MCH (25.0-35.0) pg MCHC (31.0-37.0) g/dL RDW (11.5-15.5) % Plt Count (150-450) k/uL MPV Neutrophils % (Manual) % Band Neuts % (Manual) % Lymphocytes % (Manual) % Monocytes % (Manual) % Metamyelocytes % % Neutrophils # (Manual) (1.3-7.7) k/uL Lymphocytes # (Manual) (1.0-4.8) k/uL Monocytes # (Manual) (0-1.0) k/uL Metamyelocytes # (Man) (0) k/uL Nucleated RBCs (0-0) /100 WBC Manual Slide Review Hypochromasia Poikilocytosis (manual Anisocytosis Microcytosis Sodium (137-145) mmol/L Potassium (3.5-5.1) mmol/L Chloride (98-107) mmol/L Carbon Dioxide (22-30) mmol/L Anion Gap mmol/L BUN (9-20) mg/dL Creatinine (0.66-1.25) mg/dL Est GFR (CKD-EPI)AfAm (>60 ml/min/1.73 sqM) Est GFR (CKD-EPI)NonAf (>60 ml/min/1.73 sqM) Glucose (74-99) mg/dL Lactic Ac Sepsis Rflx Y Plasma Lactic Acid Isak 2.1 H* (0.7-2.0) mmol/L Calcium (8.4-10.2) mg/dL Magnesium (1.6-2.3) mg/dL Total Bilirubin (0.2-1.3) mg/dL AST (17-59) U/L ALT (4-49) U/L Alkaline Phosphatase (38-126) U/L Creatine Kinase (55-170) U/L Troponin I (0.000-0.034) ng/mL Total Protein (6.3-8.2) g/dL Albumin (3.5-5.0) g/dL Lipase (23-300) U/L Stool Occult Blood (Negative) Coronavirus (PCR) Not Detected (Not Detectd) Blood Type Blood Type Recheck Bld Type Recheck Status Antibody Screen Spec Expiration Date - Radiology Data Radiology results: report reviewed, image reviewed (Imaging x-ray unremarkable abdominal x-ray showed evidence of enlarged gastric bubble. CT pending at this time) Critical Care Time Critical Care Time: Yes Total Critical Care Time: 59 Critical Care Time: Critical care time includes initial presentation with history physical labs x- rays multiple reevaluation patient responsive therapy review of old charts available discussed with multiple physicians admission orders documentation the above. This does not include the time the previous central line in. Disposition Clinical Impression: Acute kidney injury, Hypotensive episode, Lactic acidosis, Leukocytosis, Clostridium difficile colitis, Sepsis associated hypotension, Decubitus ulcer Disposition: ADMITTED IP TO THIS [facility] Condition: Serious Referrals: Ed Culver MD [Primary Care Provider] - 1-2 days
[2021-07-05] MEDS ORDERED: fentaNYL (PF) 50 MCG/ML 2 ML AMP IV STA (10:03)
[2021-07-05 10:10] LABS: Albumin 2.4 g/dL (3.5-5.0); Calcium 7.5 mg/dL (8.4-10.2); Magnesium 2.3 mg/dL (1.6-2.3); Potassium 4.6 mmol/L (3.5-5.1); Total Bilirubin 0.5 mg/dL (0.2-1.3); Total Protein 4.9 g/dL (6.3-8.2)
--- NOTE | 2021-07-05 10:12 | XR ---
EXAMINATION TYPE: XR chest 2V DATE OF EXAM: 07/05/2021 COMPARISON: Chest x-ray 05/24/2021 HISTORY: Weakness, altered mental status, dehydration and hypotension TECHNIQUE: Frontal and lateral views of the chest are obtained. FINDINGS: Low lung volumes are present. Gastric bubble is prominent, left hemidiaphragm is elevated. No evident pneumothorax. Patchy basilar density is present. Patient is rotated. Cardiac mediastinal silhouette is likely stable accounting for differences in technique. IMPRESSION: Basilar atelectasis, correlate to exclude pneumonia, follow-up as indicated.
[2021-07-05 10:14] LABS: Anisocytosis Slight; HCT 37.9 % (39.0-53.0); Hypochromasia Marked; MCH 23.6 pg (25.0-35.0); MCHC 29.5 g/dL (31.0-37.0); Microcytosis Slight; Platelet Count 472 k/uL (150-450); RBC 4.74 m/uL (4.30-5.90); RDW 19.5 % (11.5-15.5); WBC 22.9 k/uL (3.8-10.6)
[2021-07-05 10:21] LABS: HGB 11.2 gm/dL (13.0-17.5)
[2021-07-05] MEDS ORDERED: SODIUM CHLORIDE 0.9% 1,000 ML IV ONE (10:30)
[2021-07-05 11:28] LABS: Band Neutrophils % 5 %; Lymphocytes # (M) 2.06 k/uL (1.0-4.8); Metamyelocytes # (M) 0.23 k/uL (0); Metamyelocytes % 1 %; Monocytes # (M) 3.21 k/uL (0-1.0); Neutrophils % (M) 71 %; Nucleated Red Blood Cells 0 /100 WBC (0-0); Total Cells Counted 200
[2021-07-05 11:32] LABS: Poikilocytosis (M) Present
--- NOTE | 2021-07-05 13:36 | XR ---
KUB HISTORY: Pain, weakness Frontal KUB submitted on 2 images, comparison CT 05/24/2020 There is a gas-distended stomach present. Gas-filled loops of colon also noted. Marked arthropathy is present within the left hip. Degenerative disc changes are present in the visualized spine. Lung vol umes are low. Patchy densities present at the lung bases. No evident pneumoperitoneum. There may be u rinary catheter present, artifact is noted over the upper lower extremities. Calcification in the rig ht paraspinal location likely is within the right kidney measuring 15 mm. IMPRESSION: Correlate for ileus, colitis, gas-distended stomach is indeterminate, outlet obstruction not excluded. Right nephrolithiasis.
[2021-07-05] MEDS ORDERED: PANTOPRAZOLE 40 MG/10 ML VIAL IVP STA (15:08)
--- NOTE | 2021-07-05 15:18 | CT ---
EXAMINATION TYPE: CT abdomen pelvis wo con DATE OF EXAM: 07/05/2021 HISTORY: Ileus. Pain and swelling. CT DLP: 1543.40 mGycm. Automated Exposure Control for Dose Reduction was Utilized. TECHNIQUE: CT scan of the abdomen and pelvis is performed without oral or IV contrast. COMPARISON: CT abdomen pelvis May 24, 2020 FINDINGS: Within the limitations of a non-contrast study, the following observations are made. LUNG BASES: There is significant motion artifact degradation which lowers sensitivity for subcentimet er nodules. There are tiny bilateral pleural effusions with associated compressive atelectasis, sligh t nodularity in the right lung base axial image 10 is identified. LIVER/GB: No significant abnormality is appreciated. PANCREAS: Moderate to severe atrophy is more prominent versus prior. SPLEEN: Small amount of ascites adjacent to the spleen image 21.. ADRENALS: No significant abnormality is seen. KIDNEYS: Cortical thinning bilaterally. Central 2.2 cm staghorn type calculus right kidney coronal im age 83. No hydronephrosis seen bilaterally. BOWEL: Suboptimal due to lack of enteric contrast along with artifact from patient motion and overlyi ng upper extremities and leads. There is moderate gaseous distended stomach. Duodenal sweep is fluid- filled but not suspiciously dilated. Small bowel loops throughout the abdomen show no abnormal dilata tion. Areas of dzsk-pw-syjilkfr wall thickening are felt present. Fecal material is seen in nondisten ded small bowel loops right lower quadrant. There is severe wall thickening of the cecum and right co wayne. There is gas prominent proximal to mid transverse colon. There is moderate to severe wall thicke shavonne distal one third transverse colon through the splenic flexure into the left colon. There is poor visualization of sigmoid colon due to ill-defined fluid in the pelvis blurring bowel loops. GENITAL ORGANS: Normal size prostate. LYMPH NODES: No greater than 1cm abdominal or pelvic lymph nodes are appreciated. OSSEOUS STRUCTURES: Deformity left hip with iagn-sk-comy formation, large spurring and subchondral cy stic change and loss of spherical head all redemonstrated. Underlying Scoliotic curvature or positioning noted. OTHER: Mild/moderate calcified plaque of the aorta extends into branch vessels. IMPRESSION: Suboptimal study. Multifocal severe colitis is thought present. Correlate clinically. Are as of acute enteritis also suspected. Small amount of abdominal and pelvic ascites of uncertain etiol ogy contributes to suboptimal study. Moderate Gas distended stomach of uncertain etiology. No bowel o bstruction is present.
[2021-07-05] MEDS ORDERED: cefTRIAXone IN SWFI 1,000 MG/10 ML SYRINGE IVP STA (15:21)
[2021-07-05] MEDS ORDERED: NOREPINEPHRINE 32 MG in SODIUM CHLORIDE 0.9% 218 ML IV SCH (15:30)
[2021-07-05] MEDS ORDERED: NOREPINEPHRINE 4 MG in SODIUM CHLORIDE 0.9% 250 ML IV SCH (16:00)
--- NOTE | 2021-07-05 16:18 | XR ---
EXAMINATION TYPE: XR chest 1V confirm line [facility] DATE OF EXAM: 07/05/2021 COMPARISON: Chest x-ray earlier today HISTORY: Postcentral line insertion. TECHNIQUE: Single AP portable frontal upright view of the chest is obtained. FINDINGS: New right subclavian central venous catheter terminates at brachiocephalic confluence. No p neumothorax seen after catheter insertion. There is persistent low lung volumes with bibasilar opacit ies consistent with atelectasis and/or infiltrates. The cardiac silhouette size remains within dioni l limits. The osseous structures are intact. Gas prominent stomach redemonstrated. IMPRESSION: As above.
[2021-07-05] MEDS ORDERED: NALOXONE 0.4 MG/ML 1 ML VIAL IV PRN (16:22)
[2021-07-05] MEDS ORDERED: metroNIDAZOLE-NS PMX 500 MG in SALINE 1 100ML.BAG IVPB STA (16:29)
[2021-07-05 17:03] LABS: Glucose,Whole Blood 178 mg/dL (75-99)
--- NOTE | 2021-07-05 17:24 | US ---
EXAMINATION TYPE: US kidneys/renal and bladder DATE OF EXAM: 07/05/2021 COMPARISON: CT today CLINICAL HISTORY: Acute kidney injury. EXAM MEASUREMENTS: Right Kidney: 6.9 x 2.6 x 4.5 cm Left Kidney: 9.0 x 5.7 x 5.8 cm Post Void Residual Volume: not assessed on EC patient with Hsieh Catheter present Limited US as patient unable to turn and kidneys partially obscured by overlying bowel gas. Right Kidney: small for size ; cortical thickness less than 0.8cm. Left Kidney: small for size Bladder: Hsieh Cather seen within in TR view There is no evidence for hydronephrosis at this point in time. No masses are identified. IMPRESSION: Limited exam no evidence for obstructive uropathy
[2021-07-05 17:48] LABS: Appearance,Urine Cloudy (Clear); Bacteria,Urine Rare /hpf; Bilirubin,Urine Negative (Negative); Blood,Urine Negative (Negative); Color,Urine Yellow; Glucose,Urine (UA) Trace (Negative); Ketones,Urine Negative (Negative); Leukocyte Esterase,Urine Negative (Negative); Mucus,Urine Rare /hpf; Nitrite,Urine Negative (Negative); Protein,Urine Trace (Negative); RBC,Urine 1 /hpf (0-5); Squamous Epithelial Cell,Urine <1 /hpf (0-4); Urobilinogen,Urine <2.0 mg/dL (<2.0); WBC,Urine 2 /hpf (0-5)
[2021-07-05] MEDS ORDERED: VANCOMYCIN 125 MG CAPSULE PO SCH (18:00)
--- NOTE | 2021-07-05 18:20 | CT ---
EXAMINATION TYPE: CT brain wo con CT DLP: 1218.4 mGycm, Automated exposure control for dose reduction was used. DATE OF EXAM: 07/05/2021 5:47 PM COMPARISON: .Prior CT Brain from 10/20/2020 CLINICAL INDICATION:Male, 75 years old with history of left weakness, AMS TECHNIQUE: Brain: Multiple axial CT images of the brain were obtained without IV contrast. FINDINGS: Brain: Extra-axial spaces: No abnormal extra-axial fluid collections. Ventricular system: Within normal limits Cerebral parenchyma: No acute intraparenchymal hemorrhage or mass effect. The barcenas-white junction is well differentiated. Cerebellum: Unremarkable. Mass effect: No evidence of midline shift. Intracranial vasculature: unremarkable Soft tissues: Normal. Calvarium/osseous structures: No depressed skull fracture. Paranasal sinuses and mastoid air cells: Clear. Visualized orbits: Right aphakia IMPRESSION: No acute intracranial process.
[2021-07-05] MEDS: INSULIN ASPART (NovoLOG) 100 UNIT/ML VIAL SQ SCH ×2 (18:27→21:18)
--- NOTE | 2021-07-05 18:32 | XR ---
EXAMINATION TYPE: XR chest 1V portable DATE OF EXAM: 07/05/2021 5:06 PM COMPARISON:Multiple radiographs, with the most recent on September 2021 TECHNIQUE: Frontal view of the chest. CLINICAL INDICATION:Male, 75 years old with history of NG tube placement. ; FINDINGS: Lungs/Pleura: Bibasilar atelectasis. No evidence for pneumothorax pleural effusion or focal consolida tion. Pulmonary vascularity: Unremarkable. Heart/mediastinum: Cardiomediastinal silhouette is unremarkable. Musculoskeletal: No acute osseous pathology. Lines/Tubes: Right-sided PICC line with distal tip at the cavoatrial junction. Nasogastric tube with distal tip and side-port projecting over the gastric lumen. IMPRESSION: Bibasilar atelectasis with nasogastric tube and right PICC in appropriate position.
[2021-07-05 19:11] LABS: Glucose,Whole Blood 200 mg/dL (75-99)
[2021-07-05] MEDS ORDERED: PANTOPRAZOLE 40 MG/10 ML VIAL IVP SCH (21:00)
[2021-07-05 21:07] LABS: Glucose,Whole Blood 193 mg/dL (75-99)
[2021-07-05] MEDS ORDERED: ACETAMINOPHEN TAB 325 MG TAB PO PRN (21:16)
[2021-07-05] MEDS ORDERED: bisacodyL 10 MG SUPP RECTAL PRN (21:16)
[2021-07-05] MEDS ORDERED: MAG HYDROX/AL HYDROX/SIMETH 30 ML CUP PO PRN (21:16)
[2021-07-05] MEDS ORDERED: CYCLOBENZAPRINE 5 MG TAB PO PRN (21:16)
[2021-07-05] MEDS ORDERED: ONDANSETRON 4 MG TAB PO PRN (21:16)
[2021-07-05] MEDS ORDERED: [UNRECOGNIZED DRUG - OTHER] RECTAL PRN (21:16)
[2021-07-05] MEDS ORDERED: VANCOMYCIN ORAL SOLUTION 250 MG/5 ML BOTTLE NG-TUBE SCH (22:00)
--- NOTE | 2021-07-05 22:01 | P.HPIM ---
History of Present Illness H&P Date: 07/05/21 HISTORY OF PRESENT ILLNESS 75-year-old male while my office patient with known for long time with past medical history of type 2 diabetes, chronic hip pain with generalized o steoarthritis, benign prostatic hypertrophy post TURP in July 2020, frequent urinary tract infection, frequent kidney stone, history of prostate cancer has been managed with conservative management, chronically shortened left leg from severity of hip pain and arthritis along with lower back pain, patient was hospitalized 3 times in the last few month with C. diff colitis also had an episode of acute kidney injury caused by rhabdomyolysis has improved from it. Patient was treated previously with a variety of management for C. diff including vancomycin orally, Dificid and full course also had management with capsule stool transplant few month ago. Patient has been in and out of [facility] was hospitalized recently at [facility] as a transfer from [facility] for acute gastrointestinal bleed patient found to have peptic ulcer disease was stabilized require blood transfusion become severely weak and up being transferred to [facility]. At the time arrived to [facility] is co mplaining of sinus symptom of C. diff despite test be negative initially. Patient found to have large decubitus ulcer on the sacrum area stage II along with a pressure ulcer on the left heel area stage IV has been watch and manage by the wound clinic at [facility]. Patient was on doxycycline recently also was diagnosed with C. diff this last Sunday was started on vancomycin. patient found to have severe hypotension this morning. He was initially to be transferred to the hospital then had significant altered mental status with worsening confusion and blood pressure was running only 60/40 was transferred to [facility] emergency department where was seen and evaluated surprisingly found to have multi-medical problem including acute kidney injury with creatinine at the time running at 4.26 with GFR only 13 with significant drop in urine output. Also found to have mild hyponatremia. Patient found to have leukocytosis with white blood cell of 22,000 left shifted with no sign of acute infection with the exception of his C. diff along with decubitus ulcer. Hemoccult was positive COVID-19 was negative. Patient had multi-x-ray including a chest x-ray showed basilar atelectasis correlate to exclude pneumonia. CAT scan of the abdomen and pelvis surprisingly showed acute colitis. Repeat chest x-ray few hours later it showed position of central line is in place. Abdominal and kidney ultrasound shows limited exam with no evidence of hydronephrosis. CAT scan of the brain was done later on after patient developed acute stroke at the time and shows no intracranial hemorrhage. As patient was hydrated and treated for hypertension and possible acute sepsis patient had significant altered mental status and become with a flaccid weakness in the left side code stroke was called at the time patient was not a candidate for TPA. At that time CAT scan of the brain did not show any intracranial hemorrhage or abnormality. Patient blood pressure remain slightly bit low and patient will require a smaller dose of pressor to keep his systolic blood pressure above 100. After coming back from the CAT scan after his stroke patient left of consciousness remain limited able to answer some questions with gesture or one-word only. I had long discussion with the son Reno who is about 3 hours away was informed about his dad current condition and patient's CODE STATUS at this point remain DO NOT RESUSCITATE no intubation. Patient be transferred to the ICU to be seen by neurology, speech, infectious disease for the C. diff and the sepsis, pulmonary for ICU management. REVIEW OF SYSTEMS Constitutional: No fever, no chills, no night sweats. No weight change. stroke with flaccid left-sided weakness with significant altered mental status. EENT: No headache. No blurred vision or double vision, no loss of vision. Reports chronic loss of Hearing. No nasal drainage or congestion. No epistaxis. Reports sore throat. Lungs: No shortness of breath, cough, no sputum production. No wheezing. Cardiovascular: No chest pain, no lower extremity edema. No palpitations. No paroxysmal nocturnal dyspnea. No orthopnea. No lightheadedness or dizziness. No syncopal episodes. Abdominal: abdominal distention with discomfort acute GI bleed with recurrent colitis recurrent C. diff decrease respond to certain diet and oral medication lately. Positive C. diff colitis with significant diarrhea lately as well. Genitourinary: No dysuria, increased frequency, urgency. No urinary retention. Musculoskeletal: Reports generalized myalgias. Reports muscle weakness, no gait dysfunction, no frequent falls. No back pain. No neck pain. Integumentary: Multiple abrasions to bilateral upper and lower extremities and decubitus ulcers to the buttocks. No rash or pruritus. Significant bruising to extremities and face. had large decubitus in the sacrum area stage II along with large left heel stage IV ulcer. Neurologic: positive flaccid left-sided weakness with sign of stroke. Psychiatric: No depression. No anxiety. No mood swings. Endocrine: No abnormal blood sugars. SOCIAL HISTORY Patient was a smoker of cigarettes or pipe tobacco smoke for 30+ years and quit in the . He denies any alcohol use, marijuana use or illicit drug use. 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 He has been since 1980. Patient currently lives at home alone and has home care in place. Patient was recently admitted [facility] for subacute rehab. FAMILY HISTORY Father in his 70s from prostate cancer with metastatic disease. Mother in her 50s from malignant brain tumor. Patient does not have any sisters. Patient has one brother and he is living with no major medical problems. Patient has 2 children with no major medical problems. PHYSICAL EXAMINATION Gen: This is a 75-year-old male patient. seen and examined still in the emergency room less than an hour after still continue to have flaccid left-sided weakness, significant decrease level of consciousness at this point with limited response. HEENT: Head has significant ecchymosis to the left side of the face, normocephalic. Pupils equal, round. Sclerae is anicteric.slight droopy face. NECK: Supple. No JVD. No lymphadenopathy. No thyromegaly. LUNGS: Clear to auscultation. No wheezes or rhonchi. No intercostal retractions. HEART: Regular rate and rhythm. No murmur. ABDOMEN: distention with hyper bowel sound with slight discomfort bloating sensation. Back and rectum: Had stage II decubitus in a larger area measured 1517 cm. EXTREMITIES: 1+ edema both side left leg is shorter than the right side with slight deformity of the foot had severe flaccid weakness of the left side patient had large ulcerated stage IV ulcer in the heel area major three-time 5 cm. NEUROLOGICAL: patient is arousable but falling sleep right away had slight droopy face of the left side with significant flaccid weakness of the left side compared to the right. ASSESSMENT AND PLAN 1. acute kidney injury most likely secondary to acute tubular necrosis and hypovolemia: Patient was hydrated and admitted to the hospital see nephrology ultrasound of the kidney be done watch his urine output. 2 altered mental status: Most likely from hypertension and stroke probably patient was having mild episodes of TIA with possible atypical seizure at the time. Will be seen urology CAT scan of the brain was done not clear whether patient be able to go for an MRI in the next 24 hours or not. 3 possible sepsis: Source most likely decubitus ulcer of the sacrum and left heel area patient will be on broad-spectrum antibiotic at this point infectious disease would be seen and culture be done. 4 stroke with left-sided weakness: Patient be going for carotid ultrasound along with echocardiogram will consult neurology start PTOT if not able to go for an MRI will repeat another CAT scan in 24 hours. 5 acute GI bleed with positive Hemoccult at this point patient had bleeding ulcer was treated at [facility] with gastroenterology and found to shaver ve large ulcer in the lower part of the esophagus and the stomach area a Chin will remain on proton pump inhibitor through the IV. 6 recurrent C. diff infection: Will be seen infectious disease was on vancomycin orally will be switch to either Vanco or Flagyl. 7 type 2 diabetes: We'll resume insulin sliding scales coverage along with long- acting insulin. 8 large decubitus ulcer both sacrum and left heel, patient be seen infectious disease and probably wound clinic at this point continue topical care continue to reduce the pressure of both side with a change in mattress bedding and frequent change of position. 9 hyponatremia: Was mild after hydration and treating the acute kidney failure repeat CMP in 24 hours. 10 hyperlipidemia: Was on statin, we'll resume medication. 11 acute colitis: Most likely severity happen from the C. diff if possible gastroenterology consultation be done. 12 BPH post transurethral prostatectomy, patient was on Rapaflo have multi course of antibiotic for UTI since. 13 GI prophylaxis: Patient be on Pepcid and PPI. 14 DVT prophylaxis: Anticoagulation with Lovenox or heparin subcutaneous if the bleeding has stopped if not we will hold off on any anticoagulation the exception of Venodyne boots and knee-high ELAINE hose. CODE STATUS: DO NOT RESUSCITATE. Patient will be admitted to the hospital for a minimum of 2 night stay. Past Medical History Past Medical History: Diabetes Mellitus, Hyperlipidemia, Hypertension, Osteoarthritis (OA), Prostate Disorder Additional Past Medical History / Comment(s): left hip and leg chronic pain, arthritis. Chronic C-Diff History of Any Multi-Drug Resistant Organisms: C-DIFF Date of last positivie culture/infection: 12/09/2020 MDRO Source:: stool Past Surgical History: Hernia Repair, Prostate Surgery Additional Past Surgical History / Comment(s): bladder stones. Past Anesthesia/Blood Transfusion Reactions: No Reported Reaction Past Psychological History: No Psychological Hx Reported Smoking Status: Former smoker Past Alcohol Use History: None Reported Past Drug Use History: None Reported - Past Family History Father Family Medical History: Cancer, Prostate Disorder Additional Family Medical History / Comment(s): Past away from prostate cancer Mother Family Medical History: Cancer Additional Family Medical History / Comment(s): Brain CA Medications and Allergies Home Medications Medication Instructions Recorded Confirmed Type Repaglinide [Prandin] 2 mg PO TID@0800,1200,1700 05/24/20 07/05/21 History Simvastatin [Zocor] 20 mg PO HS@2100 05/24/20 07/05/21 History Silodosin [Rapaflo] 8 mg PO DAILY@0800 10/20/20 07/05/21 History Darifenacin Hydrobromide [Enablex] 15 mg PO DAILY@0800 12/11/20 07/05/21 History INSULIN ASPART (NovoLOG) [NovoLOG See Protocol SQ ACHS 12/11/20 07/05/21 History (formulary)] Quinapril HCl [Accupril] 20 mg PO HS@2100 12/11/20 07/05/21 History Cholestyramine (with Sugar) 4 gm PO BID@0800,1700 01/24/21 07/05/21 History [Questran Packet] glipiZIDE [Glucotrol] 10 mg PO BID@0800,1700 01/24/21 07/05/21 History Vancomycin 125 mg PO QID 05/16/21 07/05/21 History Acetaminophen [Tylenol 8 Hour] 650 mg PO Q4H PRN 07/05/21 07/05/21 History Ciprofloxacin Ophth Soln [Cipro 2 drops RIGHT EYE 07/05/21 07/05/21 History 0.3% Ophth Soln] TID@0600,1400,2100 Cyclobenzaprine [Flexeril] 5 mg PO TID PRN 07/05/21 07/05/21 History Cyclobenzaprine [Flexeril] 10 mg PO TID PRN 07/05/21 07/05/21 History Cyclobenzaprine [Flexeril] 10 mg PO TID@0600,1400,2100 07/05/21 07/05/21 History Famotidine [Pepcid] 20 mg PO DAILY@0800 07/05/21 07/05/21 History Ferrous Sulfate [Feosol] 325 mg PO DAILY@1700 07/05/21 07/05/21 History Insulin Detemir (Levemir) [Levemir] 30 unit SQ BID@0700,1630 07/05/21 07/05/21 History Lactobacillus Cap 1 cap PO TID@0800,1200,1700 07/05/21 07/05/21 History Lidocaine 5% Cream 1 applic TOPICAL DIRECTED PRN 07/05/21 07/05/21 History Liquacel 30 ml PO BID@0800,1700 07/05/21 07/05/21 History Mag Hydrox/Al Hydrox/Simeth 15 ml PO QID PRN 07/05/21 07/05/21 History [Maalox] Magnesium Hydroxide [Milk of 2,400 mg PO DAILY PRN 07/05/21 07/05/21 History Magnesia] Na Phos,M-B/Na Phos,Di-Ba [Fleet 133 ml RECTAL DAILY PRN 07/05/21 07/05/21 History Adult] Ondansetron [Zofran] 4 mg PO Q6H PRN 07/05/21 07/05/21 History Tylenol Unknown Dose Supp 1 supp RECTAL Q4H PRN 07/05/21 07/05/21 History bisacodyL [Dulcolax] 10 mg RECTAL DAILY PRN 07/05/21 07/05/21 History Allergies Allergy/AdvReac Type Severity Reaction Status Date / Time Penicillins Allergy Swelling Verified 07/05/21 10:35 levofloxacin AdvReac Severe Diarrhea Verified 07/05/21 10:35 ciprofloxacin [From Cipro] AdvReac Vomiting Verified 07/05/21 10:35 Physical Exam Vitals: Vital Signs Temp Pulse Resp BP Pulse Ox 07/05/21 16:42 108 H 18 108/43 97 07/05/21 16:05 104 H 18 91/39 07/05/21 15:10 98 18 93/42 95 07/05/21 11:27 102 H 18 106/49 93 L 02/08/22 11:00 104 H 18 101/51 93 L 07/05/21 10:20 105 H 18 80/43 07/05/21 09:05 97 F L 107 H 18 95/49 97 Intake and Output 07/05/21 07/05/21 07/05/21 06:59 14:59 22:59 Other: Weight 93.44 kg Results CBC & Chem 7: 07/05/21 09:29 07/05/21 09:29 Labs: Abnormal Lab Results - Last 24 Hours (Table) 07/05/21 07/05/21 07/05/21 Range/Units 09:29 09:29 09:29 WBC 22.9 H (3.8-10.6) k/uL Hgb 11.2 L D (13.0-17.5) gm/dL Hct 37.9 L (39.0-53.0) % MCH 23.6 L (25.0-35.0) pg MCHC 29.5 L (31.0-37.0) g/dL RDW 19.5 H (11.5-15.5) % Plt Count 472 H (150-450) k/uL Neutrophils # (Manual) 17.40 H (1.3-7.7) k/uL Monocytes # (Manual) 3.21 H (0-1.0) k/uL Metamyelocytes # (Man) 0.23 H (0) k/uL Sodium 128 L (137-145) mmol/L Carbon Dioxide 17 L (22-30) mmol/L BUN 98 H (9-20) mg/dL Creatinine 4.26 H (0.66-1.25) mg/dL Glucose 125 H (74-99) mg/dL POC Glucose (mg/dL) (75-99) mg/dL Plasma Lactic Acid Isak 2.3 H* (0.7-2.0) mmol/L Calcium 7.5 L (8.4-10.2) mg/dL Total Protein 4.9 L (6.3-8.2) g/dL Albumin 2.4 L (3.5-5.0) g/dL 07/05/21 07/05/21 Range/Units 14:37 17:02 WBC (3.8-10.6) k/uL Hgb (13.0-17.5) gm/dL Hct (39.0-53.0) % MCH (25.0-35.0) pg MCHC (31.0-37.0) g/dL RDW (11.5-15.5) % Plt Count (150-450) k/uL Neutrophils # (Manual) (1.3-7.7) k/uL Monocytes # (Manual) (0-1.0) k/uL Metamyelocytes # (Man) (0) k/uL Sodium (137-145) mmol/L Carbon Dioxide (22-30) mmol/L BUN (9-20) mg/dL Creatinine (0.66-1.25) mg/dL Glucose (74-99) mg/dL POC Glucose (mg/dL) 178 H (75-99) mg/dL Plasma Lactic Acid Isak 2.1 H* (0.7-2.0) mmol/L Calcium (8.4-10.2) mg/dL Total Protein (6.3-8.2) g/dL Albumin (3.5-5.0) g/dL
[2021-07-05] MEDS: CIPROFLOXACIN 0.3% OPHTH SOLN 5 ML BTL RIGHT EYE SCH (22:12)
--- NOTE | 2021-07-05 22:31 | P.CONS ---
History of Present Illness - Reason for Consult Consult date: 07/05/21 sepsis Requesting physician: Ed Culver - Chief Complaint unresponsive and low blood pressure x 1 day - History of Present Illness History of present illness : Patient is 75-year-old male with a past medical history significant for recurrent C. difficile colitis, type 2 diabetes mellitus chronic pain syndrome, with a recent admission to the [facility] for anemia/GI bleed related to peptic ulcer disease stabilized and subsequently was admitted at [facility], patient apparently was diagnosed with a C diff colitis few days ago for the patient was started on oral vancomycin patient now has been brought to the ER the patient was noticed to be hypotensive with a blood pressure of 60/40 confusion patient on arrival to the ER was afebrile the patient was tachycardic and tachypneic and did have white count of 22,000 with a left shift patient noticed to be in acute renal failure with elevated BUN and creatinine lactic acid was elevated urine was negative patient did have a chest x-ray basilar atelectasis correlate to e xclude pneumonia patient did have a CT of abdominal pelvis which did show some multifocal severe colitis is thought to be present moderate gas distended stomach of uncertain etiology, patient did have a CT of the brain concerning for a no acute cranial process patient did receive a dose of Rocephin in the ER after discussion of the case with me by the ER physician recommended IV Flagyl and oral vancomycin most information has been obtained from review the chart and talking to the nursing staff as the patient did not provide any history Review of system: Positive point has been mentioned in HPI complete review could not be obtained because of underlying mental status Past medical history : Reviewed, documented below Past surgical history : Reviewed, documented below Social history: Reviewed, documented below Medications: Reviewed, as documented below EXAMINATION: Vital sigans= Reviewed and documented below GENERAL DESCRIPTION: Elderly male lying in bed, no distress. No tachypnea or accessory muscle of respiration use. HEENT: Shows Pallor , no scleral icterus. Oral mucous membrane is dry. NECK: Trachea central, no thyromegaly. LUNGS: Unlabored breathing decreased breath sound at the base. No wheeze or crackle. HEART: S1, S2, regular rate and rhythm. ABDOMEN: Soft, no tenderness , guarding or rigidity EXTREMITIES: No edema of feet. SKIN: No rash, no masses palpable. NEUROLOGICAL: The patient is lethargic orientation could not be determined LABS AND RADIOLOGY: Reviewed results see below Assessment : Patient presented to hospital with sepsis at this point did have h ypotension elevated white count tachypnea and tachycardia patient did have evidence of severe colitis on the CT and the patient did have a history of recurrent C. difficile colitis likely dealing with a severe C. difficile colitis clinic suspicion low for pneumonia Plan: 1-patient will be treated with the Flagyl 500 mg IV every 8 along with oral vancomycin 500 mg every 6 hours 2-gentle IV fluid We will follow on clinical condition and cultures to further adjust medication if needed Thank you for this consultation we will follow the patient along with you Past Medical History Past Medical History: Diabetes Mellitus, Hyperlipidemia, Hypertension, Os teoarthritis (OA), Prostate Disorder Additional Past Medical History / Comment(s): left hip and leg chronic pain, arthritis. Chronic C-Diff History of Any Multi-Drug Resistant Organisms: C-DIFF Year Discovered:: 12/09/2020 MDRO Source:: stool Past Surgical History: Hernia Repair, Prostate Surgery Additional Past Surgical History / Comment(s): bladder stones. Past Anesthesia/Blood Transfusion Reactions: No Reported Reaction Past Psychological History: No Psychological Hx Reported Smoking Status: Former smoker Past Alcohol Use History: None Reported Past Drug Use History: None Reported - Past Family History Father Family Medical History: Cancer, Prostate Disorder Additional Family Medical History / Comment(s): Past away from prostate cancer Mother Family Medical History: Cancer Additional Family Medical History / Comment(s): Brain CA Medications and Allergies Home Medications Medication Instructions Recorded Confirmed Type Repaglinide [Prandin] 2 mg PO TID@0800,1200,1700 05/24/20 07/05/21 History Simvastatin [Zocor] 20 mg PO HS@209905/24/20 07/05/21 History Silodosin [Rapaflo] 8 mg PO DAILY@0800 10/20/20 07/05/21 History Darifenacin Hydrobromide [Enablex] 15 mg PO DAILY@0800 12/11/20 07/05/21 History INSULIN ASPART (NovoLOG) [NovoLOG See Protocol SQ ACHS 12/11/20 07/05/21 History (formulary)] Quinapril HCl [Accupril] 20 mg PO HS@2100 12/11/20 07/05/21 History Cholestyramine (with Sugar) 4 gm PO BID@0800,1700 01/24/21 07/05/21 History [Questran Packet] glipiZIDE [Glucotrol] 10 mg PO BID@0800,1700 01/24/21 07/05/21 History Vancomycin 125 mg PO QID 05/16/21 07/05/21 History Acetaminophen [Tylenol 8 Hour] 650 mg PO Q4H PRN 07/05/21 07/05/21 History Ciprofloxacin Ophth Soln [Cipro 2 drops RIGHT EYE 07/05/21 07/05/21 History 0.3% Ophth Soln] TID@0600,1400,2100 Cyclobenzaprine [Flexeril] 5 mg PO TID PRN 07/05/21 07/05/21 History Cyclobenzaprine [Flexeril] 10 mg PO TID PRN 07/05/21 07/05/21 History Cyclobenzaprine [Flexeril] 10 mg PO TID@0600,1400,2100 07/05/21 07/05/21 History Famotidine [Pepcid] 20 mg PO DAILY@0800 07/05/21 07/05/21 History Ferrous Sulfate [Feosol] 325 mg PO DAILY@1700 07/05/21 07/05/21 History Insulin Detemir (Levemir) [Levemir] 30 unit SQ BID@0700,1630 07/05/21 07/05/21 History Lactobacillus Cap 1 cap PO TID@0800,1200,1700 07/05/21 07/05/21 History Lidocaine 5% Cream 1 applic TOPICAL DIRECTED PRN 07/05/21 07/05/21 History Liquacel 30 ml PO BID@0800,1700 07/05/21 07/05/21 History Mag Hydrox/Al Hydrox/Simeth 15 ml PO QID PRN 07/05/21 07/05/21 History [Maalox] Magnesium Hydroxide [Milk of 2,400 mg PO DAILY PRN 07/05/21 07/05/21 History Magnesia] Na Phos,M-B/Na Phos,Di-Ba [Fleet 133 ml RECTAL DAILY PRN 07/05/21 07/05/21 History Adult] Ondansetron [Zofran] 4 mg PO Q6H PRN 07/05/21 07/05/21 History Tylenol Unknown Dose Supp 1 supp RECTAL Q4H PRN 07/05/21 07/05/21 History bisacodyL [Dulcolax] 10 mg RECTAL DAILY PRN 07/05/21 07/05/21 History Allergies Allergy/AdvReac Type Severity Reaction Status Date / Time Penicillins Allergy Swelling Verified 07/05/21 10:35 levofloxacin AdvReac Severe Diarrhea Verified 07/05/21 10:35 ciprofloxacin [From Cipro] AdvReac Vomiting Verified 07/05/21 10:35 Physical Exam Vitals: Vital Signs Temp Pulse Resp BP Pulse Ox 07/05/21 16:42 108 H 18 108/43 97 07/05/21 16:05 104 H 18 91/39 07/05/21 15:10 98 18 93/42 95 07/05/21 11:27 102 H 18 106/49 93 L 07/05/21 11:00 104 H 18 101/51 93 L 07/05/21 10:20 105 H 18 80/43 07/05/21 09:05 97 F L 107 H 18 95/49 97 Intake and Output 07/05/21 07/05/21 07/05/21 06:59 14:59 22:59 Other: Weight 93.44 kg Results CBC & Chem 7: 07/05/21 09:29 07/05/21 09:29 Labs: Abnormal Lab Results - Last 24 Hours (Table) 07/05/21 07/05/21 07/05/21 Range/Units 09:29 09:29 09:29 WBC 22.9 H (3.8-10.6) k/uL Hgb 11.2 L D (13.0-17.5) gm/dL Hct 37.9 L (39.0-53.0) % MCH 23.6 L (25.0-35.0) pg MCHC 29.5 L (31.0-37.0) g/dL RDW 19.5 H (11.5-15.5) % Plt Count 472 H (150-450) k/uL Neutrophils # (Manual) 17.40 H (1.3-7.7) k/uL Monocytes # (Manual) 3.21 H (0-1.0) k/uL Metamyelocytes # (Man) 0.23 H (0) k/uL Sodium 128 L (137-145) mmol/L Carbon Dioxide 17 L (22-30) mmol/L BUN 98 H (9-20) mg/dL Creatinine 4.26 H (0.66-1.25) mg/dL Glucose 125 H (74-99) mg/dL POC Glucose (mg/dL) (75-99) mg/dL Plasma Lactic Acid Isak 2.3 H* (0.7-2.0) mmol/L Calcium 7.5 L (8.4-10.2) mg/dL Total Protein 4.9 L (6.3-8.2) g/dL Albumin 2.4 L (3.5-5.0) g/dL 07/05/21 07/05/21 Range/Units 14:37 17:02 WBC (3.8-10.6) k/uL Hgb (13.0-17.5) gm/dL Hct (39.0-53.0) % MCH (25.0-35.0) pg MCHC (31.0-37.0) g/dL RDW (11.5-15.5) % Plt Count (150-450) k/uL Neutrophils # (Manual) (1.3-7.7) k/uL Monocytes # (Manual) (0-1.0) k/uL Metamyelocytes # (Man) (0) k/uL Sodium (137-145) mmol/L Carbon Dioxide (22-30) mmol/L BUN (9-20) mg/dL Creatinine (0.66-1.25) mg/dL Glucose (74-99) mg/dL POC Glucose (mg/dL) 178 H (75-99) mg/dL Plasma Lactic Acid Isak 2.1 H* (0.7-2.0) mmol/L Calcium (8.4-10.2) mg/dL Total Protein (6.3-8.2) g/dL Albumin (3.5-5.0) g/dL
[2021-07-06] MEDS ORDERED: metroNIDAZOLE-NS PMX 500 MG in SALINE 1 100ML.BAG IVPB SCH
[2021-07-06 00:38] VITALS: TEMP 98.2
[2021-07-06 01:55] LABS: Glucose,Whole Blood 195 mg/dL (75-99)
[2021-07-06 05:44] LABS: Glucose,Whole Blood 237 mg/dL (75-99)
[2021-07-06] MEDS: INSULIN ASPART (NovoLOG) 100 UNIT/ML VIAL SQ SCH (05:59)
[2021-07-06] MEDS: CIPROFLOXACIN 0.3% OPHTH SOLN 5 ML BTL RIGHT EYE SCH (06:00)
[2021-07-06 06:20] VITALS: BP 123/86; PULSE 141; RESP 37
[2021-07-06] MEDS ORDERED: INSULIN DETEMIR (LEVEMIR) 100 UNIT/ML SYR SQ SCH (07:00)
[2021-07-06] MEDS ORDERED: NON FORMULARY DRUG (Liquacel 30 ML) PO SCH (08:00)
[2021-07-06] MEDS ORDERED: CHOLESTYRAMINE (WITH SUGAR) 4 GM PACKET PO SCH (09:00)
[2021-07-06] MEDS ORDERED: TAMSULOSIN 0.4 MG CAP.ER.24H PO SCH (09:00)
[2021-07-06] MEDS ORDERED: TROSPIUM CHLORIDE 20 MG TABLET PO SCH (09:00)
[2021-07-06] MEDS ORDERED: LACTOBACILLUS ACIDOPH & BULGAR 1 EACH PACKET PO SCH (09:00)
[2021-07-06] MEDS ORDERED: FAMOTIDINE 20 MG TAB PO SCH (09:00)
[2021-07-06] MEDS ORDERED: FERROUS SULFATE 325 MG TAB PO SCH (17:00)
[2021-07-06] MEDS ORDERED: ATORVASTATIN 10 MG TAB PO SCH (21:00)
--- NOTE | 2021-07-07 12:36 | P.DS ---
Providers Date of admission: 07/05/21 16:22 Expected date of discharge: 07/06/21 Attending physician: Ed Culver Consults: 07/05/21 16:22 Consult Physician Stat Consulting Provider: Missy Morales Consult Reason/Comments: ICU management Do you want consulting provider notified?: Already Contacted Consult Physician Urgent Consulting Provider: Gerardo Schmidt Consult Reason/Comments: Colitis, sepsis, antibiotic management Do you want consulting provider notified?: Already Contacted Consult Physician Urgent Consulting Provider: Marielena Leonardo Consult Reason/Comments: Acute kidney injury Do you want consulting provider notified?: Already Contacted 07/05/21 21:00 Consult Physician Stat Consulting Provider: Ligia Land Consult Reason/Comments: pt with altered mental status and left sided weakness Do you want consulting provider notified?: Already Contacted 07/05/21 21:19 Consult Physician Routine Consulting Provider: Mando Lynn Consult Reason/Comments: CVA with L sided weakness Do you want consulting provider notified?: Yes [facility] Course: HISTORY OF PRESENT ILLNESS 75-year-old male while my office patient with known for long time with past medical history of type 2 diabetes, chronic hip pain with generalized osteoarthritis, benign prostatic hypertrophy post TURP in July 2020, frequent urinary tract infection, frequent kidney stone, history of prostate cancer has been managed with conservative management, chronically shortened left leg from severity of hip pain and arthritis along with lower back pain, patient was hospitalized 3 times in the last few month with C. diff colitis also had an episode of acute kidney injury caused by rhabdomyolysis has improved from it. Patient was treated previously with a variety of management for C. diff including vancomycin orally, Dificid and full course also had management with capsule stool transplant few month ago. Patient has been in and out of [facility] was hospitalized recently at [facility] as a transfer from [facility] for acute gastrointestinal bleed patient found to have peptic ulcer disease was stabilized require blood transfusion become severely weak and up being transferred to [facility]. At the time arrived to [facility] is complaining of sinus symptom of C. diff despite test be negative initially. Patient found to have large decubitus ulcer on the sacrum area stage II along with a pressure ulcer on the left heel area stage IV has been watch and manage by the wound clinic at [facility]. Patient was on doxycycline recently also was diagnosed with C. diff this last Sunday was started on vancomycin. patient found to have severe hypotension this morning. He was initially to be transferred to the hospital then had significant altered mental status with worsening confusion and blood pressure was running only 60/40 was transferred to [facility] emergency department where was seen and evaluated surprisingly found to have multi-medical problem including acute kidney injury with creatinine at the time running at 4.26 with GFR only 13 with significant drop in urine output. Also found to have mild hyponatremia. Patient found to have leukocytosis with white blood cell of 22,000 left shifted with no sign of acute infection with the exception of his C. diff along with decubitus ulcer. Hemoccult was positive COVID-19 was negative. Patient had multi-x-ray including a chest x-ray showed basilar atelectasis correlate to exclude pneumonia. CAT scan of the abdomen and pelvis surprisingly showed acute colitis. Repeat chest x-ray few hours later it showed position of central line is in place. Abdominal and kidney ultrasound shows limited exam with no evidence of hydronephrosis. CAT scan of the brain was done later on after patient developed acute stroke at the time and shows no intracranial hemorrhage. As patient was hydrated and treated for hypertension and possible acute sepsis patient had significant altered mental status and become with a flaccid weakness in the left side code stroke was called at the time patient was not a candidate for TPA. At that time CAT scan of the brain did not show any intracranial hemorrhage or abnormality. Patient blood pressure remain slightly bit low and patient will require a smaller dose of pressor to keep his systolic blood pressure above 100. After coming back from the CAT scan after his stroke patient left of consciousness remain limited able to answer some questions with gesture or one-word only. I had long discussion with the son [place]o who is about 3 hours away was informed about his dad current condition and patient's CODE STATUS at this point remain DO NOT RESUSCITATE no intubation. Patient be transferred to the ICU to be seen by neurology, speech, infectious disease for the C. diff and the sepsis, pulmonary for ICU management. 07/06: Patient on the morning of 07/06. Please see nursing documentation for details. DISCHARGE DIAGNOSES 1. acute kidney injury most likely secondary to acute tubular necrosis and hypovolemia 2. Metabolic encephalopathy secondary to stroke and hypertension. 3. Sepsis: Source most likely decubitus ulcer of the sacrum and left heel. 4 stroke with left-sided weakness. 5 acute GI bleed with positive Hemoccult at this point patient had bleeding ulcer was treated at [facility] with gastroenterology and found to have large ulcer in the lower part of the esophagus and the stomach area. 6 recurrent C. diff infection. 7 type 2 diabetes. 8 large decubitus ulcer both sacrum and left heel. 9 hyponatremia. 10 hyperlipidemia. 11 acute colitis: Most likely severity happen from the C. diff . 12 BPH post transurethral prostatectomy, patient was on Rapaflo have multi course of antibiotic for UTI since. Impression and plan of care have been directed as dictated by the signing physician. Abbi Forrest nurse practitioner acting as scribe for signing physician. Patient Condition at Discharge: Undetermined Plan - Discharge Summary New Discharge Prescriptions: No Action Simvastatin [Zocor] 20 mg PO HS@2100 Repaglinide [Prandin] 2 mg PO TID@0800,1200,1700 Silodosin [Rapaflo] 8 mg PO DAILY@0800 Quinapril HCl [Accupril] 20 mg PO HS@2100 INSULIN ASPART (NovoLOG) [NovoLOG (formulary)] See Protocol SQ ACHS glipiZIDE [Glucotrol] 10 mg PO BID@0800,1700 Liquacel 30 ml PO BID@0800,1700 Tylenol Unknown Dose Supp 1 supp RECTAL Q4H PRN PRN Reason: Pain bisacodyL [Dulcolax] 10 mg RECTAL DAILY PRN PRN Reason: Constipation Ferrous Sulfate [Feosol] 325 mg PO DAILY@1700 Mag Hydrox/Al Hydrox/Simeth [Maalox] 15 ml PO QID PRN PRN Reason: Heartburn Na Phos,M-B/Na Phos,Di-Ba [Fleet Adult] 133 ml RECTAL DAILY PRN PRN Reason: Constipation Darifenacin Hydrobromide [Enablex] 15 mg PO DAILY@0800 Cholestyramine (with Sugar) [Questran Packet] 4 gm PO BID@0800,1700 Vancomycin 125 mg PO QID Lactobacillus Cap 1 cap PO TID@0800,1200,1700 Lidocaine 5% Cream 1 applic TOPICAL DIRECTED PRN PRN Reason: Pain Acetaminophen [Tylenol 8 Hour] 650 mg PO Q4H PRN PRN Reason: Mild Discomfort Ciprofloxacin Ophth Soln [Cipro 0.3% Ophth Soln] 2 drops RIGHT EYE TID@0600,1400,2100 Cyclobenzaprine [Flexeril] 5 mg PO TID PRN PRN Reason: Muscle Spasm Cyclobenzaprine [Flexeril] 10 mg PO TID PRN PRN Reason: Muscle Spasm Cyclobenzaprine [Flexeril] 10 mg PO TID@0600,1400,2100 Famotidine [Pepcid] 20 mg PO DAILY@0800 Insulin Detemir (Levemir) [Levemir] 30 unit SQ BID@0700,1630 Magnesium Hydroxide [Milk of Magnesia] 2,400 mg PO DAILY PRN PRN Reason: Constipation Ondansetron [Zofran] 4 mg PO Q6H PRN PRN Reason: Nausea And Vomiting Discharge Medication List Repaglinide [Prandin] 2 mg PO TID@0800,1200,1700 05/24/20 [History] Simvastatin [Zocor] 20 mg PO HS@209905/24/20 [History] Silodosin [Rapaflo] 8 mg PO DAILY@0800 10/20/20 [History] Darifenacin Hydrobromide [Enablex] 15 mg PO DAILY@0800 12/11/20 [History] INSULIN ASPART (NovoLOG) [NovoLOG (formulary)] See Protocol SQ ACHS 12/11/20 [History] Quinapril HCl [Accupril] 20 mg PO HS@209912/11/20 [History] Cholestyramine (with Sugar) [Questran Packet] 4 gm PO BID@0800,1700 01/24/21 [History] glipiZIDE [Glucotrol] 10 mg PO BID@0800,1700 01/24/21 [History] Vancomycin 125 mg PO QID 05/16/21 [History] Acetaminophen [Tylenol 8 Hour] 650 mg PO Q4H PRN 07/05/21 [History] Ciprofloxacin Ophth Soln [Cipro 0.3% Ophth Soln] 2 drops RIGHT EYE TID@0600,1400,2100 07/05/21 [History] Cyclobenzaprine [Flexeril] 5 mg PO TID PRN 07/05/21 [History] Cyclobenzaprine [Flexeril] 10 mg PO TID PRN 07/05/21 [History] Cyclobenzaprine [Flexeril] 10 mg PO TID@0600,1400,2100 07/05/21 [History] Famotidine [Pepcid] 20 mg PO DAILY@0800 07/05/21 [History] Ferrous Sulfate [Feosol] 325 mg PO DAILY@1700 07/05/21 [History] Insulin Detemir (Levemir) [Levemir] 30 unit SQ BID@0700,1630 07/05/21 [History] Lactobacillus Cap 1 cap PO TID@0800,1200,1700 07/05/21 [History] Lidocaine 5% Cream 1 applic TOPICAL DIRECTED PRN 07/05/21 [History] Liquacel 30 ml PO BID@0800,1700 07/05/21 [History] Mag Hydrox/Al Hydrox/Simeth [Maalox] 15 ml PO QID PRN 07/05/21 [History] Magnesium Hydroxide [Milk of Magnesia] 2,400 mg PO DAILY PRN 07/05/21 [History] Na Phos,M-B/Na Phos,Di-Ba [Fleet Adult] 133 ml RECTAL DAILY PRN 07/05/21 [History] Ondansetron [Zofran] 4 mg PO Q6H PRN 07/05/21 [History] Tylenol Unknown Dose Supp 1 supp RECTAL Q4H PRN 07/05/21 [History] bisacodyL [Dulcolax] 10 mg RECTAL DAILY PRN 07/05/21 [History] Follow up Appointment(s)/Referral(s): Ed Culver MD [Primary Care Provider] - 1-2 days Discharge Disposition: - Preliminary Cause of Preliminary Cause of : ACUTE STROKE
== END 2021-07-06 10:45 | disposition expired | DRG 871 ==
LOC: EC 09:02 → 2SICU 16:22
PROVIDERS: ADMIT Internal Medicine Geriatric Medicine; ATTEND Internal Medicine Geriatric Medicine
DX: A41.9 Sepsis, unspecified organism (principal); L89.624 Pressure ulcer of left heel, stage 4; G93.41 Metabolic encephalopathy; N17.0 Acute kidney failure with tubular necrosis; K22.11 Ulcer of esophagus with bleeding; K25.4 Chronic or unspecified gastric ulcer with hemorrhage; I63.9 Cerebral infarction, unspecified; A04.71 Enterocolitis due to Clostridium difficile, recurrent; E87.1 Hypo-osmolality and hyponatremia; E87.2 Acidosis; G93.49 Other encephalopathy; I69.354 Hemiplegia and hemiparesis following cerebral infarction affecting left non-dominant side; J98.11 Atelectasis; N39.0 Urinary tract infection, site not specified; K52.9 Noninfective gastroenteritis and colitis, unspecified; Z20.822 Contact with and (suspected) exposure to COVID-19; R53.1 Weakness; E11.9 Type 2 diabetes mellitus without complications; E78.5 Hyperlipidemia, unspecified; E86.1 Hypovolemia; G89.4 Chronic pain syndrome; I10 Essential (primary) hypertension; L89.152 Pressure ulcer of sacral region, stage 2; M15.9 Polyosteoarthritis, unspecified; N40.0 Benign prostatic hyperplasia without lower urinary tract symptoms; Z66 Do not resuscitate; Z79.4 Long term (current) use of insulin; Z80.42 Family history of malignant neoplasm of prostate; Z80.8 Family history of malignant neoplasm of other organs or systems; Z85.46 Personal history of malignant neoplasm of prostate; Z87.11 Personal history of peptic ulcer disease; Z87.442 Personal history of urinary calculi; Z87.891 Personal history of nicotine dependence; Z88.0 Allergy status to penicillin; Z88.1 Allergy status to other antibiotic agents
CPT/HCPCS: 36415; 36556; 70450; 71045; 71046; 74018; 74176; 76770; 80053; 81001; 82272; 82550; 83605; 83690; 83735; 84145; 84484; 85025; 86850; 86900; 86901; 87324; 87635; 93005; 96361; 96374; 99291